=== PATIENT | female | born 1935 | race Caucasian/White ===

== ENCOUNTER 2023-09-15 22:01 | Inpatient (IN) | payer OTHER, SELFPAY ==
[2023-09-15] VITALS (7 sets, daily range): BP systolic 128–153; BP diastolic 68–85; BMI 26.7; BMI 26.6
--- NOTE | 2023-09-15 19:12 | ED.GENMED ---
History of Present Illness
General
Chief Complaint: Breathing Problem
Source: patient and ambulance crew
Exam Limitations: none
Time Seen by Provider: 09/15/23 18:55
Nursing documentation reviewed up to this point in time: agreed with
Travel History
Have you had any contact with someone who has COVID-19?: No
Do you have any symptoms of coronavirus? Fever > 100 degrees, chills, cough, shortness of breath, sore throat, loss of taste or smell, muscle aches, or headache?: No
History of Present Illness
History of Present Illness:
87-year-old female presents emergency room due to shortness of breath. EMS gave DuoNeb placed on nonrebreather. Oxygen saturation in the 80s on room air upon EMS arrival. Patient coming from home.
Past History
Past History
ED Past Medical History: Arrthythmia (Atrial fibrillation), Asthma, CHF, HTN, Hypercholesterolemia and Other (MAXIM, SBO with perf. )
ED Past Surgical History: Cholecystectomy and Gynecological
Social History
Tobacco: Non-smoker
Drug: None
Personal:
Living: with family
Family History
Family History: Other (No significant)
Review of Systems
Review of Systems
Allergies reviewed?: Yes
All Other Systems: Not applicable
Constitutional: Reports no symptoms; Denies fever
EENT: Reports no symptoms
Respiratory: Reports cough and trouble breathing
Cardiac: Reports no symptoms; Denies chest pain
ABD/GI: Reports no symptoms
: Reports no symptoms
Musculoskeletal: Reports no symptoms
Skin: Reports no symptoms
Neurological: Reports no symptoms
Endocrine: Reports no symptoms
Hematologic/Lymphatic: Reports no symptoms
Psychiatric: Reports no symptoms
Phy Exam
Physical Exam
Physical Exam:
Physical Exam
General: Moderate respiratory distress, afebrile
Neck: supple. no meningeal signs. normal posterior pharynx
Heart: s1/s2 regular rate and rhythm, no murmur. equal radial
pulses.
HEENT: Pupils equal round reactive to light, EOMI
Lungs: Moderate respiratory distress. Decreased breath sounds and wheezing bilaterally
Abdomen: normal bowel sounds. not tender. no CVAT
Neuro: alert and oriented. no focal neurological deficits cranial nerves II through XII intact
Skin: no rash
Psychiatric: well kept. interactive and cooperative
Extremities: no edema. no calf tenderness. negative homans. good distal pulses
Scores
Heart Failure Risk
Heart Failure Risk Score: Yes
History of Stroke or TIA: No
History of intubation for respiratory distress: No
Heart rate on ED arrival >/= 110: No
SaO2 <90% on arrival on room air: Yes
HR >/=110 during 3min walk test (or too ill to perform test): No
ECG has acute ischemic changes: No
Urea >/=12mmol/L (BUN 33.6mg/dL): No
Serum CO2>/=35mmol/L: No
Troponin I or T elevated to IA Level (0.4mg/dL): No
NT-proBNP >/=5,000ng/L (5,000pg/ml): No
HF Risk Score: 1
Admission Status: MEDIUM RISK 5.1% Consider observation or discharge to home with homecare & f/u visit to PCP/Manager Card, or SNF for treatment
Course
Orders/Labs/Results
Orders:
Orders
09/15/23 Breakfast
Cholesterol Lowering
Cholesterol Lowering: Sodium, 2 Gram
09/15/23 Dinner
Sodium, 2 Gram
At Your Request: Limited Participation
09/15/23 19:07
Cardiac Monitoring- Treatment ONCE
IV Insert/Care/Rem.- Treatment PRN
Ipratropium/Albuterol Sulfate [Duoneb] 3 ml INH R NOW STA
09/15/23 19:10
Electrocardiogram (*1) Stat
Reason for Study: Other
Other Reason for Exam: pneumonia
EKG- Treatment ONCE
09/15/23 19:11
CR Chest Portable - 1 View Urgent
Comment:
Reason For Exam: short of breath
Reason Study Needs to be Portable: Patient Unstable
09/15/23 19:13
Dexamethasone Sod Phosphate [Decadron] 10 mg IV NOW STA
09/15/23 19:25
Complete Blood Count/With Diff Urgent
Comprehensive Metabolic Panel Urgent
NT-proBNP Urgent
Troponin I Urgent
09/15/23 20:36
Furosemide [Lasix] 40 mg IV NOW STA
09/15/23 20:58
Admit/Transfer Patient As Directed
Co-Sign Provider:
Level of Care: Inpatient admission
Assign to:: IMU- Intermediate Care
Physician / Group: Hospitalist
Diagnosis: Congestive Heart Failure
Reason for Hospitalization: Acute heart failure
Expected length of stay greater than two midnights?: Yes
ELOS- Estimated Length of Stay in days: 2
I certify the patient meets the requirements for IP care: Yes
09/15/23 21:00
Code Status As Directed
Resuscitation Status: Full Code
09/15/23 22:47
Acetaminophen [Tylenol] 650 mg PO Q6HPRN PRN
Ipratropium/Albuterol Sulfate [Duoneb] 3 ml INH R Q4HPRN PRN
09/15/23 22:47
HF DIETARY CONSULT Routine
HF EDUCATOR CONSULT Routine
Comment:
VTE Contraindication Routine
VTE Mechanical Device Contraindication: Medical Contraindication
Pharmocologic Contraindication: Medical Contraindication
Activity As Directed
Activity Level: With Assistance
Intake/ Output As Directed
Frequency: Per unit guidelines
Intake/ Output As Directed
Frequency: Per unit guidelines
Patient Education As Directed
Type: CHF folder
Comment: give on admission. Document in Interdisciplinary Education record
Sleep Apnea Assessment by RN As Directed
Comment:
Physician Instructions:
Vital Signs As Directed
Frequency: Other
Additional Instructions:: Q12 or per unit guidelines if more frequent.
Weight As Directed
Frequency: Daily
Type of Scale: Standing Scale
Comment: Daily morning weight. If unable to stand, use balanced bed scale.
Weight As Directed
Frequency: Once
Type of Scale: Standing Scale
Comment: Upon Admission. If unable to stand, use balanced bed scale.
Copd Education [RESP] Routine
Cpap [RESP] Routine
Patient to use own unit?: Yes
Set Pressure (cm H2O): 5
Oxygen Liter Flow: 2 - 4 L
Instructions: Adjust per patient comfort and respiratory rate
Oxygen Therapy [O2 Therapy] [RESP] Routine
Nasal Cannula Liter Flow: 2 LPM
Titrate/Wean O2 to maintain O2 sat greater than (%): 93
Pulse Ox/cont/shift [RESP] Routine
Quantity: 1
Special Instructions: Daily pulse oximetry at rest. If greater than 92% at rest also obtain pulse oximetry
while ambulating as tolerated.
09/16/23 06:00
Echo 2D MMode Color/Doppler IN AM
Reason for Study: heart failure
Basic Metabolic Panel IN AM
Cardiovascular Evaluation IN AM
Complete Blood Count/No Diff IN AM
TSH Reflex To Free T4 IN AM
09/16/23 08:00
Apixaban [Eliquis] 5 mg PO BID
Buspirone [Buspar] 10 mg PO BID
Cholecalciferol (Vitamin D3) [VITAMIN D3 (cholecalciferol)] 50 mcg PO DAILY
Diltiazem Extended Release [Cardizem Cd] 120 mg PO BID
Escitalopram Oxalate [Lexapro] 20 mg PO DAILY
Fluticasone/Salmeterol 115/21 [Advair Hfa 115/21 Mcg Inhaler] 2 puff INH R BID
Furosemide [Lasix] 40 mg IV BID AT 0800,1600
Ipratropium/Albuterol Sulfate [Duoneb] 3 ml INH R QID
Loratadine [Claritin] 10 mg PO DAILY
Losartan [Cozaar] 25 mg PO DAILY
Pantoprazole [Protonix] 40 mg PO DAILY
Prednisone [Deltasone] 40 mg PO DAILY
ipratropium bromide 0 spray NASAL BID
09/17/23 06:00
Basic Metabolic Panel IN AM
09/17/23 20:00
Rosuvastatin Calcium [Crestor] 5 mg PO MOWEFR@1999
09/18/23 06:00
Basic Metabolic Panel IN AM
Abnormal Lab Results
09/15/23
19:25
RBC 3.85 L 10^6/uL
(4.20-5.40)
Hgb 11.3 L g/dL
(12.0-16.0)
Hct 33.2 L %
(37.0-47.0)
MPV 10.9 H fL
(7.4-10.4)
Absolute Lymphs (auto) 0.9 L 10^3/uL
(1.2-3.4)
Neutrophils % 77.5 H %
(42.2-75.2)
Lymphocytes % 11.4 L %
(20.5-51.1)
Glucose 109 H mg/dl
(70-99)
09/15/23 19:25
09/15/23 19:25
Vital Signs
Initial and Last Documented VS:
Initial Vital Signs
Pulse Ox
100
09/15/23 18:54
Last Documented Vital Signs
Temp Pulse Resp BP Pulse Ox
98.6 F 73 30 151/71 92
09/15/23 23:00 09/15/23 22:50 09/15/23 22:50 09/15/23 22:00 09/15/23 22:30
MDM/Problems Addressed
Differential Diagnosis Includes:
CHF, COPD, asthma, pneumonia
MDM/Problems Addressed:
87-year-old female with COPD exacerbation, CHF exacerbation. Admit to hospitalist. No signs of pneumonia. IV Lasix, Decadron given.
Chronic conditions affecting care: Cardiomyopathy, COPD and Other (CHF)
Acute Exacerbation and/or Progression of Chronic Illness: Cardiomyopathy, COPD and Other (CHF)
*Radiology
Radiology exam reviewed: radiology read reviewed (Chest x-ray shows pleural effusion, interstitial edema)
*Pulse Oximetry
Patient hypoxic: yes
*EKG
Interpreted by ED Provider?: Yes
EKG Intrepretation Date: 09/15/23
EKG Intrepretation Time: 19:45
Interpretation: abnormal
Comparison EKG: changes noted
Heart Rate: 70
Rate: normal
Rhythm: ventricular paced
[place]: normal axis
Interval: normal interval
QRS Pattern: left bundle branch block
Ischemia: no ischemia
*Electrical Electronics Engineer Interpretation
Rate: normal
Interpretation: abnormal
Heart Rate: 70
Rhythm: ventricular paced
*Critical Care Note
Total Time (30-74mins, 75-104mins- exclusive of procedures): Not Applicable
Data Reviewed
Review of Other/Old Records Reveals: Records
Source: records (prior admit for SBO 06/07/23)
Patient Management
Social determinants of health affecting care: Living situation and Strong social support
Discussion with other providers: Hospitalist
Escalation/DeEscalation of care consider admission/obs:
admit indicated
ED Attending Note
-
Portions of this chart may have been created with voice recognition software.� Occasional wrong word or��sound alike� substitutions may have occurred due to the inherent limitations of voice recognition software.
Discharge Plan
Departure
Patient Disposition: Admit
Date of Disposition: 09/15/23
Time of Disposition: 20:37
Admit to: Telemetry
Presentation/result/management discussed w/ accepting MD/DO: Hospitalist
Patient with high blood pressure during this ER visit?: Yes
Condition: Fair
Discharge Problem:
Acute exacerbation of CHF (congestive heart failure), Asthma exacerbation
Interventions
Interventions:
*Risk Screen - Suicide Last Done: 09/15/23 19:02
*General Assessment Last Done: 09/15/23 19:02
*Neglect/Abuse Screening Last Done: 09/15/23 19:02
ED- Fall Risk Assessment Last Done: 09/15/23 19:02
*ED COVID-19 Vaccine History Last Done: 09/15/23 19:02
*Nursing Disposition Last Done: 09/15/23 22:55
ED- Cardiac Assessment Last Done: 09/15/23 19:02
ED- Pulmonary Assessment Last Done: 09/15/23 19:02
Discharge Date and Time
Discharge Date/Time: 09/15/23 22:56
[2023-09-15] MEDS: DECADRON 10 MG IV (19:29)
[2023-09-15] MEDS: DUONEB 3 ML INH (19:30)
[2023-09-15 19:33] LABS: % Basophils 0.8 % (0-2); % Eosinophils 2.8 % (0-6); % Immature Granulocytes 0.4 % (0-0.5); % Lymphocytes 11.4 % (20.5-51.1); % Monocytes 7.1 % (1.7-9.3); % Neutrophils 77.5 % (42.2-75.2); Absolute Basophils 0.1 10^3/uL (0-0.2); Absolute Eosinophils 0.2 10^3/uL (0-0.7); Absolute Lymphocytes 0.9 10^3/uL (1.2-3.4); Absolute Monocytes 0.6 10^3/uL (0.1-0.6); Hematocrit 33.2 % (37.0-47.0); Hemoglobin 11.3 g/dL (12.0-16.0); Mean Corpuscular Hgb 29.4 pg (27.0-31.0); Mean Corpuscular Volume 86.2 fL (81.0-99.0); Mean Platelet Volume 10.9 fL (7.4-10.4); Nucleated Red Blood Cells % 0 %; Platelet Count 241 10^3/uL (130-400); Red Blood Cell Count 3.85 10^6/uL (4.20-5.40); Red Cell Dist. Width 14.2 % (11.5-14.5); White Blood Cell Count 7.7 10^3/uL (4.8-10.8)
[2023-09-15 19:48] LABS: ALT (SGPT) 23 U/L (0-35); AST (SGOT) 32 U/L (14-36); Albumin 3.8 g/dl (3.5-5.0); Alkaline Phosphatase 61 U/L (38-126); Blood Urea Nitrogen 13 mg/dl (7-17); Calcium 9.1 mg/dl (8.4-10.2); Carbon Dioxide 26 mmol/L (22-30); Chloride 105 mmol/L (98-107); Estimated Creatinine Clearance 56 ml/min; Glucose 109 mg/dl (70-99); Potassium 3.5 mmol/L (3.5-5.1); Sodium 141 mmol/L (135-145); Total Bilirubin 0.8 mg/dl (0.2-1.3); Total Protein 6.3 g/dl (6.3-8.2); eGFR > 60.00
[2023-09-15 19:58] LABS: NT-proBNP 4630 pg/ml; Troponin I 0.015 ng/ml
[2023-09-15] MEDS: LASIX 40 MG IV (20:54)
--- NOTE | 2023-09-15 21:12 | HPS.HSE ---
Family Physician
-
Family Physician: NO INTERVIEW UNKNOWN
Chief Complaint
-
Shortness of breath
History of Present Illness
This is 87-year-old female with past medical history of persistent atrial fibrillation on anticoagulation, heart block status post PPM, history of CHF with preserved EF prior exacerbation, history of asthma/COPD (no history of smoking tobacco), MAXIM,
pulmonary hypertension presenting with mostly shortness of breath.
History provided by patient somewhat reliably. She reports shortness of breath that is worse with laying down. Family reports that she had bilateral lower extremity swelling a few weeks ago while she was at rehab and was treated with increased
dose of Lasix to 40 mg daily. However this was later decreased back down to 20 mg prior to being discharged home. Upon arrival at home patient started noticing shortness of breath. Family denies any audible wheezing. They denied any productive
cough. They denied any significant cough otherwise. Has been no fevers or chills. She denies having chest pain palpitations lightheadedness or dizziness. She did not notice any increased lower extremity swelling. She has been compliant with
Eliquis and denies having any calf pain. No known sick contacts. No recent travels.
On EMS arrival she was hypoxic to the mid 80s on room air and placed on supplemental nasal cannula. On arrival to ED she was afebrile, blood pressure was stable at 141/75, pulse was 78 but she was tachypneic to the mid 20s. ECG shows a
ventricularly paced rhythm at 70 otherwise unchanged from prior. Chest x-ray shows bilateral pleural effusions, bilateral interstitial edema. Troponin was negative. BNP was elevated at 4000. Chemistries were unremarkable. CBC also unremarkable.
Last echo showed preserved EF of 55 to 60% with LVH.
Medical History
Past Medical History
Past Medical History: Reports Arrhythmia, Asthma, CHF and HTN
Additional Past Medical History:
pulmonary hypertension
PDA repaired at age 15
Past Surgical History: Reports Bowel Resection
Social History
Tobacco: Non-smoker
Alcohol: None
Drug: None
Personal:
Living: With Family
Employment: Retired
Family History
Family History: Not pertinent
Allergies / Home Medications
Allergies reflects when Allergies were last updated in [facility].
Home Medications with original date entered in [facility]
Allergy/Medication List:
Allergies
Allergy/AdvReac Type Severity Reaction Status Date / Time
codeine Allergy Unknown Verified 07/07/23 03:36
latex Allergy Itching Verified 09/15/23 19:09
meperidine HCl [From Demerol] Allergy Unknown Verified 07/07/23 03:36
morphine Allergy Unknown Verified 07/07/23 03:36
Penicillins Allergy Unknown Verified 07/07/23 03:36
vancomycin Allergy Unknown Verified 07/07/23 03:36
Home Medications
rosuvastatin 5 mg tablet 5 mg PO MOWEFR@2000 High cholesterol 07/29/17
apixaban 5 mg tablet (Eliquis) 5 mg PO BID Blood clot prevention/tx 07/30/17
diltiazem HCl 120 mg capsule,extended release 24 hr 120 mg PO BID Heart disease/condition 01/18/21
losartan 25 mg tablet 25 mg PO DAILY Blood pressure 01/18/21
cholecalciferol (vitamin D3) 50 mcg (2,000 unit) tablet 2,000 units PO DAILY Supplement 03/25/21
escitalopram oxalate 20 mg tablet 20 mg PO DAILY Mental Health/Anxiety 03/25/21
ipratropium bromide 42 mcg (0.06 %) nasal spray 2 spray intranasal BID Allergies 03/25/21
fexofenadine 60 mg tablet 90 mg PO DAILY Allergies 01/02/23
fluticasone 250 mcg-salmeterol 50 mcg/dose blistr powdr for inhalation (Advair Diskus) 1 inh inhalation R BID ASTHMA 01/02/23
buspirone 10 mg tablet 10 mg PO BID Mental Health/Anxiety 05/24/23
acetaminophen 325 mg tablet 650 mg PO Q6HPRN PRN mild pain/ fever>100.5F #0 tabs 06/11/23
furosemide 40 mg tablet 40 mg PO DAILY Fluid retention/Swelling #30 tabs 06/11/23
pantoprazole 40 mg tablet,delayed release 40 mg PO PRN PRN GI issues 09/15/23
Review of Systems
-
History Source: Patient
Constitutional: Reports No Symptoms
EENT: Reports No Symptoms
Respiratory: Reports Trouble Breathing
Cardiac: Reports No Symptoms
Abdomen/GI: Reports No Symptoms
: Reports No Symptoms
Musculoskeletal: Reports No Symptoms
Skin: Reports No Symptoms
Neurological: Reports No Symptoms
Endocrine: Reports No Symptoms
Hematologic/Lymphatic: Reports No Symptoms
Psych: Reports Anxiety
Physical Exam
Vital Signs
Vital Signs
Temp Pulse Resp BP Pulse Ox
98.6 F 70 28 139/80 95
09/15/23 19:02 09/15/23 20:54 09/15/23 20:45 09/15/23 20:54 09/15/23 20:45
Physical Exam
General: Respiratory Distress
HEENT: NormoCephalic, Anicteric, Moist mucous membranes, Atraumatic, PERRLA and Oxygen
Respiratory: Crackles
Cardiac: S1/S2, Regular Rhythm and JVD
Breast: Deferred by me
GI: Soft, Non Tender and Distended
Rectal: Deferred by Provider
Genito-urinary: Deferred by me
Musculoskeletal: No Clubbing, No Cyanosis and No Edema
Skin: Dry
Neuro: AO x 3
Hematologic/Lymphatic: No Lymphadenopathy
Psych: Calm
Laboratory Results
-
09/15/23 19:25
09/15/23 19:25
Laboratory Results
Total Bilirubin 0.8 mg/dl (0.2-1.3) 09/15/23 19:25
AST 32 U/L (14-36) 09/15/23 19:25
ALT 23 U/L (0-35) 09/15/23 19:25
Alkaline Phosphatase 61 U/L (38-126) 09/15/23 19:25
Troponin I 0.015 ng/ml 09/15/23 19:25
Data Reviewed
-
Diagnostic Radiology: Image Personally Visualized and interpreted and Report Reviewed by me
Medical Tests (Nuc Med, Echo, EKG etc): Image Personally Visualized and interpreted
Lab Data: Labs Reviewed by me
Old Records: Reviewed
Impression/Plan
-
IMPRESSION:
87 Female with history of CHF w/ preserved EF, LVH and pulm HTN, history of asthma/copd and MAXIM, HTN and HLD presenting with SOB and found to be hypoxic. Lung exam with bilateral crackles to mid-lungs more notable on the right. Xray with
interstitial edema, bilateral pleural effusions and cardiomegally. ECG V paced and unchanged. Trop normal. BNP elevated. Oxygenation well on 2 L but remains tachypneic with notable work of breathing. Suspect CHF exacerbation per findings.
Unlikely PE given continued use of anticoagulation for AFIB. Moving air well, no significant wheezing for me to suggest significant asthma exacerbation.
PLAN:
1. Hypoxia/CHF exacerbation - CHF with preserved EF, last echo over 1 year ago w/ EF of 55-60%. Pulmonary hypertension. Was on lasix at home chronically but has not been able to follow daily weights. Normal troponin and no chest pain suggestive
fo acute coronary events. Paced rhythm at 70 suggestive of normal pacing activity. Unclear etiology of acute exacerbation. No signs of acute infection.
- admit to IMU given work of breathing.
- lasix 40mg IV q 12 for now
- monitor i/os and daily weights for now
- echo, tsh fT4 in am
- continue losartan
2. Asthma - Lung exam with mostly crackles. No wheezes, no significant tightness. Still with high wob cannot rule out exacerbation. Asthma diagnosed as adult. No smoking history.
- albuterol/ipratropium q4h prn
- prednisone 40mg daily
- continue advair per home regimen
- no indications for abx
3. AFIB - permanent afib s/p PPM for heart block. Rate 70, V paced rhythm.
- continue diltiazem
- continue apixaban
4. MAXIM
- CPAP HS
DVT PPX - on apixaban for afib
Code status - Full Code
[2023-09-16] VITALS (12 sets, daily range): BP systolic 96–132; BP diastolic 26–94; PULSE 80; BMI 26.6; BMI 25.6
[2023-09-16] MEDS: AMBIEN 5 MG PO ×2 (00:28→21:49)
--- NOTE | 2023-09-16 01:15 | RESPNOTE ---
PT is ordered CPAP for Hs use and I attempted to place her on it. The PT refused and I explained to her that it is an important part of her health needs. She refused a second time and the machine was placed on STBY at the PT'S BS. The PT was
placed back on a 5L nasal cannula. Will attempt placement again tonight.
--- NOTE | 2023-09-16 02:08 | PTCARENOTE ---
Received pt from ED via stretcher. Pt AAOx3 but appears to be forgetful - confirmed by her that she has been increasingly more forgetful lately. Pulse ox 97% on arrival; tachypneic in the mid 20s - low 30s. Lungs CTA but diminished
throughout. No edema noted. Pt talks at a very low volume like a whisper and states that this is new within the last 6 months. Speech eval requested because pt began coughing while drinking water; says this has been happening as of late.
Colostomy bag/dressing C/D/I and empty. Pt resting comfortably in bed with call lopes in reach. Bed alarm on.
[2023-09-16 05:25] LABS: Hematocrit 32.9 % (37.0-47.0); Hemoglobin 11.2 g/dL (12.0-16.0); Mean Corpuscular Hgb 29.2 pg (27.0-31.0); Mean Corpuscular Volume 85.9 fL (81.0-99.0); Mean Platelet Volume 10.9 fL (7.4-10.4); Platelet Count 258 10^3/uL (130-400); Red Blood Cell Count 3.83 10^6/uL (4.20-5.40); White Blood Cell Count 3.8 10^3/uL (4.8-10.8)
[2023-09-16 05:51] LABS: Blood Urea Nitrogen 13 mg/dl (7-17); Calcium 8.9 mg/dl (8.4-10.2); Carbon Dioxide 23 mmol/L (22-30); Chloride 106 mmol/L (98-107); Estimated Creatinine Clearance 56 ml/min; Glucose 132 mg/dl (70-99); HDL Cholesterol 41 mg/dl; LDL Cholesterol, Calculated 96 mg/dl; Potassium 3.6 mmol/L (3.5-5.1); Sodium 137 mmol/L (135-145); Total Cholesterol 149 mg/dl (50-199); Triglyceride 61 mg/dl (10-149); Very Low Density Lipoprotein 12 mg/dl (0-30); eGFR > 60.00
[2023-09-16 06:21] LABS: TSH Reflex To Free T4 0.57 uIU/ml (0.47-4.68)
[2023-09-16] MEDS: ADVAIR HFA 115/21 MCG INHALER 2 PUFF INH ×2 (08:11→19:43)
[2023-09-16] MEDS: DUONEB 3 ML INH ×4 (08:11→19:43)
[2023-09-16] MEDS: ELIQUIS 5 MG PO ×2 (08:52→20:04)
[2023-09-16] MEDS: CARDIZEM CD 120 MG PO ×2 (08:52→20:03)
[2023-09-16] MEDS: LEXAPRO 20 MG PO (08:53)
[2023-09-16] MEDS: BUSPAR 10 MG PO ×2 (08:54→20:03)
[2023-09-16] MEDS: DELTASONE 40 MG PO (08:55)
[2023-09-16] MEDS: COZAAR 25 MG PO (08:55)
[2023-09-16] MEDS: PROTONIX 40 MG PO (08:55)
[2023-09-16] MEDS: CLARITIN 10 MG PO (08:55)
[2023-09-16] MEDS: LASIX 40 MG IV (08:56)
[2023-09-16] MEDS: FLUSH (NSS) 1 FLUSH IV (08:57)
[2023-09-16] MEDS: VITAMIN D3 (cholecalciferol) 50 MCG PO (10:45)
--- NOTE | 2023-09-16 13:46 | CM ---
manager personal reviewed patient's chart and met with patient and patient lives with her spouse in a 2 story home, patient has a 1st floor set up with bed and bathroom, patient is independent with adl's and uses a walker with ambulation. Patient is
currently requiring 5 liters of oxygen and patient did not require oxygen prior to admission. Patient has a prescription plan and uses [facility].
PCP: Dr. Saucead.
Plan; To follow with patient progress, possible oxygen needs and see how patient does with PT/OT and assist with discharge planning for patient.
--- NOTE | 2023-09-16 15:56 | W.PN.HOSP.TC ---
Today's Communication/Plan
-
Please see below
Assessment / Plan
Assessment / Plan
Physical Exam
General: Respiratory Distress
HEENT: Normocephalic, Anicteric, Moist mucous membranes, Atraumatic, PERRLA and Oxygen
Respiratory: Crackles
Cardiac: S1/S2, Regular Rhythm and JVD
Breast: Deferred by me
GI: Soft, Non Tender and Distended
Rectal: Deferred by Provider
Genito-urinary: Deferred by me
Musculoskeletal: No Clubbing, No Cyanosis and No Edema
Skin: Dry
Neuro: AAO x 3
Hematologic/Lymphatic: No Lymphadenopathy
Psych: Calm

IMPRESSION
87 Female with history of CHF w/ preserved EF, LVH and pulm HTN, history of asthma/copd and MAXIM, HTN and HLD presenting with SOB and found to be hypoxic.� Lung exam with bilateral crackles to mid-lungs more notable on the right.� Xray with
interstitial edema, bilateral pleural effusions and cardiomegally.� ECG� V paced and unchanged.� Trop normal.� BNP elevated.� Oxygenation well on 2 L but remains tachypneic with notable work of breathing.� Suspect CHF exacerbation per findings.�
Unlikely PE given continued use of anticoagulation for AFIB.� Moving air well, no significant wheezing for me to suggest significant asthma exacerbation.�
PLAN
1. Hypoxia/CHF exacerbation - CHF with preserved EF, last echo over 1 year ago w/ EF of 55-60%.� Pulmonary hypertension.� Was on Lasix at home chronically but has not been able to follow daily weights.� Normal troponin and no chest pain suggestive
fo acute coronary events.� Paced rhythm at 70 suggestive of normal pacing activity.� Unclear etiology of acute exacerbation.� No signs of acute infection.
- admit to IMU given work of breathing.
- continue lasix 40mg IV q 12
- monitor i/os and daily weights for now
- echo
- tsh 0.57
- continue losartan
- Cardiology consulted, recommendations appreciated
2. Asthma - Lung exam with mostly crackles.� No wheezes, no significant tightness.� Still with high wob cannot rule out exacerbation.� Asthma diagnosed as adult.� No smoking history.
- albuterol/ipratropium q4h prn
- prednisone 40mg daily (not on steroids at home)
- continue advair per home regimen
- no indications for abx
- consider pulmonary consultation
3. 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
- continue diltiazem
- continue apixaban
4. MAXIM
- CPAP HS
5. History of Colostomy Placement
-On September 16, 2023, patient reported pain right at the stoma site, with hard stools in the stoma, was causing discomfort
-Consulted Surgery (no one on-call for colorectal surgery), recommendations appreciated
-Consulted GI, recommendations appreciated
DVT PPX - on apixaban for afib
Code status - Full Code
Anticipated Discharge: > 48 hours
Subjective/Interval History
-
Date of Service: September 16, 2023
Patient was seen and examined. In the morning she reported her shortness of breath has not improved, in the afternoon per patient's nurse said patient was complaining of pain right at the stoma site with a couple of rock hard stools in there and
that was causing her discomfort.
Objective Data
-
Labs:
Laboratory Results
09/16/23
05:06
WBC 3.8 L
Hgb 11.2 L
Hct 32.9 L
Plt Count 258
Sodium 137
Potassium 3.6
Chloride 106
Carbon Dioxide 23
BUN 13
Creatinine 0.6
Glucose 132 H
Calcium 8.9
Vital Signs:
Vital Signs
Temp Pulse Resp BP Pulse Ox
98.1 F 73 33 132/94 95
09/16/23 11:45 09/16/23 12:14 09/16/23 12:14 09/16/23 08:00 09/16/23 12:14
I&O
09/15/23 09/16/23 09/17/23
06:59 06:59 06:59
Output Total 1550 / 1550 850 / 850
Balance -1550 / -1550 -850 / -850
--- NOTE | 2023-09-16 16:29 | CON.CAR ---
Consultation
Consultation Request
Date/Time Consultation Requested: September 16, 2023 3:30 PM
Date/Time Consultation Performed: September 16, 2023 4:30 PM
Requesting Provider: Hospitalist
Performing Provider: Basilio Graf
Reason for Consultation: Heart failure
Medical History
-
Chief Complaint: Shortness of breath
History of Present Illness:
87-year-old female with past medical history of atrial fibrillation on anticoagulation, heart block status post permanent pacemaker, heart failure preserved ejection fraction, asthma/COPD, MAXIM, and pulmonary hypertension who is presenting with
shortness of breath. Patient is accompanied by and daughter at bedside who help provide interval history. She was reportedly at rehab a few weeks ago where she developed some fluid overload. They had increased her Lasix to 40 mg daily and
then decrease it to 20 mg daily upon discharge. Unfortunately, since about Sunday she has become more short of breath. Her family has also noticed some swelling in her ankles. Because the shortness of breath continued to get worse on Sunday
they decided to bring her into the emergency room.
She was started on Lasix 40 mg IV twice daily and she has diuresed. Her current weight is approximately 131 pounds and she tells me she normally weighs approximately 142 pounds. She also is having constipation and abdominal pain and I wonder if
this is possibly contributing to her shortness of breath.
Past Medical History
Past Medical History: Other (atrial fibrillation on anticoagulation, PDA repair at age 15, heart block status post permanent pacemaker, heart failure preserved ejection fraction, asthma/COPD, MAXIM, and pulmonary hypertension)
Past Surgical History: Other (Bowel resection with ostomy)
Social History
Tobacco: Non-Smoker
Alcohol: None
Drug: None
Personal:
Living: With Family
Family History
Family History: Reviewed & Not Pertinent
Allergies / Home Medications
Allergy/AdvReac Type Severity Reaction Status Date / Time
codeine Allergy Unknown Verified 07/07/23 03:36
latex Allergy Itching Verified 09/15/23 19:09
meperidine HCl [From Demerol] Allergy Unknown Verified 07/07/23 03:36
morphine Allergy Unknown Verified 07/07/23 03:36
Penicillins Allergy Unknown Verified 07/07/23 03:36
vancomycin Allergy Unknown Verified 07/07/23 03:36
Medication Instructions Recorded Confirmed Type
rosuvastatin 5 mg tablet 5 mg PO MOWEFR@2000 High 07/29/17 09/15/23 History
cholesterol
apixaban 5 mg tablet (Eliquis) 5 mg PO BID Blood clot 07/30/17 09/15/23 History
prevention/tx
diltiazem HCl 120 mg 120 mg PO BID Heart 01/18/21 09/15/23 History
capsule,extended release 24 hr disease/condition
losartan 25 mg tablet 25 mg PO DAILY Blood pressure 01/18/21 09/15/23 History
cholecalciferol (vitamin D3) 50 2,000 units PO DAILY Supplement 03/25/21 09/15/23 History
mcg (2,000 unit) tablet
escitalopram oxalate 20 mg tablet 20 mg PO DAILY Mental 03/25/21 09/15/23 History
Health/Anxiety
ipratropium bromide 42 mcg (0.06 2 spray intranasal BID Allergies 03/25/21 09/15/23 History
%) nasal spray
fexofenadine 60 mg tablet 90 mg PO DAILY Allergies 01/02/23 09/15/23 History
fluticasone 250 mcg-salmeterol 50 1 inh inhalation R BID ASTHMA 01/02/23 09/15/23 History
mcg/dose blistr powdr for
inhalation (Advair Diskus)
buspirone 10 mg tablet 10 mg PO BID Mental Health/Anxiety 05/24/23 09/15/23 History
acetaminophen 325 mg tablet 650 mg PO Q6HPRN PRN mild pain/ 06/11/23 09/15/23 Rx
fever>100.5F #0 tabs
furosemide 40 mg tablet 40 mg PO DAILY Fluid 11/27/23 03/02/24 Rx
retention/Swelling #30 tabs
pantoprazole 40 mg tablet,delayed 40 mg PO PRN PRN GI issues 09/15/23 09/15/23 History
release
Review of Systems
-
All other systems: Negative unless noted
Physical Exam
Vital Signs
Temp Pulse Resp BP Pulse Ox
98.1 F 78 25 132/94 97
09/16/23 11:45 09/16/23 15:53 09/16/23 15:53 09/16/23 08:00 09/16/23 15:53
Lab Results
09/16/23 05:06
09/16/23 05:06
Troponin I 0.015 ng/ml 09/15/23 19:25
Lib-I-Azbjlybayxd Pept 4630 pg/ml 09/15/23 19:25
Physical Exam
General: Well Developed, No Apparent Distress and Other (Frail-appearing)
HEENT: Normocephalic and Anicteric
Respiratory: Clear and Non Labored Respirations
Cardiac: S1/S2 and Murmur (Soft systolic murmur)
GI: Soft and Tender
Musculoskeletal: No Edema
Skin: Warm and Dry
Neuro: AO x 3
Psych: Calm
Impression / Plan
-
87-year-old femalewith past medical history of atrial fibrillation on anticoagulation, heart block status post permanent pacemaker, heart failure preserved ejection fraction, asthma/COPD, MAXIM, and pulmonary hypertension who is presenting with
shortness of breath. She is here for an acute on chronic heart failure preserved ejection fraction exacerbation. OUTPATIENT CHILDREN LIBRARIAN:� Jose Mata MD�
Acute on chronic HFpEF exacerbation
-She currently appears euvolemic on exam and her weight is approximately 131 pounds she normally weighs 142 pounds per patient
-Transition to Lasix 40 mg daily
-Continue diltiazem and losartan
-Update echocardiogram
Valvular disease
-Mild to moderate MR mild to moderate AAS mild AI severe pulmonary hypertension
Pulmonary hypertension likely combination of group 2 and 3
Atrial fibrillation permanent
-Continue Dilt and apixaban
Hypertension
-Continue losartan and diltiazem
Hyperlipidemia continue Crestor
Constipation per primary
GERD
Asthma
Data Reviewed
-
EKG: Tracing Personally Visualized and interpreted
Medical Tests (Nuc Med, Echo etc): Report Reviewed by me
Labs: Labs Reviewed by me
[2023-09-16] MEDS: FLEET MINERAL OIL ENEMA 133 ML RECTAL (16:47)
[2023-09-16] MEDS: TYLENOL 650 MG PO (16:47)
[2023-09-16] MEDS: MIRALAX 17 GRAMS PO (16:48)
[2023-09-16] MEDS: COLACE 100 MG PO (16:48)
--- NOTE | 2023-09-16 16:59 | CON.GS ---
Addendum entered and electronically signed by Deniz Chang MD 09/17/23 08:57:
I saw and examined the patient independently.
The Web Application Developer's note was reviewed and I agree with the note, assessment and plan except where noted below.
Comment: This is an 87-year-old female known to the general surgery service had a previous Hima's procedure for stercoral colitis. Now with constipation for which general surgery was consulted. The stoma was irrigated with mineral oil with
positive output and air in the bag.
Will continue daily bowel regimen: MiraLAX and Colace daily.
Milk of magnesia x 1 dose today can repeat as needed
General surgery will sign off for now, please call with any questions or concerns.
Patient can follow-up as an outpatient with Dr. Agee as needed.
Original Note:
Consultation
-
Reason for Consultation: constipation/stoma pain
Medical History
-
Chief Complaint: pain near stoma
History of Present Illness:
This is an 87 yo female with a h/o afib on eliquis, HTN, CHF, pulmonary HTN, dementia, sarahy, ALEX who is known to our service from May of 2023 when she had a prolonged admission after presenting with a perforated bowel from stercoral colitis.
End colostomy was created that time and she was eventually discharged to rehab facility. She is a poor historian, but her and daughter are at bedside and offering history for her. She has only been home for about 4 days since May and
they have not yet followed up with surgery since she was discharged from rehab. She presents this admission with SOB and also notes that her stoma is uncomfortable. She has been passing some small, hard balls of stool. Her daughter notes that her
last good BM was a few days ago. Her abdomen is soft and non-tender. The stoma is pink, viable and patent.
Past Medical History
Past Medical History: Arrhythmias (afib on eliquis, pda repair at 15, CHB s/p PPM), CHF and Other (pulmonary htn, keven, dementia)
Past Surgical History: Bowel Resection (Ex lap with partial colectomy with end colostomy creation 05/2023 d/t perforated viscous/stercoral colitis)
Social History
Tobacco: Non-Smoker
Alcohol: None
Personal:
Living: With Family
Family History
Family History: Reviewed & Not Pertinent
Allergies / Home Medications
Allergy/AdvReac Type Severity Reaction Status Date / Time
codeine Allergy Unknown Verified 07/07/23 03:36
latex Allergy Itching Verified 09/15/23 19:09
meperidine HCl [From Demerol] Allergy Unknown Verified 07/07/23 03:36
morphine Allergy Unknown Verified 07/07/23 03:36
Penicillins Allergy Unknown Verified 07/07/23 03:36
vancomycin Allergy Unknown Verified 07/07/23 03:36
Medication Instructions Recorded Confirmed Type
rosuvastatin 5 mg tablet 5 mg PO MOWEFR@2000 High 07/29/17 09/15/23 History
cholesterol
apixaban 5 mg tablet (Eliquis) 5 mg PO BID Blood clot 07/30/17 09/15/23 History
prevention/tx
diltiazem HCl 120 mg 120 mg PO BID Heart 01/18/21 09/15/23 History
capsule,extended release 24 hr disease/condition
losartan 25 mg tablet 25 mg PO DAILY Blood pressure 01/18/21 09/15/23 History
cholecalciferol (vitamin D3) 50 2,000 units PO DAILY Supplement 03/25/21 09/15/23 History
mcg (2,000 unit) tablet
escitalopram oxalate 20 mg tablet 20 mg PO DAILY Mental 03/25/21 09/15/23 History
Health/Anxiety
ipratropium bromide 42 mcg (0.06 2 spray intranasal BID Allergies 03/25/21 09/15/23 History
%) nasal spray
fexofenadine 60 mg tablet 90 mg PO DAILY Allergies 01/02/23 09/15/23 History
fluticasone 250 mcg-salmeterol 50 1 inh inhalation R BID ASTHMA 01/02/23 09/15/23 History
mcg/dose blistr powdr for
inhalation (Advair Diskus)
buspirone 10 mg tablet 10 mg PO BID Mental Health/Anxiety 05/24/23 09/15/23 History
acetaminophen 325 mg tablet 650 mg PO Q6HPRN PRN mild pain/ 06/11/23 09/15/23 Rx
fever>100.5F #0 tabs
furosemide 40 mg tablet 40 mg PO DAILY Fluid 06/11/23 09/15/23 Rx
retention/Swelling #30 tabs
pantoprazole 40 mg tablet,delayed 40 mg PO PRN PRN GI issues 09/15/23 09/15/23 History
release
Review of Systems
-
Unable to obtain full review of systems at this time due to: Dementia
History Source: Patient and Family
All other systems: Negative unless noted
A 10 point review of systems was completed, and was negative except as per HPI.
Physical Exam
Vital Signs
Temp Pulse Resp BP Pulse Ox
98.1 F 78 25 132/94 97
09/16/23 11:45 09/16/23 15:53 09/16/23 15:53 09/16/23 08:00 09/16/23 15:53
09/15/23 09/16/23 09/17/23
06:59 06:59 06:59
Actual Weight 59.5 kg
Body Mass Index (BMI) 25.6
Lab Results
09/16/23 05:06
09/16/23 05:06
WBC 3.8 10^3/uL (4.8-10.8) L 09/16/23 05:06
Hgb 11.2 g/dL (12.0-16.0) L 09/16/23 05:06
Hct 32.9 % (37.0-47.0) L 09/16/23 05:06
Plt Count 258 10^3/uL (130-400) 09/16/23 05:06
Abs Immat Gran (auto) 0.0 10^3/uL (0-0.05) 09/15/23 19:25
Neutrophils % 77.5 % (42.2-75.2) H 09/15/23 19:25
Physical Exam
General: Well Developed, Well Nourished and No Apparent Distress
HEENT: Moist Mucous Membranes
Respiratory: Non Labored Respirations
GI: Soft, Non Tender, Non Distended and Other (Stoma pink, viable, patent. Small nuggets of stool in appliance. Passed flatus during exam.)
Skin: Warm and Dry
Neuro: Awake, Alert and AO x 3
Psych: Calm
Assessment / Plan
-
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 End
colostomy was created that time and she was eventually discharged to rehab facility. Seen in evaluation today for stoma discomfort likely d/t constipation. Abdominal exam benign, stoma pink, viable and patent. Digitized stoma at bedside without
impacted stool noted. Small, hard pieces of stool noted in appliance. Fleet enema was administered.
--Check KUB
--Continue local stoma care, reviewed with patient's family
--Start bowel regimen with Miralax daily, continue prn colace
--Medical care as per primary team
--- NOTE | 2023-09-16 17:30 | PTCARENOTE ---
Dr. Cannon notified regarding patient complaining of colostomy stoma pain. Patient found to have hard stools in bag. Orders obtained and surgery to room to see patient. Appliance changed at this time and bowel regimen started. Patient
breathing much better this afternoon. Patient on 5L of 02 with spo2 96%-98%. Patient very anxious and confused. Family states her confusion started last year and has been worse lately.
[2023-09-16 17:34] LABS: Troponin I 0.023 ng/ml
[2023-09-16] MEDS: LASIX IV (18:49)
[2023-09-17] VITALS (16 sets, daily range): BP systolic 93–126; BP diastolic 38–67; PULSE 71; O2SAT 96; BMI 25.1
--- NOTE | 2023-09-17 01:59 | PTCARENOTE ---
Pt has been very forgetful and anxious. After her family left she was asking repeatedly if her was ok. Asking where he was and also asking why she is here in the hospital. At one point, she was pointing to her colostomy and asked what it
was. She seems to not retain information for very long. We called her at his home and she was better after talking to him. She asks for a sleeping pill frequently even after reminder that she had one already. She will take her oxygen off
frequently and needs to be reminded to put it back on. She will desaturate to 86% on room air. She wore her CPap for about 3 hours and then took it off.
[2023-09-17 06:21] LABS: % Basophils 0.1 % (0-2); % Eosinophils 0.1 % (0-6); % Immature Granulocytes 0.3 % (0-0.5); % Lymphocytes 5.9 % (20.5-51.1); % Monocytes 6.9 % (1.7-9.3); % Neutrophils 86.7 % (42.2-75.2); Absolute Lymphocytes 0.5 10^3/uL (1.2-3.4); Absolute Monocytes 0.6 10^3/uL (0.1-0.6); Absolute Neutrophils 7.5 10^3/uL (1.4-6.5); Hematocrit 30.2 % (37.0-47.0); Hemoglobin 10.3 g/dL (12.0-16.0); Mean Corp Hgb Conc. 34.1 g/dL (33.0-37.0); Mean Corpuscular Hgb 29.5 pg (27.0-31.0); Mean Corpuscular Volume 86.5 fL (81.0-99.0); Nucleated Red Blood Cells % 0 %; Platelet Count 239 10^3/uL (130-400); Red Blood Cell Count 3.49 10^6/uL (4.20-5.40); White Blood Cell Count 8.6 10^3/uL (4.8-10.8)
[2023-09-17 06:41] LABS: Blood Urea Nitrogen 24 mg/dl (7-17); Calcium 9.2 mg/dl (8.4-10.2); Carbon Dioxide 28 mmol/L (22-30); Chloride 101 mmol/L (98-107); Estimated Creatinine Clearance 47 ml/min; Glucose 122 mg/dl (70-99); Potassium 3.2 mmol/L (3.5-5.1); Sodium 137 mmol/L (135-145); eGFR > 60.00
[2023-09-17] MEDS: ADVAIR HFA 115/21 MCG INHALER 2 PUFF INH ×2 (08:09→19:35)
[2023-09-17] MEDS: DUONEB 3 ML INH ×4 (08:09→19:36)
--- NOTE | 2023-09-17 08:17 | W.PN.CD ---
Today's Communication / Plan
-
PO lasix 40 daily
TTE pending
We will sign off please call with questions/concerns.
Impression / Plan
-
87-year-old femalewith past medical history of atrial fibrillation on anticoagulation, heart block status post permanent pacemaker, heart failure preserved ejection fraction, asthma/COPD, MAXIM, and pulmonary hypertension who is presenting with
shortness of breath. She is here for an acute on chronic heart failure preserved ejection fraction exacerbation. OUTPATIENT OFFICE AUDITOR:� Jose Mata MD�
Acute on chronic HFpEF exacerbation
-She currently appears euvolemic on exam and her weight is approximately 131 pounds she normally weighs 142 pounds per patient
-Lasix 40 mg daily
-Continue diltiazem and losartan
-Update echocardiogram
Valvular disease
-Mild to moderate MR mild to moderate AAS mild AI severe pulmonary hypertension
Pulmonary hypertension likely combination of group 2 and 3
Atrial fibrillation permanent
-Continue Dilt and apixaban
Hypertension
-Continue losartan and diltiazem
Hyperlipidemia continue Crestor
Constipation per primary
GERD
Asthma
Physical Exam
Vital Signs/Labs
Vital Signs
Temp Pulse Resp BP Pulse Ox
98.4 F 71 21 126/60 100
09/16/23 23:30 09/17/23 06:09 09/17/23 06:09 09/17/23 06:09 09/17/23 06:09
09/16/23 09/17/23 09/18/23
06:59 06:59 06:59
Actual Weight 131 lb 2.801 oz 128 lb 8.472 oz
09/17/23 06:06
09/17/23 06:06
Triglycerides 61 mg/dl (10-149) 09/16/23 05:06
LDL Cholesterol, Calc 96 mg/dl 09/16/23 05:06
VLDL Cholesterol, Calc 12 mg/dl (0-30) 09/16/23 05:06
HDL Cholesterol 41 mg/dl 09/16/23 05:06
09/15/23
19:25
Jys-X-Hcykthtxlgt Pept 4630
LAB Results
09/15/23 09/16/23 09/16/23
19:25 17:04 21:57
Troponin I 0.015 0.023 0.020
09/17/23
04:15
Troponin I Cancelled
Physical Exam
Constitutional: No acute distress
EENT: Anicteric
Cardiovascular: Rhythm & rate is regular
Respiratory: Respiratory effort normal and Lungs clear to auscul.
GI: Soft
Neuro/Psych: Alert and Oriented
Data Reviewed
-
Date of Service: September 17, 2023
EKG: Tracing Personally Visualized and interpreted
Labs: Labs Reviewed by me
--- NOTE | 2023-09-17 09:17 | W.PN.HOSP.TC ---
Today's Communication/Plan
-
Continue the prednisone. Continue with Lasix. Wean oxygen.
Transfer to telemetry.
Assessment / Plan
Assessment / Plan

IMPRESSION
87 Female with history of CHF w/ preserved EF, LVH and pulm HTN, history of asthma/copd and MAXIM, HTN and HLD presenting with SOB and found to be hypoxic.� Lung exam with bilateral crackles to mid-lungs more notable on the right.� Xray with
interstitial edema, bilateral pleural effusions and cardiomegally.� ECG� V paced and unchanged.� Trop normal.� BNP elevated.� Oxygenation well on 2 L but remains tachypneic with notable work of breathing.� Suspect CHF exacerbation per findings.�
Unlikely PE given continued use of anticoagulation for AFIB.� Moving air well, no significant wheezing for me to suggest significant asthma exacerbation.�
PLAN
1. Hypoxia/CHF exacerbation - CHF with preserved EF, last echo over 1 year ago w/ EF of 55-60%.� Pulmonary hypertension.� Was on Lasix at home chronically but has not been able to follow daily weights.� Normal troponin and no chest pain suggestive
fo acute coronary events.� Paced rhythm.� Unclear etiology of acute exacerbation.� No signs of acute infection.
-Improved weight through 128 pounds today. Lowest she has been recently. Seems euvolemic. Symptomatically as well improved. Lasix now switched to oral route. Echo pending.
-Improved oxygenation as well. Continue to wean.
- Cardiology consulted, recommendations appreciated
2. Asthma - No wheezes, no significant tightness.�Asthma diagnosed as adult.� No smoking history.
- albuterol/ipratropium q4h prn
- prednisone 40mg daily (not on steroids at home)
- continue advair per home regimen
- no indications for abx
-Continue with prednisone at 40 for today
3. 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
- continue diltiazem
- continue apixaban
4. MAXIM
- CPAP HS
5. History of Colostomy Placement
-On September 16, 2023, patient reported pain right at the stoma site, with hard stools in the stoma, was causing discomfort
-Consulted Surgery (no one on-call for colorectal surgery), recommendations appreciated
-Consulted GI, recommendations appreciated
6. Hypokalemia-replete
DVT PPX - on apixaban for afib
Code status - Full Code
Anticipated Discharge: 24 - 48 hours
Subjective/Interval History
-
Date of Service: September 17, 2023
Patient feels much improved with the breathing.
Denies chest pain.
Feels stuffy in the nose because of the oxygen.
She does not wear oxygen at home during the day but she has a CPAP machine at night.
Denies any cough.
Denies any phlegm.
No fever or chills.
Objective Data
-
Labs:
Laboratory Results
09/17/23
06:06
WBC 8.6
Hgb 10.3 L
Hct 30.2 L
Plt Count 239
Sodium 137
Potassium 3.2 L
Chloride 101
Carbon Dioxide 28
BUN 24 H
Creatinine 0.7
Glucose 122 H
Calcium 9.2
Vital Signs:
Vital Signs
Temp Pulse Resp BP Pulse Ox
98.4 F 71 21 126/60 100
09/17/23 07:38 09/17/23 06:09 09/17/23 06:09 09/17/23 06:09 09/17/23 06:09
I&O
09/16/23 09/17/23 09/18/23
06:59 06:59 06:59
Intake Total 120 / 120
Output Total 1550 / 1550 1680 / 1680
Balance -1550 / -1550 -1560 / -1560
Review of Systems
-
EENT: Denies Sore Throat
Abdomen/GI: Denies Abdominal Pain, Nausea or Vomiting
Neuro: Denies Dizzy
Physical Exam
-
General: No Apparent Distress
HEENT: Moist Mucous Membranes
Respiratory: Negative Wheezes or Crackles
Cardiac: S1/S2 and Irregular Rhythm (v placed on the monitor); Negative Tachycardic
GI: Soft and Nontender
Neuro: AO x 3
Psych: Calm
Data Reviewed
-
Labs: Labs Reviewed by me
[2023-09-17] MEDS: MIRALAX 17 GRAMS PO (10:20)
[2023-09-17] MEDS: VITAMIN D3 (cholecalciferol) 50 MCG PO (10:23)
[2023-09-17] MEDS: COZAAR 25 MG PO (10:23)
[2023-09-17] MEDS: KCL 40 MEQ PO (10:23)
[2023-09-17] MEDS: DELTASONE 40 MG PO (10:23)
[2023-09-17] MEDS: CLARITIN 10 MG PO (10:24)
[2023-09-17] MEDS: COLACE 100 MG PO ×2 (10:24→21:18)
[2023-09-17] MEDS: LEXAPRO 20 MG PO (10:24)
[2023-09-17] MEDS: PROTONIX 40 MG PO (10:24)
[2023-09-17] MEDS: BUSPAR 10 MG PO ×2 (10:24→21:18)
[2023-09-17] MEDS: LASIX 40 MG PO (10:24)
[2023-09-17] MEDS: ELIQUIS 5 MG PO (10:24)
[2023-09-17] MEDS: CARDIZEM CD 120 MG PO ×2 (10:24→21:18)
[2023-09-17] MEDS: MILK OF MAGNESIA 30 ML PO (11:41)
--- NOTE | 2023-09-17 15:40 | CM ---
CM met with pt, spouse and dtr bedside
SNF recommended and PAC provided
Pt in agreement and notes discharged last week from [facility]
Requesting a referral to [facility]. Back up referral also sent to [facility] as spouse is a ulysses
Referrals pending
Pt will need auth
Discharge Disposition- SNF pending auth
[2023-09-17] MEDS: ELIQUIS 2.5 MG PO (21:19)
[2023-09-17] MEDS: CRESTOR 5 MG PO (21:19)
--- NOTE | 2023-09-17 21:36 | PTCARENOTE ---
Received pt at shift change alert and cooperative. when giving her evening medications, she asked for her Ambien again. Explaine to pt that there was no order and pt wants 'whatever they can give me'. 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
[2023-09-17] MEDS: MELATONIN 3 MG PO (23:20)
[2023-09-18] VITALS (8 sets, daily range): BP systolic 96–128; BP diastolic 49–93; BMI 25.4
--- NOTE | 2023-09-18 01:20 | PTCARENOTE ---
Medicated with Melatonin and pt is trying to sleep. Took off Cpap mask after 45 min said it was too big, Resp therapist placed a nasal mask and pt took that off after 1 hour because 'it made noise'. Placed on nasal O2 til resp therapist can put
pt back on Cpap.
[2023-09-18 06:06] LABS: Blood Urea Nitrogen 25 mg/dl (7-17); Calcium 9.5 mg/dl (8.4-10.2); Carbon Dioxide 28 mmol/L (22-30); Chloride 102 mmol/L (98-107); Estimated Creatinine Clearance 37 ml/min; Glucose 120 mg/dl (70-99); Potassium 4.3 mmol/L (3.5-5.1); Sodium 139 mmol/L (135-145); eGFR > 60.00
[2023-09-18] MEDS: ADVAIR HFA 115/21 MCG INHALER 2 PUFF INH ×2 (07:48→19:31)
[2023-09-18] MEDS: DUONEB 3 ML INH ×4 (07:48→19:31)
[2023-09-18] MEDS: ELIQUIS 2.5 MG PO ×2 (08:21→20:59)
[2023-09-18] MEDS: PROTONIX 40 MG PO (08:21)
[2023-09-18] MEDS: COZAAR 25 MG PO (08:21)
[2023-09-18] MEDS: VITAMIN D3 (cholecalciferol) 50 MCG PO (08:22)
[2023-09-18] MEDS: BUSPAR 10 MG PO ×2 (08:23→20:59)
[2023-09-18] MEDS: LEXAPRO 20 MG PO (08:23)
[2023-09-18] MEDS: CLARITIN 10 MG PO (08:23)
[2023-09-18] MEDS: DELTASONE 40 MG PO (08:23)
[2023-09-18] MEDS: LASIX 40 MG PO (08:23)
[2023-09-18] MEDS: COLACE 100 MG PO ×2 (08:24→20:59)
[2023-09-18] MEDS: CARDIZEM CD 120 MG PO ×2 (08:24→20:59)
[2023-09-18] MEDS: MIRALAX 17 GRAMS PO (08:24)
[2023-09-18] MEDS: NON-FORMULARY ITEM 1 SPRAY NASAL ×2 (08:25→21:09)
--- NOTE | 2023-09-18 08:44 | W.PN.HOSP.TC ---
Today's Communication/Plan
-
Transfer to telemetry
Assessment / Plan
Assessment / Plan

IMPRESSION
87 Female with history of CHF w/ preserved EF, LVH and pulm HTN, history of asthma/copd and MAXIM, HTN and HLD presenting with SOB and found to be hypoxic.� Lung exam with bilateral crackles to mid-lungs more notable on the right.� Xray with
interstitial edema, bilateral pleural effusions and cardiomegally.� ECG� V paced and unchanged.� Trop normal.� BNP elevated.� Oxygenation well on 2 L but remains tachypneic with notable work of breathing.� Suspect CHF exacerbation per findings.�
Unlikely PE given continued use of anticoagulation for AFIB.� Moving air well, no significant wheezing for me to suggest significant asthma exacerbation.�
PLAN
Hypoxia/CHF exacerbation - CHF with preserved EF, last echo over 1 year ago w/ EF of 55-60%.� Pulmonary hypertension.� Was on Lasix at home chronically but has not been able to follow daily weights.� Normal troponin and no chest pain suggestive fo
acute coronary events.� Paced rhythm.� Unclear etiology of acute exacerbation.�
-Improved weight through 129 pounds today. Lowest she has been recently. Seems euvolemic. Symptomatically as well improved. Lasix now switched to oral route. Echo with preserved EF severe pulmonary hypertension-no changes from 2020
echocardiogram.
-Improved oxygenation as well. Continue to wean.
- Cardiology consulted, recommendations appreciated
Asthma-cannot rule out flare on admission- No wheezes, no significant tightness.�Asthma diagnosed as adult.� No smoking history. Last known FEV1 0.58 41%
- albuterol/ipratropium q4h prn
-Was started on prednisone 40mg daily on admission (not on steroids at home)-no active bronchospasm-start to wean
- continue advair per home regimen
- no indications for abx
Severe pulmonary hypertension
Obstructive sleep apnea on CPAP
Patient presented with hypoxia which could be secondary to multifactorial issues as above but also has severe pulmonary hypertension with pulmonary systolic pressures of 70-75% playing a role. She in the recent past was hypoxic with pneumonia but
was able to come off oxygen. It may take a slow wean. Continue to wean oxygen as able.
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
- continue diltiazem
- continue apixaban
History of Colostomy Placement
-On September 16, 2023, patient reported pain right at the stoma site, with hard stools in the stoma, was causing discomfort
-Consulted Surgery (no one on-call for colorectal surgery), recommendations appreciated
-Consulted GI, recommendations appreciated
DVT PPX - on apixaban for afib
Code status - Full Code
PT recommends rehab.
Transfer to telemetry.
Likely DC in a.m. if stable
Anticipated Discharge: Within 24 hours
Subjective/Interval History
-
Date of Service: September 18, 2023
Complaints of scratchy throat and cough. Breathing so-so. No chest pain.
No nausea vomiting.
Objective Data
-
Labs:
Laboratory Results
09/18/23
05:01
Sodium 139
Potassium 4.3 D
Chloride 102
Carbon Dioxide 28
BUN 25 H
Creatinine 0.8
Glucose 120 H
Calcium 9.5
Vital Signs:
Vital Signs
Temp Pulse Resp BP Pulse Ox
98.2 F 72 20 126/70 93
09/18/23 04:17 09/18/23 08:21 09/18/23 06:00 09/18/23 08:21 09/18/23 06:00
I&O
09/17/23 09/18/23 09/19/23
06:59 06:59 06:59
Intake Total 120 / 120 1065 / 1065
Output Total 1680 / 1680 275 / 275
Balance -1560 / -1560 790 / 790
Review of Systems
-
Constitutional: Denies Fever or Chills
Abdomen/GI: Denies Abdominal Pain
Neuro: Denies Dizzy
Physical Exam
-
General: No Apparent Distress
HEENT: Moist Mucous Membranes
Respiratory: Negative Wheezes or Crackles
Cardiac: Regular Rhythm and S1/S2
GI: Soft and Nontender
Musculoskeletal: No Edema
Neuro: AO x 3
Psych: Calm
Data Reviewed
-
Labs: Labs Reviewed by me
--- NOTE | 2023-09-18 10:31 | PTCARENOTE ---
Pt had abn aspiration episode eating her breakfastn pox dropped to 84% O2 up to 6 l pox up to 96% DR Garcia aware for speech consult
[2023-09-18 10:51] LABS: COVID-19 Antigen Negative (Negative)
--- NOTE | 2023-09-18 10:53 | PTCARENOTE ---
Attempted to turn down O2 POx down to 86% )2 back to 6 liters
--- NOTE | 2023-09-18 11:13 | PTCARENOTE ---
Pt continue to desat now on 15 of mid flow and 15 l non rebreather
--- NOTE | 2023-09-18 11:18 | PTCARENOTE ---
Dr Garcia aware pt to receive bbrathig tx and stat PCXR
[2023-09-18] MEDS: DUONEB INH (11:21)
--- NOTE | 2023-09-18 11:45 | PTCARENOTE ---
Pt had breathing treatment desting on 8 l O2 now on mid flow 15 liters at 92 %
--- NOTE | 2023-09-18 14:12 | PTOTSP ---
ST Dysphagia Evaluation
Moderate oral and suspected pharyngeal dysphagia; slow mastication 2' shortness of breath, witnessed aspiration by RN. Esophageal dysphagia; GERD dx. Dysphonia; vocal quality is nearly aphonic hoarse/breathy/weak. 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
paralysis. Cog-linguistic deficits; baseline dementia
Pt received awake/alert mid-flow nasal cannula 15Lo2 in place. She is also mouth breathing. Vocal quality is nearly aphonic hoarse/breathy/weak. Per RN pt has h/o vocal fold paralysis - does not appear to be documented in chart. HOB raised upright
for PO trials of puree, soft/bite-size solids and thin liquids. Demo slow mastication of soft/bite-size solids and moderate oral residuals which clear with dry swallow and use of liquid chaser. Sawyer to be at elevated risk of choking due current
respiratory status. Puree and thin liquids by small/single sip judged to be WFL at this time
Recommend
1. Downgrade to Puree (L4) and Thin liquids - small/single sips only
2. Aspiration and reflux/PRIMO precautions
3. Small bites, small/single sips and slow rate
4. Crush meds into apple sauce
5. BARKER PEELER following closely for scheduling of video swallow as indicated
--- NOTE | 2023-09-18 14:21 | PTCARENOTE ---
Pt rings lopes that she is wet after being changed . Pt confused
--- NOTE | 2023-09-18 14:37 | CM ---
CM noted chart and ADC <24 hours
Per nursing though, pt now with increased O2 needs, 15L requiring NRB
Calls with SNF referrals admissions
No beds at [facility] but noted to call on day of dc to check availability
Pt not offered bed at [facility] at this time
Admissions spoke with spouse who notes he has unpaid SNF bills
Pt has already utilized 48/100 SNF days
MV will further consider if spouse willing to put in financial application and she is financially approved for potential LTC
VM left with spouse, requesting call back
Encouraged consideration of additional; SNF referrals that accept [place] Awaiting call back
Pt will need [place] auth
Discharge Disposition- SNF pending auth
[2023-09-18] MEDS: ROCEPHIN 1000 MG IV (17:31)
[2023-09-18] MEDS: STERILE WATER FOR INJECTION 10 ML IV (17:31)
--- NOTE | 2023-09-18 18:03 | PTCARENOTE ---
Pt co of having trouble breathing , pox 96% on 15 l mid flow color is pink no signs of rsp distress, non rebreather put on pt for comfort
[2023-09-18] MEDS: FLAGYL 500 MG PO (23:31)
[2023-09-18] MEDS: MELATONIN 5 MG PO (23:32)
[2023-09-19] VITALS (9 sets, daily range): BP systolic 99–129; BP diastolic 56–68; PULSE 65–70; O2SAT 95; BMI 25.6
--- NOTE | 2023-09-19 00:49 | PTCARENOTE ---
Found patient with CPAP off and Sp02 87%. I asked why she did not call for assistance before taking off cpap, pt stated 'i dont know'. 5L NC placed, Sp02 96%. Pt states she is a light sleeper. Pt appears forgetful with repetitive questions. Asking
'if there is someone in the other room'. Re-oriented. Re-educated contact center team lead lopes use. Bed alarm set for safety.
[2023-09-19] MEDS: AMBIEN 5 MG PO ×2 (01:12→22:58)
[2023-09-19 05:37] LABS: Hematocrit 32.7 % (37.0-47.0); Hemoglobin 10.7 g/dL (12.0-16.0); Mean Corp Hgb Conc. 32.7 g/dL (33.0-37.0); Mean Corpuscular Hgb 28.8 pg (27.0-31.0); Mean Corpuscular Volume 88.1 fL (81.0-99.0); Mean Platelet Volume 10.9 fL (7.4-10.4); Platelet Count 262 10^3/uL (130-400); Red Blood Cell Count 3.71 10^6/uL (4.20-5.40); Red Cell Dist. Width 14.2 % (11.5-14.5); White Blood Cell Count 7.7 10^3/uL (4.8-10.8)
[2023-09-19 05:57] LABS: Blood Urea Nitrogen 20 mg/dl (7-17); Calcium 9.1 mg/dl (8.4-10.2); Carbon Dioxide 27 mmol/L (22-30); Chloride 103 mmol/L (98-107); Estimated Creatinine Clearance 42 ml/min; Glucose 111 mg/dl (70-99); Potassium 4.7 mmol/L (3.5-5.1); Sodium 136 mmol/L (135-145); eGFR > 60.00
[2023-09-19] MEDS: ADVAIR HFA 115/21 MCG INHALER 2 PUFF INH ×2 (07:39→20:19)
[2023-09-19] MEDS: DUONEB 3 ML INH ×4 (07:39→20:18)
--- NOTE | 2023-09-19 08:33 | W.PN.HOSP.TC ---
Today's Communication/Plan
-
VSE today
ENT consult
Assessment / Plan
Assessment / Plan

IMPRESSION
87 Female with history of CHF w/ preserved EF, LVH and pulm HTN, history of asthma/copd and MAXIM, HTN and HLD presenting with SOB and found to be hypoxic.� Lung exam with bilateral crackles to mid-lungs more notable on the right.� Xray with
interstitial edema, bilateral pleural effusions and cardiomegally.� ECG� V paced and unchanged.� Trop normal.� BNP elevated.� Oxygenation well on 2 L but remains tachypneic with notable work of breathing.� Suspect CHF exacerbation per findings.�
Unlikely PE given continued use of anticoagulation for AFIB.� Moving air well, no significant wheezing for me to suggest significant asthma exacerbation.�
PLAN
Hypoxia/CHF exacerbation - CHF with preserved EF, last echo over 1 year ago w/ EF of 55-60%.� Pulmonary hypertension.� Was on Lasix at home chronically but has not been able to follow daily weights.� Normal troponin and no chest pain suggestive fo
acute coronary events.� Paced rhythm.� Unclear etiology of acute exacerbation.�
-Improved weight 131 pounds today -lower than her recent baseline. Seems euvolemic. Symptomatically as well improved. Lasix now switched to oral route. Echo with preserved EF severe pulmonary hypertension-no changes from 2020 echocardiogram.
-Improved oxygenation as well. Continue to wean.
- Cardiology consulted, recommendations appreciated
Asthma-cannot rule out flare on admission- No wheezes, no significant tightness.�Asthma diagnosed as adult.� No smoking history. Last known FEV1 0.58 41%
- albuterol/ipratropium q4h prn
-Was started on prednisone 40mg daily on admission (not on steroids at home)-no active bronchospasm-started to wean
- continue advair per home regimen
- no indications for abx
Severe pulmonary hypertension
Obstructive sleep apnea on CPAP
Patient presented with hypoxia which could be secondary to multifactorial issues as above but also has severe pulmonary hypertension with pulmonary systolic pressures of 70-75% playing a role. She in the recent past was hypoxic with pneumonia but
was able to come off oxygen. It may take a slow wean. Continue to wean oxygen as able.
- pulmonary consulted
Aspirational event 09/18-patient had aspirational event yesterday. She complains of having difficulty with water but solid food is okay. She has hoarse voice. Looking back at the data I come across the chest CT done in May 2023 which showed
left vocal cord possible paralysis. She is going for a video swallow study. Patient with unilateral vocal cord paralysis of increased aspiration risk. Will consult ENT for further evaluation as patient states she was never evaluated by an ENT
doctor for her hoarse voice.
Possible aspirational pneumonitis versus [id number] post aspiration showed increased right basilar opacity concerning for pneumonitis/pneumonia-initiated on antibiotics.
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
- continue diltiazem
- continue apixaban
History of Colostomy Placement
-On September 16, 2023, patient reported pain right at the stoma site, with hard stools in the stoma, was causing discomfort
-Consulted Surgery (no one on-call for colorectal surgery), recommendations appreciated
-Consulted GI, recommendations appreciated
DVT PPX - on apixaban for afib
Code status - Full Code
PT recommends rehab.
Had discussed with yesterday post aspirational event.
Discussed with ENT of antibiotics.
Total time spent on today's encounter was 52 minutes which included time spent in counseling the patient/family regarding diagnosis and treatment plan as listed above, goals of care, and symptom management. Case was discussed with nursing staff,
specialists, and care coordinators/case management. All labs and imaging personally reviewed by me. Remainder the time spent in detailed review of previous records, lab data, imaging, and other medical provider documentation.
Anticipated Discharge: > 48 hours
Subjective/Interval History
-
Date of Service: September 19, 2023
Yesterday's event of aspiration while eating noted.
She had a high FiO2 post aspiration.
Currently she is back down to 4 L of oxygen via nasal cannula.
She states at rest her breathing is okay this morning.
Patient states she is having issues with water/liquids. She is due for a video swallow study today.
Objective Data
-
Labs:
Laboratory Results
09/19/23
05:09
WBC 7.7
Hgb 10.7 L
Hct 32.7 L
Plt Count 262
Sodium 136
Potassium 4.7
Chloride 103
Carbon Dioxide 27
BUN 20 H
Creatinine 0.7
Glucose 111 H
Calcium 9.1
Vital Signs:
Vital Signs
Temp Pulse Resp BP Pulse Ox
97.7 F 72 16 113/56 97
09/19/23 07:44 09/19/23 07:43 09/19/23 07:43 09/19/23 04:00 09/19/23 07:43
I&O
09/18/23 09/19/23 09/20/23
06:59 06:59 06:59
Intake Total 1065 / 1065
Output Total 275 / 275 550 / 550
Balance 790 / 790 -550 / -550
Review of Systems
-
Constitutional: Denies Fever or Chills
Respiratory: Reports Trouble Breathing
Cardiac: Denies Chest Pain
Abdomen/GI: Denies Abdominal Pain, Nausea or Vomiting
Neuro: Denies Dizzy
Physical Exam
-
General: No Apparent Distress
HEENT: Moist Mucous Membranes
Respiratory: Crackles (rt base) and Non Labored Respirations; Negative Wheezes or Accessory Resp Muscle Use
Cardiac: Regular Rhythm and S1/S2
GI: Soft and Nontender
Neuro: AO x 3
Psych: Calm
Data Reviewed
-
Medical Tests (Nuc Med, Echo etc): Report Reviewed by me (cxr)
Labs: Labs Reviewed by me
--- NOTE | 2023-09-19 08:33 | CON.PUL ---
Consultation
Consultation Request
Date/Time Consultation Requested: 09/19/2023-8 AM
Date/Time Consultation Performed: 09/19/2023-8:30 AM
Requesting Provider: Hospitalist
Performing Provider: Dr. Álvarez
Reason for Consultation: Aspiration event
Medical History
-
Chief Complaint: Shortness of breath
History of Present Illness:
87-year-old female followed by Dr. Madison for underlying COPD, asthma and pulm hypertension felt to have aspiration event and pulmonary consulted for aspiration/COPD 09/19/2023. She is not in any distress, complains of some chest congestion, minimal
cough, no chest pain, pleurisy, abdominal pain, nausea, weakness, and does have some difficulty swallowing with some cough.
Past Medical History
Past Medical History: None (COPD/asthma followed by Dr. Madison. Obstructive sleep apnea. Hypertension. Hyperlipidemia. CHF with preserved EF. Atrial fibrillation. History of colostomy placement. PDA repair 15-year-old.)
Social History
Tobacco: Non-smoker
Alcohol: None
Drug: None
Personal:
Living: With Family
Occupational Exposures: No known asbestos exposure
Environmental Exposures: no known tuberculosis exposure
Family History
Family History: Reviewed & Not Pertinent
Allergies / Home Medications
Allergies
Allergy/AdvReac Type Severity Reaction Status Date / Time
codeine Allergy Unknown Verified 07/07/23 03:36
latex Allergy Itching Verified 09/15/23 19:09
meperidine HCl [From Demerol] Allergy Unknown Verified 07/07/23 03:36
morphine Allergy Unknown Verified 07/07/23 03:36
Penicillins Allergy Unknown; Verified 09/18/23 16:41
tolerated
ceftriaxone,
cefepime
vancomycin Allergy Unknown Verified 07/07/23 03:36
Home Medications
Medication Instructions Recorded Confirmed Last Taken Type
rosuvastatin 5 mg tablet 5 mg PO MOWEFR@2000 High 07/29/17 09/15/23 07/06/23 History
cholesterol
apixaban 5 mg tablet (Eliquis) 5 mg PO BID Blood clot 07/30/17 09/15/23 07/06/23 History
prevention/tx
diltiazem HCl 120 mg 120 mg PO BID Heart 01/18/21 09/15/23 07/06/23 History
capsule,extended release 24 hr disease/condition
losartan 25 mg tablet 25 mg PO DAILY Blood pressure 01/18/21 09/15/23 07/06/23 History
cholecalciferol (vitamin D3) 50 2,000 units PO DAILY Supplement 03/25/21 09/15/23 07/06/23 History
mcg (2,000 unit) tablet
escitalopram oxalate 20 mg tablet 20 mg PO DAILY Mental 03/25/21 09/15/23 07/06/23 History
Health/Anxiety
ipratropium bromide 42 mcg (0.06 2 spray intranasal BID Allergies 03/25/21 09/15/23 07/06/23 History
%) nasal spray
fexofenadine 60 mg tablet 90 mg PO DAILY Allergies 01/02/23 09/15/23 07/06/23 History
fluticasone 250 mcg-salmeterol 50 1 inh inhalation R BID ASTHMA 01/02/23 09/15/23 07/06/23 History
mcg/dose blistr powdr for
inhalation (Advair Diskus)
buspirone 10 mg tablet 10 mg PO BID Mental Health/Anxiety 05/24/23 09/15/23 07/06/23 History
acetaminophen 325 mg tablet 650 mg PO Q6HPRN PRN mild pain/ 06/11/23 09/15/23 Unknown Rx
fever>100.5F #0 tabs
furosemide 40 mg tablet 40 mg PO DAILY Fluid 06/11/23 09/15/23 07/06/23 Rx
retention/Swelling #30 tabs
pantoprazole 40 mg tablet,delayed 40 mg PO PRN PRN GI issues 09/15/23 09/15/23 Unknown History
release
Ambien 09/19/23 Unknown History
Review of Systems
-
Unable to Obtain full review of systems at this time due to: Other (Per HPI)
Vitals / Labs / Diagnostic Testing
Vital Signs
Temp Pulse Resp BP Pulse Ox
97.7 F 72 16 113/56 97
09/19/23 07:44 09/19/23 07:43 09/19/23 07:43 09/19/23 04:00 09/19/23 07:43
Lab Data
09/19/23 05:09
09/19/23 05:09
Microbiology
09/18/23 10:44 Nasal Swab Influenza Types A & B (ALE) - Final
Negative for Influenza A & B, NAAT
Negative results must be combined with clinical observations
and patient history.
Nucleic Acid Amplification test (NAAT)performed on the
Intacct platform.
Diagnostic Testing:
Physical Exam
-
Exam:
Well-nourished and well-developed in no apparent distress
HEENT-atraumatic, normocephalic
Neck-supple, no JVD, no bruit
Heart-regular rate and rhythm-no murmurs, rubs or gallops
Chest with diminished breath sounds, crackles at both bases, prolonged expiratory time
Abdomen-soft, nontender, nondistended, no hepatosplenomegaly
Extremities-no cyanosis, clubbing, trace lower extremity edema
Integument-intact, no rashes, lesions or ecchymosis
Neurology-alert and oriented, nonfocal motor and sensory exam
Assessment
-
87-year-old female followed by Dr. Madison for underlying COPD, asthma and pulm hypertension felt to have aspiration event and pulmonary consulted for aspiration/COPD 09/19/2023.
Assessment
Aspiration event 09/19/2023
Pneumonia due to aspiration
CHF with preserved EF
COPD/asthma with mild acute exacerbation.
Mild ekqduz-mbdopzwjuu-tjgnxmzlby 10.7
Mild hyperglycemia
Conditions present prior to admission:
COPD/asthma followed by Dr. Madison
Obstructive sleep apnea-on CPAP 9 cm
Pulmonary nodule-history of incidental at [facility] 2016-4 mm right upper lobe, [facility] for millimeter right midlung field nodule 2017, , most recent T no nodule
Hypertension.
Hyperlipidemia.
CHF with preserved EF.
Atrial fibrillation..
Pulmonary hypertension.
Recurrent pneumonia-suspect aspiration.
IgG deficiency.
Hiatal hernia
GERD
History of colostomy placement.
PDA repair 15-year-old.
Plan
Recent respiratory decompensation related to aspiration, which she has done in the past.
Supplemental oxygen.
Aspiration precautions.
Speech therapy following
Video swallow 09/19/2023-pending
Nebulizers..
Prednisone 30 mg daily with slow taper
Check cultures.
Follow radiographically.
Empiric antibiotics.
Diuresis as tolerated.
Monitor weight, renal function, lower extremity edema and intake/output.
Monitor hemoglobin.
Transfuse if needed.
Monitor blood sugar.
Insulin supplementation if needed
DVT prophylaxis-on Eliquis
GI prophylaxis-on pantoprazole
Nutrition
Physical therapy
Last seen by Dr. Madison 04/02/23-will follow-up soon after this hospitalization
Diagnostic data:
Chest x-ray 09/15/2023-small bilateral pleural effusions, patchy parenchymal bilateral lower lobe infiltrates likely atelectasis
Chest x-ray 09/18/2023-suspicious for aspiration pneumonia, small bilateral pleural effusions.
CT chest 03/28/2023:Reviewed, showed extensive beam hardening artifact of metal hardware The cervical spine.� Suggestion left vocal cord paralysis. Moderate hiatal hernia.
Sniff test in the past-mild right hemidiaphragm elevation. No obvious weakness
Echocardiogram 10/06-EF 60-65%, severe biatrial enlargement, mild mitral regurgitation, moderate aortic stenosis, PA systolic 75.
PFT 04/02/23-FEV1 990 mL-74%, FVC 1.5-83%, TLC 97%, RV 120%, DLCO 32%, DLCO/VA 56%
Data Reviewed
-
EKG: Report reviewed by me
Radiology: Report reviewed by me
CT Scan: Report reviewed by me
Medical Tests (Nuc Med, Echo etc): Report reviewed by me
Labs: Labs reviewed by me
Old Records: Reviewed
Total Time Spent with Patient (in minutes): 55
[2023-09-19] MEDS: DELTASONE PO (10:20)
[2023-09-19] MEDS: FLAGYL 500 MG PO ×3 (10:20→23:07)
[2023-09-19] MEDS: CARDIZEM CD 120 MG PO ×2 (10:20→20:41)
[2023-09-19] MEDS: LASIX 40 MG PO (10:21)
[2023-09-19] MEDS: COLACE 100 MG PO ×2 (10:21→20:42)
[2023-09-19] MEDS: PROTONIX 40 MG PO (10:21)
[2023-09-19] MEDS: COZAAR 25 MG PO (10:21)
[2023-09-19] MEDS: ELIQUIS 2.5 MG PO ×2 (10:21→20:41)
[2023-09-19] MEDS: CLARITIN 10 MG PO (10:21)
[2023-09-19] MEDS: VITAMIN D3 (cholecalciferol) 50 MCG PO (10:21)
[2023-09-19] MEDS: LEXAPRO 20 MG PO (10:21)
[2023-09-19] MEDS: BUSPAR 10 MG PO ×2 (10:21→20:41)
[2023-09-19] MEDS: NON-FORMULARY ITEM 2 SPRAY NASAL ×2 (10:22→20:46)
[2023-09-19] MEDS: MIRALAX 17 GRAMS PO (10:22)
[2023-09-19] MEDS: DELTASONE 30 MG PO (10:22)
--- NOTE | 2023-09-19 11:04 | PTOTSP ---
Video Swallow Examination
Delayed swallow onset with thin liquid by consecutive cup sips as contrast reached pyriform sinuses prior to swallow onset. This resulted in trace deep laryngeal penetration to level of vocal folds with an immediate cough response. Remaining trials
of thin liquid by cup/tsp as well as all remaining consistencies tolerated without laryngeal penetration or aspiration. A cricopharyngeal prominence was noted throughout study without obvious impact on bolus flow into cervical esophagus. Observation
of esophagus revealed small amount of retained contrast suggesting contents slow to empty.
Recommend
1. Regular solids and SINGLE sips of Thin Liquid
2. Meds whole in applesauce
3. Clear mouth of all food/liquid before taking sip of liquid.
4. Alternate sip of liquid after every 2-3 bites of solid.
5. Fully upright with all intake and remain upright for at least 30 minutes after meals.
6. ENT consult given aphonia that is new since speech therapy last saw patient in December 2022 when voice was documented at within normal limits. Patient reports aphonia started ~2 weeks ago.
--- NOTE | 2023-09-19 11:26 | PN.CDI ---
CDI
- -
CDI:
Physician Documentation Request
Admit Date: 09/15/23 22:01
Dear Doctor Jose,
Patient admitted with acute on chronic diastolic CHF.
ED note, '87-year-old female presents emergency room due to shortness of breath. EMS gave DuoNeb placed on nonrebreather. Oxygen saturation in the 80s on room air upon EMS arrival.'
3/6 PN, '...remains tachypneic with notable work of breathing.'
O2 use documented below:
Selected Entries
09/16/23
02:12 09/16/23
08:44 09/16/23
08:10
Nasal Cannula flow liters per minute 5 6 6
09/16/23
12:14 09/16/23
08:20 09/16/23
21:07
Nasal Cannula flow liters per minute 5 5 5
Please clarify which of the following accurately represents the patient's respiratory status:
Acute hypoxic respiratory failure
Hypoxia only
Other
Additional information for Respiratory Failure:
Recognized criteria for Respiratory Failure (Source: [employer] Hospitalist May 2013)
ABGs: (1 or more) Symptoms
1. p)2 <60 or RA SPO2 <91% on RA 1. Tachypnea, SOB, dyspnea
2. pCO2 50 and pH <7.35 2. Use of accessory muscles
3. pO2 decrease of pCO2 increase by 3. Pallor or cyanosis
10 mmHg from baseline if known 4. Anxiety or restlessness
5. Unable to speak in full sentences
Supplemental O2 of > 40% (5LPM) Intubation is not required
Use of terms such as suspected, likely, concern for, or probable (associated with a specific diagnosis that is being evaluated, monitored, or treated as if it exists) are acceptable and can be coded in the inpatient setting, when documented at the
time of discharge.
Thank you,
Sara Amend BSN,RN,CCDS
CDI Specialist
Available via [facility] text
Please use your independent medical judgment in providing your response.
[2023-09-19] MEDS: STERILE WATER FOR INJECTION 10 ML IV (17:18)
[2023-09-19] MEDS: ROCEPHIN 1000 MG IV (17:18)
--- NOTE | 2023-09-19 18:46 | W.PN.ENT ---
Today's Communication
-
patient seen at bedside
Impression / Plan
-
patient has left vocal cord paralysis without tumor/mass noted
aspiration precautions discussed with patient
Subjective Data
-
asked to see patient with hoarseness and dysphagia
has neen hoarse for months
ct neck in 04/07 consistent with left vocal cord paralysis
Objective Data
-
Vital Signs
Temp Pulse Resp BP Pulse Ox
98 F 70 23 119/61 96
09/19/23 15:20 09/19/23 18:00 09/19/23 18:00 09/19/23 16:00 09/19/23 18:00
Intake & Output
09/18/23 09/19/23 09/20/23
06:59 06:59 06:59
Intake:
Oral fluids 1065 / 1065
Output:
Liquid stool amount
Colostomy
Urine, Voided 250 / 250 550 / 550
Other:
Number of approximated MODERATE 1 1
amounts of urine
Number of approximated LARGE 2
amounts of urine
How many times incontinent 1
SMALL amount urine
How many times incontinent 2
MODERATE amount urine
Lab Results
09/19/23 05:09
09/19/23 05:09
Calcium 9.1 mg/dl (8.4-10.2) 09/19/23 05:09
Total Bilirubin 0.8 mg/dl (0.2-1.3) 09/15/23 19:25
AST 32 U/L (14-36) 09/15/23 19:25
ALT 23 U/L (0-35) 09/15/23 19:25
Alkaline Phosphatase 61 U/L (38-126) 09/15/23 19:25
Triglycerides 61 mg/dl (10-149) 09/16/23 05:06
LDL Cholesterol, Calc 96 mg/dl 09/16/23 05:06
VLDL Cholesterol, Calc 12 mg/dl (0-30) 09/16/23 05:06
HDL Cholesterol 41 mg/dl 09/16/23 05:06
Physical Exam
-
neck supple
larynx visualized with flexible laryngoscope at bedside. Patient tolerated well. patient has left vocal cord paralysis without tumor/mass noted
swallow study showed aspiration with consecutive swallows of thin liquids
Chest: Clear
Respiratory: Clear
Data Reviewed
-
Radiology Results: Report Reviewed
--- NOTE | 2023-09-19 19:48 | CON.MD ---
Consultation - Medical
-
Chief complaint: Chronic hoarseness, CT scan showed vocal cord weakness in March
History of present illness: This patient is an 87-year-old woman who developed acute hoarseness about 6 or [address] scan in March was consistent with left vocal cord paralysis. She has been seen in our office a couple of times
since then and was noted to have level cord polyps without evidence of any tumor or mass. She was noted to have a small thoracic aortic aneurysm and it was thought that the vocal cord paralysis was possibly secondary to that. The patient has been
taking p.o. liquids and solids without significant problem. Her voice has been weak and this makes difficulty communicating especially with her who is hard of hearing. I was asked to see the patient regarding this hoarseness and the CT
scan findings.
Past medical history:
Chronic illnesses: Aspiration pneumonia, acute exacerbation of congestive heart failure, asthma exacerbation, moderate protein calorie malnutrition, nontraumatic perforation of intestine, acute peritonitis, small bowel obstruction, upper
gastrointestinal bleed, severe pulmonary hypertension, leukocytosis, dementia, persistent atrial fibrillation, diastolic CHF, pulmonary hypertension, OSAS, Hiatal hernia, gastroesophageal reflux disease, irritable bowel syndrome, hyperlipidemia,
chronic obstructive pulmonary disease, asthma.Allergies: Codeine, latex, Demerol, morphine, penicillins, vancomycin
Home medications:
Acetaminophen 650 mg p.o. every 6 hours as needed
Ambien unknown dose
Buspirone 10 mg p.o. twice daily
Cholecalciferol 2000 units p.o. daily
Diltiazem hydrochloride 120 mg p.o. twice daily
Eliquis 5 mg p.o. twice daily
Escitalopram 20 mg p.o. daily
Fexofenadine 90 mg p.o. daily
Fluticasone/salmeterol 1 inhalation twice daily
Furosemide 40 mg p.o. daily
Ipratropium bromide 2 sprays each nostril twice daily as needed
Losartan 25 milligrams p.o. daily
Pantoprazole 40 mg p.o. as needed
Rosuvastatin 5 mg p.o. daily
Hospitalizations: The patient is currently hospitalized and being evaluated.
Past surgical history: History of abdominal surgery:
Family history: Asked and is noncontributory for this problem
Review of systems: Positive for mild dysphagia, positive for hoarseness, negative for chest pain, negative for abdominal painPhysical examination:
Head: Atraumatic and normocephalic
Eyes: Extraocular movements are intact, pupils are equal and reactive to light
Ears: Clear
Nose: Deviated septum but no infection, turbinate hypertrophy is present
Oral cavity: Normal palate elevation, normal mucosa without infection
Cranial nerves: 2 through 12 are intact
Voice: Voice is weak and breathy
Thyroid gland: Normal to palpation
Salivary glands: Normal to palpation
Neck: Supple without adenopathy
Flexible laryngoscopy: This was performed at the patient's bedside with a flexible laryngoscope. The scope was passed through the right nose to the nasopharynx and then into the pharynx to visualize the larynx. The patient has left vocal cord
paralysis with normal vocal cord motion. There is a fairly large glottic gap but there is no pooling of secretions. No infection is noted. There are no suspicious lesions or tumors seen.
Impression/plan: This 87-year-old woman has had chronic hoarseness over the last 6 months or so. She has been noted to have left vocal cord paralysis in the past and this was confirmed on today's examination. No infection was noted. No suspicious
lesions were seen. The patient was seen by speech therapy and underwent swallowing evaluation. She did fairly well except for some aspiration noted on consecutive swallows. She needs to be cautious when she eats. I have discussed that with the
patient and her family. She needs to avoid eating quickly and must be particularly careful with thin liquids. We will see the patient back as needed. It was thought that the vocal cord paralysis may be secondary to a small thoracic aortic
aneurysm.
[2023-09-19] MEDS: CRESTOR 5 MG PO (20:41)
[2023-09-19] MEDS: MELATONIN 5 MG PO (22:58)
--- NOTE | 2023-09-19 23:31 | PTCARENOTE ---
Patient swallowed pills with applesauce and coughing less. CPAP placed by RT for sleep. Pt remains forgetful with repetitive questions. Able to turn self in bed. bed alarm set for safety. Call lopes within reach.
[2023-09-20] VITALS (11 sets, daily range): BP systolic 95–121; BP diastolic 47–68; PULSE 60–71; O2SAT 98; BMI 25.3
[2023-09-20] MEDS: DUONEB 3 ML INH ×4 (07:37→19:55)
[2023-09-20] MEDS: ADVAIR HFA 115/21 MCG INHALER 2 PUFF INH ×2 (07:37→19:54)
--- NOTE | 2023-09-20 08:24 | W.PN.HOSP.TC ---
Today's Communication/Plan
-
DC planning
Assessment / Plan
Assessment / Plan

IMPRESSION
87 Female with history of CHF w/ preserved EF, LVH and pulm HTN, history of asthma/copd and MAXIM, HTN and HLD presenting with SOB and found to be hypoxic.� Lung exam with bilateral crackles to mid-lungs more notable on the right.� Xray with
interstitial edema, bilateral pleural effusions and cardiomegally.� ECG� V paced and unchanged.� Trop normal.� BNP elevated.� Oxygenation well on 2 L but remains tachypneic with notable work of breathing.� Suspect CHF exacerbation per findings.�
Unlikely PE given continued use of anticoagulation for AFIB.� Moving air well, no significant wheezing for me to suggest significant asthma exacerbation.�
PLAN
Hypoxia/CHF exacerbation - CHF with preserved EF, last echo over 1 year ago w/ EF of 55-60%.� Pulmonary hypertension.� Was on Lasix at home chronically but has not been able to follow daily weights.� Normal troponin and no chest pain suggestive fo
acute coronary events.� Paced rhythm.� Unclear etiology of acute exacerbation.�
-Improved weight 129 pounds today -lower than her recent baseline. Seems euvolemic. Symptomatically as well improved. Lasix now switched to oral route. Echo with preserved EF severe pulmonary hypertension-no changes from 2020 echocardiogram.
- Cardiology signed off
Asthma-cannot rule out flare on admission- No wheezes, no significant tightness.�Asthma diagnosed as adult.� No smoking history. Last known FEV1 0.58 41%
- albuterol/ipratropium q4h prn
-Was started on prednisone 40mg daily on admission (not on steroids at home)-no active bronchospasm-started to wean
- continue advair per home regimen
- no indications for abx
Severe pulmonary hypertension
Obstructive sleep apnea on CPAP
Patient presented with hypoxia which could be secondary to multifactorial issues as above but also has severe pulmonary hypertension with pulmonary systolic pressures of 70-75% playing a role. She in the recent past was hypoxic with pneumonia but
was able to come off oxygen. It may take a slow wean. Continue to wean oxygen as able.Will obtain home O2 assessment
- pulmonary following
Aspirational event 09/18- She complains of having difficulty with water but solid food is okay. She has hoarse voice. Looking back at the data I come across the chest CT done in May 2023 which showed left vocal cord possible paralysis. She is
going for a video swallow study. Patient with unilateral vocal cord paralysis of increased aspiration risk. ENT seen the patient had a indirect laryngoscopy which shows left vocal cord paralysis but no infection or tumor. Unclear if related to
small aortic aneurysm. Recommend aspiration precautions. She seems to have issues with liquids if she does it quickly. She had a VSE which clears her for regular solids and thin liquids but cautious with thin liquids.
Possible aspirational pneumonitis versus dbqvfmldz-s-nld post aspiration showed increased right basilar opacity concerning for pneumonitis/pneumonia-initiated on antibiotics -afebrile today complete 5 days of antibiotics..
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
- continue diltiazem
- continue apixaban
History of Colostomy Placement
-On September 16, 2023, patient reported pain right at the stoma site, with hard stools in the stoma, was causing discomfort
-Consulted Surgery (no one on-call for colorectal surgery), recommendations appreciated
-Consulted GI, recommendations appreciated
DVT PPX - on apixaban for afib
Code status - Full Code
PT recommends rehab.
Follow-up PT eval from today regarding disposition
Obtain home O2 evaluation
DC home if okay from pulmonary standpoint.
Anticipated Discharge: Today
Subjective/Interval History
-
Date of Service: September 20, 2023
Patient is feeling improved with regards to her breathing.
Denies much of cough.
No chest pain.
Tolerating diet.
Objective Data
-
Vital Signs:
Vital Signs
Temp Pulse Resp BP Pulse Ox
98.4 F 80 16 110/52 95
09/20/23 04:05 09/20/23 07:38 09/20/23 07:38 09/20/23 04:00 09/20/23 07:38
I&O
09/19/23 09/20/23 09/21/23
06:59 06:59 06:59
Output Total 550 / 550 350 / 350
Balance -550 / -550 -350 / -350
Review of Systems
-
Constitutional: Denies Fever or Chills
EENT: Denies Sore Throat
Abdomen/GI: Denies Abdominal Pain
Neuro: Denies Dizzy
Physical Exam
-
General: No Apparent Distress
HEENT: Moist Mucous Membranes
Respiratory: Crackles (bibasilar today) and Non Labored Respirations; Negative Wheezes or Accessory Resp Muscle Use
Cardiac: Regular Rhythm and S1/S2
Neuro: AO x 3
Psych: Calm; Negative Confused
[2023-09-20] MEDS: BUSPAR 10 MG PO ×2 (09:36→22:16)
[2023-09-20] MEDS: PROTONIX 40 MG PO (09:36)
[2023-09-20] MEDS: COZAAR 25 MG PO (09:36)
[2023-09-20] MEDS: CARDIZEM CD 120 MG PO ×2 (09:37→22:15)
[2023-09-20] MEDS: CLARITIN 10 MG PO (09:37)
[2023-09-20] MEDS: COLACE 100 MG PO ×2 (09:37→22:16)
[2023-09-20] MEDS: LEXAPRO 20 MG PO (09:37)
[2023-09-20] MEDS: VITAMIN D3 (cholecalciferol) 50 MCG PO (09:37)
[2023-09-20] MEDS: DELTASONE 30 MG PO (09:37)
[2023-09-20] MEDS: ELIQUIS 2.5 MG PO ×2 (09:37→22:16)
[2023-09-20] MEDS: LASIX 40 MG PO (09:38)
[2023-09-20] MEDS: FLAGYL 500 MG PO ×3 (09:38→22:55)
[2023-09-20] MEDS: NON-FORMULARY ITEM 2 SPRAY NASAL ×2 (09:38→22:17)
[2023-09-20] MEDS: MIRALAX 17 GRAMS PO (09:39)
--- NOTE | 2023-09-20 09:54 | W.PN.PUL.V3 ---
Today's Communication / Plan
-
Wean oxygen.
Antibiotics.
Aspiration precautions.
Nebulizers.
Assessment
-
87-year-old female followed by Dr. Madison for underlying COPD, asthma and pulm hypertension felt to have aspiration event and pulmonary consulted for aspiration/COPD 09/19/2023.
Assessment
Aspiration event 09/19/2023
Pneumonia due to aspiration
CHF with preserved EF
COPD/asthma with mild acute exacerbation..
Left vocal cord paralysis
Mild nnycea-hekppetezo-vowwazjwgg 10.7
Mild hyperglycemia
Conditions present prior to admission:
COPD/asthma followed by Dr. Madison.
Left vocal cord paralysis.
Chronic aspiration risk
Obstructive sleep apnea-on CPAP 9 cm
Pulmonary nodule-history of incidental at [facility] 2016-4 mm right upper lobe, [facility] for millimeter right midlung field nodule 2017, , most recent T no nodule
Hypertension.
Hyperlipidemia.
CHF with preserved EF.
Atrial fibrillation..
Pulmonary hypertension.
Recurrent pneumonia-suspect aspiration.
IgG deficiency.
Hiatal hernia
GERD
History of colostomy placement.
PDA repair 15-year-old.
Plan
Recent respiratory decompensation related to aspiration, which she has done in the past.
Supplemental oxygen -attempt to wean
Aspiration precautions . We'll continue per protocol
Speech therapy following
Video swallow 09/19/2023- -regular solids with thin liquids
Nebulizers continue
Prednisone 30 mg daily with slow taper.
ENT following-correspondence reviewed.
Left vocal cord paralysis without tumor or mass
Cultures reviewed
Follow radiographically.
Empiric antibiotics-finite course
Continue diuresis as tolerated
Monitor weight, renal function, lower extremity edema and intake/output.
.
Follow hemoglobin
Transfuse if needed
Monitor blood sugar
Insulin supplementation if needed
DVT prophylaxis-on Eliquis
GI prophylaxis-on pantoprazole
Nutrition
Physical therapy
Last seen by Dr. Madison 04/02/23-will follow-up soon after this hospitalization
Diagnostic data:
Chest x-ray 09/15/2023-small bilateral pleural effusions, patchy parenchymal bilateral lower lobe infiltrates likely atelectasis
Chest x-ray 09/18/2023-suspicious for aspiration pneumonia, small bilateral pleural effusions.
CT chest 03/28/2023:Reviewed, showed extensive beam hardening artifact of metal hardware The cervical spine.� Suggestion left vocal cord paralysis. Moderate hiatal hernia.
Sniff test in the past-mild right hemidiaphragm elevation. No obvious weakness
Echocardiogram 10/06-EF 60-65%, severe biatrial enlargement, mild mitral regurgitation, moderate aortic stenosis, PA systolic 75.
PFT 04/02/23-FEV1 990 mL-74%, FVC 1.5-83%, TLC 97%, RV 120%, DLCO 32%, DLCO/VA 56%
Subjective Data
-
Date of Service:
Date of Service: September 20, 2023
Chief Complaint: Pulmonary Follow Up and Dyspnea Follow Up
Subjective:
Still with significant shortness of breath, some coughing, as well as chest congestion, no abdominal pain
Review of Systems
General: Other ( per HPI)
Objective Data
Data Reviewed
Vital Signs / I&O:
Vital Signs
Temp Pulse Resp BP Pulse Ox
98.4 F 70 16 121/64 95
09/20/23 04:05 09/20/23 09:38 09/20/23 07:38 09/20/23 09:38 09/20/23 07:38
Intake and Output
09/19/23 09/20/23 09/21/23
06:59 06:59 06:59
Output Total 550 / 550 350 / 350
Balance -550 / -550 -350 / -350
SaO2: 95
Nasal Cannula flow liters per minute: 3
Physical Exam
General: Respiratory Distress (n) and Comfortable
HEENT: Normocephalic, Anicteric and Moist Mucous Membranes
Cardiovascular: Regular Rhythm
Respiratory: Wheeze (n), Crackles ( few basilar), Rhonchi (n), Non-Labored Respirations, Accessory Resp Muscle Use (n) and Stridor (n)
GI: Soft, Non Distended and Non Tender (n)
Neurology: Awake, Alert and No Motor Deficits
Skin: Warm, Good Color, Cyanosis (n), Jaundice (n) and Rash (n)
Labs/Micro/Reports
Lab Data
09/19/23 05:09
09/19/23 05:09
Microbiology
09/18/23 10:44 Nasal Swab Influenza Types A & B (ALE) - Final
Negative for Influenza A & B, NAAT
Negative results must be combined with clinical observations
and patient history.
Nucleic Acid Amplification test (NAAT)performed on the
[employer] platform.
--- NOTE | 2023-09-20 14:51 | CM ---
CM following re: d/c planning
Chart reviewed
Pt is medically stable for d/c pending insurance auth
CM spoke with Susanne at who confirmed bed availability for tomorrow once auth received
CM notified the hospitalist of the same
Awaiting PT notes to submit for auth
is also requesting a rapid covid test prior to d/c
CM will remain available to the patient and assist with d/c planning needs as indicated
PLAN; d/c to pending insurance auth
Report: [phone]

Deniz Batista NPI-[id number]
[facility] NPI-[id number]
[2023-09-20] MEDS: STERILE WATER FOR INJECTION 10 ML IV (17:30)
[2023-09-20] MEDS: ROCEPHIN 1000 MG IV (17:30)
--- NOTE | 2023-09-20 18:14 | PTCARENOTE ---
Rec'd pt this AM. Pt OOB to chair for several hours and participated in PT. family at bedside. Reminded family to only feed pt when sitting upright as pt was eating while laying in bed.
[2023-09-20] MEDS: AMBIEN 5 MG PO (22:55)
[2023-09-20] MEDS: MELATONIN 5 MG PO (22:55)
[2023-09-21] VITALS (9 sets, daily range): BP systolic 94–122; BP diastolic 25–87; PULSE 71–77; O2SAT 98; BMI 25.5
--- NOTE | 2023-09-21 06:40 | PTCARENOTE ---
Patient extremely forgetful overnight; taking off her cpap, disoriented to time and situation. 3L NC in place if cpap not in use. Denies any pain. Colostomy emptied for small amount of soft stool. Able to turn self while in bed. Incont of urine. Pt
also voided in BSC. Able to swallow pills whole in applesauce safely. Tele showing V-paced rhythm. Bed alarm set. Call lopes and tray table within reach.
--- NOTE | 2023-09-21 08:10 | W.PN.PUL.V3 ---
Today's Communication / Plan
-
Aspiration precautions
Wean oxygen
Finite course of antibiotics
Tried to call Jose-see note
Assessment
-
87-year-old female followed by Dr. Madison for underlying COPD, asthma and pulm hypertension felt to have aspiration event and pulmonary consulted for aspiration/COPD 09/19/2023.
Assessment
Aspiration event 09/19/2023
Pneumonia due to aspiration
CHF with preserved EF
COPD/asthma with mild acute exacerbation..
Left vocal cord paralysis
Mild irotgs-oahmwfowjd-sdwkgwxxkb 10.7
Mild hyperglycemia
Conditions present prior to admission:
COPD/asthma followed by Dr. Madison.
Left vocal cord paralysis.
Chronic aspiration risk
Obstructive sleep apnea-on CPAP 9 cm
Pulmonary nodule-history of incidental at [facility] 2016-4 mm right upper lobe, [facility] for millimeter right midlung field nodule 2018, , most recent 3CT no nodule
Hypertension.
Hyperlipidemia.
CHF with preserved EF.
Atrial fibrillation..
Pulmonary hypertension.
Recurrent pneumonia-suspect aspiration.
IgG deficiency.
Hiatal hernia
GERD
History of colostomy placement.
PDA repair 15-year-old.
Plan
Recent respiratory decompensation related to aspiration, which she has done in the past.
Supplemental oxygen -attempt to wean
Aspiration precautions . We'll continue per protocol
Speech therapy following
Video swallow 09/19/2023- -regular solids with thin liquids
Nebulizers continue
Prednisone 30 mg daily with slow taper.
ENT following-correspondence reviewed.
Left vocal cord paralysis without tumor or mass
Cultures reviewed
Follow radiographically.
Empiric antibiotics-finite course
Continue diuresis as tolerated
Monitor weight, renal function, lower extremity edema and intake/output.
.
Follow hemoglobin
Transfuse if needed
Monitor blood sugar
Insulin supplementation if needed
DVT prophylaxis-on Eliquis
GI prophylaxis-on pantoprazole
Nutrition
Physical therapy
Reviewed with nursing and Dr. Garcia
Dr. Álvarez called [facility] [phone] at the request of family and nursing-no answer and detailed message was not left on the answering machine
Last seen by Dr. Madison 04/02/23-will follow-up soon after this hospitalization
Diagnostic data:
Chest x-ray 09/15/2023-small bilateral pleural effusions, patchy parenchymal bilateral lower lobe infiltrates likely atelectasis
Chest x-ray 09/18/2023-suspicious for aspiration pneumonia, small bilateral pleural effusions.
CT chest 03/28/2023:Reviewed, showed extensive beam hardening artifact of metal hardware The cervical spine.� Suggestion left vocal cord paralysis. Moderate hiatal hernia.
Sniff test in the past-mild right hemidiaphragm elevation. No obvious weakness
Echocardiogram 10/06-EF 60-65%, severe biatrial enlargement, mild mitral regurgitation, moderate aortic stenosis, PA systolic 75.
PFT 04/02/23-FEV1 990 mL-74%, FVC 1.5-83%, TLC 97%, RV 120%, DLCO 32%, DLCO/VA 56%
Subjective Data
-
Date of Service:
Date of Service: September 21, 2023
Chief Complaint: Pulmonary Follow Up and Dyspnea Follow Up
Subjective:
Confused, no increase shortness of breath, denies chest congestion or productive cough or abdominal pain
Review of Systems
General: Other (Per HPI)
Objective Data
Data Reviewed
Vital Signs / I&O:
Vital Signs
Temp Pulse Resp BP Pulse Ox
98.2 F 61 16 107/50 92
09/21/23 03:15 09/21/23 06:00 09/20/23 19:58 09/21/23 04:13 09/21/23 04:28
Intake and Output
09/20/23 09/21/23 09/22/23
06:59 06:59 06:59
Output Total 350 / 350 250 / 250
Balance -350 / -350 -250 / -250
SaO2: 92
Nasal Cannula flow liters per minute: 3
Physical Exam
General: Respiratory Distress (n) and Comfortable
HEENT: Normocephalic, Anicteric and Moist Mucous Membranes
Cardiovascular: Regular Rhythm
Respiratory: Wheeze (n), Crackles ( few basilar), Rhonchi (n), Non-Labored Respirations, Accessory Resp Muscle Use (n) and Stridor (n)
GI: Soft, Non Distended and Non Tender (n)
Neurology: Awake, Alert and No Motor Deficits
Skin: Warm, Good Color, Cyanosis (n), Jaundice (n) and Rash (n)
Labs/Micro/Reports
Lab Data
09/19/23 05:09
09/19/23 05:09
Microbiology
09/18/23 10:44 Nasal Swab Influenza Types A & B (ALE) - Final
Negative for Influenza A & B, NAAT
Negative results must be combined with clinical observations
and patient history.
Nucleic Acid Amplification test (NAAT)performed on the
[employer] platform.
[2023-09-21] MEDS: ADVAIR HFA 115/21 MCG INHALER 2 PUFF INH ×2 (08:14→20:23)
[2023-09-21] MEDS: DUONEB 3 ML INH ×4 (08:14→20:23)
--- NOTE | 2023-09-21 08:32 | W.PN.HOSP.TC ---
Today's Communication/Plan
-
dc
Assessment / Plan
Assessment / Plan

IMPRESSION
87 Female with history of CHF w/ preserved EF, LVH and pulm HTN, history of asthma/copd and MAXIM, HTN and HLD presenting with SOB and found to be hypoxic.� Lung exam with bilateral crackles to mid-lungs more notable on the right.� Xray with
interstitial edema, bilateral pleural effusions and cardiomegally.� ECG� V paced and unchanged.� Trop normal.� BNP elevated.� Oxygenation well on 2 L but remains tachypneic with notable work of breathing.� Suspect CHF exacerbation per findings.�
Unlikely PE given continued use of anticoagulation for AFIB.� Moving air well, no significant wheezing for me to suggest significant asthma exacerbation.�
PLAN
CHF exacerbation - CHF with preserved EF, last echo over 1 year ago w/ EF of 55-60%.� Pulmonary hypertension.� Was on Lasix at home chronically but has not been able to follow daily weights.� Normal troponin and no chest pain suggestive fo acute
coronary events.� Paced rhythm.� Unclear etiology of acute exacerbation.�
-Improved weight 130 pounds today -lower than her recent baseline. Seems euvolemic. Symptomatically as well improved. Lasix now switched to oral route. Echo with preserved EF severe pulmonary hypertension-no changes from 2020 echocardiogram.
- Cardiology signed off
Asthma-cannot rule out flare on admission- No wheezes, no significant tightness.�Asthma diagnosed as adult.� No smoking history. Last known FEV1 0.58 41%
- albuterol/ipratropium q4h prn
-Was started on prednisone 40mg daily on admission (not on steroids at home)-no active bronchospasm-started to wean
- continue advair per home regimen
- no indications for abx
Severe pulmonary hypertension
Obstructive sleep apnea on CPAP
Patient presented with hypoxia which could be secondary to multifactorial issues as above but also has severe pulmonary hypertension with pulmonary systolic pressures of 70-75% playing a role. She in the recent past was hypoxic with pneumonia but
was able to come off oxygen. It may take a slow wean. Continue to wean oxygen as able.Will obtain home O2 assessment
- pulmonary following
Aspirational event 09/18- She complains of having difficulty with water but solid food is okay. She has hoarse voice. Looking back at the data I come across the chest CT done in May 2023 which showed left vocal cord possible paralysis. She is
going for a video swallow study. Patient with unilateral vocal cord paralysis of increased aspiration risk. ENT seen the patient had a indirect laryngoscopy which shows left vocal cord paralysis but no infection or tumor. Unclear if related to
small aortic aneurysm. Recommend aspiration precautions. She seems to have issues with liquids if she does it quickly. She had a VSE which clears her for regular solids and thin liquids but cautious with thin liquids.
Possible aspirational pneumonitis versus yjxrnaivb-e-wmo post aspiration showed increased right basilar opacity concerning for pneumonitis/pneumonia-initiated on antibiotics -afebrile today complete 5 days of antibiotics..
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
- continue diltiazem
- continue apixaban
History of Colostomy Placement
-On September 16, 2023, patient reported pain right at the stoma site, with hard stools in the stoma, was causing discomfort
-Consulted Surgery (no one on-call for colorectal surgery), recommendations appreciated
-Consulted GI, recommendations appreciated
DVT PPX - on apixaban for afib
Code status - Full Code
PT recommends rehab.
Medically stable for discharge to rehab.
Discussed with pulmonary.
Discussed with the regarding clinical diagnosis, treatments done on this admission and follow-up plan and including rehab placement. He is agreeable.
Total time of discharge 35 minutes
Anticipated Discharge: Today
Subjective/Interval History
-
Date of Service: September 21, 2023
Patient feelsweto, did not realize her ostomy bag is attached and stools are out.
Breathing is comfortable.
Objective Data
-
Vital Signs:
Vital Signs
Temp Pulse Resp BP Pulse Ox
98.2 F 72 16 107/50 90
09/21/23 03:15 09/21/23 08:19 09/21/23 08:19 09/21/23 04:13 09/21/23 08:19
I&O
09/20/23 09/21/23 09/22/23
06:59 06:59 06:59
Output Total 350 / 350 250 / 250
Balance -350 / -350 -250 / -250
Review of Systems
-
Constitutional: Denies Fever
EENT: Denies Sore Throat
Respiratory: Denies Cough or Trouble Breathing
Cardiac: Denies Chest Pain
Abdomen/GI: Denies Abdominal Pain, Nausea or Vomiting
Neuro: Denies Dizzy
Physical Exam
-
General: Comfortable
HEENT: Moist Mucous Membranes
Respiratory: Clear to Auscultation
Cardiac: Regular Rhythm and S1/S2
GI: Other (Detached ostomy bag with spilled stools all over her abdomen)
Neuro: Awake, Alert and Oriented
--- NOTE | 2023-09-21 08:51 | W.DS.TRANS ---
DC Summary - [employer]
-
Discharge Instructions:
Discharge Diagnosis/Procedures Acute CHF decompensation with preserved EF.
Paroxysmal atrial fibrillation
Aspirational event with right lung pneumonitis/
pneumonia. Chronic left vocal cord paralysis.
Asthma with flareup.
Diet 2 Gram Sodium
Activity As tolerated
Driving Restrictions No driving
Bathing Restrictions None
Other Services PT,OT
Specialty Instructions Weigh Daily
Instructions: *PCP/Other Slip Dumper Heart Failure Instructions
Stand-Alone Forms:
Changes to Home Medications: Yes
Discharge Medications:
DC Medications w/original date entered in [email or web address]
rosuvastatin 5 mg tablet 5 mg PO MOWEFR@1999 High cholesterol 07/29/17
apixaban 5 mg tablet (Eliquis) 5 mg PO BID Blood clot prevention/tx 07/30/17
diltiazem HCl 120 mg capsule,extended release 24 hr 120 mg PO BID Heart disease/condition 01/18/21
losartan 25 mg tablet 25 mg PO DAILY Blood pressure 01/18/21
cholecalciferol (vitamin D3) 50 mcg (2,000 unit) tablet 2,000 units PO DAILY Supplement 03/25/21
escitalopram oxalate 20 mg tablet 20 mg PO DAILY Mental Health/Anxiety 03/25/21
ipratropium bromide 42 mcg (0.06 %) nasal spray 2 spray intranasal BID Allergies 03/25/21
fexofenadine 60 mg tablet 90 mg PO DAILY Allergies 01/02/23
fluticasone 250 mcg-salmeterol 50 mcg/dose blistr powdr for inhalation (Advair Diskus) 1 inh inhalation R BID ASTHMA 01/02/23
buspirone 10 mg tablet 10 mg PO BID Mental Health/Anxiety 05/24/23
acetaminophen 325 mg tablet 650 mg PO Q6HPRN PRN mild pain/ fever>100.5F #0 tabs 06/11/23
furosemide 40 mg tablet 40 mg PO DAILY Fluid retention/Swelling #30 tabs 06/11/23
pantoprazole 40 mg tablet,delayed release 40 mg PO PRN PRN GI issues 09/15/23
polyethylene glycol 3350 17 gram oral powder packet 17 g PO DAILY #30 packets 09/17/23
Ambien 09/19/23
cefuroxime axetil 500 mg tablet 500 mg PO BID #1 tab 09/21/23
dextromethorphan-guaifenesin 10 mg-100 mg/5 mL oral syrup 5 ml PO Q4HPRN PRN cough #1 mL 09/21/23
docusate sodium 100 mg capsule 100 mg PO BID #1 cap 09/21/23
ipratropium 0.5 mg-albuterol 3 mg (2.5 mg base)/3 mL nebulization soln 3 ml inhalation R Q4HPRN PRN shortness of breath/wheezing #1 mL 09/21/23
metronidazole 500 mg tablet 500 mg PO Q8 #1 tab 09/21/23
polyethylene glycol 3350 17 gram oral powder packet (HealthyLax) 17 g PO DAILY #1 ea 09/21/23
prednisone 10 mg tablet 20 mg PO DAILY #1 tab 09/21/23
Home Medication Changes
New medication-prednisone taper, Flagyl, cefuroxime, Colace
Pending Results: No
--- NOTE | 2023-09-21 08:52 | W.DCSUMMARY ---
Addendum entered and electronically signed by Adeel Garcia MD 09/22/23 08:52:
Date of discharge 09/22/23
Original Note:
Discharge Summary
Discharge Data
Date of Admission: 09/15/23
Date of Discharge: 09/21/23
-
Pending Results: No
Hospital Course
Primary diagnosis:
Acute CHF decompensation with preserved EF
Asthma with flare
Severe pulmonary hypertension
Obstructive sleep apnea on CPAP
Aspirational event
Chronic left vocal cord paralysis
Secondary diagnosis:
Permanent atrial fibrillation
History of colostomy placement
Hospital course:
Patient presented shortness of breath secondary to acute CHF decompensation. She was seen by cardiology was initiated on diuresis with loss of 6 pound weight and improved clinical symptoms. Her weight was 130 at the time of discharge. Her
oxygenation improved but still was requiring oxygen prior to discharge.
During the hospital course she aspirated on liquids. She has hoarse voice and there was a CT from the past showing left vocal cord paralysis. ENT was consulted who did a laryngoscopy which showed left vocal cord paralysis but there was no tumor or
infection. Was seen by speech had a video swallow as well cleared for solid and thin liquids but was cautioned about being slow with liquids not to hurry. It was noted that if she hydrates with the liquids she can aspirate. With aspiration of
fever and there was a concern about right lower lobe pneumonia/pneumonitis. Was put on antibiotics to complete a 5-day course.
She was still requiring oxygen prior to discharge after her heart failure and aspirational event. She also has a severe pulmonary hypertension with a pulmonary systolic pressure of 70 to 75 mmHg which is chronic and I suspect that she would have a
slow wean from oxygen. She also has obstructive sleep apnea on CPAP. She was not using oxygen during the daytime. She was discharged on oxygen to rehab and hopefully can be weaned there.
She had issues with hard stools through her colostomy for which she was seen by GI and surgery. Resolved with the addition of Colace and MiraLAX.
Consultants on board:
Pulmonary-Dr. Álvarez
ENT-Dr. French
Cardiology-Dr. Graf
Discharge Plan
-
Patient Disposition: Skilled Nursing/SNF
Discharge Diagnosis/Procedures: Acute CHF decompensation with preserved EF. Paroxysmal atrial fibrillation
Aspirational event with right lung pneumonitis/pneumonia. Chronic left vocal cord paralysis.
Asthma with flareup.
Diet: 2 Gram Sodium
Activity: As tolerated
Driving Restrictions: No driving
Bathing Restrictions: None
Other Services: PT and OT
Specialty Instructions: Weigh Daily- Call MD for wt gain/loss 3 lbs overnight/5 lbs in 1 week
Activity Restrictions/Additional Instructions:
Wean oxygen as able at rehab
Instructions: *PCP/Other Steamfitter Heart Failure Instructions
Referrals:
Herman Woods MD [Active] - in one to two weeks (or ADMISSIONS GATE ATTENDANT )
Ian Agee MD [Active] - in two to four weeks
UNKNOWN,NO INTERVIEW [Family Provider] -
Prescriptions:
New
prednisone 10 mg Tablet
20 mg PO DAILY Qty: 1 0RF
Rx Instructions:
20mg *3 days
10mg * 3 days and stop
docusate sodium 100 mg Capsule
100 mg PO BID Qty: 1 0RF
ipratropium-albuterol 0.5 mg-3 mg(2.5 mg base)/3 mL Solution For Nebulization
3 ml inhalation R Q4HPRN PRN (Reason: shortness of breath/wheezing) Qty: 1 0RF
metronidazole 500 mg Tablet
500 mg PO Q8 Qty: 1 0RF
Rx Instructions:
2 days
polyethylene glycol 3350 [HealthyLax] 17 gram Powder In Packet
17 g PO DAILY Qty: 1 0RF
dextromethorphan-guaifenesin 10-100 mg/5 mL Syrup
5 ml PO Q4HPRN PRN (Reason: cough) Qty: 1 0RF
cefuroxime axetil 500 mg tablet
500 mg PO BID Qty: 1 0RF
Rx Instructions:
for 2 more days
Continued
rosuvastatin 5 MG tablet
5 mg PO MOWEFR@1999
Eliquis 5 MG tablet
5 mg PO BID
losartan 25 MG tablet
25 mg PO DAILY
diltiazem HCl 120 MG capsule,extended release 24hr
120 mg PO BID
ipratropium bromide 1 SPRAY spray,non-aerosol
2 spray intranasal BID
escitalopram oxalate 20 MG tablet
20 mg PO DAILY
cholecalciferol (vitamin D3) 2,000 UNITS tablet
2,000 units PO DAILY
fluticasone propion-salmeterol [Advair Diskus] 250-50 mcg/dose Blister With Device
1 inh INHALATION R BID
fexofenadine 60 mg Tablet
90 mg PO DAILY
buspirone 10 mg tablet
10 mg PO BID
acetaminophen 325 mg Tablet
650 mg PO Q6HPRN PRN (Reason: mild pain/ fever>100.5F) Qty: 0 0RF
furosemide 40 mg tablet
40 mg PO DAILY Qty: 30 0RF
Rx Instructions:
giving for diuresis from TPN/IVF etc--may not need much longer
pantoprazole 40 mg tablet,delayed release (DR/EC)
40 mg PO PRN PRN (Reason: GI issues )
Ambien 5 MG
Discharge Orders:
Discharge Patient (As Directed); Ordered 09/21/23
Ordered By: Adeel Garcia
[2023-09-21] MEDS: CARDIZEM CD 120 MG PO ×2 (09:22→20:10)
[2023-09-21] MEDS: ELIQUIS 2.5 MG PO ×2 (09:22→20:10)
[2023-09-21] MEDS: LASIX 40 MG PO (09:22)
[2023-09-21] MEDS: BUSPAR 10 MG PO ×2 (09:22→20:10)
[2023-09-21] MEDS: DELTASONE 30 MG PO (09:22)
[2023-09-21] MEDS: CLARITIN 10 MG PO (09:22)
[2023-09-21] MEDS: FLAGYL 500 MG PO ×3 (09:22→22:45)
[2023-09-21] MEDS: COZAAR 25 MG PO (09:23)
[2023-09-21] MEDS: PROTONIX 40 MG PO (09:23)
[2023-09-21] MEDS: MIRALAX 17 GRAMS PO (09:23)
[2023-09-21] MEDS: LEXAPRO 20 MG PO (09:23)
[2023-09-21] MEDS: COLACE 100 MG PO ×2 (09:23→20:10)
[2023-09-21] MEDS: VITAMIN D3 (cholecalciferol) 50 MCG PO (09:23)
[2023-09-21] MEDS: NON-FORMULARY ITEM 2 SPRAY NASAL ×2 (09:28→20:11)
--- NOTE | 2023-09-21 09:57 | CM ---
Addendum entered by Irena Verdin 09/21/23 13:46:
IMM explained and signed by
aware of discharge plan for tomorrow and will bring CPAP to facility as instructed
Addendum entered by Irena Verdin 09/21/23 12:57:
Per community cultural development officer, ambulance pick up worker scheduled for 1530 tomorrow
Addendum entered by Irena Verdin 09/21/23 11:37:
Susanne from [facility] called and reported that they have to postpone transfer to facility until tomorrow, 09/22/2023; schedule ambulance pick up worker at 1530 or after; Care Team notified
Addendum entered by Irena Verdin 09/21/23 10:56:
will need to bring patient's CPAP to facility
Addendum entered by Irena Verdin 09/21/23 10:52:
Per Susanne from [facility], patient needs a Covid Test before discharge today
Can accept patient at 1530 or after
Report: [phone]

Addendum entered by Irena Verdin 09/21/23 10:13:
Plan: discharge to [facility] today via ambulance
Insurance Authorization approved: Auth # [id number]
Patient approved for 5 days starting today, 09/21/2023; next review 09/25/2023; Concurrent Review #
Susanne @ notified via phone
Original Note:
Plan is DC to [facility] today pending authorization approval from Eleni De Santiago
[2023-09-21] MEDS: FLUZONE HIGH-DOSE QUAD 2023-24 0.699999999999999956 ML IM (11:17)
[2023-09-21 11:23] LABS: COVID-19 Antigen Negative (Negative)
[2023-09-21] MEDS: STERILE WATER FOR INJECTION 10 ML IV (17:12)
[2023-09-21] MEDS: ROCEPHIN 1000 MG IV (17:12)
[2023-09-21] MEDS: CRESTOR 5 MG PO (20:10)
[2023-09-21] MEDS: MELATONIN 5 MG PO (22:43)
[2023-09-21] MEDS: AMBIEN 5 MG PO (22:43)
[2023-09-22] VITALS: BP 92/48
[2023-09-22 03:52] VITALS: BMI 25.4
[2023-09-22 04:00] VITALS: BP 94/46
--- NOTE | 2023-09-22 04:49 | PTCARENOTE ---
No acute events overnight. Plan for d/c back to [facility] today.
[2023-09-22] MEDS: ADVAIR HFA 115/21 MCG INHALER 2 PUFF INH (07:39)
[2023-09-22] MEDS: DUONEB 3 ML INH ×2 (07:39→11:19)
[2023-09-22 08:00] VITALS: BP 100/80
--- NOTE | 2023-09-22 08:43 | W.PN.HOSP.TC ---
Addendum entered and electronically signed by Adeel Garcia MD 09/23/23 16:17:
Acute hypoxic respiratory failure present on admission
Original Note:
Today's Communication/Plan
-
DC
Assessment / Plan
Assessment / Plan

IMPRESSION
87 Female with history of CHF w/ preserved EF, LVH and pulm HTN, history of asthma/copd and MAXIM, HTN and HLD presenting with SOB and found to be hypoxic.� Lung exam with bilateral crackles to mid-lungs more notable on the right.� Xray with
interstitial edema, bilateral pleural effusions and cardiomegally.� ECG� V paced and unchanged.� Trop normal.� BNP elevated.� Oxygenation well on 2 L but remains tachypneic with notable work of breathing.� Suspect CHF exacerbation per findings.�
Unlikely PE given continued use of anticoagulation for AFIB.� Moving air well, no significant wheezing for me to suggest significant asthma exacerbation.�
PLAN
CHF exacerbation - CHF with preserved EF, last echo over 1 year ago w/ EF of 55-60%.� Pulmonary hypertension.� Was on Lasix at home chronically but has not been able to follow daily weights.� Normal troponin and no chest pain suggestive fo acute
coronary events.� Paced rhythm.� Unclear etiology of acute exacerbation.�
-Improved weight -lower than her recent baseline. Seems euvolemic. Symptomatically as well improved. Lasix now switched to oral route. Echo with preserved EF severe pulmonary hypertension-no changes from 2020 echocardiogram.
- Cardiology signed off
Asthma-cannot rule out flare on admission- No wheezes, no significant tightness.�Asthma diagnosed as adult.� No smoking history. Last known FEV1 0.58 41%
- albuterol/ipratropium q4h prn
-Was started on prednisone 40mg daily on admission (not on steroids at home)-no active bronchospasm-started to wean
- continue advair per home regimen
- no indications for abx
Severe pulmonary hypertension
Obstructive sleep apnea on CPAP
Patient presented with hypoxia which could be secondary to multifactorial issues as above but also has severe pulmonary hypertension with pulmonary systolic pressures of 70-75% playing a role. She in the recent past was hypoxic with pneumonia but
was able to come off oxygen. It may take a slow wean. Continue to wean oxygen as able.Will obtain home O2 assessment
- pulmonary following
Aspirational event 09/18- She complains of having difficulty with water but solid food is okay. She has hoarse voice. Looking back at the data I come across the chest CT done in May 2023 which showed left vocal cord possible paralysis. She is
going for a video swallow study. Patient with unilateral vocal cord paralysis of increased aspiration risk. ENT seen the patient had a indirect laryngoscopy which shows left vocal cord paralysis but no infection or tumor. Unclear if related to
small aortic aneurysm. Recommend aspiration precautions. She seems to have issues with liquids if she does it quickly. She had a VSE which clears her for regular solids and thin liquids but cautious with thin liquids.
Possible aspirational pneumonitis versus ohborrrpx-[id number] post aspiration showed increased right basilar opacity concerning for pneumonitis/pneumonia-initiated on antibiotics -afebrile today complete 4 days of antibiotics..
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
- continue diltiazem
- continue apixaban
History of Colostomy Placement
-On September 16, 2023, patient reported pain right at the stoma site, with hard stools in the stoma, was causing discomfort
-Consulted Surgery (no one on-call for colorectal surgery), recommendations appreciated
-Consulted GI, recommendations appreciated
DVT PPX - on apixaban for afib
Code status - Full Code
PT recommended rehab.
Remains Medically stable for discharge to rehab.
Discussed with the 09/20 regarding clinical diagnosis, treatments done on this admission and follow-up plan and including rehab placement. He is agreeable.
Total time of discharge 35 minutes
Anticipated Discharge: Today
Subjective/Interval History
-
Date of Service: September 22, 2023
Pt discharge postponed today to bed availability issues at rehab.
She states no worsening of shortness of breath. Denies shortness of breath at rest.
Objective Data
-
Vital Signs:
Vital Signs
Temp Pulse Resp BP Pulse Ox
98.4 F 70 16 100/80 91
09/22/23 03:52 09/22/23 08:00 09/21/23 20:27 09/22/23 08:00 09/22/23 06:00
I&O
09/21/23 09/22/23 09/23/23
06:59 06:59 07:59
Output Total 250 / 250 675 / 675
Balance -250 / -250 -675 / -675
Review of Systems
-
Constitutional: Denies Fever
Respiratory: Denies Cough
Cardiac: Denies Chest Pain or Palpitations
Abdomen/GI: Denies Nausea or Vomiting
Neuro: Denies Dizzy
Physical Exam
-
General: No Apparent Distress
HEENT: Moist Mucous Membranes
Respiratory: Negative Wheezes
Cardiac: Regular Rhythm and S1/S2; Negative Tachycardic
Neuro: AO x 3
[2023-09-22] MEDS: MIRALAX 17 GRAMS PO (09:45)
[2023-09-22] MEDS: LASIX 40 MG PO (09:46)
[2023-09-22] MEDS: COZAAR 25 MG PO (09:47)
[2023-09-22] MEDS: CLARITIN 10 MG PO (09:48)
[2023-09-22] MEDS: ELIQUIS 2.5 MG PO (09:48)
[2023-09-22] MEDS: VITAMIN D3 (cholecalciferol) 50 MCG PO (09:49)
[2023-09-22] MEDS: LEXAPRO 20 MG PO (09:49)
[2023-09-22] MEDS: COLACE 100 MG PO (09:49)
[2023-09-22] MEDS: DELTASONE 30 MG PO (09:50)
[2023-09-22] MEDS: PROTONIX 40 MG PO (09:51)
[2023-09-22] MEDS: BUSPAR 10 MG PO (09:51)
[2023-09-22] MEDS: FLAGYL 500 MG PO (09:51)
[2023-09-22] MEDS: CARDIZEM CD 120 MG PO (09:51)
[2023-09-22 12:00] VITALS: BP 102/64
[2023-09-22] MEDS: NON-FORMULARY ITEM NASAL (14:49)
[2023-09-22 14:54] VITALS: BP 105/50
== END 2023-09-22 16:00 | DRG 291 ==
LOC: IMU 22:01
PROVIDERS: Hospitalist; ADMITTING PHYSICIAN Internal Medicine; ATTENDING PHYSICIAN Internal Medicine; CONSULT PHYSICIAN Internal Medicine Cardiovascular Disease; CONSULT PHYSICIAN Internal Medicine Critical Care Medicine; CONSULT PHYSICIAN Otolaryngology Facial Plastic Surgery; CONSULT PHYSICIAN Surgery; EMERGENCY PHYSICIAN Emergency Medicine
PROC: 5A09357 Assistance with Respiratory Ventilation, Less than 24 Consecutive Hours, Continuous Positive Airway Pressure (ICD-10-PCS; 2023-09-16)
PROC: 0CJS8ZZ Inspection of Larynx, Via Natural or Artificial Opening Endoscopic (ICD-10-PCS; 2023-09-19)
PROC: 3E02340 Introduction of Influenza Vaccine into Muscle, Percutaneous Approach (ICD-10-PCS; 2023-09-21)
DX: I11.0 Hypertensive heart disease with heart failure (principal); I50.33 Acute on chronic diastolic (congestive) heart failure; J69.0 Pneumonitis due to inhalation of food and vomit; J96.01 Acute respiratory failure with hypoxia; J45.901 Unspecified asthma with (acute) exacerbation; I48.21 Permanent atrial fibrillation; J44.1 Chronic obstructive pulmonary disease with (acute) exacerbation; F03.94 Unspecified dementia, unspecified severity, with anxiety; D80.3 Selective deficiency of immunoglobulin G [IgG] subclasses; E44.0 Moderate protein-calorie malnutrition; I27.22 Pulmonary hypertension due to left heart disease; I27.23 Pulmonary hypertension due to lung diseases and hypoxia; G47.33 Obstructive sleep apnea (adult) (pediatric); J38.01 Paralysis of vocal cords and larynx, unilateral; E78.00 Pure hypercholesterolemia, unspecified; I42.9 Cardiomyopathy, unspecified; I44.7 Left bundle-branch block, unspecified; I08.0 Rheumatic disorders of both mitral and aortic valves; K21.9 Gastro-esophageal reflux disease without esophagitis; K59.00 Constipation, unspecified; D64.9 Anemia, unspecified; R73.9 Hyperglycemia, unspecified; R49.0 Dysphonia; I71.20 Thoracic aortic aneurysm, without rupture, unspecified; Z95.0 Presence of cardiac pacemaker; Z93.3 Colostomy status; Z87.01 Personal history of pneumonia (recurrent); Z23 Encounter for immunization; Z11.52 Encounter for screening for COVID-19; Z79.01 Long term (current) use of anticoagulants; Z68.25 Body mass index [BMI] 25.0-25.9, adult
CPT/HCPCS: 71045; 74018; 74230; 80048; 80053; 80061; 83880; 84443; 84484; 85025; 85027; 87502; 87811; 90662; 92611; 93005; 93288; 93306; 94640; 94660; 96374; 96375; 97110; 97116; 97162; 97166; 97530; 97535; 99285; G0008

== ENCOUNTER 2023-10-19 17:10 | Inpatient (IN) | payer OTHER, SELFPAY ==
[2023-10-19 12:54] VITALS: BP 118/89; BMI 27.9
[2023-10-19 14:26] VITALS: BP 121/70
[2023-10-19 15:00] VITALS: BP 113/64
[2023-10-19 15:04] LABS: % Basophils 1.2 % (0-2); % Eosinophils 1.9 % (0-6); % Immature Granulocytes 0.6 % (0-0.5); % Monocytes 12.1 % (1.7-9.3); % Neutrophils 70.2 % (42.2-75.2); Absolute Basophils 0.1 10^3/uL (0-0.2); Absolute Eosinophils 0.1 10^3/uL (0-0.7); Absolute Lymphocytes 0.7 10^3/uL (1.2-3.4); Absolute Monocytes 0.6 10^3/uL (0.1-0.6); Absolute Neutrophils 3.6 10^3/uL (1.4-6.5); Hematocrit 31.2 % (37.0-47.0); Hemoglobin 10.5 g/dL (12.0-16.0); Mean Corp Hgb Conc. 33.7 g/dL (33.0-37.0); Mean Corpuscular Hgb 29.2 pg (27.0-31.0); Mean Corpuscular Volume 86.7 fL (81.0-99.0); Mean Platelet Volume 10.5 fL (7.4-10.4); Nucleated Red Blood Cells % 0 %; Platelet Count 286 10^3/uL (130-400); Red Cell Dist. Width 14.7 % (11.5-14.5); White Blood Cell Count 5.1 10^3/uL (4.8-10.8)
--- NOTE | 2023-10-19 15:19 | ED.GENMED ---
History of Present Illness
<Patti Lara PA-C - Last Filed: 10/19/23 16:15>
General
Chief Complaint: Breathing Problem
Source: patient
Exam Limitations: none
Time Seen by Provider: 10/19/23 14:14
Nursing documentation reviewed up to this point in time: agreed with
Travel History
Have you had any contact with someone who has COVID-19?: No
Do you have any symptoms of coronavirus? Fever > 100 degrees, chills, cough, shortness of breath, sore throat, loss of taste or smell, muscle aches, or headache?: No
History of Present Illness
History of Present Illness:
88 y/o F with h/o afib on eliquis, CHF on lasix, pulm fibrosis (not on O2)
followed by pulm (trey)
was here last month for CHF exac
went to [facility] until 3 days ago when she came home
acutely SOB this mornign and visiting RN took pulse ox in the 80s
pt has some edema in her ankles whcih actually looks better to than it had
she has not had a cough, fever,
she has had ongoing largyngitis for months (previous discharge summary shows vocal cord paralysis but pt was unaware of this)
pt has also had a little chest tightness
she feels better on o2
during hopsitalization it was considered that pt could be aspirating
she is on a full diet but was told to be careful with chewing
thinks she could have misse da few doses of eliquis the past few days.
Past History
<Patti Lara PA-C - Last Filed: 10/19/23 16:15>
Past History
ED Past Medical History: Arrthythmia (Atrial fibrillation), Asthma, CHF, HTN, Hypercholesterolemia and Other (MAXIM, SBO with perf. )
ED Past Surgical History: Cholecystectomy and Gynecological
Social History
Tobacco: Non-smoker
Drug: None
Personal:
Living: with family
Family History
Family History: Other (No significant)
Review of Systems
<Patti Lara PA-C - Last Filed: 10/19/23 16:15>
Review of Systems
Allergies reviewed?: Yes
All Other Systems: Not applicable
Phy Exam
<Patti Lara PA-C - Last Filed: 10/19/23 16:15>
Physical Exam
Physical Exam:
GENERAL: Alert , in no apparent distress
EYE: pupils equal and reactive
NECK: Supple
ENT: o/p clr, mmm.
CARDIAC: Regular rate and rhythm .mild edema
LUNGS: Clear breath sounds bilaterally, no acute respiratory distress, no wheezes/rales/rhonchi
ABDOMEN: Soft, without focal tenderness, no r/g, no cvat, normal bowel sounds
NEUROLOGICAL: Alert and oriented, no focal neuro deficits
SKIN: Warm and dry, skin intact.
MUSCULOSKELETAL: mild symmetric edema, well perfused. neg garima's sign
PSYCH: Normal and appropriate interaction.
Scores
<Patti Lara PA-C - Last Filed: 10/19/23 16:15>
Heart Failure Risk
Heart Failure Risk Score: Not Applicable
Course
<KENNETH Purdy Last Filed: 10/19/23 16:15>
Orders/Labs/Results
Orders:
Orders
10/19/23 14:40
CR Chest - 2 Views Urgent
Comment:
Reason For Exam: sob today, hypoxic
10/19/23 14:52
Comprehensive Metabolic Panel Urgent
NT-proBNP Urgent
Troponin I Urgent
10/19/23 14:53
COVID-19 Antigen Urgent
Source: Nasal Swab
Complete Blood Count/With Diff Urgent
Influenza A+B Rapid Molecular Urgent
MELODY Source: Nasal Swab
Specimen Description:
10/19/23 Dinner
Cholesterol Lowering
At Your Request: Full Participation
Cholesterol Lowering: Sodium, 2 Gram
10/19/23 15:18
Electrocardiogram (*1) Urgent
Reason for Study: Shortness of Breath
10/19/23 15:53
Furosemide [Lasix] 40 mg IV NOW STA
10/19/23 15:54
Potassium Chloride [KCl] 20 meq 0.9% Sodium Chloride 150 ml [Nss] 150 ml IV NOW
10/19/23 15:55
Potassium Chloride Powder [Klor-Con] 20 meq PO NOW STA
10/19/23 16:39
Admit/Transfer Patient As Directed
Co-Sign Provider:
Level of Care: Inpatient admission
Assign to:: Telemetry
Physician / Group: jorge
Diagnosis: chf exacerbation/copd exacerbation
Reason for Telemetry: Arrhythmia
Date to Stop Telemetry: 10/22/23
Time to Stop Telemetry: 11:00
Reason for Hospitalization: chf exacerbation/copd exacerbation
Expected length of stay greater than two midnights?: Yes
ELOS- Estimated Length of Stay in days: 2
I certify the patient meets the requirements for IP care: Yes
10/19/23 16:40
Code Status As Directed
Resuscitation Status: Full Code
10/19/23 18:19
Prednisone [Deltasone] 40 mg PO DAILY
10/19/23 18:19
VTE Contraindication Routine
VTE Mechanical Device Contraindication: Medical Contraindication
Pharmocologic Contraindication: Medical Contraindication
Activity As Directed
Activity Level: As Tolerated
Intake/ Output As Directed
Frequency: q12h
Patient Education As Directed
Type: CHF folder
Comment: give on admission. Document in Interdisciplinary Education record
Sleep Apnea Assessment by RN As Directed
Comment:
Physician Instructions:
Vital Signs As Directed
Frequency: Other
Additional Instructions:: Q12 or per unit guidelines if more frequent.
Weight As Directed
Frequency: Daily
Type of Scale: Standing Scale
Comment: Daily morning weight. If unable to stand, use balanced bed scale.
Weight As Directed
Frequency: Once
Type of Scale: Standing Scale
Comment: Upon Admission. If unable to stand, use balanced bed scale.
Cpap [RESP] Routine
Patient to use own unit?: Yes
Pulse Ox/cont/shift [RESP] Routine
Quantity: 1
Special Instructions: Daily pulse oximetry at rest. If greater than 92% at rest also obtain pulse oximetry
while ambulating as tolerated.
10/19/23 20:00
Ipratropium/Albuterol Sulfate [Duoneb] 3 ml INH R QID
10/20/23 08:00
Furosemide [Lasix] 40 mg IV DAILY
10/20/23 08:45
Complete Blood Count/No Diff IN AM
Comprehensive Metabolic Panel IN AM
10/22/23 11:00
DC Protocol for Telemetry ONCE
Abnormal Lab Results
10/19/23 10/19/23
14:52 14:53
RBC 3.60 L 10^6/uL
(4.20-5.40)
Hgb 10.5 L g/dL
(12.0-16.0)
Hct 31.2 L %
(37.0-47.0)
RDW 14.7 H %
(11.5-14.5)
MPV 10.5 H fL
(7.4-10.4)
Absolute Lymphs (auto) 0.7 L 10^3/uL
(1.2-3.4)
Immature Gran % 0.6 H %
(0-0.5)
Lymphocytes % 14.0 L %
(20.5-51.1)
Monocytes % 12.1 H %
(1.7-9.3)
Potassium 3.1 L mmol/L
(3.5-5.1)
Total Protein 5.9 L g/dl
(6.3-8.2)
Albumin 3.4 L g/dl
(3.5-5.0)
10/19/23 14:53
10/19/23 14:52
Vital Signs
Initial and Last Documented VS:
Initial Vital Signs
Temp Pulse Resp BP Pulse Ox
98.1 F 86 16 118/89 90
10/19/23 12:54 10/19/23 12:54 10/19/23 12:54 10/19/23 12:54 10/19/23 12:54
Last Documented Vital Signs
Temp Pulse Resp BP Pulse Ox
98.2 F 70 16 127/61 94
10/20/23 07:54 10/20/23 07:54 10/20/23 07:54 10/20/23 07:54 10/20/23 07:54
<Case Ahuja, DO - Last Filed: 10/19/23 16:35>
Orders/Labs/Results
Orders:
Orders
10/19/23 14:40
CR Chest - 2 Views Urgent
Comment:
Reason For Exam: sob today, hypoxic
10/19/23 14:52
Comprehensive Metabolic Panel Urgent
NT-proBNP Urgent
Troponin I Urgent
10/19/23 14:53
COVID-19 Antigen Urgent
Source: Nasal Swab
Complete Blood Count/With Diff Urgent
Influenza A+B Rapid Molecular Urgent
MELODY Source: Nasal Swab
Specimen Description:
10/19/23 Dinner
Cholesterol Lowering
At Your Request: Full Participation
Cholesterol Lowering: Sodium, 2 Gram
10/19/23 15:18
Electrocardiogram (*1) Urgent
Reason for Study: Shortness of Breath
10/19/23 15:53
Furosemide [Lasix] 40 mg IV NOW STA
10/19/23 15:54
Potassium Chloride [KCl] 20 meq 0.9% Sodium Chloride 150 ml [Nss] 150 ml IV NOW
10/19/23 15:55
Potassium Chloride Powder [Klor-Con] 20 meq PO NOW STA
10/19/23 16:39
Admit/Transfer Patient As Directed
Co-Sign Provider:
Level of Care: Inpatient admission
Assign to:: Telemetry
Physician / Group: jorge
Diagnosis: chf exacerbation/copd exacerbation
Reason for Telemetry: Arrhythmia
Date to Stop Telemetry: 10/22/23
Time to Stop Telemetry: 11:00
Reason for Hospitalization: chf exacerbation/copd exacerbation
Expected length of stay greater than two midnights?: Yes
ELOS- Estimated Length of Stay in days: 2
I certify the patient meets the requirements for IP care: Yes
10/19/23 16:40
Code Status As Directed
Resuscitation Status: Full Code
10/19/23 18:19
Prednisone [Deltasone] 40 mg PO DAILY
10/19/23 18:19
VTE Contraindication Routine
VTE Mechanical Device Contraindication: Medical Contraindication
Pharmocologic Contraindication: Medical Contraindication
Activity As Directed
Activity Level: As Tolerated
Intake/ Output As Directed
Frequency: q12h
Patient Education As Directed
Type: CHF folder
Comment: give on admission. Document in Interdisciplinary Education record
Sleep Apnea Assessment by RN As Directed
Comment:
Physician Instructions:
Vital Signs As Directed
Frequency: Other
Additional Instructions:: Q12 or per unit guidelines if more frequent.
Weight As Directed
Frequency: Daily
Type of Scale: Standing Scale
Comment: Daily morning weight. If unable to stand, use balanced bed scale.
Weight As Directed
Frequency: Once
Type of Scale: Standing Scale
Comment: Upon Admission. If unable to stand, use balanced bed scale.
Cpap [RESP] Routine
Patient to use own unit?: Yes
Pulse Ox/cont/shift [RESP] Routine
Quantity: 1
Special Instructions: Daily pulse oximetry at rest. If greater than 92% at rest also obtain pulse oximetry
while ambulating as tolerated.
10/19/23 20:00
Ipratropium/Albuterol Sulfate [Duoneb] 3 ml INH R QID
10/20/23 08:00
Furosemide [Lasix] 40 mg IV DAILY
10/20/23 08:45
Complete Blood Count/No Diff IN AM
Comprehensive Metabolic Panel IN AM
10/22/23 11:00
DC Protocol for Telemetry ONCE
Abnormal Lab Results
10/19/23 10/19/23
14:52 14:53
RBC 3.60 L 10^6/uL
(4.20-5.40)
Hgb 10.5 L g/dL
(12.0-16.0)
Hct 31.2 L %
(37.0-47.0)
RDW 14.7 H %
(11.5-14.5)
MPV 10.5 H fL
(7.4-10.4)
Absolute Lymphs (auto) 0.7 L 10^3/uL
(1.2-3.4)
Immature Gran % 0.6 H %
(0-0.5)
Lymphocytes % 14.0 L %
(20.5-51.1)
Monocytes % 12.1 H %
(1.7-9.3)
Potassium 3.1 L mmol/L
(3.5-5.1)
Total Protein 5.9 L g/dl
(6.3-8.2)
Albumin 3.4 L g/dl
(3.5-5.0)
10/19/23 14:53
10/19/23 14:52
Vital Signs
Initial and Last Documented VS:
Initial Vital Signs
Temp Pulse Resp BP Pulse Ox
98.1 F 86 16 118/89 90
10/19/23 12:54 10/19/23 12:54 10/19/23 12:54 10/19/23 12:54 10/19/23 12:54
Last Documented Vital Signs
Temp Pulse Resp BP Pulse Ox
98.2 F 70 16 127/61 94
10/20/23 07:54 10/20/23 07:54 10/20/23 07:54 10/20/23 07:54 10/20/23 07:54
<Patti Lara PA-C - Last Filed: 10/19/23 16:15>
MDM/Problems Addressed
Differential Diagnosis Includes:
chf, pe, pneumonia, pulm fibrosis
MDM/Problems Addressed:
88 y/o F with h/o afib on eliquis, chf on lasix echo shows preserved EF
here with acute dyspnea this morning
pt has mlutiple issues that sometimes affect her breathing, pulm fibrosis, asthma, chf
but she doesn't have o2 at home
she has been home for a few days after being at [facility] home not on o2
this morning her home RN noticed her pulse ox was 80% on RA
pt had some chest tightness but no signfiicant discofmort
she has not had fever, cough
on exam pt is hypoxic on ra in 80s but upt o 95% on 3L down graded to 2L
she was mildly tachypneic with some diminshed bs and crackles in lungs with mild edmea in legs
ekg paced
trop neg
bnp elevated > 6000
cx indep reviewed by me and shows pulm edema and mild efffusions
will admit for IV lasix, potassium repletion, o2
<Patti Lara PA-C - Last Filed: 10/19/23 16:15>
*Critical Care Note
Total Time (30-74mins, 75-104mins- exclusive of procedures): Not Applicable
ED Attending Note
<Patti Lara PA-C - Last Filed: 10/19/23 16:15>
-
Portions of this chart may have been created with voice recognition software.� Occasional wrong word or��sound alike� substitutions may have occurred due to the inherent limitations of voice recognition software.
<Case Ahuja DO - Last Filed: 10/19/23 16:35>
ED Attending Note
Patient seen and examined by attending physician: Yes
I performed the substantive portion of visit, reviewed & personally made and approve the management plan that is documented in note by myself or ANUP.: Yes
ED Attending Note:
88-year-old female with history of CHF and pulmonary fibrosis who presents acutely short of breath and hypoxic. Found to be hypoxic on room air. On my assessment patient is eating lunch and feeling a bit better. She states she is not back to
normal but does feel little bit better. Patient received IV Lasix and potassium. Exam: Awake and alert, no respiratory distress, pulse ox 92% on 2 L. Plan: IV Lasix and admit
Discharge Plan
Departure
Patient Disposition: Admit
Date of Disposition: 10/19/23
Time of Disposition: 15:55
Admit to: Telemetry
Presentation/result/management discussed w/ accepting MD/DO: Hospitalist
Covid-19: Not Applicable
Discharge Problem:
Acute CHF, Hypoxia
Interventions
Interventions:
*Risk Screen - Suicide Last Done: 10/19/23 12:54
*Neglect/Abuse Screening Last Done: 10/19/23 12:54
ED- Fall Risk Assessment Last Done: 10/19/23 18:24
*ED COVID-19 Vaccine History Last Done: 10/19/23 12:54
*Nursing Disposition Last Done: 10/19/23 18:24
ED- Cardiac Assessment Last Done: 10/19/23 14:34
ED- Pulmonary Assessment Last Done: 10/19/23 14:34
Discharge Date and Time
Discharge Date/Time: 10/19/23 18:25
[2023-10-19 15:24] LABS: NT-proBNP 6810 pg/ml; Troponin I < 0.012 ng/ml
[2023-10-19 15:26] LABS: ALT (SGPT) 15 U/L (0-35); AST (SGOT) 19 U/L (14-36); Albumin 3.4 g/dl (3.5-5.0); Alkaline Phosphatase 56 U/L (38-126); Blood Urea Nitrogen 13 mg/dl (7-17); Calcium 8.8 mg/dl (8.4-10.2); Carbon Dioxide 28 mmol/L (22-30); Chloride 104 mmol/L (98-107); Estimated Creatinine Clearance 48 ml/min; Glucose 87 mg/dl (70-99); Potassium 3.1 mmol/L (3.5-5.1); Sodium 137 mmol/L (135-145); Total Bilirubin 0.7 mg/dl (0.2-1.3); Total Protein 5.9 g/dl (6.3-8.2); eGFR > 60.00
[2023-10-19 15:28] LABS: COVID-19 Antigen Negative (Negative)
[2023-10-19 16:00] VITALS: BP 125/63
--- NOTE | 2023-10-19 16:44 | HPS.HSE ---
Family Physician
-
Family Physician: Sheri Sauceda
Chief Complaint
-
shortness of breath
History of Present Illness
88-year-old female with past medical history of permanent atrial fibrillation status post pacemaker on Eliquis, HFpEF, pulmonary fibrosis, pulmonary hypertension, asthma/COPD, obstructive sleep apnea, chronic left vocal cord paralysis, hypertension,
hyperlipidemia, colostomy, presenting with shortness of breath this morning with pulse ox in the 80s. Patient has some edema but does not know if it is worse than usual. Not sure if she has gained any weight. She denies any cough or fever. She
denies any chest tightness. He has been having ongoing laryngitis for months. Denies any sore throat or runny nose. Denies any nausea vomiting or diarrhea.
Patient was recently admitted a month ago for CHF exacerbation treated with diuresis. During the hospital stay she aspirated on liquids and was treated for aspiration pneumonia.. She was complaining of hoarse voice and CT scan showed left vocal
cord paralysis. ENT did laryngoscopy showed left vocal cord paralysis but there is no tumor or infection. She was seen by speech and had video swallow was cleared for solids and thin liquids. She was discharged on oxygen.
She does not smoke or drink alcohol.
Medical History
Past Medical History
Past Medical History: Reports Other (permanent atrial fibrillation status post pacemaker on Eliquis, HFpEF, pulmonary fibrosis, pulmonary hypertension, asthma/COPD, obstructive sleep apnea, chronic left vocal cord paralysis, hypertension,
hyperlipidemia, colostomy,)
Past Surgical History: Reports Other (colostomy )
Social History
Tobacco: Non-smoker
Alcohol: None
Drug: None
Family History
Family History: Not pertinent
Allergies / Home Medications
Allergies reflects when Allergies were last updated in [facility].
Home Medications with original date entered in [facility]
Allergy/Medication List:
Allergies
Allergy/AdvReac Type Severity Reaction Status Date / Time
codeine Allergy Unknown Verified 04/05/24 12:54
latex Allergy Itching Verified 10/19/23 12:54
meperidine HCl [From Demerol] Allergy Unknown Verified 10/19/23 12:54
morphine Allergy Unknown Verified 10/19/23 12:54
Penicillins Allergy Unknown; Verified 10/19/23 12:54
tolerated
ceftriaxone,
cefepime
vancomycin Allergy Unknown Verified 10/19/23 12:54
Home Medications
rosuvastatin 5 mg tablet 5 mg PO MOWEFR@2000 High cholesterol 07/29/17
apixaban 5 mg tablet (Eliquis) 5 mg PO BID Blood clot prevention/tx 07/30/17
diltiazem HCl 120 mg capsule,extended release 24 hr 120 mg PO BID Heart disease/condition 01/18/21
losartan 25 mg tablet 25 mg PO DAILY Blood pressure 01/18/21
cholecalciferol (vitamin D3) 50 mcg (2,000 unit) tablet 2,000 units PO DAILY Supplement 03/25/21
escitalopram oxalate 20 mg tablet 20 mg PO DAILY Mental Health/Anxiety 03/25/21
ipratropium bromide 42 mcg (0.06 %) nasal spray 2 spray intranasal BID Allergies 03/25/21
fexofenadine 60 mg tablet 90 mg PO DAILY Allergies 01/02/23
fluticasone 250 mcg-salmeterol 50 mcg/dose blistr powdr for inhalation (Advair Diskus) 1 inh inhalation R BID ASTHMA 01/02/23
buspirone 10 mg tablet 10 mg PO BID Mental Health/Anxiety 05/24/23
acetaminophen 325 mg tablet 650 mg (2 x 325 mg) PO Q6HPRN PRN mild pain/ fever>100.5F #0 tabs 06/11/23
furosemide 40 mg tablet 40 mg PO DAILY Fluid retention/Swelling #30 tabs 06/11/23
pantoprazole 40 mg tablet,delayed release 40 mg PO PRN PRN GI issues 09/15/23
Ambien 09/19/23
dextromethorphan-guaifenesin 10 mg-100 mg/5 mL oral syrup 5 ml PO Q4HPRN PRN cough #1 mL 09/21/23
docusate sodium 100 mg capsule 100 mg PO BID #1 cap 09/21/23
ipratropium 0.5 mg-albuterol 3 mg (2.5 mg base)/3 mL nebulization soln 3 ml inhalation R Q4HPRN PRN shortness of breath/wheezing #1 mL 09/21/23
polyethylene glycol 3350 17 gram oral powder packet (HealthyLax) 17 g PO DAILY #1 ea 09/21/23
Review of Systems
-
History Source: Patient
A 12 point ROS was completed and negative except as noted: Yes
Constitutional: Reports No Symptoms
EENT: Reports No Symptoms
Respiratory: Reports See HPI
Cardiac: Reports No Symptoms
Abdomen/GI: Reports No Symptoms
: Reports No Symptoms
Musculoskeletal: Reports No Symptoms
Skin: Reports No Symptoms
Neurological: Reports No Symptoms
Endocrine: Reports No Symptoms
Hematologic/Lymphatic: Reports No Symptoms
Psych: Reports No Symptoms
Physical Exam
Vital Signs
Vital Signs
Temp Pulse Resp BP Pulse Ox
98.1 F 78 16 125/63 94
10/19/23 12:54 10/19/23 16:30 10/19/23 12:54 10/19/23 16:00 10/19/23 16:30
Physical Exam
General: Well Developed, Well Nourished and No Apparent Distress
HEENT: NormoCephalic, Moist mucous membranes and Atraumatic
Respiratory: Wheezes
Cardiac: S1/S2, Regular Rhythm and Peripheral Edema; No Murmur or Rub
GI: Soft, Non Tender, Non Distended and Normal Bowel Sounds; No Organomegaly
Rectal: Deferred by Provider
Musculoskeletal: No Clubbing, No Cyanosis and No Edema
Skin: No Rash
Neuro: Nonfocal/grossly intact
Laboratory Results
-
10/19/23 14:53
10/19/23 14:52
Laboratory Results
Total Bilirubin 0.7 mg/dl (0.2-1.3) 10/19/23 14:52
AST 19 U/L (14-36) 10/19/23 14:52
ALT 15 U/L (0-35) 10/19/23 14:52
Alkaline Phosphatase 56 U/L (38-126) 10/19/23 14:52
Troponin I < 0.012 ng/ml 10/19/23 14:52
Data Reviewed
-
Lab Data: Labs Reviewed by me
Old Records: Reviewed
Impression/Plan
-
IMPRESSION:
PLAN:
# Acute on chronic HFpEF exacerbation
-Chest x-ray shows mild interstitial cardiogenic pulm edema, small bilateral pleural effusions, mild cardiomegaly,
-Cardiac BNP 6800 from 4600
-Check I's and O's, daily weights
-40 IV Lasix daily
-Cardiology consulted
# Component of asthma/COPD exacerbation
# History of chronic left-sided vocal cord paralysis
-On baseline home oxygen since last admission, currently on 2 L in ER
-Bilateral wheezing on examination
-DuoNeb every 6 hours
-40 mg prednisone
# Hypokalemia secondary to diuretics
-Replete potassium
Severe pulmonary fibrosis
Pulmonary hypertension
Obstructive sleep apnea
-On CPAP at night
History of aspiration pneumonia
Permanent atrial fibrillation status post pacemaker
-Continue diltiazem
-Continue Eliquis
Mild to moderate aortic stenosis
Mild aortic regurgitation
Mild mitral regurgitation
Essential hypertension
-Continue losartan
Hyperlipidemia
-Continue statin
History of colostomy
Constipation
-Continue bowel regimen
Chronic anemia
-Hemoglobin stable
Anxiety/depression
-Continue buspirone, Lexapro
Full code
DVT prophylaxis�Eliquis
Cardiac diet
[2023-10-19] MEDS: LASIX 40 MG IV (17:31)
[2023-10-19] MEDS: KLOR-CON 20 MEQ PO (17:31)
[2023-10-19] MEDS: KCL 160 MEQ IV ×2 (17:56→18:38)
[2023-10-19 18:35] VITALS: BP 121/62
[2023-10-19 18:48] VITALS: BMI 27.9
[2023-10-19] MEDS: DUONEB 3 ML INH (19:16)
[2023-10-19] MEDS: CRESTOR 5 MG PO (20:40)
[2023-10-19] MEDS: CARDIZEM CD 120 MG PO (20:40)
[2023-10-19] MEDS: DELTASONE 40 MG PO (20:41)
[2023-10-19] MEDS: ELIQUIS 5 MG PO (20:41)
[2023-10-19] MEDS: BUSPAR 10 MG PO (20:41)
[2023-10-19] MEDS: AMBIEN 5 MG PO (22:46)
[2023-10-19 23:54] VITALS: BP 114/60
[2023-10-20 03:23] VITALS: BP 113/50
--- NOTE | 2023-10-20 05:45 | PTCARENOTE ---
Pt oriented x 2, forgetful at times. No c/o pain. Ambulating with assist x1 with rolling walker. Pt afebrile, VSS. 96% on 2L O2, dyspneic on exertion. No N/V or stools. Skin intact. Call lopes within reach and bed in lowest position. Awaiting
further plan.
[2023-10-20 06:00] VITALS: BMI 26.1
--- NOTE | 2023-10-20 07:17 | W.PN.HOSP.TC ---
Today's Communication/Plan
-
diuresis
wean O2 supplementation as tolerated
steroids
bronchodilators
Assessment / Plan
Assessment / Plan
Physical Exam
General: Well Developed, Well Nourished and No Apparent Distress
HEENT: NormoCephalic, Moist mucous membranes and Atraumatic
Respiratory: Clear to Auscultation
Cardiac: S1/S2, Regular Rhythm and Peripheral Edema; No Murmur or Rub
GI: Soft, Non Tender, Non Distended and Normal Bowel Sounds; No Organomegaly
Musculoskeletal: No Clubbing, No Cyanosis and No Edema
Neuro: AOx3
88-year-old female with past medical history of permanent atrial fibrillation status post pacemaker on Eliquis, HFpEF, pulmonary fibrosis, pulmonary hypertension, asthma/COPD, obstructive sleep apnea, chronic left vocal cord paralysis, hypertension,
hyperlipidemia, colostomy, here for acute hypoxic respiratory failure 2/2 heart failure.
# Acute on chronic HFpEF exacerbation
Chest x-ray shows mild interstitial cardiogenic pulm edema, small bilateral pleural effusions, mild cardiomegaly,
Cardiac BNP 6800 from 4600
I/O daily weights
40 IV Lasix daily
Cardiology consult appreciated
# Component of asthma/COPD exacerbation
# History of chronic left-sided vocal cord paralysis
-patient reports home oxygen use bedtime only
-DuoNeb every 6 hours
-40 mg prednisone
# Hypokalemia secondary to diuretics
monitor and replete as necessary
Severe pulmonary fibrosis
Pulmonary hypertension
Obstructive sleep apnea
-On CPAP at night
History of aspiration pneumonia
Permanent atrial fibrillation status post pacemaker
-Continue diltiazem
-Continue Eliquis
Mild to moderate aortic stenosis
Mild aortic regurgitation
Mild mitral regurgitation
Essential hypertension
-Continue losartan
Hyperlipidemia
-Continue statin
History of colostomy
Constipation
-Continue bowel regimen
Chronic anemia
-Hemoglobin stable
Anxiety/depression
-Continue buspirone, Lexapro
Full code
DVT prophylaxis�Eliquis
Cardiac diet
I spent a total of 50 minutes with the patient or on the floor. More than 50% of this time involved counseling and coordination of care.
Anticipated Discharge: 24 - 48 hours
Subjective/Interval History
-
Date of Service: October 20, 2023
No acute distress. reports improvement in overall symptoms though remains on oxygen. Not on oxygen at home.
Objective Data
-
Labs:
Laboratory Results
10/20/23
06:00
WBC Pending
Hgb Pending
Hct Pending
Plt Count Pending
Sodium Pending
Potassium Pending
Chloride Pending
Carbon Dioxide Pending
BUN Pending
Creatinine Pending
Glucose Pending
Calcium Pending
Total Bilirubin Pending
AST Pending
ALT Pending
Alkaline Phosphatase Pending
Vital Signs:
Vital Signs
Temp Pulse Resp BP Pulse Ox
98.1 F 62 20 113/50 93
10/20/23 03:23 10/20/23 03:23 10/20/23 03:23 10/20/23 03:23 10/20/23 03:23
I&O
10/19/23 10/20/23 10/21/23
06:59 06:59 06:59
Intake Total 120 / 120
Balance 120 / 120
[2023-10-20] MEDS: DUONEB 3 ML INH ×3 (07:23→20:23)
[2023-10-20 07:54] VITALS: BP 127/61
[2023-10-20] MEDS: DELTASONE 40 MG PO (08:21)
[2023-10-20] MEDS: FLORASTOR 250 MG PO (08:21)
[2023-10-20] MEDS: ELIQUIS 5 MG PO ×2 (08:21→20:05)
[2023-10-20] MEDS: VITAMIN D3 (cholecalciferol) 50 MCG PO (08:22)
[2023-10-20] MEDS: COZAAR 25 MG PO (08:22)
[2023-10-20] MEDS: THERAGRAN 1 TABLET PO (08:22)
[2023-10-20] MEDS: LASIX 40 MG IV (08:22)
[2023-10-20] MEDS: CLARITIN 10 MG PO (08:28)
[2023-10-20] MEDS: BUSPAR 10 MG PO ×2 (08:28→20:05)
[2023-10-20] MEDS: CARDIZEM CD 120 MG PO ×2 (08:29→20:04)
[2023-10-20 08:59] LABS: Hematocrit 33.1 % (37.0-47.0); Hemoglobin 10.9 g/dL (12.0-16.0); Mean Corp Hgb Conc. 32.9 g/dL (33.0-37.0); Mean Corpuscular Hgb 28.9 pg (27.0-31.0); Mean Corpuscular Volume 87.8 fL (81.0-99.0); Mean Platelet Volume 10.5 fL (7.4-10.4); Platelet Count 316 10^3/uL (130-400); Red Blood Cell Count 3.77 10^6/uL (4.20-5.40); Red Cell Dist. Width 14.6 % (11.5-14.5); White Blood Cell Count 4.6 10^3/uL (4.8-10.8)
--- NOTE | 2023-10-20 09:24 | CON.CAR ---
Addendum entered and electronically signed by Margarita Ibanez MD 10/20/23 10:55:
I saw and examined the patient.
The HEAD STOCK OPERATOR's note was reviewed and I agree with the note.
Comment:Mrs. Diallo is an 88-year-old female with permanent atrial fibrillation on Eliquis, heart block status post Medtronic pacemaker, HFpEF, HTN, HLD, GERD, PDA repair at age 15, valvular heart disease, pulmonary fibrosis, asthma/COPD, nocturnal
2L NC, MAXIM, and severe pulmonary hypertension who presents with shortness of breath, worse with exertion. She is feeling a bit better, not sure if she was taking her home furosemide but wasn't urinating a lot. On exam, bibasilar rales, jvp elevated
at [id number],rrr. Ecg is vpace with af ulr. cxr with cephalization. She is acute chf exacerbation likely secondary to insufficient diuretic. Will diurese. Will need chf education. Will caballero [id number] if wasn't done on recent hospitalization. Will
consisder transitioning to Xarelo 15mg daily as CrCl consistent less than 50 but her wt fluctuates above and below just around 60kg so optimal Eliquis dose seems to change often. Here severe lung disease is chronic, and she would certainly benefit
from euvolemia.
c/w Dr Monique.
Will follow
Original Note:
Consultation
Consultation Request
Date/Time Consultation Requested: 10/19/23 10p
Date/Time Consultation Performed: 10/20/23 9:15a
Requesting Provider: Dr. Parrish
Performing Provider: ISMA Mazariegos for Dr. Ibanez
Reason for Consultation: sob
Medical History
-
Chief Complaint: sob
History of Present Illness:
Mrs. Diallo is an 88-year-old female with permanent atrial fibrillation on Eliquis, heart block status post Medtronic pacemaker, HFpEF, HTN, HLD, GERD, PDA repair at age 15, valvular heart disease, pulmonary fibrosis, asthma/COPD, nocturnal 2L NC,
MAXIM, and severe pulmonary hypertension who presents with shortness of breath, worse with exertion. She was admitted with acute HFpEF 3/2-09/22/23 and diuresed down to weight of 130 lbs, also was treated for aspiration pneumonia, CT scan showed left
vocal cord paralysis. ENT did laryngoscopy that showed left vocal cord paralysis but there is no tumor or infection. She was seen by speech and had video swallow was cleared for solids and thin liquids. Weight on this admit was 142.5 lbs (64.8
kg). CXR with mild interstitial pulmonary edema, small b/l pleural effusions, mild elevation of right hemidiaphragm. ProBNP elevated at 6810 as well. Admitted to hospitalist service and we are consulted for HFpEF.
OUTPATIENT STITCH MARKER:� Jose Mata MD�
Past Medical History
Past Medical History: Other (as above)
Past Surgical History: Other (as above)
Social History
Tobacco: Non-Smoker
Alcohol: None
Family History
Family History: Reviewed & Not Pertinent
Allergies / Home Medications
Allergy/AdvReac Type Severity Reaction Status Date / Time
codeine Allergy Unknown Verified 10/19/23 12:54
latex Allergy Itching Verified 10/19/23 12:54
meperidine HCl [From Demerol] Allergy Unknown Verified 10/19/23 12:54
morphine Allergy Unknown Verified 10/19/23 12:54
Penicillins Allergy Unknown; Verified 10/19/23 12:54
tolerated
ceftriaxone,
cefepime
vancomycin Allergy Unknown Verified 10/19/23 12:54
�Medication �Instructions �Recorded �Confirmed �Type
rosuvastatin 5 mg tablet 5 mg PO MOWEFR@2000 High 07/29/17 10/19/23 History
cholesterol
apixaban 5 mg tablet (Eliquis) 5 mg PO BID Blood clot 07/30/17 10/19/23 History
prevention/tx
diltiazem HCl 120 mg 120 mg PO BID Heart 01/18/21 10/19/23 History
capsule,extended release 24 hr disease/condition
losartan 25 mg tablet 25 mg PO DAILY Blood pressure 01/18/21 10/19/23 History
cholecalciferol (vitamin D3) 50 2,000 units PO DAILY Supplement 03/25/21 10/19/23 History
mcg (2,000 unit) tablet
escitalopram oxalate 20 mg tablet 20 mg PO DAILY Mental 03/25/21 10/19/23 History
Health/Anxiety
ipratropium bromide 42 mcg (0.06 2 spray intranasal BID Allergies 03/25/21 10/19/23 History
%) nasal spray
fexofenadine 60 mg tablet 90 mg PO DAILY Allergies 01/02/23 10/19/23 History
buspirone 10 mg tablet 10 mg PO BID Mental Health/Anxiety 05/24/23 10/19/23 History
acetaminophen 325 mg tablet 650 mg (2 x 325 mg) PO Q6HPRN PRN 06/11/23 10/19/23 Rx
mild pain/ fever>100.5F #0 tabs
furosemide 40 mg tablet 40 mg PO DAILY Fluid 06/11/23 10/19/23 Rx
retention/Swelling #30 tabs
zolpidem 5 mg tablet (Ambien) 5 mg PO HSPRN PRN sleep ##0 09/19/23 10/19/23 History
ipratropium 0.5 mg-albuterol 3 mg 3 ml inhalation R Q4HPRN PRN 09/21/23 10/19/23 Rx
(2.5 mg base)/3 mL nebulization shortness of breath/wheezing #1 mL
soln
Saccharomyces boulardii 250 mg 250 mg PO DAILY Supplement 10/19/23 10/19/23 History
capsule (Florastor)
therapeutic multivitamin 1 tab PO DAILY Supplement 10/19/23 10/19/23 History
Review of Systems
-
History Source: Patient
All other systems: Negative unless noted
Physical Exam
Vital Signs
Temp Pulse Resp BP Pulse Ox
98.2 F 70 16 127/61 94
10/20/23 07:54 04/06/24 07:54 10/20/23 07:54 10/20/23 07:54 10/20/23 07:54
Lab Results
10/20/23 08:45
Troponin I < 0.012 ng/ml 10/19/23 14:52
Xpj-H-Bjvnwwbijlj Pept 6810 pg/ml 10/19/23 14:52
Physical Exam
General: Well Developed, Well Nourished and No Apparent Distress
HEENT: Normocephalic and Anicteric
Respiratory: Non Labored Respirations and Other (diminished b/l)
Cardiac: S1/S2, Regular Rhythm, Murmur (2/6 TYESHA) and Peripheral Edema (trace b/l )
Breast: Deferred by me
GI: Soft, Non Distended and Normal Bowel Sounds
Rectal: Deferred by Provider
Musculoskeletal: No Clubbing and No Cyanosis
Skin: Warm and Dry
Neuro: AO x 3
Psych: Calm
Impression / Plan
-
COPD/pulmonary fibrosis/asthma - on nocturnal oxygen 2L NC.
- 09/2023 admission treated for aspiration pneumonia.
- has known left vocal cord paralysis, laryngoscopy showed left vocal cord paralysis but there is no tumor or infection. Speech video swallow was cleared for solids and thin liquids.
- on prednisone and albuterol per hospitalist.
HFpEF - acute exacerbation
- CXR with mild interstitial pulmonary edema, small b/l pleural effusions, mild elevation of right hemidiaphragm.
- agree with IV Lasix, monitor daily weights, I&O, sodium/fluid restrictions.
- weight on admit (10/18) was 142 lbs, now down to 133 lbs today...
- weight on d/c 09/22/23 was 130 lbs. she states her weight at home is typically 137 lbs - 141 lbs.
- echo 09/17/23 as below.
- she thinks she is taking Lasix 40mg daily at home, per d/c instructions 09/22/23, 'my does my pills'.
Valvular heart disease - stable.
- Mild to moderate MR, mild to moderate , mild AI, and severe pulmonary hypertension.
- continue medical therapy.
Atrial fibrillation - permanent.
- stable w/o palpitations.
- continue Diltiazem.
- on Eliquis 5mg BID, continue. If weight drops below 60 kg, then Eliquis dose needs to be 2.5mg BID since she is 88 years old.
- will have case management caballero Xarelto 20mg daily to possibly switch her.
HTN - stable on Diltiazem and Losartan, continue.
HLD - stable on Crestor, continue.
PPM - Medtronic, stable with normal function.
- managed by Dr. Mata as an outpatient.
Pulmonary hypertension - severe, likely combination of HFpEF/valve disease.
Testing:
Echo 09/17/23: 60-65%, mild cLVH, severe biatrial enlargement, mild MR, mild/moderate , mild AR, severe pulmonary HTN, estimated PASP 70-75 mmHg, no change from echo 03/2021.
Data Reviewed
-
EKG: Tracing Personally Visualized and interpreted (V paced 71 bpm with PVCs)
Radiology: Report Reviewed by me (CXR with mild interstitial pulmonary edema, small b/l pleural effusions, mild elevation of right hemidiaphragm.)
Medical Tests (Nuc Med, Echo etc): Report Reviewed by me (Echo 09/17/23: 60-65%, mild cLVH, severe biatrial enlargement, mild MR, mild/moderate , mild AR, severe pulmonary HTN, estimated PASP 70-75 mmHg, no change from echo 03/2021.)
Labs: Labs Reviewed by me
Old Records: Reviewed
[2023-10-20 09:35] LABS: Albumin 3.8 g/dl (3.5-5.0); Estimated Creatinine Clearance 47 ml/min; Total Protein 6.3 g/dl (6.3-8.2); eGFR > 60.00
[2023-10-20 09:45] LABS: ALT (SGPT) 17 U/L (0-35); AST (SGOT) 20 U/L (14-36); Alkaline Phosphatase 62 U/L (38-126); Blood Urea Nitrogen 14 mg/dl (7-17); Calcium 9.5 mg/dl (8.4-10.2); Carbon Dioxide 27 mmol/L (22-30); Chloride 102 mmol/L (98-107); Glucose 137 mg/dl (70-99); Potassium 3.7 mmol/L (3.5-5.1); Sodium 138 mmol/L (135-145); Total Bilirubin 0.7 mg/dl (0.2-1.3)
[2023-10-20] MEDS: DUONEB INH (11:03)
[2023-10-20] MEDS: LEXAPRO 20 MG PO (11:15)
[2023-10-20 11:27] VITALS: BP 121/68
[2023-10-20 15:31] VITALS: BP 108/56
--- NOTE | 2023-10-20 16:56 | CM ---
Received consult to check prices on: Xarelto 15 mg, Jardiance 10mg, and Farxiga 10 mg. Attempted to check costs in [employer] however as there are conflicts with a medication that exists in patient's formulary, system would not allow cost check.
Placed a call to patient's pharmacy, [facility] however there was no answer.
Gear Technician updated. CM will attempt to call [facility] again in the am in hopes to obtain these costs.
Plan: Case management will continue to follow and assist with discharge planning. Will attempt again to verify costs tomorrow.
[2023-10-20 19:20] VITALS: BP 103/58
[2023-10-20] MEDS: TYLENOL 650 MG PO (20:04)
[2023-10-20] MEDS: AMBIEN 5 MG PO (22:46)
[2023-10-20 23:10] VITALS: BP 95/39
[2023-10-21] VITALS (7 sets, daily range): BP systolic 100–117; BP diastolic 41–57; PULSE 74; O2SAT 96; BMI 26.2; BMI 25.8
--- NOTE | 2023-10-21 06:35 | W.PN.HOSP.TC ---
Today's Communication/Plan
-
Home oxygen assessment in AM
reduced Eliquis d/t weight and Age
Daily Weights, I/O
PT/OT
cont diuresis
steroid taper
Assessment / Plan
Assessment / Plan
Physical Exam
General: Well Developed, Well Nourished and No Apparent Distress
HEENT: NormoCephalic, Moist mucous membranes and Atraumatic
Respiratory: Clear to Auscultation
Cardiac: S1/S2, Regular Rhythm and Peripheral Edema; No Murmur or Rub
GI: Soft, Non Tender, Non Distended and Normal Bowel Sounds; No Organomegaly
Musculoskeletal: No Clubbing, No Cyanosis and No Edema
Neuro: AOx3
88-year-old female with past medical history of permanent atrial fibrillation status post pacemaker on Eliquis, HFpEF, pulmonary fibrosis, pulmonary hypertension, asthma/COPD, obstructive sleep apnea, chronic left vocal cord paralysis, hypertension,
hyperlipidemia, colostomy, here for acute hypoxic respiratory failure 2/2 heart failure.
# Acute on chronic HFpEF exacerbation
Chest x-ray shows mild interstitial cardiogenic pulm edema, small bilateral pleural effusions, mild cardiomegaly,
Cardiac BNP 6800 from 4600
I/O daily weights
40 IV Lasix daily
Cardiology consult appreciated
# Component of asthma/COPD exacerbation
# History of chronic left-sided vocal cord paralysis
#Obstructive sleep apnea
#Acute Hypoxic Respiratory failure
-On CPAP at night
-[correction to prior documentation] patient reports only CPAP use bedtime, denies having home oxygen
-Home oxygen assessment in AM
-DuoNeb every 6 hours
-40 mg prednisone daily 3 days, tapered to 30 mg daily
# Hypokalemia secondary to diuretics
monitor and replete as necessary
Severe pulmonary fibrosis
Pulmonary hypertension
History of aspiration pneumonia
Permanent atrial fibrillation status post pacemaker
-Continue diltiazem
-Continue Eliquis dose reduced to 2.5 mg BID d/t age and drop in weight <60 kg
Mild to moderate aortic stenosis
Mild aortic regurgitation
Mild mitral regurgitation
Essential hypertension
-Continue losartan
Hyperlipidemia
-Continue statin
History of colostomy
Constipation
-Continue bowel regimen
Chronic anemia
-Hemoglobin stable
Anxiety/depression
-Continue buspirone, Lexapro
Full code
DVT prophylaxis�Eliquis
Cardiac diet
I spent a total of 53 minutes with the patient or on the floor. More than 50% of this time involved counseling and coordination of care.
Anticipated Discharge: 24 - 48 hours
Subjective/Interval History
-
Date of Service: October 21, 2023
No acute distress. Remains oxygen dependent. Reports having CPAP at home only, no home oxygen.
Objective Data
-
Labs:
Laboratory Results
10/21/23
06:00
WBC Pending
Hgb Pending
Hct Pending
Plt Count Pending
Sodium Pending
Potassium Pending
Chloride Pending
Carbon Dioxide Pending
BUN Pending
Creatinine Pending
Glucose Pending
Calcium Pending
Vital Signs:
Vital Signs
Temp Pulse Resp BP Pulse Ox
97.9 F 66 18 117/57 98
10/21/23 03:25 10/21/23 03:25 10/21/23 03:25 10/21/23 03:25 10/21/23 03:25
I&O
10/19/23 10/20/23 10/21/23
06:59 06:59 06:59
Intake Total 120 / 120 960 / 960
Balance 120 / 120 960 / 960
[2023-10-21] MEDS: COZAAR 25 MG PO (07:53)
[2023-10-21] MEDS: CLARITIN 10 MG PO (07:53)
[2023-10-21] MEDS: THERAGRAN 1 TABLET PO (07:53)
[2023-10-21] MEDS: VITAMIN D3 (cholecalciferol) 50 MCG PO (07:53)
[2023-10-21] MEDS: FLORASTOR 250 MG PO (07:53)
[2023-10-21] MEDS: ELIQUIS 5 MG PO (07:53)
[2023-10-21] MEDS: BUSPAR 10 MG PO ×2 (07:53→20:55)
[2023-10-21] MEDS: DELTASONE 40 MG PO (07:53)
[2023-10-21] MEDS: LEXAPRO 20 MG PO (07:54)
[2023-10-21] MEDS: LASIX 40 MG IV (07:54)
[2023-10-21] MEDS: CARDIZEM CD 120 MG PO ×2 (07:54→20:56)
[2023-10-21] MEDS: DUONEB 3 ML INH ×4 (08:16→19:10)
[2023-10-21 08:51] LABS: Hematocrit 29.5 % (37.0-47.0); Hemoglobin 9.6 g/dL (12.0-16.0); Mean Corp Hgb Conc. 32.5 g/dL (33.0-37.0); Mean Corpuscular Hgb 28.9 pg (27.0-31.0); Mean Corpuscular Volume 88.9 fL (81.0-99.0); Mean Platelet Volume 11.1 fL (7.4-10.4); Platelet Count 276 10^3/uL (130-400); Red Blood Cell Count 3.32 10^6/uL (4.20-5.40); Red Cell Dist. Width 14.7 % (11.5-14.5); White Blood Cell Count 6.1 10^3/uL (4.8-10.8)
[2023-10-21 09:27] LABS: Blood Urea Nitrogen 22 mg/dl (7-17); Calcium 9.1 mg/dl (8.4-10.2); Carbon Dioxide 28 mmol/L (22-30); Chloride 101 mmol/L (98-107); Estimated Creatinine Clearance 47 ml/min; Glucose 95 mg/dl (70-99); Phosphorus 4.3 mg/dl (2.5-4.5); Potassium 3.4 mmol/L (3.5-5.1); Sodium 137 mmol/L (135-145); eGFR > 60.00
--- NOTE | 2023-10-21 11:00 | W.PN.CD ---
Today's Communication / Plan
-
reweigh patient on standing scale
will continue IV lasix, consider a pm dose if no weight change
d/c planning to decide appropriate DOAC
Impression / Plan
-
COPD/pulmonary fibrosis/asthma - on nocturnal oxygen 2L NC.
- 09/2023 admission treated for aspiration pneumonia.
- has known left vocal cord paralysis, laryngoscopy showed left vocal cord paralysis but there is no tumor or infection. Speech video swallow was cleared for solids and thin liquids.
- on prednisone and albuterol per hospitalist.
HFpEF - acute exacerbation
- CXR with mild interstitial pulmonary edema, small b/l pleural effusions, mild elevation of right hemidiaphragm.
- Continue with IV Lasix, monitor daily weights, I&O, sodium/fluid restrictions.
- weight on admit (10/18) was 142 lbs, now down to 133 lbs with no real change today---will ask to reweight, she feels she is urinating more than usual
- weight on d/c 09/22/23 was 130 lbs. she states her weight at home is typically 137 lbs - 141 lbs.
- echo 09/17/23 as below.
-? adherance to diuretic at home
Valvular heart disease - stable.
- Mild to moderate MR, mild to moderate , mild AI, and severe pulmonary hypertension.
- continue medical therapy.
Atrial fibrillation - permanent.
- stable w/o palpitations.
- continue Diltiazem.
- on Eliquis 5mg BID, continue. If weight drops below 60 kg, then Eliquis dose needs to be 2.5mg BID since she is 88 years old.
- will have case management caballero Xarelto 15mg daily to possibly switch her.
HTN - stable on Diltiazem and Losartan, continue.
HLD - stable on Crestor, continue.
PPM - Medtronic, stable with normal function.
- managed by Dr. Mata as an outpatient.
Pulmonary hypertension - severe, likely combination of HFpEF/valve disease.
Testing:
Echo 09/17/23: 60-65%, mild cLVH, severe biatrial enlargement, mild MR, mild/moderate , mild AR, severe pulmonary HTN, estimated PASP 70-75 mmHg, no change from echo 03/2021.
Subjective:
She is feeling better, less sob and thinking that she is urinating nicely to dose of IV lasix
Physical Exam
Vital Signs/Labs
Vital Signs
Temp Pulse Resp BP Pulse Ox
98.1 F 58 16 110/57 96
10/21/23 07:00 10/21/23 08:19 10/21/23 08:19 10/21/23 07:54 10/21/23 08:19
10/20/23 10/21/23 10/22/23
06:59 06:59 06:59
Actual Weight 60.526 kg 60.781 kg
10/21/23 07:45
10/21/23 07:45
Magnesium 2.0 mg/dl (1.6-2.3) 10/21/23 07:45
10/19/23
14:52
Woh-R-Rerphldkhbh Pept 6810
LAB Results
10/19/23
14:52
Troponin I < 0.012
Physical Exam
Constitutional: No acute distress
Cardiovascular: JVD pressure is normal, Pedal edema present (1+ to the legs) and Systolic murmur present
Respiratory: Respiratory effort normal and Crackles Present (at the bases)
GI: Soft
Neuro/Psych: AO x 3
Data Reviewed
-
Date of Service: October 21, 2023
[2023-10-21] MEDS: KCL 40 MEQ PO (11:43)
[2023-10-21] MEDS: ELIQUIS 2.5 MG PO (20:56)
[2023-10-21] MEDS: AMBIEN 5 MG PO (23:44)
[2023-10-22 03:05] VITALS: BP 110/57
[2023-10-22 06:00] VITALS: BMI 26.1
[2023-10-22 06:43] LABS: Hematocrit 29.5 % (37.0-47.0); Hemoglobin 9.7 g/dL (12.0-16.0); Mean Corp Hgb Conc. 32.9 g/dL (33.0-37.0); Mean Corpuscular Hgb 29.5 pg (27.0-31.0); Mean Corpuscular Volume 89.7 fL (81.0-99.0); Mean Platelet Volume 10.8 fL (7.4-10.4); Platelet Count 295 10^3/uL (130-400); Red Blood Cell Count 3.29 10^6/uL (4.20-5.40); White Blood Cell Count 6.7 10^3/uL (4.8-10.8)
[2023-10-22 07:00] VITALS: BP 113/60
[2023-10-22 07:05] LABS: Blood Urea Nitrogen 27 mg/dl (7-17); Calcium 9.4 mg/dl (8.4-10.2); Carbon Dioxide 26 mmol/L (22-30); Chloride 99 mmol/L (98-107); Estimated Creatinine Clearance 41 ml/min; Glucose 95 mg/dl (70-99); Magnesium 2.1 mg/dl (1.6-2.3); Phosphorus 3.9 mg/dl (2.5-4.5); Potassium 3.7 mmol/L (3.5-5.1); Sodium 137 mmol/L (135-145); eGFR > 60.00
[2023-10-22] MEDS: DUONEB 3 ML INH ×4 (07:34→19:53)
--- NOTE | 2023-10-22 09:06 | W.PN.HOSP.TC ---
Addendum entered and electronically signed by Richie Johnson MD 10/23/23 10:34:
Patient is in need of oxygen on exertion due to pulse oximetry of 89% on room air at rest; 85% on room air with exertion.
Patient was placed on 2L O2 via nasal cannula with saturation of 94%. Oxygen will help to improve hypoxemia.
Patient is mobile within the home. Albuterol therapy has been discussed and is ineffective in treating hypoxemia-related symptoms.
Oxygen will improve the patient's symptoms.
Original Note:
Today's Communication/Plan
-
see bold
Assessment / Plan
Assessment / Plan
88-year-old female with past medical history of permanent atrial fibrillation status post pacemaker on Eliquis, HFpEF, pulmonary fibrosis, pulmonary hypertension, asthma/COPD, obstructive sleep apnea, chronic left vocal cord paralysis, hypertension,
hyperlipidemia, colostomy, here for acute hypoxic respiratory failure 2/2 heart failure.
# Acute on chronic HFpEF exacerbation
Chest x-ray shows mild interstitial cardiogenic pulm edema, small bilateral pleural effusions, mild cardiomegaly,
Cardiac BNP 6800 from 4600
Appreciate cardiology input, continue IV Lasix for now, trend creatinine, trend daily weights
PT rec HH vs SNF
# Component of asthma/COPD exacerbation
# History of chronic left-sided vocal cord paralysis
#Obstructive sleep apnea
#Acute Hypoxic Respiratory failure
Patient reports wearing oxygen 2 L at night with her CPAP
Continue prednisone taper, bronchodilators
Home oxygen prescription eval performed, patient requires 2 L with activity
# Hypokalemia secondary to diuretics
monitor and replete as necessary
Severe pulmonary fibrosis
Pulmonary hypertension
History of aspiration pneumonia
Permanent atrial fibrillation status post pacemaker
-Continue diltiazem
-Continue Eliquis dose reduced to 2.5 mg BID d/t age and drop in weight <60 kg
Mild to moderate aortic stenosis
Mild aortic regurgitation
Mild mitral regurgitation
Essential hypertension
-Continue losartan
Hyperlipidemia
-Continue statin
History of colostomy
Constipation
-Continue bowel regimen
Chronic anemia
-Hemoglobin stable
Anxiety/depression
-Continue buspirone, Lexapro
DVT prophylaxis�Eliquis
Full code
Physical Exam
General: Frail, elderly, no acute distress
HEENT: Normocephalic, Atraumatic, EOMI, MMM
Respiratory: Clear to Auscultation bilaterally
Cardiac: Normal S1/S2, irregularly irregular
GI: Soft, Nontender, Nondistended, Normal Bowel Sounds
Extremities: No Clubbing, Cyanosis
Bilateral pitting lower extremity edema noted
Neuro: Nonfocal/Grossly Intact
Psych: Calm, Cooperative
Derm: No Visible lesions
Anticipated Discharge: Within 24 hours
Subjective/Interval History
-
Date of Service: October 22, 2023
Patient states her breathing is the same. She does have sinus congestion, but is able to breathe through her nostrils. No nausea, no vomiting.
Objective Data
-
Labs:
Laboratory Results
10/22/23
06:16
WBC 6.7
Hgb 9.7 L
Hct 29.5 L
Plt Count 295
Sodium 137
Potassium 3.7
Chloride 99
Carbon Dioxide 26
BUN 27 H
Creatinine 0.8
Glucose 95
Calcium 9.4
Vital Signs:
Vital Signs
Temp Pulse Resp BP Pulse Ox
98.1 F 68 16 113/60 98
10/22/23 07:00 10/22/23 07:39 10/22/23 07:39 10/22/23 07:00 10/22/23 07:39
I&O
10/21/23 10/22/23 10/23/23
06:59 06:59 06:59
Intake Total 960 / 960 1200 / 1200
Balance 960 / 960 1200 / 1200
--- NOTE | 2023-10-22 09:08 | CM ---
Placed another call to [facility] however there was no answer. Will continue trying to get a hold of a pharmacist to obtain costs of medications, as [facility] will not override the interaction flag.
Plan: Case management will continue to follow and assist with discharge planning. Home with abx.
[2023-10-22 09:47] VITALS: O2SAT 85; O2SAT 89
[2023-10-22] MEDS: BUSPAR 10 MG PO ×2 (09:50→20:48)
[2023-10-22] MEDS: THERAGRAN 1 TABLET PO (09:50)
[2023-10-22] MEDS: VITAMIN D3 (cholecalciferol) 50 MCG PO (09:50)
[2023-10-22] MEDS: LEXAPRO 20 MG PO (09:50)
[2023-10-22] MEDS: CARDIZEM CD 120 MG PO ×2 (09:50→20:48)
[2023-10-22] MEDS: DELTASONE 30 MG PO (09:50)
[2023-10-22] MEDS: COZAAR 25 MG PO (09:50)
[2023-10-22] MEDS: ELIQUIS 2.5 MG PO ×2 (09:51→20:48)
[2023-10-22] MEDS: LASIX 40 MG IV (09:51)
[2023-10-22] MEDS: FLORASTOR 250 MG PO (09:51)
[2023-10-22] MEDS: CLARITIN 10 MG PO (09:51)
--- NOTE | 2023-10-22 10:07 | W.PN.CD ---
Today's Communication / Plan
-
Continue IV lasix for today
reassess tomorrow
sinus congestion? reason for SOB?
Impression / Plan
-
COPD/pulmonary fibrosis/asthma - on nocturnal oxygen 2L NC.
- 09/2023 admission treated for aspiration pneumonia.
- has known left vocal cord paralysis, laryngoscopy showed left vocal cord paralysis but there is no tumor or infection. Speech video swallow was cleared for solids and thin liquids.
- on prednisone and albuterol per hospitalist.
HFpEF - acute exacerbation appears to be resolving today she tells me her main problem for her SOB is because she can't breath through her nose
- CXR with mild interstitial pulmonary edema, small b/l pleural effusions, mild elevation of right hemidiaphragm.
- Continue with IV Lasix likely transition to PO tomorrow , monitor daily weights, I&O, sodium/fluid restrictions.
- weight on admit (10/18) was 142 lbs, now down to 133 lbs with no real change today today/yesterday
- weight on d/c 09/22/23 was 130 lbs. she states her weight at home is typically 137 lbs - 141 lbs.
- echo 09/17/23 as below.
-? adherance to diuretic at home
Valvular heart disease - stable.
- Mild to moderate MR, mild to moderate , mild AI, and severe pulmonary hypertension.
- continue medical therapy.
Atrial fibrillation - permanent.
- stable w/o palpitations.
- continue Diltiazem.
- on Eliquis 5mg BID, continue. If weight drops below 60 kg, then Eliquis dose needs to be 2.5mg BID since she is 88 years old.
- will have case management caballero Xarelto 15mg daily to possibly switch her.
HTN - stable on Diltiazem and Losartan, continue.
HLD - stable on Crestor, continue.
PPM - Medtronic, stable with normal function.
- managed by Dr. Mata as an outpatient.
Pulmonary hypertension - severe, likely combination of HFpEF/valve disease.
Testing:
Echo 09/17/23: 60-65%, mild cLVH, severe biatrial enlargement, mild MR, mild/moderate , mild AR, severe pulmonary HTN, estimated PASP 70-75 mmHg, no change from echo 03/2021.
Subjective:
Today she tells me that the reason for SOB is because she is having difficulty breathing through her nose
Physical Exam
Vital Signs/Labs
Vital Signs
Temp Pulse Resp BP Pulse Ox
98.1 F 68 16 113/60 94
10/22/23 07:00 10/22/23 07:39 10/22/23 07:39 10/22/23 07:00 10/22/23 09:47
10/21/23 10/22/23 10/23/23
06:59 06:59 06:59
Actual Weight 134 lb 133 lb 6.4 oz
10/22/23 06:16
10/22/23 06:16
Magnesium 2.1 mg/dl (1.6-2.3) 10/22/23 06:16
10/19/23
14:52
Vdf-V-Ktphvcxhjnz Pept 6810
LAB Results
10/19/23
14:52
Troponin I < 0.012
Physical Exam
Constitutional: No acute distress
EENT: Anicteric
Cardiovascular: Rhythm/rate is irregular and Pedal edema present
Respiratory: Respiratory effort normal and Lungs clear to auscul.
GI: Soft
Neuro/Psych: Alert and Oriented
Data Reviewed
-
Date of Service: October 22, 2023
EKG: Tracing Personally Visualized and interpreted (AF w/ v paced rhythm )
Echo: Report Reviewed by me
Labs: Labs Reviewed by me
[2023-10-22 11:00] VITALS: BP 121/61
[2023-10-22 15:00] VITALS: BP 108/54
[2023-10-22] MEDS: ADVAIR HFA 115/21 MCG INHALER 2 PUFF INH (19:42)
[2023-10-22] MEDS: CRESTOR 5 MG PO (20:48)
[2023-10-22] MEDS: AMBIEN 5 MG PO (22:25)
[2023-10-22 23:26] VITALS: BP 118/63
[2023-10-22] MEDS: TYLENOL 650 MG PO (23:31)
[2023-10-23 04:26] VITALS: BMI 25.9
[2023-10-23 06:17] LABS: Hemoglobin 9.3 g/dL (12.0-16.0); Mean Corp Hgb Conc. 33.2 g/dL (33.0-37.0); Mean Corpuscular Hgb 28.9 pg (27.0-31.0); Mean Platelet Volume 10.3 fL (7.4-10.4); Platelet Count 292 10^3/uL (130-400); Red Blood Cell Count 3.22 10^6/uL (4.20-5.40); Red Cell Dist. Width 15.2 % (11.5-14.5); White Blood Cell Count 6.5 10^3/uL (4.8-10.8)
[2023-10-23 06:42] LABS: Blood Urea Nitrogen 24 mg/dl (7-17); Calcium 9.1 mg/dl (8.4-10.2); Carbon Dioxide 27 mmol/L (22-30); Chloride 102 mmol/L (98-107); Estimated Creatinine Clearance 47 ml/min; Glucose 102 mg/dl (70-99); Potassium 3.4 mmol/L (3.5-5.1); Sodium 135 mmol/L (135-145); eGFR > 60.00
[2023-10-23] MEDS: ADVAIR HFA 115/21 MCG INHALER 2 PUFF INH (07:35)
[2023-10-23] MEDS: DUONEB 3 ML INH ×2 (07:35→11:35)
[2023-10-23 07:41] VITALS: BP 133/63
--- NOTE | 2023-10-23 08:22 | W.PN.HOSP.TC ---
Today's Communication/Plan
-
Discharge home with home care today and oxygen with activity.
Assessment / Plan
Assessment / Plan
88-year-old female with past medical history of permanent atrial fibrillation status post pacemaker on Eliquis, HFpEF, pulmonary fibrosis, pulmonary hypertension, asthma/COPD, obstructive sleep apnea, chronic left vocal cord paralysis, hypertension,
hyperlipidemia, colostomy, here for acute hypoxic respiratory failure 2/2 heart failure.
# Acute on chronic HFpEF exacerbation
Chest x-ray shows mild interstitial cardiogenic pulm edema, small bilateral pleural effusions, mild cardiomegaly,
Cardiac BNP 6800 from 4600
Appreciate cardiology input, status post IV Lasix today, changed to Lasix 40 mg p.o. daily tomorrow
Will discharge on potassium chloride 10 mEq every other day
Discharge home with home care, follow-up with PCP and usual equipment maint tech in the office
# Component of asthma/COPD exacerbation
# History of chronic left-sided vocal cord paralysis
#Obstructive sleep apnea
#Acute Hypoxic Respiratory failure
Patient reports wearing oxygen 2 L at night with her CPAP
Continue prednisone taper, bronchodilators
Home oxygen prescription eval performed, patient requires 2 L with activity
Asked case management to set her up with home oxygen
# Hypokalemia secondary to diuretics
monitor and replete as necessary
Severe pulmonary fibrosis
Pulmonary hypertension
History of aspiration pneumonia
Permanent atrial fibrillation status post pacemaker
-Continue diltiazem
-Cardiology recommends changing to Xarelto 15 mg nightly for easier dosing due to her weight fluctuation
Mild to moderate aortic stenosis
Mild aortic regurgitation
Mild mitral regurgitation
Essential hypertension
-Continue losartan
Hyperlipidemia
-Continue statin
History of colostomy
Constipation
-Continue bowel regimen
Chronic anemia
-Hemoglobin stable
Anxiety/depression
-Continue buspirone, Lexapro
DVT prophylaxis�xarelto
Full code
Physical Exam
General: Frail, elderly, no acute distress
HEENT: Normocephalic, Atraumatic, EOMI, MMM
Respiratory: Clear to Auscultation bilaterally
Cardiac: Normal S1/S2, irregularly irregular
GI: Soft, Nontender, Nondistended, Normal Bowel Sounds
Extremities: No Clubbing, Cyanosis
Bilateral pitting lower extremity edema noted
Neuro: Nonfocal/Grossly Intact
Psych: Calm, Cooperative
Derm: No Visible lesions
Anticipated Discharge: Today
Subjective/Interval History
-
Date of Service: October 23, 2023
Patient reports her breathing has improved. Her weakness is also improved. She wishes to go home today. No fever, no vomiting.
Objective Data
-
Labs:
Laboratory Results
10/23/23
06:04
WBC 6.5
Hgb 9.3 L
Hct 28.0 L
Plt Count 292
Sodium 135
Potassium 3.4 L
Chloride 102
Carbon Dioxide 27
BUN 24 H
Creatinine 0.7
Glucose 102 H
Calcium 9.1
Vital Signs:
Vital Signs
Temp Pulse Resp BP Pulse Ox
98.3 F 64 17 133/63 97
10/23/23 07:41 10/23/23 07:41 10/23/23 07:41 10/23/23 07:41 10/23/23 07:41
I&O
10/22/23 10/23/23 10/24/23
06:59 06:59 06:59
Intake Total 1200 / 1200 600 / 600
Balance 1200 / 1200 600 / 600
--- NOTE | 2023-10-23 08:53 | W.PN.CD ---
Addendum entered and electronically signed by Basilio Graf MD 10/23/23 11:26:
Correction she is on Lasix 40 mg daily
Addendum entered and electronically signed by Basilio Graf MD 10/23/23 11:26:
I saw and examined the patient.
The RECIPROCATING DRILL OPERATOR's note was reviewed and I agree with the note.
Comment: 88F permanent atrial fibrillation on Eliquis, heart block status post Medtronic pacemaker, HFpEF, HTN, HLD, GERD, PDA repair at age 15, valvular heart disease, pulmonary fibrosis, asthma/COPD, nocturnal 2L NC, MAXIM, and severe pulmonary
hypertension who presents with shortness of breath, worse with exertion.
- Lasix 20 daily
- Xarelto for AF
We'll sign off please call back with questions/concerns. She should f/u with primary ase master mechanic in 1-2 weeks.
Original Note:
Today's Communication / Plan
-
Transition to oral diuretic
Transition to Xarelto given fluctuating weight (complicated eliquis dosing)
Impression / Plan
-
SUBJECTIVE: 88F permanent atrial fibrillation on Eliquis, heart block status post Medtronic pacemaker, HFpEF, HTN, HLD, GERD, PDA repair at age 15, valvular heart disease, pulmonary fibrosis, asthma/COPD, nocturnal 2L NC, MAXIM, and severe pulmonary
hypertension who presents with shortness of breath, worse with exertion.
OUTPATIENT PROSECUTING ATTORNEY: Jose Mata MD�
COPD/pulmonary fibrosis/asthma - on nocturnal oxygen 2L NC.
- 09/2023 admission treated for aspiration pneumonia. Speech video swallow was cleared for solids and thin liquids.
- has known left vocal cord paralysis, laryngoscopy showed left vocal cord paralysis but there is no tumor or infection.
- on prednisone and albuterol per hospitalist.
HFpEF - chronic
- CXR with mild interstitial pulmonary edema, small b/l pleural effusions, mild elevation of right hemidiaphragm.
- Continue with IV Lasix likely transition to PO after this mornings dose
- monitor daily weights, I&O, sodium/fluid restrictions.
- weight on admit (10/18) was 142 lbs, now down to 132 lbs
- weight on d/c 09/22/23 was 130 lbs. she states her weight at home is typically 137 lbs - 141 lbs.
- echo 09/17/23 as below.
-? adherence to diuretic at home
Valvular heart disease - stable.
- Mild to moderate MR, mild to moderate , mild AI, and severe pulmonary hypertension.
- continue medical therapy.
Atrial fibrillation - permanent.
- stable w/o palpitations.
- continue Diltiazem.
- on Eliquis 5mg BID, continue, her weight fluctuates between 59-61kg, which would change dosing given her age
- transition to Xarelto 15mg daily
HTN - stable on Diltiazem and Losartan, continue.
HLD - stable on Crestor, continue.
PPM - Medtronic, stable with normal function, managed by Dr. Mata as an outpatient.
Pulmonary hypertension - severe, likely combination of HFpEF/valve disease.
Testing:
Echo 09/17/23: 60-65%, mild cLVH, severe biatrial enlargement, mild MR, mild/moderate , mild AR, severe pulmonary HTN, estimated PASP 70-75 mmHg, no change from echo 03/2021.
Subjective:
She is laying flat and states her nose is clogged.
Physical Exam
Vital Signs/Labs
Vital Signs
Temp Pulse Resp BP Pulse Ox
98.3 F 64 17 133/63 97
10/23/23 07:41 10/23/23 07:41 10/23/23 07:41 10/23/23 07:41 10/23/23 07:41
10/22/23 10/23/23 10/24/23
06:59 06:59 06:59
Actual Weight 60.509 kg 60.146 kg
10/23/23 06:04
10/23/23 06:04
Magnesium 2.1 mg/dl (1.6-2.3) 10/22/23 06:16
10/19/23
14:52
Odg-F-Xyqbdbfngkm Pept 6810
Physical Exam
Constitutional: No acute distress and Comfortable
EENT: Anicteric and Moist mucous membranes
Cardiovascular: Rhythm & rate is regular, Pedal edema is absent, S1S2 is normal and Murmur/rub/gallop absent
Respiratory: Respiratory effort normal and Lungs clear to auscul.
GI: Soft, Distention absent, Flat, Non tender and Normal bowel sounds
Neuro/Psych: AO x 3
Other: Skin (warm and dry)
Data Reviewed
-
Date of Service: October 23, 2023
[2023-10-23] MEDS: THERAGRAN 1 TABLET PO (09:00)
[2023-10-23] MEDS: FLORASTOR 250 MG PO (09:00)
[2023-10-23] MEDS: VITAMIN D3 (cholecalciferol) 50 MCG PO (09:00)
[2023-10-23] MEDS: LEXAPRO 20 MG PO (09:01)
[2023-10-23] MEDS: ELIQUIS 2.5 MG PO (09:01)
[2023-10-23] MEDS: CLARITIN 10 MG PO (09:01)
[2023-10-23] MEDS: CARDIZEM CD 120 MG PO (09:01)
[2023-10-23] MEDS: DELTASONE 30 MG PO (09:01)
[2023-10-23] MEDS: COZAAR 25 MG PO (09:01)
[2023-10-23] MEDS: BUSPAR 10 MG PO (09:02)
[2023-10-23] MEDS: LASIX 40 MG IV (09:02)
[2023-10-23] MEDS: KCL 40 MEQ PO (09:03)
--- NOTE | 2023-10-23 10:40 | W.DCSUMMARY ---
Discharge Summary
Discharge Data
Date of Admission: 10/19/23
Date of Discharge: 10/23/23
-
Pending Results: No
Hospital Course
Discharge diagnosis:
Acute hypoxic respiratory insufficiency
Acute on chronic heart failure with preserved ejection fraction
History of chronic left-sided vocal cord paralysis
Possible mild chronic obstructive pulmonary disease/asthma exacerbation
Hypokalemia
Severe pulmonary fibrosis
Pulmonary hypertension
Permanent atrial fibrillation on anticoagulation
Mild to moderate aortic stenosis
Mild aortic regurgitation
Mild mitral regurgitation
Consults: Cardiology
Echo:
LV ejection fraction is 60-65% by visual assessment.
Mild concentric left ventricular hypertrophy.
Severe biatrial enlargement.
Mild mitral regurgitation.
Mild to moderate aortic stenosis.
Mild aortic regurgitation.
Severe pulmonary HTN, estimated PASP 70-75 mmHg and estimated RA of 15 mmHg.
No significant change since the prior study of 03/28/2021.
Hospital Course:
88-year-old female with past medical history of permanent atrial fibrillation status post pacemaker on Eliquis, HFpEF, pulmonary fibrosis, pulmonary hypertension, asthma/COPD, obstructive sleep apnea, chronic left vocal cord paralysis, hypertension,
hyperlipidemia, and colostomy, presented with shortness of breath this morning with pulse ox in the 80s.
Patient was found to have acute hypoxic respiratory insufficiency secondary to acute on chronic heart failure with a preserved ejection fraction, as well as a mild component of COPD exacerbation. Patient was seen in conjunction with cardiology, and
diuresed with Lasix 40 mg IV daily. She had a repeat echocardiogram, which shows severe biatrial enlargement, and severe pulmonary hypertension.
For her mild COPD exacerbation, she was treated with prednisone 40 mg daily, which was then tapered down. She was also treated with bronchodilators.
Patient's oxygenation improved. She was on room air at rest, but she does require 2 L with activity. She does not wear oxygen at home. She does wear CPAP at night.
Patient was seen in conjunction with PT, who recommended home care.
Patient's weight fluctuated between 59-61 kg. Her Eliquis dose would change based on whether she is 59 versus 61 kg. Therefore cardiology decided to change her Eliquis to Xarelto 15 mg nightly for easier dosing. After several days of diuresis,
cardiology changed her IV Lasix back to her usual home oral Lasix dose of 40 mg p.o. daily.
Patient's medical conditions have been optimized. She will be discharged on a prednisone taper, Lasix 40 mg p.o. daily, to be taken with potassium chloride 10 mEq every other day. She needs to follow-up with her primary care doctor in 1 week, and
her usual loader malt house in the office in 2-3 weeks.
Disposition: Home with home care
Discharge planning: Required 38 minutes
Discharge Plan
-
Patient Disposition: Home with Home Care
Diet: 2 Gram Sodium and Restrict fluids to 64 oz
Activity: As tolerated
Specialty Instructions: Weigh Daily- Call MD for wt gain/loss 3 lbs overnight/5 lbs in 1 week
Instructions: *PCP/Other Wash Oil Cooler Operator Heart Failure Instructions
Referrals:
Jose Mata MD [Non-Admitting Privileges] - in one to two weeks
Sheri Sauceda DO [Family Provider] -
Prescriptions:
New
Xarelto 15 mg Tablet
15 mg PO QPM Qty: 30 0RF
potassium chloride 10 mEq capsule, extended release
10 meq PO .everyotherday Qty: 30 0RF
prednisone 10 mg Tablet
See Rx Instructions .ROUTE .COMPLEX Qty: 18 0RF
Rx Instructions:
Take By Mouth:
30 mg daily x3 days,
20 mg daily x3 days, 10 mg daily x3 days.
Continued
rosuvastatin 5 MG tablet
5 mg PO MOWEFR@1999
losartan 25 MG tablet
25 mg PO DAILY
diltiazem HCl 120 MG capsule,extended release 24hr
120 mg PO BID
ipratropium bromide 1 SPRAY spray,non-aerosol
2 spray intranasal BID
escitalopram oxalate 20 MG tablet
20 mg PO DAILY
cholecalciferol (vitamin D3) 2,000 UNITS tablet
2,000 units PO DAILY
fexofenadine 60 mg Tablet
90 mg PO DAILY
buspirone 10 mg tablet
10 mg PO BID
acetaminophen 325 mg Tablet
650 mg PO Q6HPRN PRN (Reason: mild pain/ fever>100.5F) Qty: 0 0RF
furosemide 40 mg tablet
40 mg PO DAILY Qty: 30 0RF
zolpidem [Ambien] 5 mg Tablet
5 mg PO HSPRN PRN (Reason: sleep) Qty: 0
ipratropium-albuterol 0.5 mg-3 mg(2.5 mg base)/3 mL Solution For Nebulization
3 ml inhalation R Q4HPRN PRN (Reason: shortness of breath/wheezing) Qty: 1 0RF
therapeutic multivitamin Tablet
1 tab PO DAILY
Saccharomyces boulardii [Florastor] 250 mg Capsule
250 mg PO DAILY
fluticasone propion-salmeterol [Advair Diskus] 250-50 mcg/dose Blister With Device
1 inh INHALATION BID
Discontinued
Eliquis 5 MG tablet
5 mg PO BID
Discharge Orders:
Discharge Patient (As Directed); Ordered 10/23/23
Ordered By: Richie Johnson
Discharge Date and Time
Print Language: GERMAN
[2023-10-23 10:48] VITALS: BP 113/55
[2023-10-23 10:58] VITALS: O2SAT 94
--- NOTE | 2023-10-23 13:40 | W.HF.CON ---
Heart Failure
- LV Function
Left ventricular function study result: LV Ejection fraction >40% (ECHO 09/17/23)
Ejection Fraction Percentage: 60-65
- ARNI
Patient already on ARNI: No
Heart Failure ARNI Not Indicated: LV Ejection Fraction >/= 40%
- ACEI/ARB
Patient already on ACEI/ARB: Yes
- Beta Ray
Patient already on Evidence Based Beta Ray: No
Heart Failure Evidence Based Beta Ray Not Indicated: LV Ejection Fraction > 40%
- Mineralocorticord Receptor Antagonist
Patient already on MRA: No
Heart Failure MRA Not Indicated: LV Ejection Fraction > 40%
- SGLT-2 Inhibitor
Patient already on SGLT-2 Inhibitor: No
Heart Failure SGLT-2 Inhibitor Not Indicated: LV Ejection Fraction >40%
- Afib Anticoagulation
Patient already on Anticoagulation for Afib: Yes
- NYHA CHF Classification
NYHA CHF Classification Level: Class III - Symptoms w/ min exertion, interferes w/ nml daily activity (pulmonary fibrosis, asthma on home nocturnal oxygen)
- ACC/AHA Stage
ACC/AHA Stage: Stage C: Symptomatic Heart Failure
[2023-10-23] MEDS: DUONEB INH (15:26)
--- NOTE | 2023-10-24 11:06 | CM ---
CM received call from Dr. Sauceda's RN stating that patient was not referred to [facility] on discharge. Patient sent referral via [facility] to [facility].
== END 2023-10-23 15:29 | disposition home health service (06) | DRG 291 ==
LOC: 3 WEST ACU 17:10
PROVIDERS: Internal Medicine; Physician Assistant; ADMITTING PHYSICIAN Hospitalist; ATTENDING PHYSICIAN Family Medicine; CONSULT PHYSICIAN Internal Medicine Cardiovascular Disease; EMERGENCY PHYSICIAN Emergency Medicine; FAMILY PHYSICIAN Family Medicine
PROC: 5A09357 Assistance with Respiratory Ventilation, Less than 24 Consecutive Hours, Continuous Positive Airway Pressure (ICD-10-PCS; 2023-10-21)
DX: I11.0 Hypertensive heart disease with heart failure (principal); I50.33 Acute on chronic diastolic (congestive) heart failure; I48.21 Permanent atrial fibrillation; J44.1 Chronic obstructive pulmonary disease with (acute) exacerbation; J84.10 Pulmonary fibrosis, unspecified; E78.00 Pure hypercholesterolemia, unspecified; G47.33 Obstructive sleep apnea (adult) (pediatric); I35.0 Nonrheumatic aortic (valve) stenosis; F32.A Depression, unspecified; F41.9 Anxiety disorder, unspecified; E87.6 Hypokalemia; I27.20 Pulmonary hypertension, unspecified; J38.01 Paralysis of vocal cords and larynx, unilateral; D64.9 Anemia, unspecified; K59.00 Constipation, unspecified; K21.9 Gastro-esophageal reflux disease without esophagitis; R06.89 Other abnormalities of breathing; R09.02 Hypoxemia; Z79.01 Long term (current) use of anticoagulants; Z95.0 Presence of cardiac pacemaker; Z93.3 Colostomy status; Z88.5 Allergy status to narcotic agent; Z88.0 Allergy status to penicillin; Z88.8 Allergy status to other drugs, medicaments and biological substances; Z88.1 Allergy status to other antibiotic agents; Z91.040 Latex allergy status; Z79.51 Long term (current) use of inhaled steroids; Z87.01 Personal history of pneumonia (recurrent); Z11.52 Encounter for screening for COVID-19
CPT/HCPCS: 71046; 80048; 80053; 83735; 83880; 84100; 84484; 85025; 85027; 87502; 87811; 93005; 94640; 94761; 96365; 96375; 97116; 97162; 97166; 97530; 97535; 99285

== ENCOUNTER 2023-12-14 15:49 | Emergency (ER) | payer OTHER, SELFPAY ==
[2023-12-14 16:46] LABS: % Basophils 0.9 % (0-2); % Eosinophils 3.3 % (0-6); % Immature Granulocytes 0.3 % (0-0.5); % Lymphocytes 15.2 % (20.5-51.1); % Monocytes 7.8 % (1.7-9.3); % Neutrophils 72.5 % (42.2-75.2); Absolute Basophils 0.1 10^3/uL (0-0.2); Absolute Eosinophils 0.2 10^3/uL (0-0.7); Absolute Monocytes 0.5 10^3/uL (0.1-0.6); Absolute Neutrophils 4.6 10^3/uL (1.4-6.5); Hematocrit 36.6 % (37.0-47.0); Hemoglobin 11.9 g/dL (12.0-16.0); Mean Corp Hgb Conc. 32.5 g/dL (33.0-37.0); Mean Corpuscular Hgb 29.2 pg (27.0-31.0); Mean Corpuscular Volume 89.9 fL (81.0-99.0); Mean Platelet Volume 11.2 fL (7.4-10.4); Nucleated Red Blood Cells % 0 %; Platelet Count 234 10^3/uL (130-400); Red Blood Cell Count 4.07 10^6/uL (4.20-5.40); Red Cell Dist. Width 13.8 % (11.5-14.5); White Blood Cell Count 6.4 10^3/uL (4.8-10.8)
[2023-12-14 17:03] LABS: ALT (SGPT) 25 U/L (0-35); AST (SGOT) 30 U/L (14-36); Albumin 4.2 g/dl (3.5-5.0); Alkaline Phosphatase 58 U/L (38-126); Blood Urea Nitrogen 13 mg/dl (7-17); Calcium 9.5 mg/dl (8.4-10.2); Carbon Dioxide 26 mmol/L (22-30); Chloride 106 mmol/L (98-107); Glucose 99 mg/dl (70-99); Lipase 42 U/L (23-300); Potassium 4.1 mmol/L (3.5-5.1); Sodium 140 mmol/L (135-145); Total Bilirubin 0.8 mg/dl (0.2-1.3); Total Protein 6.6 g/dl (6.3-8.2); eGFR > 60.00
[2023-12-14 17:49] VITALS: BP 155/81
[2023-12-14 18:40] VITALS: BP 138/79
[2023-12-14 19:00] VITALS: BP 148/72
--- NOTE | 2023-12-14 19:08 | ED.GENMED ---
History of Present Illness
General
Chief Complaint: Abdominal Symptoms
Source: patient and spouse
Exam Limitations: none
Time Seen by Provider: 12/14/23 19:06
Nursing documentation reviewed up to this point in time: agreed with
Travel History
Have you had any contact with someone who has COVID-19?: No
Do you have any symptoms of coronavirus? Fever > 100 degrees, chills, cough, shortness of breath, sore throat, loss of taste or smell, muscle aches, or headache?: No
History of Present Illness
History of Present Illness:
The patient is a pleasant 88-year-old female with a past medical history of heart failure and a colostomy, who was encouraged by a home health aide to be checked out due to her having mild diarrhea and pain around her colostomy. Patient's
provides most of the history, as he states that the patient has short-term memory loss. The patient has no complaints at this time. She denies chest pain, shortness of breath, nausea, vomiting and states she has no significant pain near her
colostomy. Her reports that the home health aide changed it at around 3 PM today. There is a very small amount of liquid yellow output in the bag at this time. reports that the patient has been using nasal oxygen at home for the
last 3 weeks and there have been no acute respiratory issues during that time.
Past History
Past History
ED Past Medical History: Arrthythmia (Atrial fibrillation), Asthma, CHF, HTN, Hypercholesterolemia and Other (MAXIM, SBO with perf. )
ED Past Surgical History: Cholecystectomy, Gynecological and Other (Colostomy)
Social History
Tobacco: Non-smoker
Drug: None
Personal:
Living: with family
Employment: Other
Family History
Family History: Other (No significant)
Review of Systems
Review of Systems
Allergies reviewed?: Yes
Other source history: family
All Other Systems: ROS reviewed and negative except as documented in HPI and ROS
Constitutional: Reports no symptoms
EENT: Reports no symptoms
Respiratory: Reports no symptoms
Cardiac: Reports no symptoms
ABD/GI: Reports abdominal pain and diarrhea
: Reports no symptoms
Musculoskeletal: Reports no symptoms
Skin: Reports no symptoms
Neurological: Reports no symptoms
Endocrine: Reports no symptoms
Hematologic/Lymphatic: Reports no symptoms
Psychiatric: Reports no symptoms
Phy Exam
Physical Exam
Physical Exam:
Physical Exam
General: no apparent distress, not acutely ill, patient appears comfortable. Is conversational
Neck: supple. no meningeal signs. normal psoterior pharynx
Heart: s1/s2 regular rate and rhythm,
Lungs: no acute respiratory distress. clear bilaterally
Abdomen: normal bowel sounds. Mild mid abdominal tenderness without rebound or guarding. No pulsatile mass. Abdomen is nondistended and soft throughout. Colostomy bag is well adhered with a very small amount of yellow
liquid stool
Neuro: alert and oriented. no focal neurological deficits
Skin: no rash
Psychiatric: well kept. interactive and cooperative
Extremities: no edema. no calf tenderness. negative homans. good distal pulses
Course
Orders/Labs/Results
Orders:
Orders
12/14/23 16:19
Complete Blood Count/With Diff Urgent
Comprehensive Metabolic Panel Urgent
Lipase Urgent
12/14/23 19:18
CT Abd/pelvis W Iv Cont Urgent
Comment:
Reason For Exam: pain near colostomy
12/14/23 20:57
STOOL [C difficile Antigen & Toxins] Urgent
MELODY Source: Feces/Stool
Specimen Description:
Date Specimen was Collected: 12/14/23
Time Specimen was Collected: 20:58
Stool Culture Urgent
MELODY Source: Feces/Stool
Specimen Description:
Date Specimen was Collected: 12/14/23
Time Specimen was Collected: 20:58
Abnormal Lab Results
12/14/23
16:19
RBC 4.07 L 10^6/uL
(4.20-5.40)
Hgb 11.9 L g/dL
(12.0-16.0)
Hct 36.6 L %
(37.0-47.0)
MCHC 32.5 L g/dL
(33.0-37.0)
MPV 11.2 H fL
(7.4-10.4)
Absolute Lymphs (auto) 1.0 L 10^3/uL
(1.2-3.4)
Lymphocytes % 15.2 L %
(20.5-51.1)
12/14/23 16:19
12/14/23 16:19
Vital Signs
Initial and Last Documented VS:
Initial Vital Signs
Temp Pulse Resp Pulse Ox
98.5 F 78 18 96
12/14/23 16:07 12/14/23 16:07 12/14/23 16:07 12/14/23 16:07
Last Documented Vital Signs
Temp Pulse Resp BP Pulse Ox
98.5 F 70 16 150/70 100
12/14/23 16:07 12/14/23 20:51 12/14/23 20:51 12/14/23 20:06 12/14/23 20:45
MDM/Problems Addressed
Differential Diagnosis Includes:
Small bowel obstruction, large bowel obstruction, ileus
MDM/Problems Addressed:
Patient presents with acute belly pain
Chronic conditions affecting care: Previous abdomnial surgery
Acute Exacerbation and/or Progression of Chronic Illness: Previous abdomnial surgery
*Radiology
Radiology exam reviewed: radiology read reviewed
*Pulse Oximetry
Patient hypoxic: no
*Funeral Arrangement Director Interpretation
Rate: normal
Interpretation: normal
Rhythm: sinus
*Critical Care Note
Total Time (30-74mins, 75-104mins- exclusive of procedures): Not Applicable
Data Reviewed
Review of Other/Old Records Reveals: Discharge Summary (Discharge summary reviewed from June 2023 when patient was admitted for colon perforation and small bowel obstruction)
Source: patient and family
Patient Management
Social determinants of health affecting care: Living situation and Strong social support
Discussion with other providers: Other (Case discussed with general surgery, Dr. Agee, as well as GI, Dr Bryson, who are both comfortable with patient going home given that she feels better and has no fever or significant pain. Both recommend
stool cultures)
Escalation/DeEscalation of care consider admission/obs:
Patient reports that she feels very well. She has minimal pain. She is asking to eat. She denies nausea and vomiting. She has had no fevers or chills. Patient adamantly wants to go home and keeps asking to go home. Abdomen remains soft and
nondistended. Patient has minimal yellow stool in the colostomy bag
ED Attending Note
-
Portions of this chart may have been created with voice recognition software.� Occasional wrong word or��sound alike� substitutions may have occurred due to the inherent limitations of voice recognition software.
Discharge Plan
Departure
Patient Disposition: Home (Routine Discharge)
Date of Disposition: 12/14/23
Time of Disposition: 20:58
Patient with high blood pressure during this ER visit?: Yes
Condition: Good
Covid-19: Not Applicable
Discharge Problem:
Acute colitis
Instructions: Colitis, BLOOD PRESSURE
Prescriptions:
No Action
rosuvastatin 5 MG tablet
5 mg PO MOWEFR@1999
losartan 25 MG tablet
25 mg PO DAILY
diltiazem HCl 120 MG capsule,extended release 24hr
120 mg PO BID
ipratropium bromide 1 SPRAY spray,non-aerosol
2 spray intranasal BID
escitalopram oxalate 20 MG tablet
20 mg PO DAILY
cholecalciferol (vitamin D3) 2,000 UNITS tablet
2,000 units PO DAILY
fexofenadine 60 mg Tablet
90 mg PO DAILY
buspirone 10 mg tablet
10 mg PO BID
acetaminophen 325 mg Tablet
650 mg PO Q6HPRN PRN (Reason: mild pain/ fever>100.5F) Qty: 0 0RF
furosemide 40 mg tablet
40 mg PO DAILY Qty: 30 0RF
zolpidem [Ambien] 5 mg Tablet
5 mg PO HSPRN PRN (Reason: sleep) Qty: 0
ipratropium-albuterol 0.5 mg-3 mg(2.5 mg base)/3 mL Solution For Nebulization
3 ml inhalation R Q4HPRN PRN (Reason: shortness of breath/wheezing) Qty: 1 0RF
therapeutic multivitamin Tablet
1 tab PO DAILY
Saccharomyces boulardii [Florastor] 250 mg Capsule
250 mg PO DAILY
fluticasone propion-salmeterol [Advair Diskus] 250-50 mcg/dose Blister With Device
1 inh INHALATION BID
Xarelto 15 mg Tablet
15 mg PO QPM Qty: 30 0RF
potassium chloride 10 mEq capsule, extended release
10 meq PO .everyotherday Qty: 30 0RF
prednisone 10 mg Tablet
See Rx Instructions .ROUTE .COMPLEX Qty: 18 0RF
Rx Instructions:
Take By Mouth:
30 mg daily x3 days,
20 mg daily x3 days, 10 mg daily x3 days.
Referrals:
Kel Sauceda MD [Family Provider] -
Activity Restrictions/Additional Instructions:
Return for increased pain or fever. Please see your doctor in 2 to 3 days.
Interventions
Interventions:
*Risk Screen - Suicide Last Done: 12/14/23 17:52
*General Assessment Last Done: 12/14/23 16:07
*Neglect/Abuse Screening Last Done: 12/14/23 17:52
ED- Fall Risk Assessment Last Done: 12/14/23 17:51
*ED COVID-19 Vaccine History Last Done: 12/14/23 16:07
JG-Gkqxcc-Jjrhxixrxm Assessment Last Done: 12/14/23 17:50
Discharge Date and Time
Print Language: SPANISH
[2023-12-14 19:22] VITALS: BMI 24.3
[2023-12-14 20:06] VITALS: BP 150/70
[2023-12-14 21:00] VITALS: BP 154/54
== END 2023-12-14 21:22 | disposition home or self-care (01) ==
LOC: EMR 15:49
PROVIDERS: Emergency Medicine; EMERGENCY PHYSICIAN Emergency Medicine; FAMILY PHYSICIAN Internal Medicine
DX: K52.9 Noninfective gastroenteritis and colitis, unspecified (principal); I11.0 Hypertensive heart disease with heart failure; I50.9 Heart failure, unspecified
CPT/HCPCS: 99285; 74177; 80053; 83690; 85025; 87045; 87046; 87324; 87427; 87449; Q9967

== ENCOUNTER 2024-03-28 22:56 | Inpatient (IN) | payer OTHER, SELFPAY ==
[2024-03-28 18:19] VITALS: BP 127/66
[2024-03-28 18:50] LABS: % Basophils 1.1 % (0-2); % Eosinophils 3.3 % (0-6); % Immature Granulocytes 0.2 % (0-0.5); % Lymphocytes 21.4 % (20.5-51.1); % Monocytes 8.4 % (1.7-9.3); % Neutrophils 65.6 % (42.2-75.2); Absolute Basophils 0.1 10^3/uL (0-0.2); Absolute Eosinophils 0.2 10^3/uL (0-0.7); Absolute Lymphocytes 1.4 10^3/uL (1.2-3.4); Absolute Monocytes 0.5 10^3/uL (0.1-0.6); Absolute Neutrophils 4.3 10^3/uL (1.4-6.5); Hematocrit 35.4 % (37.0-47.0); Hemoglobin 11.8 g/dL (12.0-16.0); Mean Corp Hgb Conc. 33.3 g/dL (33.0-37.0); Mean Corpuscular Hgb 29.1 pg (27.0-31.0); Mean Corpuscular Volume 87.2 fL (81.0-99.0); Mean Platelet Volume 11.1 fL (7.4-10.4); Nucleated Red Blood Cells % 0 %; Platelet Count 234 10^3/uL (130-400); Red Blood Cell Count 4.06 10^6/uL (4.20-5.40); Red Cell Dist. Width 14.8 % (11.5-14.5); White Blood Cell Count 6.5 10^3/uL (4.8-10.8)
[2024-03-28 19:08] LABS: ALT (SGPT) 23 U/L (0-35); AST (SGOT) 29 U/L (14-36); Albumin 3.9 g/dl (3.5-5.0); Alkaline Phosphatase 57 U/L (38-126); Blood Urea Nitrogen 18 mg/dl (7-17); Carbon Dioxide 28 mmol/L (22-30); Chloride 103 mmol/L (98-107); Glucose 106 mg/dl (70-99); Potassium 4.1 mmol/L (3.5-5.1); Sodium 142 mmol/L (135-145); Total Bilirubin 0.5 mg/dl (0.2-1.3); Total Protein 6.1 g/dl (6.3-8.2); eGFR > 60.00
[2024-03-28 19:22] LABS: NT-proBNP 3560 pg/ml; Troponin I < 0.012 ng/ml
[2024-03-28 19:36] VITALS: BP 130/81
[2024-03-28 19:39] VITALS: BMI 25.1
[2024-03-28 20:00] VITALS: BP 139/72
[2024-03-28 21:00] VITALS: BP 142/76
--- NOTE | 2024-03-28 21:31 | ED.GENMED ---
History of Present Illness
General
Chief Complaint: Breathing Problem
Source: patient and family
Time Seen by Provider: 03/28/24 21:04
History of Present Illness
History of Present Illness:
88-year-old female with past medical history of atrial fibrillation, CHF, hypertension, hyperlipidemia, asthma/pulmonary fibrosis presenting to the ER after developing some mild shortness of breath last night, continued into this morning and
worsened throughout the day prompting them to come to the ER for further patient has as needed oxygen but since last night has been wearing this continuously. Patient's only concern is shortness of breath and she is otherwise denying chest pain,
pleurisy, cough, hemoptysis, abdominal pain, nausea, vomiting. notes that patient visiting nurse noticed some swelling to the lower extremities earlier this week which also seems to have been slightly worse today. Patient takes furosemide
40 mg p.o. daily and reports good compliance with this. Her costume draper is based out of [facility] but they request that Dr. Srinivasan be consulted
Past History
Past History
ED Past Medical History: Arrthythmia (Atrial fibrillation), Asthma, CHF, HTN, Hypercholesterolemia and Other (MAXIM, SBO with perf. )
ED Past Surgical History: Cholecystectomy, Gynecological and Other (Colostomy)
Social History
Tobacco: Non-smoker
Alcohol: None
Drug: None
Personal:
Living: with family
Employment: Other
Family History
Family History: Other (No significant)
Review of Systems
Review of Systems
All Other Systems: ROS reviewed and negative except as documented in HPI and ROS
Phy Exam
Physical Exam
Physical Exam:
GENERAL: Alert , in no apparent distress
HEAD: NCAT
EYE: conjunctiva clear
NECK: Supple
ENT: o/p clr, mmm.
CARDIAC: Regular rate and rhythm
LUNGS: Rales more pronounced in the left lower base, no wheezing or rhonchi, mildly tachypneic but no accessory muscle use
NEUROLOGICAL: Alert and oriented
SKIN: Warm and dry, skin intact.
MUSCULOSKELETAL: well perfused. 1+ pitting ankle edema bilateral
PSYCH: Normal and appropriate interaction.
Scores
Heart Failure Risk
Heart Failure Risk Score: Yes
History of Stroke or TIA: No
History of intubation for respiratory distress: No
Heart rate on ED arrival >/= 110: No
SaO2 <90% on arrival on room air: Yes
HR >/=110 during 3min walk test (or too ill to perform test): Yes
ECG has acute ischemic changes: No
Urea >/=12mmol/L (BUN 33.6mg/dL): No
Serum CO2>/=35mmol/L: No
Troponin I or T elevated to VA Level (0.4mg/dL): No
NT-proBNP >/=5,000ng/L (5,000pg/ml): No
HF Risk Score: 3
Admission Status: HIGH RISK 15.9% Consider SNF treatment or admission to hospital
Heart Score for Chest Pain Patients
STEMI patient?: Not applicable
Withdrawal Assessment of Alcohol
Withdrawal Assessment Completed?: Not applicable
Course
Orders/Labs/Results
Orders:
Orders
03/28/24 18:22
ECG [Electrocardiogram (*1)] Urgent
Reason for Study: Shortness of Breath
EKG- Treatment ONCE
CR Chest - 2 Views Urgent
Comment:
Reason For Exam: SOB
03/28/24 18:40
Complete Blood Count/With Diff Urgent
Comprehensive Metabolic Panel Urgent
NT-proBNP Urgent
Troponin I Urgent
03/28/24 21:30
Furosemide [Lasix] 40 mg IV NOW STA
03/28/24 22:00
Flush (0.9% Sodium Chloride) [Flush (Nss)] See Dose Instructions IV PER PROTOCOL
Abnormal Lab Results
03/28/24
18:40
RBC 4.06 L 10^6/uL
(4.20-5.40)
Hgb 11.8 L g/dL
(12.0-16.0)
Hct 35.4 L %
(37.0-47.0)
RDW 14.8 H %
(11.5-14.5)
MPV 11.1 H fL
(7.4-10.4)
BUN 18 H mg/dl
(7-17)
Glucose 106 H mg/dl
(70-99)
Total Protein 6.1 L g/dl
(6.3-8.2)
03/28/24 18:40
03/28/24 18:40
Vital Signs
Initial and Last Documented VS:
Initial Vital Signs
Temp Pulse Resp BP Pulse Ox
97.9 F 77 20 127/66 92
03/28/24 18:19 03/28/24 18:19 03/28/24 18:19 03/28/24 18:19 03/28/24 18:19
Last Documented Vital Signs
Temp Pulse Resp BP Pulse Ox
97.9 F 70 25 139/72 96
03/28/24 18:19 03/28/24 20:45 03/28/24 20:45 03/28/24 20:00 03/28/24 19:40
MDM/Problems Addressed
Differential Diagnosis Includes:
CHF, valvular dysfunction,, COPD, less concern for infectious etiology such as pneumonia
MDM/Problems Addressed:
88-year-old female presenting to the ER for gradually worsening shortness of breath since yesterday, uses as needed oxygen but has been using this continuously since last night. Mildly but no acute respiratory distress. Labs and chest x-ray have
been ordered while in triage. Patient has an elevated BNP at just over 3500. This is patient's baseline but she has been higher in the past. Chest x-ray shows pulmonary edema. Record review showed patient was recently admitted about 4 months ago
with similar. Patient had an echocardiogram done in September of this year which showed an EF of 60 to 65%. There is mild valvular dysfunction. Severe pulmonary hypertension noted. Given patient's labs, chest x-ray findings and presenting symptoms I
do feel it would be in patient's best interest to be admitted for IV diuresis and monitoring. Patient and family in agreement with plan. 40 mg of Lasix IV ordered.
Chronic conditions affecting care: Other (CHF)
Acute Exacerbation and/or Progression of Chronic Illness: Other (CHF)
*Radiology
Radiology exam reviewed: radiology read reviewed (Pulmonary edema)
*Pulse Oximetry
Patient hypoxic: yes
*EKG
Interpreted by ED Provider?: Yes
Heart Rate: 71
Rate: normal
Rhythm: ventricular paced
*Aerospace Project Engineer Interpretation
Rate: normal
Rhythm: ventricular paced
*Critical Care Note
Total Time (30-74mins, 75-104mins- exclusive of procedures): Not Applicable
Data Reviewed
Review of Other/Old Records Reveals: Labs, Records and Discharge Summary
Source: patient, records and family
Patient Management
Discussion with other providers: Hospitalist
Escalation/DeEscalation of care consider admission/obs:
Hospitalist team is aware and accepts for continued evaluation and treatment.
ED Attending Note
-
Portions of this chart may have been created with voice recognition software.� Occasional wrong word or��sound alike� substitutions may have occurred due to the inherent limitations of voice recognition software.
Discharge Plan
Departure
Patient Disposition: Admit
Date of Disposition: 03/28/24
Time of Disposition: 21:31
Presentation/result/management discussed w/ accepting MD/DO: Hospitalist
Discharge Problem:
Acute exacerbation of CHF (congestive heart failure)
Prescriptions:
No Action
rosuvastatin 5 MG tablet
5 mg PO MOWEFR
losartan 25 MG tablet
25 mg PO DAILY
diltiazem HCl 120 MG capsule,extended release 24hr
120 mg PO BID
ipratropium bromide 1 SPRAY spray,non-aerosol
2 spray intranasal BID
escitalopram oxalate 20 MG tablet
20 mg PO DAILY
cholecalciferol (vitamin D3) 2,000 UNITS tablet
2,000 units PO DAILY
buspirone 10 mg tablet
10 mg PO BID
furosemide 40 mg tablet
40 mg PO DAILY Qty: 30 0RF
zolpidem [Ambien] 5 mg Tablet
5 mg PO HSPRN PRN (Reason: sleep) Qty: 0
therapeutic multivitamin Tablet
1 tab PO DAILY
fluticasone propion-salmeterol [Advair Diskus] 250-50 mcg/dose Blister With Device
1 inh INHALATION R BID
albuterol sulfate 90 mcg/actuation Hfa Aerosol Inhaler
2 puff INHALATION R Q6HPRN PRN (Reason: sob)
Artificial Tears (PF) Dropperette
1 drp BOTH EYES HS
Visbiome 112.5 billion cell Capsule
1 cap PO DAILY
Referrals:
Kel Sauceda MD [Family Provider] -
Interventions
Interventions:
*Risk Screen - Suicide Last Done: 03/28/24 18:19
*General Assessment Last Done: 03/28/24 18:19
*Neglect/Abuse Screening Last Done: 03/28/24 19:40
ED- Fall Risk Assessment Last Done: 03/28/24 19:40
*ED COVID-19 Vaccine History Last Done: 03/28/24 19:44
ED- Cardiac Assessment Last Done: 03/28/24 19:40
ED- Pulmonary Assessment Last Done: 03/28/24 19:40
Discharge Date and Time
Print Language: EAST [place]
--- NOTE | 2024-03-28 21:58 | HPS.HSE ---
Family Physician
-
Family Physician: Kel Sauceda
Chief Complaint
-
SoB
History of Present Illness
88F HX perm AF, no longer on Eliquis, for 1 month , Chr HFpEF, valvular hert dz, pulmonary fibrosis,on PRN home O2, severe PHT, asthma/COPD, MAXIM colostomy seen at ER for evaluation of SoB for last 2-3 days.
Has PRN home O2 but she is using constantly due to progressive SoB
IV Lasix 40 x1 at ER
Medical History
Past Medical History
Past Medical History: Reports Other (permanent atrial fibrillation status post pacemaker on Eliquis, HFpEF, pulmonary fibrosis, pulmonary hypertension, asthma/COPD, obstructive sleep apnea, chronic left vocal cord paralysis, hypertension,
hyperlipidemia, colostomy,)
Past Surgical History: Reports Other (colostomy )
Social History
Tobacco: Non-smoker
Alcohol: None
Drug: None
Family History
Family History: Not pertinent
Allergies / Home Medications
Allergies reflects when Allergies were last updated in [employer].
Home Medications with original date entered in [employer]
Allergy/Medication List:
Allergies
Allergy/AdvReac Type Severity Reaction Status Date / Time
codeine Allergy Unknown Verified 10/19/23 12:54
latex Allergy Itching Verified 10/19/23 12:54
meperidine HCl [From Demerol] Allergy Unknown Verified 10/19/23 12:54
morphine Allergy Unknown Verified 10/19/23 12:54
Penicillins Allergy Unknown; Verified 10/19/23 12:54
tolerated
ceftriaxone,
cefepime
vancomycin Allergy Unknown Verified 10/19/23 12:54
Home Medications
rosuvastatin 5 mg tablet 5 mg PO MOWEFR@2000 High cholesterol 07/29/17
apixaban 5 mg tablet (Eliquis) 5 mg PO BID Blood clot prevention/tx 07/30/17
diltiazem HCl 120 mg capsule,extended release 24 hr 120 mg PO BID Heart disease/condition 01/18/21
losartan 25 mg tablet 25 mg PO DAILY Blood pressure 01/18/21
cholecalciferol (vitamin D3) 50 mcg (2,000 unit) tablet 2,000 units PO DAILY Supplement 03/25/21
escitalopram oxalate 20 mg tablet 20 mg PO DAILY Mental Health/Anxiety 03/25/21
ipratropium bromide 42 mcg (0.06 %) nasal spray 2 spray intranasal BID Allergies 03/25/21
fexofenadine 60 mg tablet 90 mg PO DAILY Allergies 01/02/23
fluticasone 250 mcg-salmeterol 50 mcg/dose blistr powdr for inhalation (Advair Diskus) 1 inh inhalation R BID ASTHMA 01/02/23
buspirone 10 mg tablet 10 mg PO BID Mental Health/Anxiety 05/24/23
acetaminophen 325 mg tablet 650 mg (2 x 325 mg) PO Q6HPRN PRN mild pain/ fever>100.5F #0 tabs 06/11/23
furosemide 40 mg tablet 40 mg PO DAILY Fluid retention/Swelling #30 tabs 06/11/23
pantoprazole 40 mg tablet,delayed release 40 mg PO PRN PRN GI issues 09/15/23
Ambien 09/19/23
dextromethorphan-guaifenesin 10 mg-100 mg/5 mL oral syrup 5 ml PO Q4HPRN PRN cough #1 mL 09/21/23
docusate sodium 100 mg capsule 100 mg PO BID #1 cap 09/21/23
ipratropium 0.5 mg-albuterol 3 mg (2.5 mg base)/3 mL nebulization soln 3 ml inhalation R Q4HPRN PRN shortness of breath/wheezing #1 mL 09/21/23
polyethylene glycol 3350 17 gram oral powder packet (HealthyLax) 17 g PO DAILY #1 ea 09/21/23
Review of Systems
-
History Source: Patient
A 12 point ROS was completed and negative except as noted: Yes
Constitutional: Reports No Symptoms
EENT: Reports No Symptoms
Respiratory: Reports See HPI
Cardiac: Reports No Symptoms
Abdomen/GI: Reports No Symptoms
: Reports No Symptoms
Musculoskeletal: Reports No Symptoms
Skin: Reports No Symptoms
Neurological: Reports No Symptoms
Endocrine: Reports No Symptoms
Hematologic/Lymphatic: Reports No Symptoms
Psych: Reports No Symptoms
Physical Exam
Vital Signs
Vital Signs
Temp Pulse Resp BP Pulse Ox
97.9 F 70 25 139/72 96
03/28/24 18:19 03/28/24 20:45 03/28/24 20:45 03/28/24 20:00 03/28/24 19:40
Physical Exam
General: Well Developed, Well Nourished and No Apparent Distress
HEENT: NormoCephalic, Moist mucous membranes and Atraumatic
Respiratory: Clear
Cardiac: S1/S2; No Murmur or Rub
GI: Soft, Non Tender, Non Distended and Normal Bowel Sounds; No Organomegaly
Rectal: Deferred by Provider
Musculoskeletal: No Clubbing, No Cyanosis and No Edema
Skin: No Rash
Neuro: Nonfocal/grossly intact
Laboratory Results
-
03/28/24 18:40
03/28/24 18:40
Laboratory Results
Total Bilirubin 0.5 mg/dl (0.2-1.3) 03/28/24 18:40
AST 29 U/L (14-36) 03/28/24 18:40
ALT 23 U/L (0-35) 03/28/24 18:40
Alkaline Phosphatase 57 U/L (38-126) 03/28/24 18:40
Troponin I < 0.012 ng/ml 03/28/24 18:40
Data Reviewed
-
Diagnostic Radiology: Report Reviewed by me
Medical Tests (Nuc Med, Echo, EKG etc): Report Reviewed by me
Lab Data: Labs Reviewed by me
Old Records: Reviewed
Impression/Plan
-
Vital Signs
Temp Pulse Resp BP Pulse Ox
97.9 F 70 25 139/72 96
03/28/24 18:19 03/28/24 20:45 03/28/24 20:45 03/28/24 20:00 03/28/24 19:40
Laboratory Tests
03/28/24
18:40
Kir-[id number]-Suxbqmlhwil Pept 3560
CXR:
1. MODERATE CARDIOMEGALY with suggestion of mild pulmonary edema.
2. Minimal left pleural effusion.
3. Mild subsegmental atelectasis and scarring in the left mid and lower lung.
4. Left-sided cardiac pacemaker in place.
5. 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
09/17/23 TTE
LV ejection fraction is 60-65% by visual assessment.
Mild concentric left ventricular hypertrophy.
Severe biatrial enlargement.
Mild mitral regurgitation.
Mild to moderate aortic stenosis.
Mild aortic regurgitation.
Severe pulmonary HTN, estimated PASP 70-75 mmHg and estimated RA of 15 mmHg.
No significant change since the prior study of 03/28/2021.
Last hospitalist admission:
Date of Admission: 10/19/23 Date of Discharge: 10/23/23
DC Dxes
Acute hypoxic respiratory insufficiency
Acute on chronic heart failure with preserved ejection fraction
ASSESSMENT & PLAN
Acute on chronic HFpEF exacerbation
Associated acute on chr hypoxic RI
HX severe PHT
HX valvular heart dz
- IV alsix 40 daily
- O2 to keep POx > 94
- f/u IOs and daily weights
- CBC Cardiology consult
HX asthma/COPD exacerbation
HX chronic left-sided vocal cord paralysis
- currently on 2 L in ER
- Home INH
Permanent atrial fibrillation status post pacemaker
- AMBULATORY CARE COORDINATOR diltiazem
- No longer on Eliquis : per , stopped by Card. Per spouse due to due to multiple Meds ???
Mild to moderate aortic stenosis
Mild aortic regurgitation
Mild mitral regurgitation
Essential hypertension
- AMBULATORY CARE COORDINATOR losartan
Hyperlipidemia
- cont statin
Anxiety/depression
-Continue buspirone, Lexapro
Chronic condition:
HX Severe pulmonary fibrosis
Obstructive sleep apnea: On CPAP at night
HX aspiration pneumonia
HX colostomy
HX constipation
Chronic anemia: Hemoglobin stable
DVT Px: AMBULATORY CARE COORDINATOR Eliquis
Code: Full code per daughter
IP TLM
[2024-03-28] MEDS: LASIX 40 MG IV (22:08)
[2024-03-28] MEDS: FLUSH (NSS) 1 FLUSH IV (22:08)
[2024-03-28 23:00] VITALS: BP 156/72
[2024-03-28 23:30] VITALS: BP 156/72
[2024-03-29] VITALS (8 sets, daily range): BP systolic 91–144; BP diastolic 50–75; PULSE 60; BMI 25.1; BMI 20.4; BMI 19.8
[2024-03-29] MEDS: MELATONIN 5 MG PO ×2 (03:24→22:42)
[2024-03-29] MEDS: ADVAIR HFA 115/21 MCG INHALER 2 PUFF INH ×2 (07:29→19:23)
[2024-03-29] MEDS: CARDIZEM CD 120 MG PO ×2 (07:50→21:22)
[2024-03-29] MEDS: COZAAR 25 MG PO (07:50)
[2024-03-29] MEDS: BUSPAR 10 MG PO ×2 (07:50→19:33)
[2024-03-29] MEDS: LASIX 40 MG IV (07:51)
[2024-03-29] MEDS: LEXAPRO 20 MG PO (07:51)
--- NOTE | 2024-03-29 08:07 | PTCARENOTE ---
pt aao to self and place. confused about current condition. always asking why she is here. 1 person assist to bsc
[2024-03-29 10:28] LABS: ALT (SGPT) 21 U/L (0-35); AST (SGOT) 25 U/L (14-36); Albumin 3.8 g/dl (3.5-5.0); Alkaline Phosphatase 50 U/L (38-126); Blood Urea Nitrogen 13 mg/dl (7-17); Calcium 9.1 mg/dl (8.4-10.2); Carbon Dioxide 35 mmol/L (22-30); Chloride 100 mmol/L (98-107); Estimated Creatinine Clearance 44 ml/min; Glucose 148 mg/dl (70-99); Potassium 3.2 mmol/L (3.5-5.1); Sodium 143 mmol/L (135-145); Total Bilirubin 0.7 mg/dl (0.2-1.3); Total Protein 5.7 g/dl (6.3-8.2); eGFR > 60.00
--- NOTE | 2024-03-29 10:42 | CON.CAR ---
Addendum entered and electronically signed by Margarita Ibanez MD 03/29/24 16:55:
I saw and examined the patient.
The BLEACH PLANT OPERATOR's note was reviewed and I agree with the note.
Comment: 88 y/o female with permanent AFIB (previously on OAC, but not currently on for past month stopped by cards per hospitalist note-details unclear- Dr. Mata is hospital staff pharmacist), HB s/p Medtronic pacemaker, HFpEF, HTN, HLD, GERD, PDA repair age
15, pulmonary fibrosis, COPD on home O2 at night, valvular heart disease (mild to moderate MR, mild to moderate ), severe pulmonary hypertension. She has no complaints to me at the bedside. On exam she is a regular respiratory rate crackles at
the bases bilaterally, regular rate and rhythm. Extremities are trace pitting edema. Chest x-ray did show mild cephalization of the pulmonary vasculature. Her shortness of breath is likely multifactorial. She is not impressively volume
overloaded on exam. Recent echo with severe pulmonary hypertension. Multiple pulmonary etiologies possible. She already received IV diuresis today. She seems to be tolerating this well. Given her pulmonary disease, would like to keep her volume
status on the skin drier side. Okay for IV diuresis once a day. Pulmonary evaluation also planned. She was hypokalemic likely due to the diuretic this has been repleted and should be followed. With the IV diuresis intensive monitoring of her
electrolytes as needed.
Original Note:
Consultation
Consultation Request
Date/Time Consultation Requested: 03/28/24 2345
Date/Time Consultation Performed: 03/29/24 1030
Requesting Provider: Dr. Bazzi
Performing Provider: Kinjal ASHBY for Dr. Ibanez
Reason for Consultation: CHF
Medical History
-
Chief Complaint: SOB per chart
History of Present Illness:
88 y/o female with permanent AFIB (previously on OAC, but not currently on for past month stopped by cards per hospitalist note-details unclear- Dr. Mata is hospital staff pharmacist), HB s/p Medtronic pacemaker, HFpEF, HTN, HLD, GERD, PDA repair age 15,
pulmonary fibrosis, COPD on home O2 at night, valvular heart disease (mild to moderate MR, mild to moderate ), severe pulmonary hypertension who per chart presented with SOB, though she tells me her colostomy was bothering her and that she is not
SOB. She does have some LE edema. She has been given a dose of IV lasix. We are consulted for suspicion for [id number] HFpEF. She is in no distress at the time of my assessment. She is not a reliable historian, so HPI also obtained from chart
as noted.
Past Medical History
Past Medical History: Arrhythmias, GERD, Valvular Disease and Other (pulm fibrosis, otherwise as above in HPI)
Social History
Tobacco: Non-Smoker
Alcohol: None
Family History
Family History: Reviewed & Not Pertinent
Allergies / Home Medications
Allergy/AdvReac Type Severity Reaction Status Date / Time
codeine Allergy Unknown Verified 03/28/24 18:19
latex Allergy Itching Verified 03/28/24 18:19
meperidine HCl [From Demerol] Allergy Unknown Verified 03/28/24 18:19
morphine Allergy Unknown Verified 03/28/24 18:19
Penicillins Allergy Unknown; Verified 03/28/24 18:19
tolerated
ceftriaxone,
cefepime
vancomycin Allergy Unknown Verified 03/28/24 18:19
�Medication �Instructions �Recorded �Confirmed �Type
rosuvastatin 5 mg tablet 5 mg PO MOWEFR High cholesterol 07/29/17 03/28/24 History
diltiazem HCl 120 mg 120 mg PO BID Heart 01/18/21 03/28/24 History
capsule,extended release 24 hr disease/condition
losartan 25 mg tablet 25 mg PO DAILY Blood pressure 01/18/21 03/28/24 History
cholecalciferol (vitamin D3) 50 2,000 units PO DAILY Supplement 03/25/21 03/28/24 History
mcg (2,000 unit) tablet
escitalopram oxalate 20 mg tablet 20 mg PO DAILY Mental 03/25/21 03/28/24 History
Health/Anxiety
ipratropium bromide 42 mcg (0.06 2 spray intranasal BID Allergies 03/25/21 03/28/24 History
%) nasal spray
buspirone 10 mg tablet 10 mg PO BID Mental Health/Anxiety 05/24/23 03/28/24 History
furosemide 40 mg tablet 40 mg PO DAILY Fluid 06/11/23 03/28/24 Rx
retention/Swelling #30 tabs
zolpidem 5 mg tablet (Ambien) 5 mg PO HSPRN PRN sleep ##0 09/19/23 03/28/24 History
therapeutic multivitamin 1 tab PO DAILY Supplement 10/19/23 03/28/24 History
fluticasone 250 mcg-salmeterol 50 1 inh inhalation R BID COPD 10/22/23 03/28/24 History
mcg/dose blistr powdr for
inhalation (Advair Diskus)
Lactobac no.2-Bifidobac no.1-S. 1 cap PO DAILY 03/28/24 03/28/24 History
thermo 112.5 billion cell capsule
(Visbiome)
albuterol sulfate 90 mcg/actuation 2 puff inhalation R Q6HPRN PRN sob 03/28/24 03/28/24 History
aerosol inhaler
dextran 70-hypromellose eye drops 1 drp BOTH EYES HS 03/28/24 03/28/24 History
in a dropperette (Artificial Tears
(PF) drops in a dropperette)
Review of Systems
-
History Source: Patient and Other (and chart)
Respiratory: Trouble Breathing
Abdomen/GI: Other (colostomy discomfort- resolved)
Musculoskeletal: Edema
Physical Exam
Vital Signs
Temp Pulse Resp BP Pulse Ox
99.4 F 72 15 132/67 96
03/29/24 07:00 03/29/24 07:50 03/29/24 07:34 03/29/24 07:51 03/29/24 07:34
Lab Results
03/28/24 18:40
03/29/24 09:58
Troponin I < 0.012 ng/ml 03/28/24 18:40
Ptr-X-Hcwdklryjln Pept 3560 pg/ml 03/28/24 18:40
Physical Exam
General: No Apparent Distress
HEENT: Normocephalic and Anicteric
Respiratory: Crackles (bases) and Other (on O2 by NC)
Cardiac: Regular Rhythm and Peripheral Edema (mild )
Neuro: Awake, Alert and Oriented (self and place)
Psych: Calm
Impression / Plan
-
SOB:
-likely multifactorial in this patient with COPD, pulm fibrosis, severe pulm HTN
-likely component of [id number] HFpEF- agree with IV diuresis, which requires intensive monitoring. CXR:moderate cardiomegaly with suggestion of mild pulmonary edema, minimal left pleural effusion, Mild subsegmental atelectasis and scarring
in the left mid and lower lung. BNP 3560, which is in midrange of where it's been in past. Weight is down. I do not think she needs much more diuresis. Likely transition back to PO soon. Recent echo as below.
-potassium is low - will replace- monitor closely
AFIB: permanent
-off OAC per her primary hospital staff pharmacist per notes, but details unclear- follow-up with Dr. Mata on this
-continue diltiazem- rate is controlled
Pacemaker:
-stable on telemetry
Data Reviewed
-
EKG: Tracing Personally Visualized and interpreted (V paced rhythm- stable)
Radiology: Report Reviewed by me ( MODERATE CARDIOMEGALY with suggestion of mild pulmonary edema. 2. Minimal left pleural effusion. 3. Mild subsegmental atelectasis and scarring in the left mid and lower lung. 4. Left-sided cardiac pacemaker
in place. 5. Severe discogenic degenerative disease in the thoracolumbar spine.)
Medical Tests (Nuc Med, Echo etc): Report Reviewed by me (Echo 3/4/24: LV ejection fraction is 60-65% by visual assessment. Mild concentric left ventricular hypertrophy. Severe biatrial enlargement. Mild mitral regurgitation. Mild to moderate aortic
stenosis. Mild aortic regurgitation. Severe pulmonary HTN, estimated PASP 70-75 mmHg.)
Labs: Labs Reviewed by me
--- NOTE | 2024-03-29 10:54 | CM ---
utilities manager reviewed patient's chart and met with patient. She is confused about hospitalization.
Call to pt's who advised that Citlalli lives with him in a 2 story home iwth 1 entry step. Patient's bed and bathroom are on the first floor of the home. Citlalli is independent with adl's and uses a walker with ambulation; home o2 PRN and CPAP
used during sleep. She is currently requiring 3 liters of oxygen in the hospital.
CM to follow for discharge planning. Citlalli has previously been at [facility] and is known to [facility]. Anticipate probable return to SNF at discharge.
Pharmacy: [facility].
PCP: Kel Sauceda
[2024-03-29] MEDS: KCL 40 MEQ PO (11:22)
--- NOTE | 2024-03-29 13:36 | W.PN.HOSP.TC ---
Today's Communication/Plan
-
iv diuresis
pulm consult
replete K
Assessment / Plan
Assessment / Plan
NAD, on nasal cannula oxygen 3 L
Scleral anicteric
Moist mucous membranes
No JVD
CTA bilateral, with good air movement
Normal S1-S2 no murmurs
Soft nontender nondistended bowel sounds active
No peripheral pitting edema
Moves extremities spontaneously
AAOx3
Acute on chronic hypoxemic respiratory failure unclear as to etiology on my exam did not appear to be significantly volume overloaded to suspect significant HFpEF exacerbation, additionally BNP 3500 previously was in the 6000. With saying that
x-ray did show cardiomegaly with pulmonary edema. Will continue IV Lasix for today. Reassess volume status tomorrow. Follow renal function weights. Wean oxygen as tolerated. Keep goal SpO2 greater than 88%. Has known history of COPD without
evidence of bronchospasm on exam. Therefore suspect possibility of worsening pulmonary hypertension. I have consulted pulmonary.
Hypokalemia secondary to diuretics. Replete
COPD/MAXIM/pulmonary hypertension/pulmonary fibrosis continue MDIs outpatient pulmonary follow-up no indication for steroids made in the near future need right HC.
Atrial fibrillation s/p pacemaker continue diltiazem. Not on anticoagulation.
Hypertension continue to pretenses
Hyperlipidemia continue statin
Anxiety depression continue anxiolytics and antidepressives
Anticipated Discharge: Within 24 hours
Subjective/Interval History
-
Date of Service: March 29, 2024
seen and examined. no new complaints. no acute overnight events
still feels short breath
Objective Data
-
Labs:
Laboratory Results
03/29/24 03/29/24
07:00 09:58
Sodium Cancelled 143
Potassium Cancelled 3.2 L
Chloride Cancelled 100
Carbon Dioxide Cancelled 35 H
BUN Cancelled 13
Creatinine Cancelled 0.8
Glucose Cancelled 148 H
Calcium Cancelled 9.1
Total Bilirubin Cancelled 0.7
AST Cancelled 25
ALT Cancelled 21
Alkaline Phosphatase Cancelled 50
Vital Signs:
Vital Signs
Temp Pulse Resp BP Pulse Ox
98.1 F 71 20 112/57 94
03/29/24 11:27 03/29/24 11:27 03/29/24 11:27 03/29/24 11:27 03/29/24 11:27
I&O
03/28/24 03/29/24 03/30/24
06:59 06:59 06:59
Output Total 800 / 800
Balance -800 / -800
--- NOTE | 2024-03-29 14:33 | CON.PUL ---
Consultation
Consultation Request
Date/Time Consultation Requested: 03/29/2024 - 1333
Date/Time Consultation Performed: 03/29/2024 - 1420
Requesting Provider: Dr. Remigio Feliciano
Performing Provider: Dr. Ian Kathleen
Reason for Consultation: Hypoxia
Medical History
-
Chief Complaint: Worsening SOB
History of Present Illness:
88-year-old female non-smoker with a past medical history of severe pulmonary hypertension, asthma, MAXIM on CPAP, chronic HFpEF, GERD and history of pneumonia who presents with worsening SOB. She has home oxygen that she uses as needed however the
last few days she has been constantly using it due to worsening shortness of breath. In the ER she was afebrile to 97.9 �F, pulse rate 77, breathing at 20 breaths/min, BP 127/66 and saturating 92% on room air. Labs showed normal WBC at 6.5, Hb
11.8, absolute eosinophil count: 200, proBNP elevated at 3560 (last proBNP was 6810 on 10/19/2023), and negative troponin at <0.012. CXR showed suspected mild pulmonary edema with left lower lobe atelectasis/scarring with small pleural effusion. She
was diuresed in the ER with 40 mg IV Lasix. She was admitted to the telemetry floor with cardiology consulted. Pulmonary service now consulted for additional management/recommendations.
When I saw the patient she was resting in bed in no acute distress on 3 L/min nasal cannula. She says that she does not use oxygen at home. She currently still feels short of breath, especially with activity. She denies cough, fevers, chills,
chest pain, WORRELL, abdominal pain, nausea, vomiting. She does feel a chest heaviness and she says that sometimes she 'feels like she just cannot breathe.' She denies having history of lung fibrosis. She admits that she has a history of asthma and
that this may feel similar to her prior asthmatic flares. She does admit that she uses Advair. She is not sure why she is not taking any anticoagulation for history of A-fib. She says that she does use a CPAP at home every single night.
Of note, patient follows with us in the office with last visit on 02/08/[address] Madison. Patient follows for asthma, pulmonary hypertension, bilateral pleural effusions, MAXIM and history of recurrent pneumonia with history of suspected
aspiration. She has a history of heart failure with preserved EF, and has chronic SOB for many years with physical deconditioning and valvular heart disease. Right heart cath performed at [facility] in October 2021 showed elevated PCWP at
26 mmHg with reduced cardiac index. Recent echo in September 2023 showed preserved LVEF at 60-65% with mild concentric LVH, and severe biatrial enlargement. Also mild MR + mild�moderate , mild AI and severe pulmonary hypertension with PASP 70-75
mmHg. She appeared euvolemic at last office visit. Last PFT on 04/02/2023 showed moderate COPD with mild air trapping, and severely reduced gas exchange capacity which was moderate when accounting for alveolar volume involving gas exchange (DLco:
32%; DLco/VA: 56%). She is not using CPAP for history of MAXIM saying that her symptoms have improved with weight loss. She has a history of recurrent pneumonia with last event in December 2022, suspected to be from recurrent microaspiration. She is
using Advair for her asthma. She also has a history of colostomy after an emergent laparotomy and is interested in possible reversal however she remains high risk from cardiovascular perspective. She was told to follow-up with us in the office in
about 6 months.
PMHx: Severe pulmonary hypertension, asthma, MAXIM on CPAP, osteoporosis, GERD, chronic HFpEF, history of pneumonia, left-sided vocal cord paralysis, permanent A-fib s/p PPM
PSHx: Knee surgery, right shoulder replacement, colostomy (05/2023)
Past Medical History
Past Medical History: Other (Above as per HPI)
Past Surgical History: Other (Above as per HPI)
Social History
Tobacco: Non-smoker
Alcohol: None
Drug: None
Family History
Family History: CAD (Mother)
Allergies / Home Medications
Allergies
Allergy/AdvReac Type Severity Reaction Status Date / Time
codeine Allergy Unknown Verified 03/28/24 18:19
latex Allergy Itching Verified 03/28/24 18:19
meperidine HCl [From Demerol] Allergy Unknown Verified 03/28/24 18:19
morphine Allergy Unknown Verified 03/28/24 18:19
Penicillins Allergy Unknown; Verified 03/28/24 18:19
tolerated
ceftriaxone,
cefepime
vancomycin Allergy Unknown Verified 03/28/24 18:19
Home Medications
�Medication �Instructions �Recorded �Confirmed �Last Taken �Type
rosuvastatin 5 mg tablet 5 mg PO MOWEFR High cholesterol 07/29/17 03/28/24 10/17/23 History
diltiazem HCl 120 mg 120 mg PO BID Heart 01/18/21 03/28/24 10/19/23 History
capsule,extended release 24 hr disease/condition
losartan 25 mg tablet 25 mg PO DAILY Blood pressure 01/18/21 03/28/24 10/19/23 History
cholecalciferol (vitamin D3) 50 2,000 units PO DAILY Supplement 03/25/21 03/28/24 10/19/23 History
mcg (2,000 unit) tablet
escitalopram oxalate 20 mg tablet 20 mg PO DAILY Mental 03/25/21 03/28/24 10/19/23 History
Health/Anxiety
ipratropium bromide 42 mcg (0.06 2 spray intranasal BID Allergies 03/25/21 03/28/24 10/19/23 History
%) nasal spray
buspirone 10 mg tablet 10 mg PO BID Mental Health/Anxiety 05/24/23 03/28/24 10/19/23 History
furosemide 40 mg tablet 40 mg PO DAILY Fluid 06/11/23 03/28/24 10/19/23 Rx
retention/Swelling #30 tabs
zolpidem 5 mg tablet (Ambien) 5 mg PO HSPRN PRN sleep ##0 09/19/23 03/28/24 10/18/23 History
therapeutic multivitamin 1 tab PO DAILY Supplement 10/19/23 03/28/24 10/19/23 History
fluticasone 250 mcg-salmeterol 50 1 inh inhalation R BID COPD 10/22/23 03/28/24 Unknown History
mcg/dose blistr powdr for
inhalation (Advair Diskus)
Lactobac no.2-Bifidobac no.1-S. 1 cap PO DAILY Supplement 03/28/24 03/28/24 Unknown History
thermo 112.5 billion cell capsule
(Visbiome)
albuterol sulfate 90 mcg/actuation 2 puff inhalation R Q6HPRN PRN sob 03/28/24 03/28/24 Unknown History
aerosol inhaler
dextran 70-hypromellose eye drops 1 drp BOTH EYES HS Eye Condition 03/28/24 03/28/24 Unknown History
in a dropperette (Artificial Tears
(PF) drops in a dropperette)
Review of Systems
-
History Source: Patient
All other systems: Negative unless noted
Vitals / Labs / Diagnostic Testing
Vital Signs
Temp Pulse Resp BP Pulse Ox
97.9 F 69 19 113/57 96
03/29/24 15:36 03/29/24 15:36 03/29/24 15:36 03/29/24 15:36 03/29/24 15:36
Lab Data
03/28/24 18:40
03/29/24 09:58
Diagnostic Testing:
Physical Exam
-
HEENT: Normocephalic and Anicteric
Cardiovascular: S1/S2 and Peripheral Edema (+1 lower extremity edema bilaterally)
Respiratory: Clear, Wheeze (negative), Rales (negative), Rhonchi (negative) and Non-Labored Respirations
GI: Soft, Non Distended, Non Tender and Normal Bowel Sounds
Neurology: Awake and Alert
Skin: Warm and Dry
General: Respiratory Distress (negative), Comfortable, Fever (negative) and Chills (negative)
Assessment
-
Assessment: 88-year-old female non-smoker with a past medical history of severe pulmonary hypertension, asthma, MAXIM on CPAP, chronic HFpEF, GERD and history of pneumonia who presents with worsening SOB. She has home oxygen that she uses as needed
however the last few days she has been constantly using it due to worsening shortness of breath. In the ER she was afebrile to 97.9 �F, pulse rate 77, breathing at 20 breaths/min, BP 127/66 and saturating 92% on room air. Labs showed normal WBC at
6.5, Hb 11.8, absolute eosinophil count: 200, proBNP elevated at 3560 (last proBNP was 6810 on 10/19/2023), and negative troponin at <0.012. CXR showed suspected mild pulmonary edema with left lower lobe atelectasis/scarring with small pleural
effusion. She was diuresed in the ER with 40 mg IV Lasix. She was admitted to the telemetry floor with cardiology consulted. Pulmonary service now consulted for additional management/recommendations.
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
Impression:
#Acute on chronic respiratory failure with hypoxia on supplemental oxygen likely due to acute pulmonary edema in the setting of chronic LLL atelectasis/scarring and severe pulmonary hypertension and COPD
#Moderate COPD with air trapping per PFT from 04/02/2023 likely due to unremitting asthma in the setting of severe pulmonary HTN
#Hypokalemia
#Metabolic alkalosis (no evidence of prior hypercapnia's after review of prior blood gases from 2022)
#Chronic bibasilar + lingula linear scarring (seen on base of lungs on CT abdomen/pelvis from 12/14/2023)
#Elevated proBNP with concern for acute decompensated heart failure
#Severe pulmonary hypertension with severe gas exchange capacity (DLco: 32% per PFT from 04/02/2023)
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
#Mild anemia (baseline Hb: 9.5�12g/dL)
#Hiatal hernia
#History of moderate persistent asthma on Advair 250mcg
#History of A-fib s/p PPM currently V-paced
#MAXIM with hx of non-compliance (although she tells me today that she has been using it nightly)
Plan:
- Continue with IV diuresis with Lasix 40 mg daily
- Replete electrolytes with K>4, Mg>2
- Maintain SpO2 88-95% with supplemental O2 and wean down as tolerated
- Check walking pulse oximetry prior to discharge
- Incentive spirometer encouraged
- Recheck TTE
- If PASP pressures still >70, would recommend checking V/Q scan to rule out CTEPH. Unclear if she ever had this done before. She ultimately should be referred to a PH centre for further workup, and consider repeat RHC to assess severity of PH
and maximize treatment. In meantime, I will raise her Advair to max dose (230mcg) and add Spiriva, which she should be DC'd home on. Continue with diuresis as above, and trend BNP
- Monitor strict I/O and daily weights
- Cardiology on board - recs appreciated
- Considering that the patient has a history of COPD/asthma, and still feels short of breath despite diuresis, I will start her on a course of systemic steroids with prednisone.
- Taper prednisone as tolerated, starting at 40 mg and reduce by 10 mg every fourth day until off
- Continue Advair for now with prn nebulized bronchodilators (not currently bronchospastic)
- Continue with CPAP with sleep; advised on the importance of remaining fully compliant with nightly use, jocelynn in the setting of severe PH
- Check VBG to assess pH and pCO2 given elevated serum HCO3 level (although she does not have a Hx of hypercapnea)
- Monitor HR with goal <110bpm (although she is V-paced)
- Monitor CBC and transfuse if needed to keep Hb>7, plt>20k
- Maintain euglycemia with goal BG >100 and <18
- DVT ppx
Pulmonary service will continue to follow along. Following discharge, we will arrange for outpatient follow-up with our office given that she follows with us with last visit on 02/08/[address] Madison. As stated above, it would be prudent to
also refer her to a pulmonary hypertension center for additional workup/management of her severe pulmonary hypertension.
Data:
CXR 03/28/2024:
1. MODERATE CARDIOMEGALY with suggestion of mild pulmonary edema.
2. Minimal left pleural effusion.
3. Mild subsegmental atelectasis and scarring in the left mid and lower lung.
4. Left-sided cardiac pacemaker in place.
5. 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
TTE 09/17/2023:
LV ejection fraction is 60-65% by visual assessment.
Mild concentric left ventricular hypertrophy.
Severe biatrial enlargement.
Mild mitral regurgitation.
Mild to moderate aortic stenosis.
Mild aortic regurgitation.
Severe pulmonary HTN, estimated PASP 70-75 mmHg and estimated RA of 15 mmHg.
No significant change since the prior study of 03/28/2021.
Total time spent today was 75 minutes for this encounter. Time includes reviewing laboratory test/imaging results, reviewing pertinent medical records, obtaining and reviewing medical history, performing an appropriate exam, ordering medications,
tests and procedures. Time also includes documentation of this encounter, coordinating patient care and communicating with other healthcare professionals. Total time does not include separately billed tests performed on this date of service.
[2024-03-29] MEDS: TYLENOL 650 MG PO (18:14)
[2024-03-29] MEDS: DELTASONE 40 MG PO (21:22)
[2024-03-30] VITALS (7 sets, daily range): BP systolic 96–119; BP diastolic 47–65; BMI 19.3
[2024-03-30 05:47] LABS: Venous Blood Gas B.E. 3.5 mmol/L (-4 to +4); Venous Blood Gas HCO3 29.6 mmol/L (22-27); Venous Blood Gas O2 Sat % 90.4 %; Venous Blood Gas pCO2 50 mmHg (35-48); Venous Blood Gas pH 7.38 (7.32-7.43); Venous Blood Gas pO2 60 mmHg (30-50)
[2024-03-30] MEDS: ADVAIR HFA 230/21 MCG INHALER 2 PUFF INH ×2 (07:49→19:25)
[2024-03-30] MEDS: SPIRIVA RESPIMAT 2.5 MCG 2 PUFF INH (07:50)
[2024-03-30] MEDS: LEXAPRO 20 MG PO (07:51)
[2024-03-30] MEDS: LASIX 40 MG IV (07:51)
[2024-03-30] MEDS: BUSPAR 10 MG PO ×2 (07:51→20:59)
[2024-03-30] MEDS: CARDIZEM CD 120 MG PO ×2 (07:51→20:59)
[2024-03-30] MEDS: DELTASONE 40 MG PO (07:51)
[2024-03-30 08:02] LABS: Hemoglobin 12.5 g/dL (12.0-16.0); Mean Corp Hgb Conc. 33.8 g/dL (33.0-37.0); Mean Corpuscular Hgb 30.6 pg (27.0-31.0); Mean Corpuscular Volume 90.5 fL (81.0-99.0); Platelet Count 203 10^3/uL (130-400); Red Blood Cell Count 4.09 10^6/uL (4.20-5.40); Red Cell Dist. Width 14.4 % (11.5-14.5); White Blood Cell Count 5.5 10^3/uL (4.8-10.8)
[2024-03-30 08:13] LABS: NT-proBNP 1540 pg/ml
[2024-03-30 08:20] LABS: Blood Urea Nitrogen 21 mg/dl (7-17); Calcium 9.4 mg/dl (8.4-10.2); Carbon Dioxide 29 mmol/L (22-30); Chloride 101 mmol/L (98-107); Estimated Creatinine Clearance 44 ml/min; Glucose 132 mg/dl (70-99); Magnesium 1.9 mg/dl (1.6-2.3); Phosphorus 4.8 mg/dl (2.5-4.5); Potassium 3.9 mmol/L (3.5-5.1); Sodium 142 mmol/L (135-145); eGFR > 60.00
--- NOTE | 2024-03-30 09:36 | W.PN.PUL3 ---
Today's Communication / Plan
-
Diuresis, changing IV Lasix to PO
Tapered prednisone course
Advair 230mcg and Spiriva started --> would have patient continue with her Advair discus 250mcg upon discharge and also start Spiriva vs Incruse upon discharge as well
Aspiration precautions
Wean oxygen and check ambulatory pulse oximetry prior to discharge
Recheck echo and consider referral to pH center depending on PASP; this could be done on an outpatient basis considering she is improving today
Pulmonary service to continue to follow along
Assessment
-
Assessment: 88-year-old female non-smoker with a past medical history of severe pulmonary hypertension, asthma, MAXIM on CPAP, chronic HFpEF, GERD and history of pneumonia who presents with worsening SOB. She has home oxygen that she uses as needed
however the last few days she has been constantly using it due to worsening shortness of breath. In the ER she was afebrile to 97.9 �F, pulse rate 77, breathing at 20 breaths/min, BP 127/66 and saturating 92% on room air. Labs showed normal WBC at
6.5, Hb 11.8, absolute eosinophil count: 200, proBNP elevated at 3560 (last proBNP was 6810 on 10/19/2023), and negative troponin at <0.012. CXR showed suspected mild pulmonary edema with left lower lobe atelectasis/scarring with small pleural
effusion. She was diuresed in the ER with 40 mg IV Lasix. She was admitted to the telemetry floor with cardiology consulted. Pulmonary service now consulted for additional management/recommendations.
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
Impression:
#Acute on chronic respiratory failure with hypoxia on supplemental oxygen likely due to acute pulmonary edema in the setting of chronic LLL atelectasis/scarring and severe pulmonary hypertension and COPD
#Moderate COPD with air trapping per PFT from 04/02/2023 likely due to unremitting asthma in the setting of severe pulmonary HTN
#Hypokalemia - resolved
#Metabolic alkalosis (due to chronic hypercapnia)
#Chronic bibasilar + lingula linear scarring (seen on base of lungs on CT abdomen/pelvis from 12/14/2023)
#Elevated proBNP with concern for acute decompensated heart failure
#Severe pulmonary hypertension with severe gas exchange capacity (DLco: 32% per PFT from 04/02/2023)
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
#Mild anemia (baseline Hb: 9.5�12g/dL)
#Hiatal hernia
#History of moderate persistent asthma on Advair 250mcg
#History of A-fib s/p PPM currently V-paced
#MAXIM with hx of non-compliance (although she tells me today that she has been using it nightly)
Plan:
- Continue with diuresis --> transition to PO as pt appears euvolemic today
- Replete electrolytes with K>4, Mg>2
- Maintain SpO2 88-95% with supplemental O2 and wean down as tolerated
- Check walking pulse oximetry prior to discharge
- Incentive spirometer encouraged
- Recheck TTE
- If PASP pressures still >70, would recommend checking V/Q scan to rule out CTEPH. Unclear if she ever had this done before. She ultimately should be referred to a PH centre for further workup, and consider repeat RHC to assess severity of PH
and maximize treatment. In meantime, I will raise her Advair to max dose (230mcg) and add Spiriva, which she should be DC'd home on. Continue with diuresis as above, and trend BNP
- Monitor strict I/O and daily weights
- Cardiology on board - recs appreciated
- Considering that the patient has a history of COPD/asthma, and still feels short of breath despite diuresis, I started her on a course of systemic steroids with prednisone.
- Taper prednisone as tolerated, starting at 40 mg and reduce by 10 mg every fourth day until off
- Continue Advair for now with prn nebulized bronchodilators (not currently bronchospastic)
- Continue with CPAP with sleep; advised on the importance of remaining fully compliant with nightly use, jocelynn in the setting of severe PH
- We will try to get her a new machine through our office as she says that hers is broken
- VBG shows compensated hypercapnia; continue with CPAP as above. No additional need to trend blood gas at this time.
- Monitor HR with goal <110bpm (although she is V-paced)
- Monitor CBC and transfuse if needed to keep Hb>7, plt>20k
- Maintain euglycemia with goal BG >100 and <18
- DVT ppx
Pulmonary service will continue to follow along. Following discharge, we will arrange for outpatient follow-up with our office given that she follows with us with last visit on 02/08/[address] Madison. As stated above, it would be prudent to
also refer her to a pulmonary hypertension center for additional workup/management of her severe pulmonary hypertension.
Data:
CXR 03/28/2024:
1. MODERATE CARDIOMEGALY with suggestion of mild pulmonary edema.
2. Minimal left pleural effusion.
3. Mild subsegmental atelectasis and scarring in the left mid and lower lung.
4. Left-sided cardiac pacemaker in place.
5. 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
TTE 09/17/2023:
LV ejection fraction is 60-65% by visual assessment.
Mild concentric left ventricular hypertrophy.
Severe biatrial enlargement.
Mild mitral regurgitation.
Mild to moderate aortic stenosis.
Mild aortic regurgitation.
Severe pulmonary HTN, estimated PASP 70-75 mmHg and estimated RA of 15 mmHg.
No significant change since the prior study of 03/28/2021.
Total time spent today was 35 minutes for this encounter. Time includes reviewing laboratory test/imaging results, reviewing pertinent medical records, obtaining and reviewing medical history, performing an appropriate exam, ordering medications,
tests and procedures. Time also includes documentation of this encounter, coordinating patient care and communicating with other healthcare professionals. Total time does not include separately billed tests performed on this date of service.
Subjective Data
-
Date of Service:
Date of Service: March 30, 2024
Chief Complaint: Pulmonary Follow Up
Subjective:
Patient was seen and evaluated today at bedside. Shortness of breath has improved. She wore her CPAP last night at 5 cmH2O bled with 4 L/min. She is currently on 2 L/min nasal cannula. She denies chest pain, WORRELL, abdominal pain, fevers or chills.
She is eager to go home.
Review of Systems
General: Other (Negative unless mentioned above)
Objective Data
Data Reviewed
Vital Signs / I&O / Oxygen:
Vital Signs
Temp Pulse Resp BP Pulse Ox
98.1 F 67 16 96/52 93
03/30/24 07:00 03/30/24 07:54 03/30/24 07:54 03/30/24 09:31 03/30/24 07:54
Intake and Output
03/29/24 03/30/24 03/31/24
06:59 06:59 06:59
Intake Total 360 / 360 480 / 480
Output Total 800 / 800 975 / 975
Balance -800 / -800 -615 / -615 480 / 480
SaO2 93
Nasal Cannula flow liters per 2
minute
Physical Exam
General: Respiratory Distress (negative), Comfortable and Chills (negative)
HEENT: Normocephalic and Anicteric
Cardiovascular: S1-S2 and Peripheral Edema (negative)
Respiratory: Wheeze (negative), Crackles (Right base), Rhonchi (negative) and Non-Labored Respirations
GI: Soft, Non Distended, Non Tender and Normal Bowel Sounds
Neurology: Awake, Alert and Tremors (negative)
Skin: Warm, Dry and Jaundice (negative)
Labs/Micro/Reports
Lab Data
03/30/24 05:34
03/30/24 05:34
--- NOTE | 2024-03-30 10:13 | W.PN.CD ---
Today's Communication / Plan
-
daily weights
transition to po lasix in am
tubigrips
cm c/s for sglt2i
Impression / Plan
-
SOB:
-likely multifactorial in this patient with COPD, pulm fibrosis, severe pulm HTN
-likely component of [id number] HFpEF
-pulmonary following
-echo for Phtn reassessment ordered
Acute on chronic HFpEF:
- Recent echo as below.
-I thinks she is euvolemic, already received IV lasix, will change to po tomorrow.
-k ok today
-daily weights and i/o.
-tubigrips
-will ask cm to [facility] SGLT2i but need to establish candidacy re h/o UTI?, called # in chart but now answer, may need to leave to primary op cards who knows her.
AFIB: permanent
-off OAC per her primary business intelligence etl developer per notes, but details unclear- follow-up with Dr. Mata on this
-continue diltiazem- rate is controlled
Pacemaker:
-stable on telemetry
Subjective:
-she is feeling well no cp or sob. No abdominal pain.
09/17/2023 TTE:
CONCLUSIONS
LV ejection fraction is 60-65% by visual assessment.
Mild concentric left ventricular hypertrophy.
Severe biatrial enlargement.
Mild mitral regurgitation.
Mild to moderate aortic stenosis.
Mild aortic regurgitation.
Severe pulmonary HTN, estimated PASP 70-75 mmHg and estimated RA of 15 mmHg.
No significant change since the prior study of 03/28/2021.
Physical Exam
Vital Signs/Labs
Vital Signs
Temp Pulse Resp BP Pulse Ox
98.1 F 67 16 96/52 94
03/30/24 07:00 03/30/24 07:54 03/30/24 07:54 03/30/24 09:31 03/30/24 09:35
03/29/24 03/30/24 03/31/24
06:59 06:59 06:59
Actual Weight 55.508 kg
03/30/24 05:34
03/30/24 05:34
Magnesium 1.9 mg/dl (1.6-2.3) 03/30/24 05:34
03/28/24 03/30/24
18:40 05:34
Vou-L-Rxeogihorvk Pept 3560 1540
LAB Results
03/28/24
18:40
Troponin I < 0.012
Physical Exam
Constitutional: No acute distress
Cardiovascular: Rhythm & rate is regular, JVD pressure is normal, Systolic murmur absent, Diastolic murmur absent, Rhythm/rate is irregular and Pedal edema present (trace in the ankles b/l )
Respiratory: Respiratory effort normal, Lungs clear to auscul., Wheeze Absent, Crackles Absent and Rhonchi Absent
Neuro/Psych: AO x 3
Data Reviewed
-
Date of Service: March 30, 2024
Medical Decision Making: Review of Case with other Provider (Dr Feliciano, transition to po lasix tubigrips)
EKG: Other (vpaced on tele)
[2024-03-30] MEDS: COZAAR PO (10:19)
--- NOTE | 2024-03-30 12:49 | W.PN.HOSP.TC ---
Today's Communication/Plan
-
steroids
lasix
2d echo
pulm follow up
Assessment / Plan
Assessment / Plan
NAD, on nasal cannula oxygen 3 L
Scleral anicteric
Moist mucous membranes
No JVD
CTA bilateral, with good air movement
Normal S1-S2 no murmurs
Soft nontender nondistended bowel sounds active
No peripheral pitting edema
Moves extremities spontaneously
AAOx3
Acute on chronic hypoxemic respiratory failure unclear as to etiology on my exam did not appear to be significantly volume overloaded to suspect significant HFpEF exacerbation, additionally BNP 3500 previously was in the 6000. With saying that
x-ray did show cardiomegaly with pulmonary edema. Will continue IV Lasix for today. Reassess volume status tomorrow. Follow renal function weights. Wean oxygen as tolerated. Keep goal SpO2 greater than 88%. Has known history of COPD without
evidence of bronchospasm on exam. Therefore suspect possibility of worsening pulmonary hypertension. Pulm following. WIll get 2d echo, per pulm if pasp >70 then get VQ scan check for CTEPH. Pulm started steroids and continued lasix.
Hypokalemia secondary to diuretics. Replete
COPD/MAXIM/pulmonary hypertension/pulmonary fibrosis continue MDIs outpatient pulmonary follow-up no indication for steroids made in the near future need right HC.
Atrial fibrillation s/p pacemaker continue diltiazem. Not on anticoagulation.
Hypertension continue to pretenses
Hyperlipidemia continue statin
Anxiety depression continue anxiolytics and antidepressives
Anticipated Discharge: 24 - 48 hours
Subjective/Interval History
-
Date of Service: March 30, 2024
seen and examined
no new complaints
no acute overnight events
feeling better but still short of breath. o2 needs improved.
Objective Data
-
Labs:
Laboratory Results
03/30/24
05:34
WBC 5.5
Hgb 12.5
Hct 37.0
Plt Count 203
Sodium 142
Potassium 3.9
Chloride 101
Carbon Dioxide 29
BUN 21 H
Creatinine 0.8
Glucose 132 H
Calcium 9.4
Vital Signs:
Vital Signs
Temp Pulse Resp BP Pulse Ox
97.8 F 77 16 113/65 98
03/30/24 11:18 03/30/24 11:18 03/30/24 11:18 03/30/24 11:18 03/30/24 11:18
I&O
03/29/24 03/30/24 03/31/24
06:59 06:59 06:59
Intake Total 360 / 360 480 / 480
Output Total 800 / 800 975 / 975
Balance -800 / -800 -615 / -615 480 / 480
[2024-03-30] MEDS: KCL 40 MEQ PO (17:54)
[2024-03-30] MEDS: MAGNESIUM SULFATE 50 IV (17:56)
[2024-03-30] MEDS: MELATONIN 5 MG PO (21:06)
[2024-03-31 00:44] VITALS: PULSE 66
--- NOTE | 2024-03-31 02:12 | W.PN.UPDATE ---
Addendum entered and electronically signed by ISMA Rainey 03/31/24 04:16:
RN reports confusion post ambien. Became agitated and climbing oob.
Original Note:
Update Note
Progress Note Update
pt insisting on getting her ambien tonight (she takes at home and his was confirmed via PDMP). Getting angry that she hasn't gotten it.
Melatonin was attempted but did not help.
Will order a dose tonight. Asked RN to place bed alarm (already in place).
[2024-03-31] MEDS: AMBIEN 5 MG PO (02:39)
[2024-03-31 03:25] VITALS: BP 120/57
--- NOTE | 2024-03-31 04:08 | PTCARENOTE ---
Overnight pt. complained that she 'was not getting the right meds' and that she 'needed her sleeping pill.' This nurse explained to pt. that she had already received her melatonin. She continued to complain that melatonin was not the right med, she
wasn't going to be able to sleep, and she needs to have her normal med. Provider notified and one time dose of Ambien ordered for pt. as that is what she usually takes. About an hour after administration, pt. was observed trying to get OOB, and was
considerably more confused than she had been prior to the Ambien. Upon attempting to redirect pt. pt. started to become aggressive, trying to hit and punch nursing staff, get oob, and 'go get something to eat.' This nurse explained that it was 0400
and the kitchen was not opened yet, but pt, refused to listen and said that 'we will be hearing from her game designer, you can't tell a person where to go and not let them eat breakfast.' Nursing continues to redirect pt, however pt. remains confused and
uncooperative at this time. Provider notified, plan of care ongoing.
[2024-03-31 06:00] VITALS: BMI 19.6
[2024-03-31] MEDS: ADVAIR HFA 230/21 MCG INHALER INH ×2 (07:36→07:38)
[2024-03-31] MEDS: SPIRIVA RESPIMAT 2.5 MCG INH ×2 (07:36→07:38)
[2024-03-31 08:45] VITALS: BP 115/68
[2024-03-31] MEDS: COZAAR 25 MG PO (08:46)
[2024-03-31] MEDS: CARDIZEM CD 120 MG PO (08:46)
[2024-03-31] MEDS: DELTASONE 40 MG PO (08:46)
[2024-03-31] MEDS: LEXAPRO 20 MG PO (08:46)
[2024-03-31] MEDS: BUSPAR 10 MG PO (08:47)
[2024-03-31] MEDS: CRESTOR 5 MG PO (08:49)
[2024-03-31] MEDS: LASIX 40 MG PO (08:50)
--- NOTE | 2024-03-31 08:59 | W.PN.CD ---
Today's Communication / Plan
-
Echo today
Check cost of SGLT2-I
Consider adding MRA as outpatient
Continue ARB
Continue rate control of AFib
She will follow chronically with her executive chairman of the board near [facility]
Impression / Plan
-
SOB:
-likely multifactorial in this patient with COPD, pulm fibrosis, severe pulm HTN
-likely component of dqrbp-ga-zznqstf HFpEF
-pulmonary following
-echo for Phtn reassessment ordered
Acute on chronic HFpEF:
- Recent echo as below.
- We believdthat she is now euvolemic
- Admit weight 58.4 kg and now 55 kg. Goal weight 55 kg
-k ok today
-daily weights and i/o.
-tubigrips
-will ask cm to [facility] SGLT2i but need to establish candidacy re h/o UTI?, called # in chart but now answer, may need to leave to primary op cards who knows her.
AFIB: permanent
-off OAC per her primary executive chairman of the board per notes, but details unclear- follow-up with Dr. Mata on this
-continue diltiazem- rate is controlled
Pacemaker:
-stable on telemetry
Subjective:
-she is feeling well no cp or sob. No abdominal pain.
09/17/2023 Echo: LVEF 60-65%, mild cLVH, severe CATHY, mild MR/AR, mild/mod , severe pulm HTN, eduardo PASP 70-75 mmHg and est RA of 15 mmHg, little change from 03/28/2021.
Physical Exam
Vital Signs/Labs
Vital Signs
Temp Pulse Resp BP Pulse Ox
97.9 F 72 18 115/68 93
03/31/24 08:45 03/31/24 08:45 03/31/24 08:45 03/31/24 08:45 03/31/24 08:45
03/30/24 03/31/24 04/01/24
06:59 06:59 06:59
Actual Weight 54.2 kg 55.111 kg
03/30/24 05:34
Magnesium 1.9 mg/dl (1.6-2.3) 03/30/24 05:34
03/28/24 03/30/24
18:40 05:34
Mkt-V-Wdvhvzvnkzg Pept 3560 1540
LAB Results
03/28/24
18:40
Troponin I < 0.012
Physical Exam
Constitutional: No acute distress
EENT: Anicteric
Cardiovascular: Pedal edema is absent and Rhythm/rate is irregular
Respiratory: Respiratory effort normal and Lungs clear to auscul.
GI: Soft and Distention absent
Neuro/Psych: Alert and Other (confused)
Data Reviewed
-
Date of Service: March 31, 2024
[2024-03-31 11:00] VITALS: BP 124/65
--- NOTE | 2024-03-31 11:34 | W.PN.HOSP.TC ---
Addendum entered and electronically signed by David Monae DO 03/31/24 14:41:
Echocardiogram shows LVEF 50 to 55%. Severe biatrial enlargement. Mildly reduced RV systolic function. Moderate to severe TR. Severe pulmonary hypertension, PA pressure 88 mmHg.
I spoke with Dr. Madison, who recommends discharge with outpatient follow-up. He is aware of the chronic severe pulmonary hypertension.
Cardiology okay with discharge as well.
Will discharge this afternoon. Outpatient follow-up.
Original Note:
Today's Communication/Plan
-
Ambulatory pulse ox on room air
Echocardiogram
PT consult
Assessment / Plan
Assessment / Plan
Gen-AAOx3, NAD
HEENT-NC, AT, anicteric, clear oral mm
Neck-supple
CV-reg, no M, +S1/S2
Lungs-clear B/L
Abd-soft, NT, ND
Ext-no edema
Musculoskeletal-no cyanosis, clubbing
Skin-warm and dry
Neuro-grossly non-focal
Psych-calm, cooperative
Acute on chronic hypoxemic respiratory failure -suspect multifactorial etiology including underlying COPD, acute heart failure exacerbation, pulmonary hypertension, etc. Baseline uses 2 to 3 L of oxygen at home. Currently not on oxygen. Check
ambulatory pulse ox on room air.
Acute on chronic heart failure with preserved EF exacerbation -improving on Lasix. Weight down to 55 kg. Cardiology following. Check echocardiogram. Back on her home dose of Lasix, 40 mg p.o. daily.
COPD/MAXIM/pulmonary hypertension/pulmonary fibrosis -pulmonary started her on a prednisone course. May need VQ scan if significant pulmonary hypertension noted on echocardiogram.
Hypokalemia -improved.
Permanent atrial fibrillation - s/p pacemaker, continue diltiazem. Not on anticoagulation.
Essential hypertension -stable.
Hyperlipidemia -continue statin
Anxiety depression -continue anxiolytics and antidepressives
Full code
PT consult
Dispo -hopefully discharge home this afternoon. Patient and eager to go home.
Anticipated Discharge: Today
Subjective/Interval History
-
Date of Service: March 31, 2024
Patient seen and examined. Does have dyspnea on exertion.
Objective Data
-
Labs:
Laboratory Results
03/31/24
06:00
Sodium Pending
Potassium Pending
Chloride Pending
Carbon Dioxide Pending
BUN Pending
Creatinine Pending
Glucose Pending
Calcium Pending
Vital Signs:
Vital Signs
Temp Pulse Resp BP Pulse Ox
97.4 F 71 18 124/65 97
03/31/24 11:00 03/31/24 11:00 03/31/24 11:00 03/31/24 11:00 03/31/24 11:00
I&O
03/30/24 03/31/24 04/01/24
06:59 06:59 06:59
Intake Total 360 / 360 1380 / 1380
Output Total 975 / 975
Balance -615 / -615 1380 / 1380
Review of Systems
-
History Source: Patient
All other systems: Reviewed and negative
[2024-03-31 11:47] VITALS: BP 128/80
--- NOTE | 2024-03-31 13:22 | W.PN.PUL3 ---
Today's Communication / Plan
-
Continue diuresis
Prednisone taper
Inhalers
Nocturnal CPAP
Oxygen as needed to maintain pulse ox above 90%
Ongoing cardiology follow-up for aortic stenosis
Hopefully discharge planning
Assessment
-
Assessment: 88-year-old female non-smoker with a past medical history of severe pulmonary hypertension, asthma, MAXIM on CPAP, chronic HFpEF, GERD and history of pneumonia who presents with worsening SOB. She has home oxygen that she uses as needed
however the last few days she has been constantly using it due to worsening shortness of breath. In the ER she was afebrile to 97.9 �F, pulse rate 77, breathing at 20 breaths/min, BP 127/66 and saturating 92% on room air. Labs showed normal WBC at
6.5, Hb 11.8, absolute eosinophil count: 200, proBNP elevated at 3560 (last proBNP was 6810 on 10/19/2023), and negative troponin at <0.012. CXR showed suspected mild pulmonary edema with left lower lobe atelectasis/scarring with small pleural
effusion. She was diuresed in the ER with 40 mg IV Lasix. She was admitted to the telemetry floor with cardiology consulted. Pulmonary service now consulted for additional management/recommendations.
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
Impression:
#Acute on chronic respiratory failure with hypoxia on supplemental oxygen likely due to acute pulmonary edema in the setting of chronic LLL atelectasis/scarring and severe pulmonary hypertension and COPD
#Moderate COPD with air trapping per PFT from 04/02/2023 likely due to unremitting asthma in the setting of severe pulmonary HTN
#Hypokalemia - resolved
#Metabolic alkalosis (due to chronic hypercapnia)
#Chronic bibasilar + lingula linear scarring (seen on base of lungs on CT abdomen/pelvis from 12/14/2023)
#Elevated proBNP with concern for acute decompensated heart failure
#Severe pulmonary hypertension with severe gas exchange capacity (DLco: 32% per PFT from 04/02/2023)
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
#Mild anemia (baseline Hb: 9.5�12g/dL)
#Hiatal hernia
#History of moderate persistent asthma on Advair 250mcg
#History of A-fib s/p PPM currently V-paced
#MAXIM with hx of non-compliance (although she tells me today that she has been using it nightly)
Plan:
-
Chronic shortness of breath likely multifactorial including: COPD from asthma/deconditioning/severe pulmonary hypertension/acute on chronic heart failure-most recent echocardiogram available LVEF 60%. Mild LVH. Severe biatrial enlargement. Mild
MR. Mild to moderate aortic stenosis. Severe pulmonary hypertension.
- Continue with diuresis --> transition to PO as pt appears euvolemic today
- Check walking pulse oximetry prior to discharge
- Incentive spirometer encouraged
- Recheck TTE today.
-
Patient is well-known to Dr. Madison with history of pulmonary hypertension. Partial workup has been performed and there is no secondary cause so far. I have offered her multiple times referral to a tertiary care Medical Center and further
evaluation with repeat right heart catheterization but she had declined. She only prefers conservative management.
Thromboembolic disease has been ruled out in the past.
Repeat echocardiogram noted: Severe pulmonary hypertension. Severe low output aortic stenosis. Patient is not the best candidate for pulmonary vasodilation based on moderate to severe aortic stenosis.
We do only in the context of evaluation by pulmonary hypertension specialist and a tertiary care Medical Center.
As above, patient has not been interested on this in the past.
Will defer to cardiology for evaluation regarding aortic stenosis: Unclear whether this patient would like to pursue inpatient evaluation. Usually follows up with cardiology at [facility] Dr. Mata.
-
Currently on oral diuretics
She follows up at [facility] with cardiology. Dr. Madison has discussed the case with cardiology in the past over the phone, patient did not want to pursue further interventions//invasive evaluation in regards to her pulmonary
hypertension.
-
- Considering that the patient has a history of COPD/asthma, and still feels short of breath despite diuresis, okay to continue prednisone taper for now decrease by 10 mg every 72 hours to off. Clinically does not appear to be in an exacerbation.
- Continue Advair for now with prn nebulized bronchodilators (not currently bronchospastic)
-
MAXIM:
- Continue with CPAP with sleep; advised on the importance of remaining fully compliant with nightly use, jocelynn in the setting of severe PH
- We will try to get her a new machine through our office as she says that hers is broken.-Will try to reassess.
- VBG shows compensated hypercapnia; continue with CPAP as above. No additional need to trend blood gas at this time.
Will obtain nocturnal pulse oximetry on CPAP. I will arrange this through my office.
-
Hoarse/history of vocal cord paralysis/paresis-previously thought from severe coughing.
Seems to be bothering him the most at this point. Unable to project her voice.
I have instructed her to make an appointment with Dr. Christy who has seen her in the past.
-
Suspect patient has some cognitive decline/early dementia. High risk for delirium.
-
- Maintain euglycemia with goal BG >100 and <18
- DVT ppx
Following discharge, we will arrange for outpatient follow-up with our office given that she follows with us with last visit on 02/08/[address] Madison.
She has been referred to a tertiary care Medical Center in the past but she has declined. She did not want to pursue aggressive evaluation in regards to pulmonary hypertension despite multiple conversations in the past. Her has a diagnosis
of esophageal cancer and he is frail as well.
-'
Dr. Madison discussed with and patient extensively on 03/31/2024.
Hopefully can be discharged if no additional inpatient evaluation is considered from the cardiology perspective.
Discussed with Dr. Monae.

Data:
CXR 03/28/2024:
1. MODERATE CARDIOMEGALY with suggestion of mild pulmonary edema.
2. Minimal left pleural effusion.
3. Mild subsegmental atelectasis and scarring in the left mid and lower lung.
4. Left-sided cardiac pacemaker in place.
5. 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
TTE 09/17/2023:
LV ejection fraction is 60-65% by visual assessment.
Mild concentric left ventricular hypertrophy.
Severe biatrial enlargement.
Mild mitral regurgitation.
Mild to moderate aortic stenosis.
Mild aortic regurgitation.
Severe pulmonary HTN, estimated PASP 70-75 mmHg and estimated RA of 15 mmHg.
No significant change since the prior study of 03/28/2021.
Total time spent today was 35 minutes for this encounter. Time includes reviewing laboratory test/imaging results, reviewing pertinent medical records, obtaining and reviewing medical history, performing an appropriate exam, ordering medications,
tests and procedures. Time also includes documentation of this encounter, coordinating patient care and communicating with other healthcare professionals. Total time does not include separately billed tests performed on this date of service.
Subjective Data
-
Date of Service:
Date of Service: March 31, 2024
Chief Complaint: Pulmonary Follow Up
Subjective:
No new complaints
Chronic shortness of breath
Denies increased phlegm production
Denies hemoptysis
Review of Systems
General: Fever (n)
Cardiopulmonary: Dyspnea and Dyspnea on Exertion (Chronic)
Objective Data
Data Reviewed
Vital Signs / I&O / Oxygen:
Vital Signs
Temp Pulse Resp BP Pulse Ox
98 F 80 18 128/80 94
03/31/24 11:47 03/31/24 11:47 03/31/24 11:47 03/31/24 11:47 03/31/24 11:47
Intake and Output
03/30/24 03/31/24 04/01/24
06:59 06:59 06:59
Intake Total 360 / 360 1380 / 1380
Output Total 975 / 975
Balance -615 / -615 1380 / 1380
SaO2 94
Nasal Cannula flow liters per 2
minute
Physical Exam
General: Respiratory Distress (negative), Comfortable and Chills (negative)
HEENT: Normocephalic and Anicteric
Cardiovascular: S1-S2 and Peripheral Edema (negative)
Respiratory: Wheeze (negative), Crackles (Right base), Rhonchi (negative) and Non-Labored Respirations
GI: Soft, Non Distended, Non Tender and Normal Bowel Sounds
Neurology: Awake, Alert and Tremors (negative)
Skin: Warm, Dry and Jaundice (negative)
Labs/Micro/Reports
Lab Data
03/30/24 05:34
[2024-03-31 14:39] VITALS: BP 138/71; PULSE 91; O2SAT 93
--- NOTE | 2024-03-31 14:40 | W.DS.TRANS ---
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
-
Discharge Instructions:
Discharge Diagnosis/Procedures Heart failure exacerbation
Diet Low Cholesterol,Low Fat,2 Gram Sodium
Activity With assistance
Driving Restrictions No driving
Bathing Restrictions None
Other Services VN
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
Stand-Alone Forms:
Changes to Home Medications: No
Discharge Medications:
DC Medications w/original date entered in [employer]
rosuvastatin 5 mg tablet 5 mg PO MOWEFR High cholesterol 07/29/17
diltiazem HCl 120 mg capsule,extended release 24 hr 120 mg PO BID Heart disease/condition 01/18/21
losartan 25 mg tablet 25 mg PO DAILY Blood pressure 01/18/21
cholecalciferol (vitamin D3) 50 mcg (2,000 unit) tablet 2,000 units PO DAILY Supplement 03/25/21
escitalopram oxalate 20 mg tablet 20 mg PO DAILY Mental Health/Anxiety 03/25/21
ipratropium bromide 42 mcg (0.06 %) nasal spray 2 spray intranasal BID Allergies 03/25/21
buspirone 10 mg tablet 10 mg PO BID Mental Health/Anxiety 05/24/23
furosemide 40 mg tablet 40 mg PO DAILY Fluid retention/Swelling #30 tabs 06/11/23
therapeutic multivitamin 1 tab PO DAILY Supplement 10/19/23
Lactobac no.2-Bifidobac no.1-S. thermo 112.5 billion cell capsule (Visbiome) 1 cap PO DAILY Supplement 03/28/24
albuterol sulfate 90 mcg/actuation aerosol inhaler 2 puff inhalation R Q6HPRN PRN sob 03/28/24
dextran 70-hypromellose eye drops in a dropperette (Artificial Tears (PF) drops in a dropperette) 1 drp BOTH EYES HS Eye Condition 03/28/24
fluticasone propionate 230 mcg-salmeterol 21 mcg/actuation HFA inhaler 2 puff inhalation R BID #12 grams 03/31/24
prednisone 10 mg tablet 10 mg PO DIRECTED #30 tabs 03/31/24
tiotropium bromide 2.5 mcg/actuation mist for inhalation (Spiriva Respimat) 2 puff inhalation R DAILY #4 grams 03/31/24
Home Medication Changes
Pending Results: No
[2024-03-31 14:52] LABS: Blood Urea Nitrogen 26 mg/dl (7-17); Calcium 9.6 mg/dl (8.4-10.2); Carbon Dioxide 30 mmol/L (22-30); Chloride 95 mmol/L (98-107); Estimated Creatinine Clearance 44 ml/min; Glucose 109 mg/dl (70-99); Sodium 140 mmol/L (135-145); eGFR > 60.00
--- NOTE | 2024-03-31 15:34 | CM ---
entered order for dc.
will drive her home.
Requested [facility] referral placed.
IMM reviewed Signed on chart.
PLAN Home with [facility] fax [phone]
--- NOTE | 2024-04-01 11:13 | W.HF.CON ---
Heart Failure
- LV Function
Left ventricular function study result: LV Ejection fraction >40%
Ejection Fraction Percentage: 50-55
- ARNI
Patient already on ARNI: No
Heart Failure ARNI Not Indicated: LV Ejection Fraction >/= 40%
- ACEI/ARB
Patient already on ACEI/ARB: Yes
- Beta Ray
Patient already on Evidence Based Beta Ray: No
Heart Failure Evidence Based Beta Ray Not Indicated: LV Ejection Fraction > 40%
- Mineralocorticord Receptor Antagonist
Patient already on MRA: No
Heart Failure MRA Not Indicated: LV Ejection Fraction > 40%
- SGLT-2 Inhibitor
Patient already on SGLT-2 Inhibitor: No
Heart Failure SGLT-2 Inhibitor Not Indicated: LV Ejection Fraction >40%
- Afib Anticoagulation
Patient already on Anticoagulation for Afib: No
Heart Failure Afib Anticoagulation Contraindication: Patient Refusal
- NYHA CHF Classification
NYHA CHF Classification Level: Class III - Symptoms w/ min exertion, interferes w/ nml daily activity
- ACC/AHA Stage
ACC/AHA Stage: Stage C: Symptomatic Heart Failure
== END 2024-03-31 15:34 | disposition home health service (06) | DRG 291 ==
LOC: 4 EAST ACU 22:56
PROVIDERS: Emergency Medicine; Hospitalist; ADMITTING PHYSICIAN Internal Medicine; ATTENDING PHYSICIAN Hospitalist; CONSULT PHYSICIAN Internal Medicine Cardiovascular Disease; CONSULT PHYSICIAN Internal Medicine Critical Care Medicine; EMERGENCY PHYSICIAN Emergency Medicine; FAMILY PHYSICIAN Internal Medicine
DX: I11.0 Hypertensive heart disease with heart failure (principal); I50.31 Acute diastolic (congestive) heart failure; J96.21 Acute and chronic respiratory failure with hypoxia; J98.11 Atelectasis; E87.3 Alkalosis; I48.21 Permanent atrial fibrillation; I27.20 Pulmonary hypertension, unspecified; G47.33 Obstructive sleep apnea (adult) (pediatric); E87.6 Hypokalemia; I48.91 Unspecified atrial fibrillation; J84.10 Pulmonary fibrosis, unspecified
CPT/HCPCS: 71046; 80048; 80053; 82805; 83735; 83880; 84100; 84484; 85025; 85027; 93005; 93306; 94640; 94660; 96374; 97162; 99285

== ENCOUNTER 2024-07-15 10:20 | Inpatient (IN) | payer OTHER, SELFPAY ==
[2024-07-15] VITALS (18 sets, daily range): BP systolic 103–182; BP diastolic 49–156; BMI 22.5
[2024-07-15] MEDS: ZOFRAN 4 MG IV ×3 (05:57→07:45)
[2024-07-15] MEDS: NSS 500 IV (05:58)
[2024-07-15 06:31] LABS: % Basophils 0.4 % (0-2); % Eosinophils 1.1 % (0-6); % Immature Granulocytes 0.4 % (0-0.5); % Lymphocytes 3.9 % (20.5-51.1); % Neutrophils 92.2 % (42.2-75.2); Absolute Basophils 0.1 10^3/uL (0-0.2); Absolute Eosinophils 0.1 10^3/uL (0-0.7); Absolute Immature Granulocytes 0.1 10^3/uL (0-0.05); Absolute Lymphocytes 0.5 10^3/uL (1.2-3.4); Absolute Monocytes 0.3 10^3/uL (0.1-0.6); Absolute Neutrophils 11.4 10^3/uL (1.4-6.5); Hematocrit 43.6 % (37.0-47.0); Hemoglobin 13.8 g/dL (12.0-16.0); Mean Corp Hgb Conc. 31.7 g/dL (33.0-37.0); Mean Corpuscular Hgb 29.9 pg (27.0-31.0); Mean Corpuscular Volume 94.4 fL (81.0-99.0); Mean Platelet Volume 10.9 fL (7.4-10.4); Nucleated Red Blood Cells % 0 %; Platelet Count 232 10^3/uL (130-400); Red Blood Cell Count 4.62 10^6/uL (4.20-5.40); Red Cell Dist. Width 13.2 % (11.5-14.5); White Blood Cell Count 12.4 10^3/uL (4.8-10.8)
[2024-07-15 06:39] LABS: ALT (SGPT) 25 U/L (0-35); AST (SGOT) 34 U/L (14-36); Albumin 4.7 g/dl (3.5-5.0); Alkaline Phosphatase 52 U/L (38-126); Blood Urea Nitrogen 22 mg/dl (7-17); Calcium 9.3 mg/dl (8.4-10.2); Carbon Dioxide 28 mmol/L (22-30); Chloride 103 mmol/L (98-107); Glucose 125 mg/dl (70-99); Lipase 79 U/L (23-300); Potassium 4.3 mmol/L (3.5-5.1); Sodium 142 mmol/L (135-145); Total Bilirubin 0.6 mg/dl (0.2-1.3); Total Protein 7.3 g/dl (6.3-8.2); eGFR > 60.00
--- NOTE | 2024-07-15 06:43 | ED.GENMED ---
History of Present Illness
General
Chief Complaint: Abdominal Symptoms
Source: patient
Time Seen by Provider: 07/15/24 06:24
History of Present Illness
History of Present Illness:
This patient is an 88-year-old female with an extensive prior medical history who presents emergency department with intractable nonbloody vomiting and diarrhea that started at approximately 4 AM. History is limited as patient is actively vomiting.
She denies abdominal pain, chest pain, fever.
Past History
Past History
ED Past Medical History: Arrthythmia (Atrial fibrillation), Asthma, CHF, HTN, Hypercholesterolemia and Other (MAXIM, SBO with perf. )
ED Past Surgical History: Cholecystectomy, Gynecological and Other (Colostomy)
Social History
Tobacco: Non-smoker
Alcohol: None
Drug: None
Personal:
Living: with family
Employment: Other
Family History
Family History: Other (No significant)
Phy Exam
Physical Exam
Physical Exam:
GENERAL: Alert , actively vomiting
EYE: pupils equal and reactive
NECK: Supple, no significant adenopathy.
ENT: o/p clr, mm dry
CARDIAC: Regular rate and rhythm .
LUNGS: Equal breath sounds bilaterally, no acute respiratory distress, diffuse wheezing noted
ABDOMEN: Soft, without focal tenderness
NEUROLOGICAL: Alert, grossly nonfocal
SKIN: Warm and dry, skin intact.
MUSCULOSKELETAL: No edema, well perfused.
PSYCH: Normal and appropriate interaction.
Course
Orders/Labs/Results
Orders:
Orders
07/15/24 05:54
Ondansetron Injectable [Zofran] 4 mg .ROUTE .ST-MED ONE
07/15/24 05:56
Ondansetron Injectable [Zofran] 4 mg IV NOW STA
07/15/24 05:57
0.9% Sodium Chloride 500 ml [Nss] 500 ml IV BOLUS
07/15/24 Breakfast
NPO
Allow oral meds: Yes
Allow clear liquids: Sips of Clears
07/15/24 06:02
IV Insert/Care/Rem.- Treatment PRN
07/15/24 06:04
Complete Blood Count/With Diff Urgent
Comprehensive Metabolic Panel Urgent
Lipase Urgent
07/15/24 06:42
CT Abd/Pel (IV only)-DH only Urgent
Comment:
Reason For Exam: hx colostomy, now n/v/d
Ipratropium/Albuterol Sulfate [Duoneb] 3 ml INH R NOW STA
07/15/24 06:43
Ondansetron Injectable [Zofran] 4 mg IV NOW STA
07/15/24 07:29
Ondansetron Injectable [Zofran] 4 mg IV NOW STA
07/15/24 07:30
Ipratropium/Albuterol Sulfate [Duoneb] 3 ml INH R NOW STA
07/15/24 07:55
Norovirus by PCR Urgent
MELODY Source: Feces/Stool
Specimen Description:
Date Specimen was Collected: 07/15/24
Time Specimen was Collected: 07:51
07/15/24 09:24
0.9% Sodium Chloride 250 ml [Nss] 250 ml IV BOLUS
07/15/24 09:45
Add On - Microbiology Routine
Tests Added?: stool for CDIFF, culkture and sunny
07/15/24 09:55
Admit/Transfer Patient As Directed
Co-Sign Provider:
Level of Care: Inpatient admission
Assign to:: Telemetry
Physician / Group: pasricha/medicine
Diagnosis: intractable nausea/vomiting
Reason for Telemetry: Arrhythmia
Date to Stop Telemetry: 07/18/24
Time to Stop Telemetry: 11:00
Reason for Hospitalization: intr
Expected length of stay greater than two midnights?: Yes
ELOS- Estimated Length of Stay in days: 3
I certify the patient meets the requirements for IP care: Yes
PRN Pain Medication Management As Directed
May give lesser potent ordered pain med per pt: Yes
preference::
Protocol:: Medication orders for pain may be administered in a
manner that supports deferring to patient preference
when the pt is:
- Requesting an ordered lesser potent pain medication.
Least to most potent pain medications are defined
as: acetaminophen < NSAID < tramadol < opioids
(morphine, oxycodone, hydromorphone).
- Requesting a lesser dose of the same medication IF
ORDERED.
- Requesting a less intrusive route of administration
if both routes are prescribed by the provider (PO <
IV).
07/15/24 09:56
CR Chest - 2 Views Urgent
Comment:
Reason For Exam: hypoxia
07/15/24 09:58
Code Status As Directed
Resuscitation Status: Full Code
07/15/24 10:46
EKG [Electrocardiogram (*1)] Urgent
Reason for Study: QTc Monitoring
07/15/24 12:04
Acetaminophen [Tylenol] 650 mg PO Q4HPRN PRN
Ipratropium/Albuterol Sulfate [Duoneb] 3 ml INH R Q4HPRN PRN
Tiotropium [place] 2.5 Mcg [Spiriva Respimat 2.5 Mcg] 2 puff INH R DAILY
07/15/24 12:04
Activity As Directed
Activity Level: As Tolerated
Vital Signs As Directed
Frequency: Per unit guidelines
O2 Therapy [RESP] Routine
Titrate/Wean O2 to maintain O2 sat greater than (%): 90
Pulse Ox/spot Check [RESP] Routine
Quantity: 1
Rx Incentive Spirometry [RESP] Routine
Frequency: q1h while awake
DX Deep Vein Thrombosis Video Routine
07/15/24 16:00
Heparin 5,000 units SC Q8
07/15/24 20:00
Buspirone [Buspar] 10 mg PO BID
Diltiazem Extended Release [Cardizem Cd] 120 mg PO BID
Fluticasone/Salmeterol 230/21 [Advair Hfa 230/21 Mcg Inhaler] 2 puff INH R BID
ipratropium bromide 2 spray NASAL BID
07/15/24 22:00
Artificial Tears (Pf) [Refresh Eye Drops (Pf)] 1 drops BOTH EYES HS
07/16/24 06:00
Complete Blood Count/No Diff IN AM
Comprehensive Metabolic Panel IN AM
Magnesium IN AM
07/16/24 08:00
Escitalopram Oxalate [Lexapro] 20 mg PO DAILY
Lactobac/Bifidobac [Visbiome] 1 cap PO DAILY
Rosuvastatin Calcium [Crestor] 5 mg PO MoWeFr@0800
07/18/24 11:00
DC Protocol for Telemetry ONCE
Abnormal Lab Results
07/15/24
06:04
WBC 12.4 H 10^3/uL
(4.8-10.8)
MCHC 31.7 L g/dL
(33.0-37.0)
MPV 10.9 H fL
(7.4-10.4)
Abs Immat Gran (auto) 0.1 H 10^3/uL
(0-0.05)
Absolute Neuts (auto) 11.4 H 10^3/uL
(1.4-6.5)
Absolute Lymphs (auto) 0.5 L 10^3/uL
(1.2-3.4)
Neutrophils % 92.2 H %
(42.2-75.2)
Lymphocytes % 3.9 L %
(20.5-51.1)
BUN 22 H mg/dl
(7-17)
Glucose 125 H mg/dl
(70-99)
07/15/24 06:04
07/15/24 06:04
Vital Signs
Initial and Last Documented VS:
Initial Vital Signs
Temp Pulse Resp Pulse Ox
98.5 F 65 20 94
07/15/24 05:34 07/15/24 05:34 07/15/24 05:34 07/15/24 05:34
Last Documented Vital Signs
Temp Pulse Resp BP Pulse Ox
98.5 F 70 22 142/61 95
07/15/24 05:34 07/15/24 13:00 07/15/24 13:00 07/15/24 13:00 07/15/24 13:00
*Critical Care Note
Total Time (30-74mins, 75-104mins- exclusive of procedures): Not Applicable
Update Note
Update Note:
Patient presents to the Emergency Department with __nausea vomiting diarrhea
Number and Complexity of Problems Addressed at the Encounter
� Chronic conditions affecting care:
� Acute Exacerbation and/or Progression of Chronic Illness:
� Differential Diagnosis includes: But not limited to gastroenteritis, colitis, bowel obstruction, etc. etc.
Amount and/or Complexity of Data to be Reviewed and Analyzed
� I performed an independent evaluation of and my interpretation is:
EKG:
CT:read by rads 1). There is no evidence of acute pathology
Evaluation for bowel pathology is limited by the lack of enteric contrast
There is left hemicolectomy with left upper quadrant ostomy
2). Mild-moderate cardiomegaly.
3). 9 cm hiatal hernia
4). Cholecystectomy
5). Atherosclerosis
6). Lumbar dextroscoliosis with multilevel lumbar degenerative disc disease
Xrays: read by rads, cm, suspic for chf
Laboratory Studies:leukocytosis with L shift, prerenal azotemia
Other:
� Review of other/old records reveals: Discharge summary from March 2024 reviewed when patient presented with respiratory distress and heart failure. Patient has a history of severe pulmonary hypertension and wears oxygen at
home.
� Clinical information was obtained by an independent historian:
� Prescriptions/Medications Considered but not given:
� Further testing considered but not performed:
Risk of Complications and/or Morbidity or Mortality of Patient Management
� Social determinants of health affecting care:
� Discussion with other providers (PCP, Hospitalists, Consultants, etc):
� Escalation of care including admission/observation vs risk of discharge considered: 9:25 AM patient reassessed her active vomiting has stopped for the moment, she is still quite nauseous and thirsty. Abdomen remains soft and
nontender. She is feeling generally weak. IV fluids ordered, recommend admission/observation for continued care. [place] text to hospitalist.
ED Attending Note
-
Portions of this chart may have been created with voice recognition software.� Occasional wrong word or��sound alike� substitutions may have occurred due to the inherent limitations of voice recognition software.
Discharge Plan
Departure
Patient Disposition: Admit
Date of Disposition: 07/15/24
Time of Disposition: 09:26
Admit to: Med/Surg
Presentation/result/management discussed w/ accepting MD/DO: Hospitalist
Discharge Problem:
Vomiting and diarrhea
Interventions
Interventions:
*Risk Screen - Suicide Last Done: 07/15/24 05:34
*General Assessment Last Done: 07/15/24 05:34
*Neglect/Abuse Screening Last Done: 07/15/24 05:34
ED- Fall Risk Assessment Last Done: 07/15/24 05:34
*ED COVID-19 Vaccine History Last Done: 07/15/24 05:34
LI-Eqggcp-Bwqgjpenmk Assessment Last Done: 07/15/24 07:47
[2024-07-15] MEDS: DUONEB 3 ML INH ×2 (07:21→07:45)
[2024-07-15] MEDS: NSS 250 IV (09:55)
--- NOTE | 2024-07-15 10:15 | PHANOTE ---
med rec note- called spouse to get medication list, patient stated her takes care of her medication. no answer when called, waiting for him to arrival. used pharmacy and ecw recods
[2024-07-15] MEDS: TIGAN 200 MG IM (11:40)
--- NOTE | 2024-07-15 12:01 | EDRN ---
Per MICROBIOLOGY, since stool was positive for NOROVIRUS, a culture, CDIFF and Yersenia add on is not needed and should be cancelled
[2024-07-15] MEDS: SPIRIVA RESPIMAT 2.5 MCG INH (13:20)
--- NOTE | 2024-07-15 14:30 | PTCARENOTE ---
Admission completed. Pt oriented to self and hospital but confused about details regarding her health and why she's there. Pt cooperative. VSS. V paced on monitor.
--- NOTE | 2024-07-15 14:38 | HPS.HSE ---
Family Physician
-
Family Physician: Kel Sauceda
Chief Complaint
-
Intractable nonbloody vomiting and diarrhea
History of Present Illness
88-year-old female with past medical history of SBO with perforation, cholecystectomy, chronic hypoxic respiratory failure secondary to COPD, CHF, pulmonary hypertension using 2 to 3 L of oxygen at home baseline, HFpEF, COPD, MAXIM, pulmonary
hypertension, pulmonary fibrosis, permanent atrial fibrillation, hypertension, hyperlipidemia now presenting for intractable nonbloody bilious vomiting, diarrhea. Patient feels slightly better upon assessment although returned back to having
bilious vomiting thereafter. Patient symptoms started at 4 AM. Vitals include pulse of 70, afebrile, respiratory rate of 21, blood pressure 129/56, saturating 100% on 6 L. Bili nondistended, no wheezing upon respiration, clear to oscillation
bilaterally. Labs remarkable for white count of 12.4,. CT imaging no obvious acute pathology. X-ray with increased pulmonary vascular congestion suspicious for CHF. Patient tested positive for norovirus.
Medical History
Past Medical History
Past Medical History: Reports Other (permanent atrial fibrillation status post pacemaker on Eliquis, HFpEF, pulmonary fibrosis, pulmonary hypertension, asthma/COPD, obstructive sleep apnea, chronic left vocal cord paralysis, hypertension,
hyperlipidemia, colostomy,)
Past Surgical History: Reports Other (colostomy )
Social History
Tobacco: Non-smoker
Alcohol: None
Drug: None
Family History
Family History: Not pertinent
Allergies / Home Medications
Allergies reflects when Allergies were last updated in [employer] for [employer].
Home Medications with original date entered in [employer] for [employer]
Allergy/Medication List:
Allergies
Allergy/AdvReac Type Severity Reaction Status Date / Time
codeine Allergy Unknown Verified 07/15/24 05:33
latex Allergy Itching Verified 07/15/24 05:33
meperidine HCl [From Demerol] Allergy Unknown Verified 07/15/24 05:33
morphine Allergy Unknown Verified 07/15/24 05:33
Penicillins Allergy Unknown; Verified 07/15/24 05:33
tolerated
ceftriaxone,
cefepime
vancomycin Allergy Unknown Verified 07/15/24 05:33
Home Medications
rosuvastatin 5 mg tablet 5 mg PO MOWEFR High cholesterol 07/29/17
diltiazem HCl 120 mg capsule,extended release 24 hr 120 mg PO BID Heart disease/condition 01/18/21
losartan 25 mg tablet 25 mg PO DAILY Blood pressure 01/18/21
cholecalciferol (vitamin D3) 50 mcg (2,000 unit) tablet 2,000 units PO DAILY Supplement 03/25/21
escitalopram oxalate 20 mg tablet 20 mg PO DAILY Mental Health/Anxiety 03/25/21
ipratropium bromide 42 mcg (0.06 %) nasal spray 2 spray intranasal BID Allergies 03/25/21
buspirone 10 mg tablet 10 mg PO BID Mental Health/Anxiety 05/24/23
furosemide 40 mg tablet 40 mg PO DAILY Fluid retention/Swelling #30 tabs 06/11/23
therapeutic multivitamin 1 tab PO DAILY Supplement 10/19/23
Lactobac no.2-Bifidobac no.1-S. thermo 112.5 billion cell capsule (Visbiome) 1 cap PO DAILY Supplement 03/28/24
albuterol sulfate 90 mcg/actuation aerosol inhaler 2 puff inhalation R Q6HPRN PRN sob 03/28/24
dextran 70-hypromellose eye drops in a dropperette (Artificial Tears (PF) drops in a dropperette) 1 drp BOTH EYES HS Eye Condition 03/28/24
fluticasone propionate 230 mcg-salmeterol 21 mcg/actuation HFA inhaler 2 puff inhalation R BID #12 grams 03/31/24
tiotropium bromide 2.5 mcg/actuation mist for inhalation (Spiriva Respimat) 2 puff inhalation R DAILY #4 grams 03/31/24
Review of Systems
-
History Source: Patient
A 12 point ROS was completed and negative except as noted: Yes
Physical Exam
Vital Signs
Vital Signs
Temp Pulse Resp BP Pulse Ox
98.8 F 70 21 129/56 98
07/15/24 14:09 07/15/24 14:15 07/15/24 14:15 07/15/24 14:11 07/15/24 14:10
Physical Exam
General: Well Developed and Well Nourished
HEENT: NormoCephalic
Respiratory: Clear
Cardiac: S1/S2
GI: Soft and Non Tender
Musculoskeletal: No Clubbing
Skin: Warm
Neuro: Awake, Alert, Oriented and AO x 3
Hematologic/Lymphatic: No Lymphadenopathy
Psych: Calm
Laboratory Results
-
07/15/24 06:04
07/15/24 06:04
Laboratory Results
Total Bilirubin 0.6 mg/dl (0.2-1.3) 07/15/24 06:04
AST 34 U/L (14-36) 07/15/24 06:04
ALT 25 U/L (0-35) 07/15/24 06:04
Alkaline Phosphatase 52 U/L (38-126) 07/15/24 06:04
Lipase 79 U/L (23-300) 07/15/24 06:04
Data Reviewed
-
Diagnostic Radiology: Report Reviewed by me
CT Scan: Report Reviewed by me
Lab Data: Labs Reviewed by me
Impression/Plan
-
IMPRESSION:
88-year-old female with extensive past medical history including SBO with perforation now presenting for intractable nausea, vomiting, diarrhea, found to have norovirus.
PLAN:
#Nausea, vomiting, diarrhea
� Secondary to norovirus
� Remain n.p.o. with sips of water for medication
� Antiemetics with Tigan, QTc is prolonged
� Imodium
� Hold furosemide
� Supportive care
� Received IV fluids in the ED�hold further IV fluids as normotensive and imaging revealing possible pulmonary congestion
� Follow-up stool cultures for completeness
#Chronic hypoxemic respiratory failure
� Continue O2 supplementation
� Baseline uses 2 to 3 L at home
� Wean as patient did not require 6 L
� Continue to monitor oxygen status
#Chronic HFpEF
� Hold diuretics secondary to diarrhea, vomiting
� Appears euvolemic, closely monitor for restarting Lasix depending on volume status
#COPD
#MAXIM
#Pulmonary hypertension
#Pulmonary fibrosis
� Follow-up pulmonary outpatient
� On home inhalers
# Hold Lasix for today
#Leukocytosis
� Suspect due to stress
� Continue to monitor fever curve, white count
� No obvious source of bacterial infection at this time
� Low threshold to initiate antibiotics
#Permanent atrial fibrillation
Status post pacemaker
� Continue diltiazem
� Not on anticoagulation
#Essential hypertension
#Hyperlipidemia
� Continue statin, diltiazem
� Hold diuretics, losartan
#Anxiety
#Depression
Continue anxiolytics and antidepressants
#DVT prophylaxis
� HSQ
[2024-07-15] MEDS: HEPARIN 5000 UNITS SC ×2 (15:07→23:48)
[2024-07-15] MEDS: ADVAIR HFA 230/21 MCG INHALER 2 PUFF INH (19:11)
[2024-07-15] MEDS: CARDIZEM CD 120 MG PO (21:38)
[2024-07-15] MEDS: BUSPAR 10 MG PO (21:38)
[2024-07-15] MEDS: REFRESH EYE DROPS (PF) 1 DROPS BOTH EYES (23:48)
[2024-07-15] MEDS: TYLENOL 650 MG PO (23:49)
[2024-07-15] MEDS: IMODIUM 2 MG PO (23:49)
[2024-07-15] MEDS: MELATONIN 3 MG PO (23:49)
[2024-07-16 03:07] VITALS: BP 99/44
[2024-07-16 07:00] VITALS: BP 109/58
[2024-07-16 07:13] LABS: Hematocrit 34.6 % (37.0-47.0); Hemoglobin 11.4 g/dL (12.0-16.0); Mean Corp Hgb Conc. 32.5 g/dL (33.0-37.0); Mean Corpuscular Hgb 30.2 pg (27.0-31.0); Mean Corpuscular Volume 92.9 fL (81.0-99.0); Mean Platelet Volume 11.8 fL (7.4-10.4); Platelet Count 129 10^3/uL (130-400); Red Blood Cell Count 3.78 10^6/uL (4.20-5.40); Red Cell Dist. Width 13.3 % (11.5-14.5); White Blood Cell Count 4.9 10^3/uL (4.8-10.8)
[2024-07-16 07:33] LABS: ALT (SGPT) 31 U/L (0-35); AST (SGOT) 41 U/L (14-36); Albumin 3.3 g/dl (3.5-5.0); Alkaline Phosphatase 48 U/L (38-126); Blood Urea Nitrogen 16 mg/dl (7-17); Calcium 8.7 mg/dl (8.4-10.2); Carbon Dioxide 25 mmol/L (22-30); Chloride 104 mmol/L (98-107); Estimated Creatinine Clearance 38 ml/min; Glucose 84 mg/dl (70-99); Sodium 137 mmol/L (135-145); Total Bilirubin 1.3 mg/dl (0.2-1.3); Total Protein 5.5 g/dl (6.3-8.2); eGFR > 60.00
[2024-07-16 07:47] LABS: Potassium 3.9 mmol/L (3.5-5.1)
[2024-07-16] MEDS: SPIRIVA RESPIMAT 2.5 MCG 2 PUFF INH (07:47)
[2024-07-16] MEDS: ADVAIR HFA 230/21 MCG INHALER 2 PUFF INH ×2 (07:48→19:22)
[2024-07-16] MEDS: VISBIOME 1 CAP PO (09:39)
[2024-07-16] MEDS: CARDIZEM CD 120 MG PO ×2 (09:39→22:00)
[2024-07-16] MEDS: LEXAPRO 20 MG PO (09:40)
[2024-07-16] MEDS: HEPARIN 5000 UNITS SC ×2 (09:40→16:06)
[2024-07-16] MEDS: IMODIUM 2 MG PO (09:43)
[2024-07-16] MEDS: CRESTOR 5 MG PO (10:17)
[2024-07-16] MEDS: BUSPAR 10 MG PO ×2 (10:17→21:59)
[2024-07-16 11:05] VITALS: BP 109/55
--- NOTE | 2024-07-16 14:44 | W.PN.HOSP.TC ---
Today's Communication/Plan
-
adv to FLD
monitor fever curve, wbc count
Assessment / Plan
Assessment / Plan
Physical Exam
General: Well Developed and Well Nourished
HEENT: NormoCephalic
Respiratory: Clear
Cardiac: S1/S2
GI: Soft and Non Tender
Musculoskeletal: No Clubbing
Skin: Warm
Neuro: Awake, Alert, Oriented and AO x 3
Hematologic/Lymphatic: No Lymphadenopathy
Psych: Calm
88-year-old female with extensive past medical history including SBO with perforation now presenting for intractable nausea, vomiting, diarrhea, found to have norovirus.
PLAN:
#Nausea, vomiting, diarrhea
� Secondary to norovirus
� Improved
- Adv to FLD
� Antiemetics with Tigan, QTc is prolonged
� Imodium
� Hold furosemide
� Supportive care
� Received IV fluids in the ED�hold further IV fluids as normotensive and imaging revealing possible pulmonary congestion
� Follow-up stool cultures for completeness
#Febrile Episode
-most likely 2/2 to above Norovirus
- f/u cultures
�Defervesced on her own
� Trend white count, fever curve off antibiotics
� Low threshold to initiate antibiotics
#Chronic hypoxemic respiratory failure
� Continue O2 supplementation
� Baseline uses 2 to 3 L at home
� Wean as patient did not require 6 L
� Continue to monitor oxygen status
#Chronic HFpEF
� Hold diuretics secondary to diarrhea, vomiting
� Appears euvolemic, closely monitor for restarting Lasix depending on volume status
#COPD
#MAXIM
#Pulmonary hypertension
#Pulmonary fibrosis
� Follow-up pulmonary outpatient
� On home inhalers
- Hold Lasix for today
#Leukocytosis
� Suspect due to stress
� Continue to monitor fever curve, white count
� No obvious source of bacterial infection at this time
� Low threshold to initiate antibiotics
#Permanent atrial fibrillation
Status post pacemaker
� Continue diltiazem
� Not on anticoagulation
#Essential hypertension
#Hyperlipidemia
� Continue statin, diltiazem
� Hold diuretics, losartan
#Anxiety
#Depression
Continue anxiolytics and antidepressants
#DVT prophylaxis
� HSQ
Anticipated Discharge: 24 - 48 hours
Subjective/Interval History
-
Date of Service: July 16, 2024
Feeling better, hungry
Objective Data
-
Labs:
Laboratory Results
07/16/24
05:59
WBC 4.9
Hgb 11.4 L
Hct 34.6 L
Plt Count 129 L D
Sodium 137
Potassium 3.9
Chloride 104
Carbon Dioxide 25
BUN 16
Creatinine 0.8
Glucose 84
Calcium 8.7
Total Bilirubin 1.3
AST 41 H
ALT 31
Alkaline Phosphatase 48
Vital Signs:
Vital Signs
Temp Pulse Resp BP Pulse Ox
97.9 F 71 18 109/55 98
07/16/24 11:05 07/16/24 11:05 07/16/24 11:05 07/16/24 11:05 07/16/24 11:05
I&O
07/15/24 07/16/24 07/17/24
06:59 06:59 06:59
Intake Total 0 / 0 960 / 960
Balance 0 / 0 960 / 960
Review of Systems
-
History Source: Patient
All other systems: Not reviewed unless documented
Physical Exam
-
General: No Apparent Distress
HEENT: Moist Mucous Membranes
Respiratory: Negative Wheezes
Cardiac: Regular Rhythm and S1/S2; Negative Tachycardic
Neuro: AO x 3
Data Reviewed
-
Medical Tests (Nuc Med, Echo etc): Report Reviewed by me
Labs: Labs Reviewed by me
[2024-07-16 15:00] VITALS: BP 117/54
[2024-07-16 19:30] VITALS: BP 115/61
[2024-07-16] MEDS: REFRESH EYE DROPS (PF) 1 DROPS BOTH EYES (21:59)
[2024-07-16 23:26] VITALS: BP 137/62
[2024-07-17] MEDS: MELATONIN 3 MG PO (00:27)
[2024-07-17] MEDS: HEPARIN 5000 UNITS SC ×3 (00:27→15:53)
[2024-07-17 03:26] VITALS: BP 125/62
[2024-07-17 07:56] VITALS: BMI 22.7
[2024-07-17 07:57] LABS: Hemoglobin 10.7 g/dL (12.0-16.0); Mean Corp Hgb Conc. 33.4 g/dL (33.0-37.0); Mean Corpuscular Hgb 30.1 pg (27.0-31.0); Mean Corpuscular Volume 90.1 fL (81.0-99.0); Mean Platelet Volume 11.5 fL (7.4-10.4); Platelet Count 136 10^3/uL (130-400); Red Blood Cell Count 3.55 10^6/uL (4.20-5.40); Red Cell Dist. Width 13.2 % (11.5-14.5)
[2024-07-17 08:28] LABS: ALT (SGPT) 32 U/L (0-35); AST (SGOT) 40 U/L (14-36); Albumin 3.1 g/dl (3.5-5.0); Alkaline Phosphatase 62 U/L (38-126); Blood Urea Nitrogen 13 mg/dl (7-17); Calcium 8.3 mg/dl (8.4-10.2); Carbon Dioxide 23 mmol/L (22-30); Chloride 103 mmol/L (98-107); Estimated Creatinine Clearance 44 ml/min; Glucose 74 mg/dl (70-99); Potassium 3.7 mmol/L (3.5-5.1); Sodium 135 mmol/L (135-145); Total Bilirubin 0.7 mg/dl (0.2-1.3); Total Protein 5.4 g/dl (6.3-8.2); eGFR > 60.00
[2024-07-17 08:30] VITALS: BP 120/58
[2024-07-17] MEDS: SPIRIVA RESPIMAT 2.5 MCG 2 PUFF INH (08:39)
[2024-07-17] MEDS: ADVAIR HFA 230/21 MCG INHALER 2 PUFF INH ×2 (08:39→19:30)
[2024-07-17] MEDS: VISBIOME 1 CAP PO (09:59)
[2024-07-17] MEDS: LEXAPRO 20 MG PO (09:59)
[2024-07-17] MEDS: CARDIZEM CD 120 MG PO ×2 (09:59→20:41)
[2024-07-17] MEDS: BUSPAR 10 MG PO ×2 (09:59→20:41)
--- NOTE | 2024-07-17 10:03 | CM ---
PT is forgetful and confused as per Jose she lives with Jose said she uses walker and oxygen and CPAP unsure of DME.They live in a 1 story home with 2 entry step. Patient's bed and bathroom are on the first floor of the home.She has
Visiting Crystal Estrada for 4 hours.
[facility] [place] and [facility] hx
Pharmacy [facility]
PCP: Kel Sauceda
PLAN Will need PT OT for dc planning.
[2024-07-17 11:45] VITALS: BP 119/62
--- NOTE | 2024-07-17 14:30 | W.PN.HOSP.TC ---
Today's Communication/Plan
-
adv to LRD
PT/OT
Assessment / Plan
Assessment / Plan
Physical Exam
General: Well Developed and Well Nourished
HEENT: NormoCephalic
Respiratory: Clear
Cardiac: S1/S2
GI: Soft and Non Tender
Musculoskeletal: No Clubbing
Skin: Warm
Neuro: Awake, Alert, Oriented and AO x 3
Hematologic/Lymphatic: No Lymphadenopathy
Psych: Calm
88-year-old female with extensive past medical history including SBO with perforation now presenting for intractable nausea, vomiting, diarrhea, found to have norovirus.
PLAN:
#Nausea, vomiting, diarrhea
� Secondary to #norovirus
� Improved
- Adv to LRD
� Antiemetics with Tigan, QTc is prolonged
� Imodium
� Hold furosemide
� Supportive care
� Received IV fluids in the ED�hold further IV fluids as normotensive and imaging revealing possible pulmonary congestion
� Follow-up stool cultures for completeness
#Febrile Episode
-most likely 2/2 to above Norovirus
- f/u cultures
�Defervesced on her own
� Trend white count, fever curve off antibiotics
� Low threshold to initiate antibiotics
#Chronic hypoxemic respiratory failure
� Continue O2 supplementation
� Baseline uses 2 to 3 L at home
� Wean as patient did not require 6 L
� Continue to monitor oxygen status
#Chronic HFpEF
� Hold diuretics secondary to diarrhea, vomiting
� Appears euvolemic, closely monitor for restarting Lasix depending on volume status
#COPD
#MAXIM
#Pulmonary hypertension
#Pulmonary fibrosis
� Follow-up pulmonary outpatient
� On home inhalers
- Hold Lasix for today
#Leukocytosis
� Suspect due to stress
� Continue to monitor fever curve, white count
� No obvious source of bacterial infection at this time
� Low threshold to initiate antibiotics
#Permanent atrial fibrillation
Status post pacemaker
� Continue diltiazem
� Not on anticoagulation
#Essential hypertension
#Hyperlipidemia
� Continue statin, diltiazem
� Hold diuretics, losartan
#Anxiety
#Depression
Continue anxiolytics and antidepressants
#DVT prophylaxis
� HSQ
Anticipated Discharge: 24 - 48 hours
Subjective/Interval History
-
Date of Service: July 17, 2024
tolerating full liquid diet
Objective Data
-
Labs:
Laboratory Results
07/17/24
06:51
WBC 4.0 L
Hgb 10.7 L
Hct 32.0 L
Plt Count 136
Sodium 135
Potassium 3.7
Chloride 103
Carbon Dioxide 23
BUN 13
Creatinine 0.7
Glucose 74
Calcium 8.3 L
Total Bilirubin 0.7
AST 40 H
ALT 32
Alkaline Phosphatase 62
Vital Signs:
Vital Signs
Temp Pulse Resp BP Pulse Ox
98.2 F 71 20 119/62 97
07/17/24 11:45 07/17/24 11:45 07/17/24 11:45 07/17/24 11:45 07/17/24 11:45
I&O
07/16/24 07/17/24 07/18/24
06:59 06:59 06:59
Intake Total 0 / 0 960 / 960
Output Total 50 / 50 100 / 100
Balance 0 / 0 910 / 910 -100 / -100
Review of Systems
-
History Source: Patient
All other systems: Not reviewed unless documented
Physical Exam
-
General: No Apparent Distress
HEENT: Moist Mucous Membranes
Respiratory: Negative Wheezes
Cardiac: Regular Rhythm and S1/S2; Negative Tachycardic
GI: Nontender and Ostomy
Genito-urinary: No Costovertebral Tender
Musculoskeletal: No Clubbing
Skin: Warm
Neuro: AO x 3
Psych: Calm
Data Reviewed
-
Medical Tests (Nuc Med, Echo etc): Report Reviewed by me
Labs: Labs Reviewed by me
--- NOTE | 2024-07-17 14:42 | PN.CDI ---
CDI
- -
CDI:
Physician Documentation Request
Admit Date: 07/15/24 10:20
Dear Doctor Myles,
Please review the following and provide your response in the progress notes.
Clinical Indicators:
- On admission: WBC 12.4, Tmax 100.7, RR 20-30s
- 750 ml IVF
- Admit for Norovirus
Please clarify which of the following most accurately describes the status of the patient's infection:
Sepsis due to Norovirus
- Systemic manifestations of infection, with 2 or more SIRS criteria which include:
- Fever >100.4 degrees F or hypothermia < 96.8 degrees F
- Leukocytosis - WBC > 12,000 or leukopenia - WBC < 4,000 or > 10% bands
- Tachycardia > 90 beats per minute
- Tachypnea - RR > 20 breaths per minute or PaCO2 , 32mmHg
Source: Merck Manual 2013
- Indicate the known or suspected organism
- Indicate the known or suspected underlying infection, such as UTI, pneumonia or cellulitis
- Indicate if a suspected bacterial infection of unknown source
- Indicate if associated with an implanted device such as a F/C, PICC line, orthopedic hardware, etc.
Localized Infection Only, Without Systemic Illness
- indicate the site/source, such as UTI, pneumonia etc.
Other
Use of terms such as suspected, likely, concern for, or probable (associated with a specific diagnosis that is being evaluated, monitored, or treated as if it exists) are acceptable and can be coded in the inpatient setting, when documented at the
time of discharge.
Thank you,
Jimmie Leyva RN
CDI Specialist
Please use your independent medical judgment in providing your response.
[2024-07-17 15:57] VITALS: BP 124/60
--- NOTE | 2024-07-17 18:26 | PTCARENOTE ---
Report called to RN on . Patient need for private room due to enhanced precautions. Patient refusing to leave current room. Multiple attempts tried. Field Administrator made aware and states she will stop up to speak to patient.
[2024-07-17 20:40] VITALS: BP 129/55
[2024-07-17] MEDS: REFRESH EYE DROPS (PF) 1 DROPS BOTH EYES (22:07)
[2024-07-17 23:23] VITALS: BP 118/51
[2024-07-17] MEDS: HEPARIN SC (23:32)
--- NOTE | 2024-07-18 04:48 | PTCARENOTE ---
Patient refusing morning weight. HF/weight education provided.
[2024-07-18 07:20] VITALS: BP 147/59
[2024-07-18] MEDS: SPIRIVA RESPIMAT 2.5 MCG 2 PUFF INH (07:42)
[2024-07-18] MEDS: ADVAIR HFA 230/21 MCG INHALER 2 PUFF INH (07:42)
[2024-07-18 08:40] VITALS: BP 132/60; PULSE 75; O2SAT 93
[2024-07-18] MEDS: BUSPAR PO (09:17)
[2024-07-18] MEDS: CRESTOR PO (09:17)
[2024-07-18] MEDS: CARDIZEM CD PO (09:17)
[2024-07-18] MEDS: HEPARIN SC (09:17)
[2024-07-18] MEDS: LEXAPRO PO (09:18)
[2024-07-18] MEDS: VISBIOME PO (09:18)
--- NOTE | 2024-07-18 12:33 | CM ---
CM reviewed chart, patient seen bedside, confused. Patient and family well known to CM from previous admissions. CM placed call to patients spouse, Jose, agreeable to return of care referral to [facility], referral placed in [facility]. IMM verbally
reviewed with Jose, agreeable to form, placed in chart. Jose will arrive at Hospital around 2:00 p.m. to provide transportation home. CM will continue to follow for all discharge planning needs.
Plan; home with spouse, Visiting Crystal, Miguel [facility]ALTERS
[facility]
--- NOTE | 2024-07-18 13:02 | W.PN.HOSP.TC ---
Addendum entered and electronically signed by William Bueno MD 07/20/24 16:20:
[id number]
Original Note:
Today's Communication/Plan
-
[facility] prn
cbc and bmp outpt
f/u pcp within 1 week
Assessment / Plan
Assessment / Plan
Physical Exam
General: Well Developed and Well Nourished
HEENT: NormoCephalic
Respiratory: Clear
Cardiac: S1/S2
GI: Soft and Non Tender
Musculoskeletal: No Clubbing
Skin: Warm
Neuro: Awake, Alert, Oriented and AO x 3
Hematologic/Lymphatic: No Lymphadenopathy
Psych: Calm
88-year-old female with extensive past medical history including SBO with perforation now presenting for intractable nausea, vomiting, diarrhea, found to have norovirus.
PLAN:
#Nausea, vomiting, diarrhea
� Secondary to #norovirus
� Improved
- tolerating LRD
� Antiemetics with Tigan, QTc is prolonged
� Imodium
� can resume furosemide upon dc
� Supportive care
� Received IV fluids in the ED�hold further IV fluids as normotensive and imaging revealing possible pulmonary congestion
� Follow-up stool cultures for completeness
#Febrile Episode
-most likely 2/2 to above Norovirus
- f/u cultures
�Defervesced on her own
� Trend white count, fever curve off antibiotics
� Low threshold to initiate antibiotics
#Chronic hypoxemic respiratory failure
� Continue O2 supplementation
� Baseline uses 2 to 3 L at home
� Continue to monitor oxygen status
#Chronic HFpEF
� Hold diuretics secondary to diarrhea, vomiting
� Appears euvolemic, closely monitor for restarting Lasix depending on volume status
#COPD
#MAXIM
#Pulmonary hypertension
#Pulmonary fibrosis
� Follow-up pulmonary outpatient
� On home inhalers
- Hold Lasix for today
#Leukocytosis
� Suspect due to stress, resolved
� Continue to monitor fever curve, white count
� No obvious source of bacterial infection at this time
� Low threshold to initiate antibiotics
#Permanent atrial fibrillation
Status post pacemaker
� Continue diltiazem
� Not on anticoagulation
#Essential hypertension
#Hyperlipidemia
� Continue statin, diltiazem
� Can resume diuretics, losartan
#Anxiety
#Depression
Continue anxiolytics and antidepressants
#DVT prophylaxis
� HSQ
More than 30 minutes spent in discharge including
Final examination of the patient
Summarizing hospital stay
Instructions for continuing care to all relevant caregivers
Preparation of discharge records, prescriptions, and referral forms
Total time spent (37 in minutes):
Anticipated Discharge: Today
Subjective/Interval History
-
Date of Service: July 18, 2024
tolerating diet, symptoms improved
Objective Data
-
Vital Signs:
Vital Signs
Temp Pulse Resp BP Pulse Ox
98.2 F 72 16 147/59 92
07/18/24 07:20 07/18/24 07:47 07/18/24 07:47 07/18/24 07:20 07/18/24 07:47
I&O
07/17/24 07/18/24 07/19/24
06:59 06:59 06:59
Intake Total 960 / 960 1560 / 1560
Output Total 50 / 50 200 / 200
Balance 910 / 910 1360 / 1360
Review of Systems
-
History Source: Patient
All other systems: Not reviewed unless documented
Physical Exam
-
General: No Apparent Distress
HEENT: Moist Mucous Membranes
Respiratory: Negative Wheezes
Cardiac: Regular Rhythm and S1/S2; Negative Tachycardic
GI: Nontender and Ostomy
Genito-urinary: No Costovertebral Tender
Musculoskeletal: No Clubbing
Skin: Warm
Neuro: AO x 3
Psych: Calm
Data Reviewed
-
Medical Tests (Nuc Med, Echo etc): Report Reviewed by me
Labs: Labs Reviewed by me
--- NOTE | 2024-07-18 13:13 | W.DS.TRANS ---
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
-
Discharge Instructions:
Discharge Diagnosis/Procedures #Nausea, vomiting, diarrhea
� Secondary to #norovirus
Diet Low Fiber,Low Residue
Activity As tolerated
Blood Work cbc and cmp in 1 week with pcp
Instructions:
Stand-Alone Forms:
Changes to Home Medications: Yes
Discharge Medications:
DC Medications w/original date entered in [employer]
rosuvastatin 5 mg tablet 5 mg PO MOWEFR High cholesterol 07/29/17
diltiazem HCl 120 mg capsule,extended release 24 hr 120 mg PO BID Heart disease/condition 01/18/21
losartan 25 mg tablet 25 mg PO DAILY Blood pressure 01/18/21
cholecalciferol (vitamin D3) 50 mcg (2,000 unit) tablet 2,000 units PO DAILY Supplement 03/25/21
escitalopram oxalate 20 mg tablet 20 mg PO DAILY Mental Health/Anxiety 03/25/21
ipratropium bromide 42 mcg (0.06 %) nasal spray 2 spray intranasal BID Allergies 03/25/21
buspirone 10 mg tablet 10 mg PO BID Mental Health/Anxiety 05/24/23
furosemide 40 mg tablet 40 mg PO DAILY Fluid retention/Swelling #30 tabs 06/11/23
therapeutic multivitamin 1 tab PO DAILY Supplement 10/19/23
Lactobac no.2-Bifidobac no.1-S. thermo 112.5 billion cell capsule (Visbiome) 1 cap PO DAILY Supplement 03/28/24
albuterol sulfate 90 mcg/actuation aerosol inhaler 2 puff inhalation R Q6HPRN PRN sob 03/28/24
dextran 70-hypromellose eye drops in a dropperette (Artificial Tears (PF) drops in a dropperette) 1 drp BOTH EYES HS Eye Condition 03/28/24
fluticasone propionate 230 mcg-salmeterol 21 mcg/actuation HFA inhaler 2 puff inhalation R BID #12 grams 03/31/24
tiotropium bromide 2.5 mcg/actuation mist for inhalation (Spiriva Respimat) 2 puff inhalation R DAILY #4 grams 03/31/24
loperamide 2 mg capsule 2 mg PO Q6HPRN PRN diarrhea 7 days #25 caps 07/18/24
Home Medication Changes
loperamide 2 mg capsule 2 mg PO Q6HPRN PRN diarrhea 7 days #25 caps 07/18/24
Pending Results: No
--- NOTE | 2024-07-18 13:33 | PTCARENOTE ---
Assumed care of pt from previous nurse. Pt agitated, combative, grabbing and scratching this nurse. Refusing care, refusing meds, refusing food, unable to be redirected. Calm and reassurance provided without positive results. Pt for dc today at 2pm
with VN. Call lopes is within reach, pt does not ring christy. bed alarm and rounding in place. will cont to monitor. Husbanded contacted to speak with pt, pt became more agitated and refused.
--- NOTE | 2024-07-18 15:59 | PTCARENOTE ---
Addendum entered by Sara Jama RN 07/18/24 16:01:
paperwork for dc reviewed with pt's . Pt left with to waiting car, removed iv herself, no iv to remove. refused dc vitals. escorted to car in wheelchair by staff to husbands waiting car without issue.
Original Note:
Pt pulled out IV, grabbed arm of RN, attempting to scratch. Refusing bloodwork, refusing ostomy care, refused dc vitals. arrived. paperv
== END 2024-07-18 16:50 | disposition home or self-care (01) | DRG 392 ==
LOC: 4 WEST ACU 10:20
PROVIDERS: Emergency Medicine; ADMITTING PHYSICIAN Internal Medicine; EMERGENCY PHYSICIAN Emergency Medicine; FAMILY PHYSICIAN Internal Medicine
DX: A08.11 Acute gastroenteropathy due to Norwalk agent (principal); I50.32 Chronic diastolic (congestive) heart failure; I48.21 Permanent atrial fibrillation; J96.11 Chronic respiratory failure with hypoxia; I11.0 Hypertensive heart disease with heart failure; F41.9 Anxiety disorder, unspecified; J44.89 Other specified chronic obstructive pulmonary disease; G47.33 Obstructive sleep apnea (adult) (pediatric); I27.20 Pulmonary hypertension, unspecified; J84.10 Pulmonary fibrosis, unspecified; E78.00 Pure hypercholesterolemia, unspecified; F32.A Depression, unspecified; Z95.0 Presence of cardiac pacemaker
CPT/HCPCS: 71046; 74177; 80053; 83690; 83735; 85025; 85027; 87040; 87045; 87046; 87427; 87798; 93005; 94640; 96361; 96374; 96376; 97162; 97166; 99285; Q9967

== ENCOUNTER 2024-07-25 13:50 | Inpatient (IN) | payer OTHER, SELFPAY ==
[2024-07-25] VITALS (16 sets, daily range): BP systolic 94–173; BP diastolic 52–90; PULSE 2–70; BMI 22.2
--- NOTE | 2024-07-25 08:50 | ED.GENMED ---
History of Present Illness
General
Chief Complaint: Breathing Problem
Source: patient, records and ambulance crew
Time Seen by Provider: 07/25/24 08:50
History of Present Illness
History of Present Illness:
88yoF with a history of pulmonary fibrosis, pulmonary hypertension, CHF, COPD, chronic hypoxemic respiratory failure on 2-3L NC, MAXIM on CPAP, atrial fibrillation, and hypertension presenting via EMS for evaluation of shortness of breath. Patient
has been having a cough for the past few days. Cough is productive of yellow sputum. She woke up this morning with shortness of breath prompting EMS call. On EMS arrival, patient was not wearing any oxygen. She was 86% on room air. Patient
reportedly states that she cannot breathe during initial assessment. No reported fevers. She denies chest pain. Patient arrives on a NRB. Of note, she was recently hospitalized for norovirus and was discharged on 07/18/24.
Past History
Past History
ED Past Medical History: Arrthythmia (Atrial fibrillation), Asthma, CHF, HTN, Hypercholesterolemia and Other (MAXIM, SBO with perf. )
ED Past Surgical History: Cholecystectomy, Gynecological and Other (Colostomy)
Social History
Tobacco: Non-smoker
Alcohol: None
Drug: None
Personal:
Living: with family
Employment: Other
Family History
Family History: Other (No significant)
Phy Exam
General Physical Exam
General Presentation: moderate distress
General Skin: warm and dry
General Habitus: elderly
General Mental: alert
ENT Exam
ENT Exam: normocephalic
Cardiovascular Exam
Cardiovascular Exam: regular rate/rhythm, no edema and normal peripheral pulses (2+ DP pulses bilaterally)
Pulmonary Exam
Pulmonary Exam: other (Diffuse rhonchi noted with frequent coughing. Increased WOB with RR in the 30s)
Gastrointestinal Exam
Gastrointestinal Exam: other (Colostomy in place)
Neurological Exam
Neurological Exam: alert
[place] Coma Scale
Eye Opening: Spontaneous
Verbal Response: Oriented
Motor Response: Obeys Commands
GCS Total Score: 15
Skin Exam
Skin Exam: warm/dry
Psychiatric Exam
Psychiatric Exam: anxious
Scores
Heart Failure Risk
Heart Failure Risk Score: Not Applicable
Course
Orders/Labs/Results
Orders:
Orders
07/25/24 08:50
Albuterol Sulfate [Ventolin Nebules] 10 mg INH R NOW STA
Ipratropium Nebs [Atrovent Nebules] 1 mg INH R NOW STA
07/25/24 08:51
CR Chest Portable - 1 View Urgent
Comment:
Reason For Exam: SOB
Reason Study Needs to be Portable: Unable to Transport
07/25/24 08:52
Electrocardiogram (*1) Urgent
Reason for Study: Shortness of Breath
EKG- Treatment ONCE
07/25/24 08:58
COVID-19 Antigen Urgent
Source: Nasal Swab
Complete Blood Count/With Diff Urgent
Comprehensive Metabolic Panel Urgent
NT-proBNP Urgent
Troponin I Urgent
Venous Blood Gas Urgent
%Oxygen/Room Air: 3L NC
Influenza A+B Rapid Molecular Urgent
MELODY Source: Nasal Swab
Specimen Description:
07/25/24 09:13
Cardiac Monitoring- Treatment ONCE
07/25/24 09:25
Respiratory Syncytial Virus Urgent
MELODY Source: Nasal Swab
Specimen Description:
Date Specimen was Collected: 07/25/24
Time Specimen was Collected: 09:14
07/25/24 09:51
Bipap [RESP] Urgent
Patient to use own unit?: No
Inspiratory Pressure (cm H2O): 12
Expiratory Pressure (cm H2O): 5
07/25/24 Lunch
Clear Liquid
At Your Request: Full Participation
07/25/24 10:16
CefTRIAXone [Rocephin] 2,000 mg IV NOW STA
07/25/24 10:32
Sterile Water [Sterile Water For Injection] 20 ml .ROUTE .STK-MED
07/25/24 12:54
Admit/Transfer Patient As Directed
Co-Sign Provider:
Level of Care: Inpatient admission
Assign to:: IMU- Intermediate Care
Physician / Group: Abiel/Hospitalist
Diagnosis: Pneumonia
Reason for Hospitalization: Acute Respiratory distress
Pneumonia
Expected length of stay greater than two midnights?: Yes
ELOS- Estimated Length of Stay in days: 6
I certify the patient meets the requirements for IP care: Yes
Sputum Culture [Respiratory Culture/Gram Stain] Routine
MELODY Source: Sputum
Specimen Description:
Ipratropium/Albuterol Sulfate [Duoneb] 3 ml INH R Q4HPRN PRN
Incentive Spirometry [Rx Incentive Spirometry] [RESP] Routine
Frequency: q1h while awake
07/25/24 12:55
PRN Pain Medication Management As Directed
May give lesser potent ordered pain med per pt: Yes
preference::
Protocol:: Medication orders for pain may be administered in a
manner that supports deferring to patient preference
when the pt is:
- Requesting an ordered lesser potent pain medication.
Least to most potent pain medications are defined
as: acetaminophen < NSAID < tramadol < opioids
(morphine, oxycodone, hydromorphone).
- Requesting a lesser dose of the same medication IF
ORDERED.
- Requesting a less intrusive route of administration
if both routes are prescribed by the provider (PO <
IV).
Rx Pep / Acapela [RESP] Routine
07/25/24 12:58
Code Status As Directed
Resuscitation Status: Full Code
07/25/24 13:00
Guaifenesin Solution [Robitussin] 200 mg PO QID
MethylPREDNISolone PF [Solu-Medrol Pf] 40 mg IV Q6
07/25/24 15:07
Acetaminophen [Tylenol] 650 mg PO Q6HPRN PRN
Albuterol [ProAIR HFA INHALER] 2 puff INH R Q6HPRN PRN
Bisacodyl [Dulcolax] 10 mg RECTAL G10GKAS PRN
Docusate W/Senna [Senokot-S] 1 tablet PO BIDPRN PRN
Polyethylene Glycol Powder [Miralax] 17 grams PO DAILYPRN PRN
07/25/24 15:07
Consult Infectious Disease [INFECTIOUS DISEASE CONSULT] Routine
Consulting Provider: Gabrielle Shin
Was physician already notified: Yes
Consult Pulmonary [PULMONARY CONSULT] Routine
Consulting Provider: Kenny Álvarez
Was physician already notified: Yes
Activity As Directed
Activity Level: Out of Bed-Early Mobility
Vital Signs As Directed
Frequency: Per unit guidelines
Bipap [RESP] Routine
Patient to use own unit?: No
Inspiratory Pressure (cm H2O): 12
Expiratory Pressure (cm H2O): 6
DX Deep Vein Thrombosis Video Routine
07/25/24 16:00
Ipratropium/Albuterol Sulfate [Duoneb] 3 ml INH R QID
07/25/24 18:00
Rosuvastatin Calcium [Crestor] 5 mg PO MoWeFr@1800
07/25/24 20:00
Budesonide [Pulmicort] 0.5 mg INH R BID
Buspirone [Buspar] 10 mg PO BID
Diltiazem Extended Release [Cardizem Cd] 120 mg PO BID
Fluticasone/Salmeterol 230/21 [Advair Hfa 230/21 Mcg Inhaler] 2 puff INH R BID
Heparin 5,000 units SC Q12
ipratropium bromide 2 spray NASAL BID
07/25/24 22:00
Artificial Tears (Pf) [Refresh Eye Drops (Pf)] 1 drops OPHTH HS
Zolpidem Tartrate [Ambien] 5 mg PO HS
07/26/24 06:00
Basic Metabolic Panel IN AM
Complete Blood Count/No Diff IN AM
07/26/24 08:00
Cholecalciferol (Vitamin D3) [VITAMIN D3 (cholecalciferol)] 50 mcg PO DAILY
Escitalopram Oxalate [Lexapro] 20 mg PO DAILY
Furosemide [Lasix] 40 mg PO DAILY
Losartan [Cozaar] 25 mg PO DAILY
Multivitamin [Theragran] 1 tablet PO DAILY
07/26/24 10:00
CefTRIAXone [Rocephin] 2,000 mg IV Q24H
Abnormal Lab Results
07/25/24
08:58
WBC 12.6 H 10^3/uL
(4.8-10.8)
MPV 10.8 H fL
(7.4-10.4)
Abs Immat Gran (auto) 0.1 H 10^3/uL
(0-0.05)
Absolute Neuts (auto) 9.7 H 10^3/uL
(1.4-6.5)
Absolute Monos (auto) 0.9 H 10^3/uL
(0.1-0.6)
Neutrophils % 77.0 H %
(42.2-75.2)
Lymphocytes % 13.0 L %
(20.5-51.1)
VBG pO2 137 H mmHg
(30-50)
Creatinine 0.5 L mg/dL
(0.6-1.0)
Glucose 138 H mg/dl
(70-99)
07/25/24 08:58
07/25/24 08:58
Vital Signs
Initial and Last Documented VS:
Initial Vital Signs
Temp Pulse Resp BP Pulse Ox
98.1 F 79 28 173/90 91
07/25/24 08:47 07/25/24 08:47 07/25/24 08:47 07/25/24 08:47 07/25/24 08:47
Last Documented Vital Signs
Temp Pulse Resp BP Pulse Ox
98.8 F 71 28 119/66 95
07/25/24 20:18 07/25/24 19:51 07/25/24 18:45 07/25/24 19:51 07/25/24 18:45
MDM/Problems Addressed
Differential Diagnosis Includes:
88yoF presenting for respiratory distress. Cough x several days, developed SOB this morning. Hx of COPD, pulmonary fibrosis, CHF. Recently admitted for norovirus. Oxygen saturation in the 80s on room air on arrival. RR in the 30s with increased WOB.
Diffuse rhonchi noted. No signs of volume overload on exam. Differential diagnosis includes but is not limited to: pneumonia, bronchitis, viral illness, COPD exacerbation
Initial ED plan: Check cardiac labs, VBG, EKG, COVID/flu/RSV testing, and CXR. Hour long neb ordered. Will have respiratory evaluate patient.
*EKG
Interpreted by ED Provider?: Yes
EKG Intrepretation Date: 07/25/24
Heart Rate: 84
Rate: normal
Rhythm: ventricular paced
Miles: left axis deviation
Ischemia: no ischemia
*Critical Care Note
Total Time (30-74mins, 75-104mins- exclusive of procedures): 35
comment:
Respiratory failure requiring BiPAP
Update Note
Update Note:
Leukocytosis noted with a white count of 12.6. COVID/flu/RSV testing negative. pCO2 and venous pH are normal. Chest x-ray shows right perihilar and lower lobe infiltrates consistent with pneumonia. Patient with persistent tachypnea after neb
treatment. Patient was ultimately placed on BiPAP 06/20 with improvement in RR. IV Rocephin ordered and she was admitted for further management.
ED Attending Note
-
Portions of this chart may have been created with voice recognition software.� Occasional wrong word or��sound alike� substitutions may have occurred due to the inherent limitations of voice recognition software.
Discharge Plan
Departure
Patient Disposition: Admit
Date of Disposition: 07/25/24
Time of Disposition: 10:24
Presentation/result/management discussed w/ accepting MD/DO: Hospitalist
Discharge Problem:
Acute and chronic respiratory failure with hypoxia, Pneumonia involving right lung
Interventions
Interventions:
*Risk Screen - Suicide Last Done: 07/25/24 17:58
*General Assessment Last Done: 07/25/24 08:52
*Neglect/Abuse Screening Last Done: 07/25/24 08:53
ED- Fall Risk Assessment Last Done: 07/25/24 17:37
*ED COVID-19 Vaccine History Last Done: 07/25/24 08:52
*Nursing Disposition Last Done: 07/25/24 17:37
ED- Cardiac Assessment Last Done: 07/25/24 08:53
ED- Pulmonary Assessment Last Done: 07/25/24 08:53
Discharge Date and Time
Discharge Date/Time: 07/25/24 17:38
[2024-07-25] MEDS: VENTOLIN NEBULES 10 MG INH (09:03)
[2024-07-25] MEDS: ATROVENT NEBULES 1 MG INH (09:03)
[2024-07-25 09:06] LABS: Venous Blood Gas B.E. 0.5 mmol/L (-4 to +4); Venous Blood Gas O2 Sat % 99.6 %; Venous Blood Gas pCO2 44 mmHg (35-48); Venous Blood Gas pH 7.38 (7.32-7.43); Venous Blood Gas pO2 137 mmHg (30-50)
[2024-07-25 09:09] LABS: % Basophils 0.6 % (0-2); % Eosinophils 1.7 % (0-6); % Immature Granulocytes 0.5 % (0-0.5); % Monocytes 7.2 % (1.7-9.3); Absolute Basophils 0.1 10^3/uL (0-0.2); Absolute Eosinophils 0.2 10^3/uL (0-0.7); Absolute Immature Granulocytes 0.1 10^3/uL (0-0.05); Absolute Lymphocytes 1.6 10^3/uL (1.2-3.4); Absolute Monocytes 0.9 10^3/uL (0.1-0.6); Absolute Neutrophils 9.7 10^3/uL (1.4-6.5); Hematocrit 38.3 % (37.0-47.0); Hemoglobin 12.8 g/dL (12.0-16.0); Mean Corp Hgb Conc. 33.4 g/dL (33.0-37.0); Mean Corpuscular Volume 89.7 fL (81.0-99.0); Mean Platelet Volume 10.8 fL (7.4-10.4); Nucleated Red Blood Cells % 0 %; Platelet Count 293 10^3/uL (130-400); Red Blood Cell Count 4.27 10^6/uL (4.20-5.40); Red Cell Dist. Width 13.2 % (11.5-14.5); White Blood Cell Count 12.6 10^3/uL (4.8-10.8)
[2024-07-25 09:19] LABS: COVID-19 Antigen Negative (Negative)
[2024-07-25 09:31] LABS: NT-proBNP 2850 pg/ml; Troponin I 0.015 ng/ml
[2024-07-25 09:34] LABS: ALT (SGPT) 26 U/L (0-35); AST (SGOT) 26 U/L (14-36); Albumin 3.9 g/dl (3.5-5.0); Alkaline Phosphatase 61 U/L (38-126); Blood Urea Nitrogen 11 mg/dl (7-17); Calcium 8.7 mg/dl (8.4-10.2); Carbon Dioxide 28 mmol/L (22-30); Chloride 103 mmol/L (98-107); Glucose 138 mg/dl (70-99); Potassium 3.7 mmol/L (3.5-5.1); Sodium 141 mmol/L (135-145); Total Bilirubin 0.7 mg/dl (0.2-1.3); Total Protein 6.5 g/dl (6.3-8.2); eGFR > 60.00
[2024-07-25] MEDS: ROCEPHIN 2000 MG IV (10:32)
--- NOTE | 2024-07-25 11:24 | W.PN.HOSP.TC ---
Today's Communication/Plan
-
admit IMU
Pulm and ID consults
Assessment / Plan
Assessment / Plan
Ill appearing patient with Pneumonia
CXR: Moderately extensive right perihilar and right lower lobe
Hypoxemia
placed on Bipap, will continue, Pulm consult requested
COPD/Pulmonary Fibrosis
followed by Dr. Madison
Severe Pulmonary HTN by hx
HFpEF
Recent hospitalization for Norovirus
07/15-07/18/24
Colostomy 2022
Atrial Fibrillation
P:call placed and discussed with Dr. Álvarez. He feels patient will be appropriate for IMU with potential to need transfer to ICU.
Pulm and ID consults
empiric abx as per ID
Full code
see dictated note
Heparin 5000 U q12h for DVT prophylaxis
Anticipated Discharge: > 48 hours
Subjective/Interval History
-
Date of Service: July 25, 2024
Respiratory distress worsening over past 3 days
Objective Data
-
Labs:
Laboratory Results
07/25/24
08:58
WBC 12.6 H
Hgb 12.8
Hct 38.3
Plt Count 293
Sodium 141
Potassium 3.7
Chloride 103
Carbon Dioxide 28
BUN 11
Creatinine 0.5 L
Glucose 138 H
Calcium 8.7
Total Bilirubin 0.7
AST 26
ALT 26
Alkaline Phosphatase 61
Vital Signs:
Vital Signs
Temp Pulse Resp BP Pulse Ox
98.1 F 70 16 99/83 97
07/25/24 08:47 07/25/24 11:00 07/25/24 11:23 07/25/24 11:00 07/25/24 11:00
Review of Systems
-
History Source: Patient, Physician (reviewed with Dr. Álvarez) and Coordinated Provider
Constitutional: Denies Fever
EENT: Reports No Symptoms Reported
Respiratory: Reports Cough and Trouble Breathing
Cardiac: Reports No Symptoms
Abdomen/GI: Reports No Symptoms
Physical Exam
-
General: Well Developed, Well Nourished, Respiratory Distress, Appears in Distress and Appears Chronically Ill
HEENT: Normocephalic, Atraumatic and Moist Mucous Membranes
Respiratory: Rhonchi (diffuse sonorous rhonchi)
Cardiac: Regular Rhythm and S1/S2
GI: Soft, Nontender and Ostomy (left lower abd)
Musculoskeletal: No Clubbing, No Cyanosis and No Edema
Neuro: Awake and Alert
--- NOTE | 2024-07-25 11:30 | CON.PUL ---
Consultation
Consultation Request
Date/Time Consultation Requested: 07/25/2024-11:30 AM
Date/Time Consultation Performed: 07/25/2024-11:40 AM
Requesting Provider: Dr. Beebe
Performing Provider: Dr. Álvarez
Reason for Consultation: Shortness of breath
Medical History
-
Chief Complaint: Shortness of breath
History of Present Illness:
88-year-old female recently discharged from hospital 07/18/2024 for norovirus with a history of COPD/pulmonary fibrosis overlap, pulm hypertension, chronic hypoxemia, MAXIM on CPAP, atrial fibrillation and hypertension presented with increasing
shortness of breath, hypoxemia requiring BiPAP-pulmonary consulted for respiratory distress 07/25/2024.Patient went home, have progressive increasing shortness of breath, chest congestion, difficulty mobilizing secretions, but office. Currently no
complaints of chest pain, hemoptysis, femoral pain, leg swelling or new weakness.
Past Medical History
Past Medical History: None (Severe pulm hypertension. Asthma. MAXIM on CPAP. Osteoporosis. GERD. Chronic heart failure preserved EF. Left-sided vocal cord paralysis. Atrial fibrillation. PPM. Knee surgery. Right shoulder replacement.
Colostomy 2022.)
Social History
Tobacco: Non-smoker
Alcohol: None
Drug: None
Occupational Exposures: No known asbestos exposure
Environmental Exposures: No known tuberculosis exposure
Family History
Family History: CAD (Mother)
Allergies / Home Medications
Allergies
Allergy/AdvReac Type Severity Reaction Status Date / Time
codeine Allergy Unknown Verified 07/15/24 05:33
latex Allergy Itching Verified 07/15/24 05:33
meperidine HCl [From Demerol] Allergy Unknown Verified 07/15/24 05:33
morphine Allergy Unknown Verified 07/15/24 05:33
Penicillins Allergy Unknown; Verified 07/15/24 05:33
tolerated
ceftriaxone,
cefepime
vancomycin Allergy Unknown Verified 07/15/24 05:33
Home Medications
�Medication �Instructions �Recorded �Confirmed �Last Taken �Type
rosuvastatin 5 mg tablet 5 mg PO MOWEFR High cholesterol 07/29/17 07/25/24 10/17/23 History
diltiazem HCl 120 mg 120 mg PO BID Heart 01/18/21 07/25/24 07/24/24 History
capsule,extended release 24 hr disease/condition
losartan 25 mg tablet 25 mg PO DAILY Blood pressure 01/18/21 07/25/24 07/24/24 History
cholecalciferol (vitamin D3) 50 2,000 units PO DAILY Supplement 03/25/21 07/25/24 07/24/24 History
mcg (2,000 unit) tablet
escitalopram oxalate 20 mg tablet 20 mg PO DAILY Mental 03/25/21 07/25/24 07/24/24 History
Health/Anxiety
ipratropium bromide 42 mcg (0.06 2 spray intranasal BID Allergies 03/25/21 07/25/24 07/24/24 History
%) nasal spray
buspirone 10 mg tablet 10 mg PO BID Mental Health/Anxiety 05/24/23 07/25/24 07/24/24 History
furosemide 40 mg tablet 40 mg PO DAILY Fluid 06/11/23 07/25/24 07/24/24 Rx
retention/Swelling #30 tabs
therapeutic multivitamin 1 tab PO DAILY Supplement 10/19/23 07/25/24 07/24/24 History
albuterol sulfate 90 mcg/actuation 2 puff inhalation R Q6HPRN PRN sob 03/28/24 07/25/24 Unknown History
aerosol inhaler
dextran 70-hypromellose eye drops 1 drp BOTH EYES HS Eye Condition 03/28/24 07/25/24 07/24/24 History
in a dropperette (Artificial Tears
(PF) drops in a dropperette)
fluticasone propionate 230 2 puff inhalation R BID #12 grams 03/31/24 07/25/24 07/24/24 Rx
mcg-salmeterol 21 mcg/actuation
HFA inhaler
acetaminophen 325 mg tablet 650 mg PO Q6HPRN PRN mild pain 07/25/24 07/25/24 07/24/24 History
(Tylenol)
zolpidem 5 mg tablet (Ambien) 5 mg PO HS 07/25/24 07/25/24 07/24/24 History
Review of Systems
-
Unable to Obtain full review of systems at this time due to: Other (Per HPI)
Vitals / Labs / Diagnostic Testing
Vital Signs
Temp Pulse Resp BP Pulse Ox
98.1 F 70 16 99/83 97
07/25/24 08:47 07/25/24 11:00 07/25/24 11:23 07/25/24 11:00 07/25/24 11:00
Lab Data
07/25/24 08:58
07/25/24 08:58
Microbiology
07/25/24 09:25 Nasal Swab Respiratory Syncytial Virus Culture - Final
Negative for Respiratory Syncytial Virus.
A false negative result may be obtained with a specimen
collected early in the acute phase. If symptoms persist, a
new specimen should be tested.
07/25/24 08:58 Nasal Swab Influenza Types A & B (ALE) - Final
Negative for Influenza A & B, NAAT
Negative results must be combined with clinical observations
and patient history.
Nucleic Acid Amplification test (NAAT)performed on the
[employer] platform.
Diagnostic Testing:
Physical Exam
-
Exam:
Well-nourished and well-developed in no apparent distress
HEENT-atraumatic, normocephalic, noninvasive ventilation mask on face
Neck-supple, no JVD, no bruit
Heart-regular rate and rhythm-no murmurs, rubs or gallops
Chest with diminished breath sounds, expiratory wheezing, prolonged expiratory time
Abdomen-soft, nontender, nondistended, no hepatosplenomegaly
Extremities-no cyanosis, clubbing, edema and good peripheral pulses
Integument-intact, no rashes, lesions or ecchymosis
Neurology-alert and oriented, nonfocal motor and sensory exam
Assessment
-
88-year-old female recently discharged from hospital 07/18/2024 for norovirus with a history of COPD/pulmonary fibrosis overlap, pulm hypertension, chronic hypoxemia, MAXIM on CPAP, atrial fibrillation and hypertension presented with increasing
shortness of breath, hypoxemia requiring BiPAP-pulmonary consulted for respiratory distress 07/25/2024.
Severe hypoxemia
Asthma with acute exacerbation
Kmxuoltyh-jvhoqbryd-xcazhwvi-aspiration risk
Leukocytosis
Hyperglycemia
Conditions present prior to admission:
Recent hospitalization-discharge 07/18/2024- norovirus
Recent hospitalization-discharged 03/31/2024-heart failure and COPD
Severe pulm hypertension. .
Chronic asthma--followed by Dr. Madison-maintained on Advair 250/50 and Albuterol as needed
IgG deficiency
Recurrent pneumonia-suspected aspiration
Obstructive sleep apnea-on CPAP 9 cm
Pulmonary nodule-history of incidental at [facility] 2016-4 mm right upper lobe, [facility] 4 mm right midlung field nodule 2017, , most recent T no nodule
Osteoporosis.
GERD.
Chronic heart failure preserved EF.
Left-sided vocal cord paralysis.
Atrial fibrillation.
PPM.
Knee surgery.
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
Plan
Respiratory decompensation, likely due to pneumonia-recently hospitalized.
Supplemental oxygen as needed.
High flow oxygen needed.
Noninvasive ventilation/BiPAP as tolerated-was having a difficult time tolerating in the emergency room..
Follow ABG or VBG as needed
Intubate and mechanically ventilate-currently a full code-if deteriorates.
Aspiration cautions.
Consider speech therapy evaluation..
Nebulizers.
Steroids.
Mucolytic.
Mucus clearing devices including vest therapy if needed
Recommended CPAP as an outpatient-in tolerant
Check cultures.
Sputum culture if able.
Influenza negative.
Covid negative.
RSV negative.
Check MRSA screen
Follow radiographically.
Impaired antibiotics-cover hospital-acquired pathogens as well as atypicals.
Follow leukocytosis..
Monitor for CHF-has a history of
Monitor blood sugar.
Insulin supplementation as needed.
DVT prophylaxis recommended.
Nutrition with aspiration precautions.
Early mobilization
Patient was last seen by Dr. Madison 07/22/24--will recommend follow-up within 2 weeks after discharge
Diagnostic data:
Chest x-ray 05/28/2023-hypoaeration without consolidations
Chest x-ray 09/15/2023-small bilateral pleural effusions, basilar atelectasis
Chest x-ray 03/28/2024-moderate cardiomegaly with mild pulm edema
Chest x-ray 07/15/2024-CHF
Chest x-ray 07/25/2024-extensive right perihilar pneumonia
CT chest 03/28/2023-extensive beam artifact from metal hardware, scarring in the right middle lobe, moderate hiatal hernia,
Sniff test in the past-mild right hemidiaphragm elevation. No obvious weakness
PFT 04/02/23-FEV1 990 mL-74%, FVC 1.5-83%, TLC 97%, RV 120%, DLCO 32%, DLCO/VA 56%
Echocardiogram 03/31/2024-EF 50-55%, severe biatrial enlargement, mild mitral regurgitation, PA systolic 88, no change from September 2023
Data Reviewed
-
EKG: Report reviewed by me
Radiology: Report reviewed by me
CT Scan: Image personally visualized and interpreted and Report reviewed by me
Medical Tests (Nuc Med, Echo etc): Report reviewed by me
Labs: Labs reviewed by me
Old Records: Reviewed
Critical Care Time (in minutes): 65
[2024-07-25] MEDS: ROBITUSSIN 200 MG PO ×3 (13:23→19:52)
[2024-07-25] MEDS: SOLU-MEDROL PF 40 MG IV ×3 (13:23→23:39)
--- NOTE | 2024-07-25 14:16 | CON.ID ---
Consultation
-
Date/Time Consultation Requested: 07/25/24 13:42
Date/Time Consultation Performed: 07/25/24 14:16
Requesting Provider: Dr Beebe
Performing Provider: Dr Shin
Reason for Consultation: suspected pneumonia, toxic patient
Chief Complaint / Past History
Chief Complaint
shortness of breath
History of Present Illness
Ms Diallo is an 88 year old female with history of severe pulmonary HTN, COPD/asthma on 2-3L O2 chronically, dCHF, who presented here today for increasing shortness of breath, increased sputum production with difficulty mobilizing secretions. No
chest pain, hemoptysis, leg swelling or weakness. On EMS arrival she was not on O2 and saturation was 86% on room air. She was placed on a nonrebreather.
Of note with recent hospitalization for norovirus
Since arrival here she has been afebrile, bp stable, wbc 12.6, hgb 12.8, plt 193, L shift is noted, cr 0.5, t bili 0.7, ast 26, alt 26, alk phos 61, covid ag negative, CXR 1 view: right sided infiltrates; RSV swab (antigen not culture) negative, flu
swab negative, patient currently on ceftriaxone, and methylprednisolone, ID is consulted for assistance with management.
Past History
Additional Past Medical History:
Severe pulm hypertension. Asthma. MAXIM on CPAP. Osteoporosis. GERD. Chronic heart failure preserved EF. Left-sided vocal cord paralysis. Atrial fibrillation
Additional Past Surgical History:
PPM. Knee surgery. Right shoulder replacement. Colostomy 2022
Allergy History:
codeine Allergy (Verified 07/15/24 05:33)
Unknown
latex Allergy (Verified 07/15/24 05:33)
Itching
meperidine HCl [From Demerol] Allergy (Verified 07/15/24 05:33)
Unknown
morphine Allergy (Verified 07/15/24 05:33)
Unknown
Penicillins Allergy (Verified 07/15/24 05:33)
Unknown; tolerated ceftriaxone, cefepime
vancomycin Allergy (Verified 07/15/24 05:33)
Unknown
Medications Reviewed: Yes
Social History
Tobacco: Non-Smoker
Alcohol: None
Drug: None
Family History
Family History: Not Pertinent
Review of Systems
Review of Systems
General: Negative Fever or Chills
All systems: All other systems were reviewed and were negative
Vital Signs
Temp Pulse Resp BP Pulse Ox
98.1 F 71 16 124/65 92
07/25/24 08:47 07/25/24 14:00 07/25/24 14:04 07/25/24 14:00 07/25/24 14:00
Physical Exam
Physical Exam
Constitutional: No Acute Distress and Chronically Ill
Cardiovascular: Regular Rate and S1/S2; Negative Murmur or Rub
Pulmonary: Wheezes and Other (on bipap); Negative Rales or Rhonchi
Gastrointestinal: Soft, Non Tender, Non Distended and Normal Bowel Sounds
Skin: Warm and Dry; Negative Rash or Jaundice
Lab / Diagnostic Study Results
07/25/24 08:58
07/25/24 08:58
Abs Immat Gran (auto) 0.1 10^3/uL (0-0.05) H 07/25/24 08:58
Absolute Neuts (auto) 9.7 10^3/uL (1.4-6.5) H 07/25/24 08:58
Absolute Lymphs (auto) 1.6 10^3/uL (1.2-3.4) 07/25/24 08:58
Absolute Monos (auto) 0.9 10^3/uL (0.1-0.6) H 07/25/24 08:58
Absolute Basos (auto) 0.1 10^3/uL (0-0.2) 07/25/24 08:58
Immature Gran % 0.5 % (0-0.5) 07/25/24 08:58
Neutrophils % 77.0 % (42.2-75.2) H 07/25/24 08:58
Lymphocytes % 13.0 % (20.5-51.1) L 07/25/24 08:58
Monocytes % 7.2 % (1.7-9.3) 07/25/24 08:58
Eosinophils % 1.7 % (0-6) 07/25/24 08:58
Basophils % 0.6 % (0-2) 07/25/24 08:58
Microbiology Results
Micro:
07/25/24 09:25 Respiratory Syncytial Virus Culture - Final
Nasal Swab Negative for Respiratory Syncytial Virus.
A false negative result may be obtained with a specimen
collected early in the acute phase. If symptoms persist, a
new specimen should be tested.
07/25/24 08:58 Influenza Types A & B (ALE) - Final
Nasal Swab Negative for Influenza A & B, NAAT
Negative results must be combined with clinical observations
and patient history.
Nucleic Acid Amplification test (NAAT)performed on the
[employer] platform.
Assessment / Plan
Community Acquired Pneumonia
Acute hypoxemic respiratory failure
COPD/Pulmonary HTN
- blood cultures x2
- sputum culture ordered - cup given to patient
- strep pneumo and legionella urine antigens
- covid, influenza and RSV testing negative
- agree with ceftriaxone - redosed at 2 gm IV q24
- added doxycycline IV for now as on bipap - when able to come off of bipap can transition to oral
- steroids per pulmonary
[2024-07-25] MEDS: DUONEB 3 ML INH ×2 (15:47→21:00)
[2024-07-25] MEDS: CRESTOR 5 MG PO (18:09)
--- NOTE | 2024-07-25 18:41 | PTCARENOTE ---
Patient admitted with PNA, arrived to floor on 4 liters oxygen via nasal cannula. Patient denying pain when asked. Confused to time, poor historian.
[2024-07-25] MEDS: BUSPAR 10 MG PO (19:51)
[2024-07-25] MEDS: CARDIZEM CD 120 MG PO (19:51)
[2024-07-25] MEDS: VIBRAMYCIN 100 MG PO (19:51)
[2024-07-25] MEDS: HEPARIN 5000 UNITS SC (19:52)
[2024-07-25] MEDS: PULMICORT 0.5 MG INH (21:00)
[2024-07-25] MEDS: ADVAIR HFA 230/21 MCG INHALER 2 PUFF INH (21:00)
[2024-07-25] MEDS: REFRESH EYE DROPS (PF) 1 DROPS OPHTH (23:39)
[2024-07-25] MEDS: AMBIEN 5 MG PO (23:39)
[2024-07-26] VITALS (12 sets, daily range): BP systolic 109–140; BP diastolic 46–68; BMI 22.4
--- NOTE | 2024-07-26 00:40 | PTCARENOTE ---
Pt is AAOx2, disoriented to time and confused at times. Pt V-paced on tele. Pt refusing BiPAP and states 'no I do not want that'. Attempting to educate but patient continues to refuse. RT bedside. Pt is 94% on 5L NC. Shallow respirations, rhonchi
and coarse throughout. Hygiene and oral care done. Purewick changed, moisture barrier applied to perineum. Call lopse is in reach.
[2024-07-26 04:49] LABS: Hematocrit 33.6 % (37.0-47.0); Hemoglobin 11.3 g/dL (12.0-16.0); Mean Corp Hgb Conc. 33.6 g/dL (33.0-37.0); Mean Corpuscular Volume 89.1 fL (81.0-99.0); Platelet Count 227 10^3/uL (130-400); Red Blood Cell Count 3.77 10^6/uL (4.20-5.40); White Blood Cell Count 7.4 10^3/uL (4.8-10.8)
[2024-07-26] MEDS: SOLU-MEDROL PF 40 MG IV (05:08)
[2024-07-26 05:14] LABS: Blood Urea Nitrogen 11 mg/dl (7-17); Calcium 9.1 mg/dl (8.4-10.2); Carbon Dioxide 24 mmol/L (22-30); Chloride 104 mmol/L (98-107); Estimated Creatinine Clearance 51 ml/min; Glucose 146 mg/dl (70-99); Potassium 3.8 mmol/L (3.5-5.1); Sodium 139 mmol/L (135-145); eGFR > 60.00
[2024-07-26] MEDS: PULMICORT 0.5 MG INH ×2 (07:33→19:25)
[2024-07-26] MEDS: ADVAIR HFA 230/21 MCG INHALER 2 PUFF INH ×2 (07:33→19:20)
[2024-07-26] MEDS: DUONEB 3 ML INH ×4 (07:33→19:20)
[2024-07-26] MEDS: ROBITUSSIN 200 MG PO (08:29)
[2024-07-26] MEDS: COZAAR 25 MG PO (08:29)
[2024-07-26] MEDS: BUSPAR 10 MG PO ×2 (08:29→21:16)
[2024-07-26] MEDS: LASIX 40 MG PO (08:30)
[2024-07-26] MEDS: VITAMIN D3 (cholecalciferol) 50 MCG PO (08:30)
[2024-07-26] MEDS: LEXAPRO 20 MG PO (08:30)
[2024-07-26] MEDS: HEPARIN 5000 UNITS SC ×2 (08:30→21:17)
[2024-07-26] MEDS: CARDIZEM CD 120 MG PO ×2 (08:30→21:16)
[2024-07-26] MEDS: THERAGRAN 1 TABLET PO (08:30)
[2024-07-26] MEDS: VIBRAMYCIN 100 MG PO ×2 (08:30→21:18)
--- NOTE | 2024-07-26 08:48 | W.PN.PUL3 ---
Today's Communication / Plan
-
PNA treatment, abx per ID
Repeat CXR in AM
Resumed on home lasix
Wean O2 as tolerated
Wean IV steroids today
Rehab/airway clearance/OOB/IS/PT encouraged
Assessment
-
88-year-old female recently discharged from hospital 07/18/2024 for norovirus with a history of COPD/pulmonary fibrosis overlap, pulm hypertension, chronic hypoxemia, MAXIM on CPAP, atrial fibrillation and hypertension presented with increasing
shortness of breath, hypoxemia requiring BiPAP-pulmonary consulted for respiratory distress 07/25/2024.
Acute hypoxemic resp failure
Asthma with acute exacerbation
Wxxabnidf-qclfguthr-rtwpjrys-aspiration risk
Leukocytosis
Hyperglycemia
Conditions present prior to admission:
Recent hospitalization-discharge 07/18/2024- norovirus
Recent hospitalization-discharged 03/31/2024-heart failure and COPD
Severe pulm hypertension. .
Chronic asthma--followed by Dr. Madison-maintained on Advair 250/50 and Albuterol as needed
IgG deficiency
Recurrent pneumonia-suspected aspiration
Obstructive sleep apnea-on CPAP 9 cm
Pulmonary nodule-history of incidental at [facility] 2016-4 mm right upper lobe, [facility] 4 mm right midlung field nodule 2017, , most recent T no nodule
Osteoporosis.
GERD.
Chronic heart failure preserved EF.
Left-sided vocal cord paralysis.
Atrial fibrillation.
PPM.
Knee surgery.
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
Plan
Respiratory decompensation, likely due to pneumonia-recently hospitalized.
Supplemental oxygen as needed--currently 96% on 4.5L NC
Noninvasive ventilation/BiPAP as tolerated-was having a difficult time tolerating in the emergency room..
Follow ABG or VBG as needed--7.38/44/137
Aspiration cautions.
Consider speech therapy evaluation.
Nebulizers.
Steroids--wean IV dosing today to 20 IV BID, having tremors
Mucolytic.
Mucus clearing devices including vest therapy if needed
Recommended CPAP as an outpatient-in tolerant
CXR w/ extensive R PNA--repeat CXR in AM
Check cultures--neg to date
Sputum culture if able.
Influenza negative.
Covid negative.
RSV negative.
Norovirus + 07/15/24
Follow radiographically.
Empiric antibiotics-ID following
Follow leukocytosis..
Monitor for CHF-has a history of
proBNP 2850
Resumed on home lasix daily
Monitor blood sugar.
Insulin supplementation as needed.
DVT prophylaxis recommended.
Nutrition with aspiration precautions.
Early mobilization
Patient was last seen by Dr. Madison 07/22/24--will recommend follow-up within 2 weeks after discharge
Diagnostic Data:
Chest x-ray 05/28/2023-hypoaeration without consolidations
Chest x-ray 09/15/2023-small bilateral pleural effusions, basilar atelectasis
Chest x-ray 03/28/2024-moderate cardiomegaly with mild pulm edema
Chest x-ray 07/15/2024-CHF
Chest x-ray 07/25/2024-extensive right perihilar pneumonia
CT chest 03/28/2023-extensive beam artifact from metal hardware, scarring in the right middle lobe, moderate hiatal hernia,
Sniff test in the past-mild right hemidiaphragm elevation. No obvious weakness
PFT 04/02/23-FEV1 990 mL-74%, FVC 1.5-83%, TLC 97%, RV 120%, DLCO 32%, DLCO/VA 56%
Echocardiogram 03/31/2024-EF 50-55%, severe biatrial enlargement, mild mitral regurgitation, PA systolic 88, no change from September 2023
Subjective Data
-
Date of Service:
Date of Service: July 26, 2024
Chief Complaint: Pulmonary Follow Up
Subjective:
Doing well, tremulousness noted
No new complaints
Remains on low O2, satting 97%
Objective Data
Data Reviewed
Vital Signs / I&O / Oxygen:
Vital Signs
Temp Pulse Resp BP Pulse Ox
97.9 F 70 30 137/66 96
07/26/24 03:51 07/26/24 08:30 07/26/24 07:37 07/26/24 08:30 07/26/24 07:37
Intake and Output
07/25/24 07/26/24 07/27/24
06:59 06:59 06:59
Output Total 100 / 100
Balance -100 / -100
SaO2 96
Nasal Cannula flow liters per 4.5
minute
Physical Exam
General: Comfortable and Other (NAD)
HEENT: Normocephalic, Anicteric and Moist Mucous Membranes
Cardiovascular: S1-S2 and Regular Rhythm
Respiratory: Wheeze, Rhonchi and Non-Labored Respirations
GI: Soft, Non Distended and Non Tender
Neurology: Awake, Alert, Oriented, No Motor Deficits and Tremors
Skin: Warm, Dry and Good Color
Labs/Micro/Reports
Lab Data
07/26/24 04:23
07/26/24 04:23
Microbiology
07/25/24 15:16 Urine Streptococcus pneumoniae Antigen (M - Final
Negative for Streptococcus pneumoniae antigen.
A negative result does not exclude infection with
Streptococcus pneumoniae. Clinical correlation is
recommended.
07/25/24 15:15 Urine Legionella Urinary Antigen - Final
Negative for Legionella pneumophila Serogroup 1 antigen.
A negative result does not rule out the possiblity of
Legionella infection due to other serogroups or species of
Legionella. Clinical correlation is recommended.
07/25/24 09:25 Nasal Swab Respiratory Syncytial Virus Culture - Final
Negative for Respiratory Syncytial Virus.
A false negative result may be obtained with a specimen
collected early in the acute phase. If symptoms persist, a
new specimen should be tested.
07/25/24 08:58 Nasal Swab Influenza Types A & B (ALE) - Final
Negative for Influenza A & B, NAAT
Negative results must be combined with clinical observations
and patient history.
Nucleic Acid Amplification test (NAAT)performed on the
[employer] platform.
--- NOTE | 2024-07-26 09:09 | W.PN.ID1 ---
Date of Service
Date of Service: July 26, 2024
Today's Communication
c/w doxy/ceftriaxone
Assessment / Plan
Community Acquired Pneumonia
Acute hypoxemic respiratory failure
COPD/Pulmonary HTN
- blood cultures x2
- sputum culture ordered - cup given to patient
- strep pneumo and legionella urine antigens both negative
- covid, influenza and RSV testing negative
- continue with ceftriaxone - redosed at 2 gm IV q24
- continue doxycycline oral
- steroids per pulmonary
- follow fever curve, O2 reuirement, wbc count
Chief Complaint
-: Pneumonia
Subjective / Review of Systems
no further fevers
bp stable
now on 4.5 L
intermittent disorientation
has been refusing bipap
Vital Signs / Physical Exam
Vital Signs
Vital Signs
Temp Pulse Resp BP Pulse Ox
97.9 F 70 30 137/66 96
07/26/24 03:51 07/26/24 08:30 07/26/24 07:37 07/26/24 08:30 07/26/24 07:37
Physical Exam
Constitutional: Acutely Ill and Chronically Ill
Cardiovascular: Regular Rate and S1/S2; Negative Murmur or Rub
Pulmonary: Symmetric, Wheezes and Non Labored; Negative Rales
Gastrointestinal: Soft, Non Tender, Non Distended and Normal Bowel Sounds
Skin: Warm and Dry; Negative Rash or Jaundice
Objective Data
Lab Data
Lab Results
07/26/24 04:23
07/26/24 04:23
Estimated Creat Clear 51 ml/min 07/26/24 04:23
Total Bilirubin 0.7 mg/dl (0.2-1.3) 07/25/24 08:58
AST 26 U/L (14-36) 07/25/24 08:58
ALT 26 U/L (0-35) 07/25/24 08:58
Alkaline Phosphatase 61 U/L (38-126) 07/25/24 08:58
Most recent labs reviewed - resolved leukocytosis
Micro Results:
07/25/24 15:10 Blood Culture - Pending
Blood/Venous
07/25/24 15:16 Streptococcus pneumoniae Antigen (M - Final
Urine Negative for Streptococcus pneumoniae antigen.
A negative result does not exclude infection with
Streptococcus pneumoniae. Clinical correlation is
recommended.
07/25/24 15:15 Legionella Urinary Antigen - Final
Urine Negative for Legionella pneumophila Serogroup 1 antigen.
A negative result does not rule out the possiblity of
Legionella infection due to other serogroups or species of
Legionella. Clinical correlation is recommended.
07/25/24 15:15 Blood Culture - Pending
Blood/Venous
07/25/24 09:25 Respiratory Syncytial Virus Culture - Final
Nasal Swab Negative for Respiratory Syncytial Virus.
A false negative result may be obtained with a specimen
collected early in the acute phase. If symptoms persist, a
new specimen should be tested.
07/25/24 08:58 Influenza Types A & B (ALE) - Final
Nasal Swab Negative for Influenza A & B, NAAT
Negative results must be combined with clinical observations
and patient history.
Nucleic Acid Amplification test (NAAT)performed on the
[employer] platform.
Care Review
Plan reviewed with: Physician (Dr yu - cap treatment)
--- NOTE | 2024-07-26 09:57 | PTOTSP ---
SPEECH THERAPY SWALLOW EVALUATION:
Patient exhibits clinical signs of oropharyngeal dysphagia, likely chronic related to COPD, GERD, and Left vocal fold paralysis. Patient with aphonic vocal quality. Currently with pneumonia, suspect aspiration related. History of VSE 09/29/2023 which
revealed mild oral and mild-moderate pharyngeal dysphagia, with recommendations for Regular texture diet and thin liquids via single sips only. At this time, would recommend repeat VSE to assess swallow physiology, for Friday 07/28 (due to weekend
schedule). Patient with cognitive impairments at this time including poor STM. Recommend conservative oral diet until VSE. Recommend IDDSI Level 6 Soft and bite size diet, Mildly-thick liquids. Medications whole in puree. Aspiration and Reflux
precautions. Monitor for signs of aspiration and d/c oral diet if ANY decline in mental or respiratory status. ST to follow with additional recommendations following VSE.
RECOMMEND:
1) IDDSI Level 6 Soft and bite size diet, Mildly-thick liquids
2) Medications whole in puree
3) Aspiration and Reflux precautions: Upright positioning; 100% supervision and assistance as needed; Remain upright 30 minutes after eating/drinking; Small single sips/bites; Slow rate of intake; Monitor for signs of aspiration and d/c oral diet if
ANY decline in mental or respiratory status
4) Oral care 3x/day
5) ST to follow
--- NOTE | 2024-07-26 10:58 | W.PN.HOSP.TC ---
Today's Communication/Plan
-
follow labs
repeat CXR
Assessment / Plan
Assessment / Plan
Ill appearing patient with Pneumonia
CXR: Moderately extensive right perihilar and right lower lobe
showing some improvement since admission, but remains very congested
WBC 12.6-->7.4k
Hypoxemia
placed on Bipap, pt refuses to wear, no on 5 L/M NC. will continue, Pulm consult requested
COPD/Pulmonary Fibrosis
followed by Dr. Madison
Severe Pulmonary HTN by hx
HFpEF
Recent hospitalization for Norovirus
07/15-07/18/24
Colostomy 2022
Atrial Fibrillation
P:continue current Tx
diet modified as per speech
Pulm and ID consults
empiric abx as per ID
continue in IMU
Full code
Heparin 5000 U q12h for DVT prophylaxis
Anticipated Discharge: > 48 hours
Subjective/Interval History
-
Date of Service: July 26, 2024
Appears less toxic, though still congested
Objective Data
-
Labs:
Laboratory Results
07/26/24
04:23
WBC 7.4
Hgb 11.3 L
Hct 33.6 L
Plt Count 227 D
Sodium 139
Potassium 3.8
Chloride 104
Carbon Dioxide 24
BUN 11
Creatinine 0.4 L
Glucose 146 H
Calcium 9.1
Vital Signs:
Vital Signs
Temp Pulse Resp BP Pulse Ox
97.9 F 72 30 137/66 95
07/26/24 03:51 07/26/24 09:00 07/26/24 09:00 07/26/24 08:30 07/26/24 10:08
I&O
07/25/24 07/26/24 07/27/24
06:59 06:59 06:59
Output Total 100 / 100
Balance -100 / -100
Review of Systems
-
History Source: Patient and Coordinated Provider
Constitutional: Denies Fever
EENT: Reports No Symptoms Reported
Respiratory: Reports Cough and Trouble Breathing (dyspnea has decreased)
Cardiac: Reports No Symptoms
Abdomen/GI: Reports No Symptoms
Physical Exam
-
General: Well Developed, Well Nourished, Respiratory Distress (has lessened) and Appears Chronically Ill
HEENT: Normocephalic, Atraumatic and Moist Mucous Membranes
Respiratory: Rhonchi (diffuse sonorous rhonchi, improved air movement, but still with significant congestion)
Cardiac: Regular Rhythm and S1/S2
GI: Soft, Nontender and Ostomy (left lower abd)
Musculoskeletal: No Clubbing, No Cyanosis and No Edema
Neuro: Awake and Alert
[2024-07-26] MEDS: ROCEPHIN 2000 MG IV (11:11)
[2024-07-26] MEDS: STERILE WATER FOR INJECTION 20 ML IV (11:11)
[2024-07-26] MEDS: ROBITUSSIN PO ×3 (12:58→21:19)
--- NOTE | 2024-07-26 15:58 | PTCARENOTE ---
Assumed care of patient this morning. Patient very anxious this morning and stating she is 'depressed.' RN offered emotional support and patient initially refused pastoral care but then stated she would accept if they came to speak to her. Pt
calling combination technician lopes multiples times asking the same questions, 'what is wrong with me,' 'where is my ,' and 'can you call my daughter.' Late morning, patient was found talking to her on the room phone. RN spoke with pt's and
he reports she has short term memory loss. I also spoke with patient's daughter, Maureen over the phone and she reports patient's weak, hoarse voice is chronic. Pt does also c/o of shortness of breath, attempting to wean O2 as able. Assessment, care
and VS as charted.
[2024-07-26] MEDS: SOLU-MEDROL PF 20 MG IV (21:17)
[2024-07-26] MEDS: REFRESH EYE DROPS (PF) 1 DROPS OPHTH (21:18)
[2024-07-26] MEDS: AMBIEN 5 MG PO (23:09)
[2024-07-27] VITALS (14 sets, daily range): BP systolic 105–152; BP diastolic 54–117; PULSE 2–70; BMI 22.5
--- NOTE | 2024-07-27 03:46 | PTCARENOTE ---
Assumed care of patient overnight. Pt is AAOx2, disoriented to year but could answer correct month. 100% V-paced on tele. 94% on 4L NC. Hygiene and oral care done. Pt very anxious tonight and states that she 'cannot sleep' despite receiving night
dose of Ambien. Offered a sleeping eye mask. Pt also complains of a sore throat. Due to aspiration risk I am holding off on any cough drops. Reached out to ISMA ASHBY bedside to assess back of the throat for possible thrush due to breathing
treatments. Phenol spray ordered. Pt putting out small amounts of urine and does not feel like she has to void. Abdomen feeling full. Bladder scanned for 445. Got patient up and into the commode and voided 300ml. Ambulated with 1x assist and a
rolling walker. Comfortably back into bed. Call lopes is within reach.
[2024-07-27] MEDS: CHLORASEPTIC/SORE THROAT SPRAY 1 SPRAY PO (04:35)
[2024-07-27] MEDS: TESSALON PERLES 100 MG PO ×2 (05:33→08:51)
[2024-07-27 06:04] LABS: % Basophils 0.1 % (0-2); % Immature Granulocytes 0.6 % (0-0.5); % Lymphocytes 2.4 % (20.5-51.1); % Monocytes 1.9 % (1.7-9.3); Absolute Immature Granulocytes 0.1 10^3/uL (0-0.05); Absolute Lymphocytes 0.5 10^3/uL (1.2-3.4); Absolute Monocytes 0.4 10^3/uL (0.1-0.6); Absolute Neutrophils 18.6 10^3/uL (1.4-6.5); Hematocrit 34.3 % (37.0-47.0); Hemoglobin 11.5 g/dL (12.0-16.0); Mean Corp Hgb Conc. 33.5 g/dL (33.0-37.0); Mean Corpuscular Hgb 29.9 pg (27.0-31.0); Mean Corpuscular Volume 89.3 fL (81.0-99.0); Mean Platelet Volume 10.9 fL (7.4-10.4); Nucleated Red Blood Cells % 0 %; Platelet Count 270 10^3/uL (130-400); Red Blood Cell Count 3.84 10^6/uL (4.20-5.40); Red Cell Dist. Width 13.2 % (11.5-14.5); White Blood Cell Count 19.6 10^3/uL (4.8-10.8)
[2024-07-27 06:32] LABS: Blood Urea Nitrogen 20 mg/dl (7-17); Calcium 9.1 mg/dl (8.4-10.2); Carbon Dioxide 27 mmol/L (22-30); Chloride 103 mmol/L (98-107); Estimated Creatinine Clearance 51 ml/min; Glucose 130 mg/dl (70-99); Sodium 141 mmol/L (135-145); eGFR > 60.00
[2024-07-27] MEDS: PULMICORT 0.5 MG INH ×2 (07:43→19:27)
[2024-07-27] MEDS: ADVAIR HFA 230/21 MCG INHALER 2 PUFF INH ×2 (07:43→19:28)
[2024-07-27] MEDS: DUONEB 3 ML INH ×4 (07:43→19:27)
[2024-07-27] MEDS: SENOKOT-S 1 TABLET PO (08:47)
[2024-07-27] MEDS: CARDIZEM CD 120 MG PO ×2 (08:48→20:25)
[2024-07-27] MEDS: COZAAR 25 MG PO (08:48)
[2024-07-27] MEDS: VITAMIN D3 (cholecalciferol) 50 MCG PO (08:49)
[2024-07-27] MEDS: VIBRAMYCIN 100 MG PO ×2 (08:50→20:26)
[2024-07-27] MEDS: THERAGRAN 1 TABLET PO (08:50)
[2024-07-27] MEDS: LEXAPRO 20 MG PO (08:50)
[2024-07-27] MEDS: LASIX 40 MG PO (08:50)
[2024-07-27] MEDS: BUSPAR 10 MG PO ×2 (08:50→20:24)
--- NOTE | 2024-07-27 08:50 | W.PN.ID1 ---
Date of Service
Date of Service: July 27, 2024
Today's Communication
- continue with ceftriaxone
- continue doxycycline oral
delirium noted
Assessment / Plan
Community Acquired Pneumonia
Acute hypoxemic respiratory failure
COPD/Pulmonary HTN
- O2 requirement declining
- blood cultures x2
- sputum culture ordered - but not yet produced
- increasing leukocytosis attributed to steroids
- continue with ceftriaxone
- continue doxycycline oral
- steroids per pulmonary
- follow fever curve, O2 requirement, clinically
Chief Complaint
-: Pneumonia
Subjective / Review of Systems
afebrile
bp stable
O2 requirement declining
hoarse
confused, repetitively asking for
Vital Signs / Physical Exam
Vital Signs
Vital Signs
Temp Pulse Resp BP Pulse Ox
98.0 F 75 24 138/74 93
07/27/24 07:40 07/27/24 07:49 07/27/24 07:49 07/27/24 06:00 07/27/24 07:49
Physical Exam
Constitutional: No Acute Distress
Cardiovascular: Regular Rate and S1/S2; Negative Murmur or Rub
Pulmonary: Clear and Symmetric; Negative Wheezes or Rales
Gastrointestinal: Soft, Non Tender, Non Distended and Normal Bowel Sounds
Skin: Warm and Dry; Negative Rash or Jaundice
Psychological: Confused
Objective Data
Lab Data
Lab Results
07/27/24 05:44
07/27/24 05:44
Estimated Creat Clear 51 ml/min 07/27/24 05:44
Total Bilirubin 0.7 mg/dl (0.2-1.3) 07/25/24 08:58
AST 26 U/L (14-36) 07/25/24 08:58
ALT 26 U/L (0-35) 07/25/24 08:58
Alkaline Phosphatase 61 U/L (38-126) 07/25/24 08:58
Most recent labs reviewed.
Micro Results:
07/25/24 15:15 Blood Culture - Preliminary
Blood/Venous No Growth in 24 hours- Final report to follow
07/25/24 15:10 Blood Culture - Preliminary
Blood/Venous No Growth in 24 hours- Final report to follow
07/25/24 15:16 Streptococcus pneumoniae Antigen (M - Final
Urine Negative for Streptococcus pneumoniae antigen.
A negative result does not exclude infection with
Streptococcus pneumoniae. Clinical correlation is
recommended.
07/25/24 15:15 Legionella Urinary Antigen - Final
Urine Negative for Legionella pneumophila Serogroup 1 antigen.
A negative result does not rule out the possiblity of
Legionella infection due to other serogroups or species of
Legionella. Clinical correlation is recommended.
07/25/24 09:25 Respiratory Syncytial Virus Culture - Final
Nasal Swab Negative for Respiratory Syncytial Virus.
A false negative result may be obtained with a specimen
collected early in the acute phase. If symptoms persist, a
new specimen should be tested.
07/25/24 08:58 Influenza Types A & B (ALE) - Final
Nasal Swab Negative for Influenza A & B, NAAT
Negative results must be combined with clinical observations
and patient history.
Nucleic Acid Amplification test (NAAT)performed on the
[employer] platform.
[2024-07-27] MEDS: SOLU-MEDROL PF 20 MG IV ×2 (08:51→20:25)
[2024-07-27] MEDS: HEPARIN 5000 UNITS SC ×2 (08:57→20:25)
[2024-07-27] MEDS: ROBITUSSIN PO ×4 (09:03→22:22)
--- NOTE | 2024-07-27 10:00 | W.PN.PUL3 ---
Today's Communication / Plan
-
Remains on 4L but having increased RR, she does not feel worsening SOB
CXR with new opacities likely linear atelectasis, will f/u w/ CT chest
Minimal UO noted, weight increased by 4kg since admission, increase lasix to 40 IV BID
Volume overload is likely an issue
Encouraged OOB/IS
Assessment
-
88-year-old female recently discharged from hospital 07/18/2024 for norovirus with a history of COPD/pulmonary fibrosis overlap, pulm hypertension, chronic hypoxemia, MAXIM on CPAP, atrial fibrillation and hypertension presented with increasing
shortness of breath, hypoxemia requiring BiPAP-pulmonary consulted for respiratory distress 07/25/2024.
Acute hypoxemic resp failure
Asthma with acute exacerbation
Lgsizbypu-yrcpnqxhm-bzgvanjc-aspiration risk
Leukocytosis
Hyperglycemia
Conditions present prior to admission:
Recent hospitalization-discharge 07/18/2024- norovirus
Recent hospitalization-discharged 03/31/2024-heart failure and COPD
Severe pulm hypertension. .
Chronic asthma--followed by Dr. Madison-maintained on Advair 250/50 and Albuterol as needed
IgG deficiency
Recurrent pneumonia-suspected aspiration
Obstructive sleep apnea-on CPAP 9 cm
Pulmonary nodule-history of incidental at [facility] 2016-4 mm right upper lobe, [facility] 4 mm right midlung field nodule 2017, , most recent T no nodule
Osteoporosis.
GERD.
Chronic heart failure preserved EF.
Left-sided vocal cord paralysis.
Atrial fibrillation.
PPM.
Knee surgery.
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
Plan
Respiratory decompensation, likely due to pneumonia-recently hospitalized.
Supplemental oxygen as needed--currently >90% on 4L NC
Noninvasive ventilation/BiPAP as tolerated-was having a difficult time tolerating in the emergency room..
Follow ABG or VBG as needed--7.38/44/137
Aspiration cautions.
Consider speech therapy evaluation.
Nebulizers.
Steroids--wean IV dosing today to 20 IV BID, having tremors
Mucolytic.
Mucus clearing devices including vest therapy if needed
Recommended CPAP as an outpatient-intolerant
CXR w/ extensive R PNA--repeat CXR in AM showing new atelectasis (on my review)
Will check CT chest
Check cultures--neg to date
Sputum culture if able.
Influenza negative.
Covid negative.
RSV negative.
Norovirus + 07/15/24
Follow radiographically.
Empiric antibiotics-ID following
Follow leukocytosis..
Monitor for CHF-has a history of
proBNP 2850
Resumed on home lasix daily, she is not urinating significantly
Weight remains elevated--50 kg -> 54kg
Will change lasix to IV BID
Monitor blood sugar.
Insulin supplementation as needed.
DVT prophylaxis recommended.
Nutrition with aspiration precautions.
Early mobilization
Patient was last seen by Dr. Madison 07/22/24--will recommend follow-up within 2 weeks after discharge
Diagnostic Data:
Chest x-ray 05/28/2023-hypoaeration without consolidations
Chest x-ray 09/15/2023-small bilateral pleural effusions, basilar atelectasis
Chest x-ray 03/28/2024-moderate cardiomegaly with mild pulm edema
Chest x-ray 07/15/2024-CHF
Chest x-ray 07/25/2024-extensive right perihilar pneumonia
CT chest 03/28/2023-extensive beam artifact from metal hardware, scarring in the right middle lobe, moderate hiatal hernia,
Sniff test in the past-mild right hemidiaphragm elevation. No obvious weakness
PFT 04/02/23-FEV1 990 mL-74%, FVC 1.5-83%, TLC 97%, RV 120%, DLCO 32%, DLCO/VA 56%
Echocardiogram 03/31/2024-EF 50-55%, severe biatrial enlargement, mild mitral regurgitation, PA systolic 88, no change from September 2023
Total time spent on this consultation/encounter __51__ minutes which includes review of history, physical exam, medications, laboratory data, personal review of imaging, extensive review of outpatient records, discussion with care team and
respiratory therapy.
Subjective Data
-
Date of Service:
Date of Service: July 27, 2024
Chief Complaint: Pulmonary Follow Up
Subjective:
Remains on same O2 amounts, does not feel worsening SOB
Tremors are constant
Restless in the bed
Objective Data
Data Reviewed
Vital Signs / I&O / Oxygen:
Vital Signs
Temp Pulse Resp BP Pulse Ox
98.0 F 71 30 147/72 93
07/27/24 07:40 07/27/24 09:00 07/27/24 09:00 07/27/24 08:50 07/27/24 09:00
Intake and Output
07/26/24 07/27/24 07/28/24
06:59 06:59 06:59
Output Total 100 / 100 300 / 300
Balance -100 / -100 -300 / -300
SaO2 93
Nasal Cannula flow liters per 4
minute
Physical Exam
General: Comfortable and Other (NAD)
HEENT: Normocephalic, Anicteric and Moist Mucous Membranes
Cardiovascular: S1-S2 and Regular Rhythm
Respiratory: Wheeze, Rhonchi and Non-Labored Respirations
GI: Soft, Non Distended and Non Tender
Neurology: Awake, Alert, Oriented, No Motor Deficits and Tremors
Skin: Warm, Dry and Good Color
Labs/Micro/Reports
Lab Data
07/27/24 05:44
07/27/24 05:44
Microbiology
07/25/24 15:15 Blood/Venous Blood Culture - Preliminary
No Growth in 24 hours- Final report to follow
07/25/24 15:10 Blood/Venous Blood Culture - Preliminary
No Growth in 24 hours- Final report to follow
07/25/24 15:16 Urine Streptococcus pneumoniae Antigen (M - Final
Negative for Streptococcus pneumoniae antigen.
A negative result does not exclude infection with
Streptococcus pneumoniae. Clinical correlation is
recommended.
07/25/24 15:15 Urine Legionella Urinary Antigen - Final
Negative for Legionella pneumophila Serogroup 1 antigen.
A negative result does not rule out the possiblity of
Legionella infection due to other serogroups or species of
Legionella. Clinical correlation is recommended.
07/25/24 09:25 Nasal Swab Respiratory Syncytial Virus Culture - Final
Negative for Respiratory Syncytial Virus.
A false negative result may be obtained with a specimen
collected early in the acute phase. If symptoms persist, a
new specimen should be tested.
07/25/24 08:58 Nasal Swab Influenza Types A & B (ALE) - Final
Negative for Influenza A & B, NAAT
Negative results must be combined with clinical observations
and patient history.
Nucleic Acid Amplification test (NAAT)performed on the
[employer] platform.
[2024-07-27] MEDS: ROCEPHIN 2000 MG IV (11:36)
[2024-07-27] MEDS: STERILE WATER FOR INJECTION 20 ML IV (11:36)
--- NOTE | 2024-07-27 12:25 | CM ---
Patient with Dx Pneumonia. CT Chest today. O2 4L midflow. Reciving IV Abx, IV Lasix, IV Solumedrol. ST - Dysphagia diet.
Attempted to meet with patient who was off the unit.
Spoke with patient's Jose;
the patient resides with her in a 1 story house with 1 POLA.
She is A/O at times, confused/forgetful at times.
The patient is assisted with ADLS by and caregivers, and ambulates using her RW and occasionally her cane.
She has [facility] in place M-F for 4 hours/day.
DME - RW, SPC, CPAP (not using), home O2 3L HS and sometimes daytime, through [employer]
Current with [facility] for SN/PT/OT
SNF - [facility], [facility]
PCP - Kel Sauceda
Pharmacy - [facility]
Patient has several children and daughter Yecenia Reddy, assists patient the most.
The is looking into assisted living facilities that they could move into.
Patient will benefit from PT/OT Evals when less medically acute.
Plan follow up after seen by PT/OT.
--- NOTE | 2024-07-27 14:24 | PTCARENOTE ---
Patient out of bed to chair on 4 liters via midflow. Chest xray and Ct scan completed. Patient has a nonproductive cough, tachypnea and dyspnea on exertion. Bedside assessment completed with Dr Beebe. Patient has poor output from colostomy. [place]
administered and patient to receive Miralax as per Dr. Beebe. Patient is having good urinary output and eating well today.
--- NOTE | 2024-07-27 15:39 | CHAP ---
Ms Diallo was welcoming. Speaking very softly, she said that she's 'down.' Emotional and spiritual support provided and appreciated. Assured her of our on-going availability.
--- NOTE | 2024-07-27 15:55 | W.PN.HOSP.TC ---
Today's Communication/Plan
-
Vest Therapy
await CT scan of chest results
Assessment / Plan
Assessment / Plan
Ill appearing patient with Pneumonia
CXR: Moderately extensive right perihilar and right lower lobe
showing some improvement since admission, but remains very congested
WBC 12.6-->7.4-->19.6k
(leukocytosis most likely due to steroids)
CT scan of chest just performed - my read consistent with bibasilar PNA, ILD. Await official reading
Will order Vest therapy
Hypoxemia
placed on Bipap, pt refuses to wear, no on 5 L/M NC. will continue, Pulm consult requested. Now on 4 L/M with SaO2 96%
COPD/Pulmonary Fibrosis
followed by Dr. Madison
Severe Pulmonary HTN by hx
HFpEF
Recent hospitalization for Norovirus
07/15-07/18/24
Colostomy 2022
Atrial Fibrillation/ V-Paced
P:continue current Tx
diet modified as per speech
Pulm and ID consults
empiric abx as per ID
continue in IMU
Full code
Heparin 5000 U q12h for DVT prophylaxis
Anticipated Discharge: > 48 hours
Subjective/Interval History
-
Date of Service: July 27, 2024
continues to be congested
Objective Data
-
Labs:
Laboratory Results
07/27/24
05:44
WBC 19.6 H
Hgb 11.5 L
Hct 34.3 L
Plt Count 270
Sodium 141
Potassium 4.0
Chloride 103
Carbon Dioxide 27
BUN 20 H
Creatinine 0.5 L
Glucose 130 H
Calcium 9.1
Vital Signs:
Vital Signs
Temp Pulse Resp BP Pulse Ox
97.6 F 70 27 133/59 94
07/27/24 12:25 07/27/24 13:00 07/27/24 13:00 07/27/24 12:00 07/27/24 14:12
I&O
07/26/24 07/27/24 07/28/24
06:59 06:59 06:59
Intake Total 400 / 400
Output Total 100 / 100 300 / 300 250 / 250
Balance -100 / -100 -300 / -300 150 / 150
Review of Systems
-
History Source: Patient and Coordinated Provider
Constitutional: Denies Fever
EENT: Reports No Symptoms Reported
Respiratory: Reports Cough and Trouble Breathing (dyspnea has decreased)
Cardiac: Reports No Symptoms
Abdomen/GI: Reports No Symptoms
Physical Exam
-
General: Well Developed, Well Nourished, Respiratory Distress (has lessened) and Appears Chronically Ill
HEENT: Normocephalic, Atraumatic and Moist Mucous Membranes
Respiratory: Rhonchi (diffuse sonorous rhonchi, improved air movement, but still with significant congestion)
Cardiac: Regular Rhythm and S1/S2
GI: Soft, Nontender and Ostomy (left lower abd)
Musculoskeletal: No Clubbing, No Cyanosis and No Edema
Neuro: Awake and Alert
[2024-07-27] MEDS: LASIX 40 MG IV (17:50)
[2024-07-27] MEDS: MIRALAX 17 GRAMS PO (17:50)
[2024-07-27] MEDS: REFRESH EYE DROPS (PF) 1 DROPS OPHTH (22:21)
[2024-07-27] MEDS: AMBIEN 5 MG PO (22:21)
[2024-07-27] MEDS: TYLENOL 650 MG PO (22:21)
[2024-07-28] VITALS (13 sets, daily range): BP systolic 106–137; BP diastolic 52–96; PULSE 2–61; BMI 22.5
--- NOTE | 2024-07-28 00:12 | PTCARENOTE ---
Addendum entered by Carla Morris RN 07/28/24 02:51:
Patient took the BiPAP off and O2 sat dropped to 86%. RT bedside, patient wearing small mask. Pt is agreeable to place BiPAP back on. RT placed pt back on BiPAP.
Original Note:
Patient oob and in the chair at start of shift. Pt ambulated to the bedside commode with rolling walker and assistance of 2 people. Pt tachypneic and dyspneic on exertion O2 sat dropped to 89% but quickly recovered after rest. Pt received tolerated
the respiratory vest therapy for about 10 minutes. Pt has a weak non-productive cough. Rhonchi and coarse throughout the lungs. Pt back into bed and was agreeable to BiPAP overnight after education and encouragement. Pt tells me she 'feels exhausted
and wants to get rest'. Pt placed on BiPAP and O2 sat is 96%. Colostomy putting out small amount of more solid consistency stool after miralax was given earlier on in the day. Changed ostomy bag and did site care, skin around stoma is clean, dry and
intact. Call lopes within reach.
[2024-07-28] MEDS: CHLORASEPTIC/SORE THROAT SPRAY 1 SPRAY PO (05:45)
[2024-07-28 06:27] LABS: % Basophils 0.2 % (0-2); % Immature Granulocytes 1.3 % (0-0.5); % Lymphocytes 2.2 % (20.5-51.1); % Monocytes 2.2 % (1.7-9.3); % Neutrophils 94.1 % (42.2-75.2); Absolute Immature Granulocytes 0.3 10^3/uL (0-0.05); Absolute Lymphocytes 0.4 10^3/uL (1.2-3.4); Absolute Monocytes 0.4 10^3/uL (0.1-0.6); Absolute Neutrophils 18.8 10^3/uL (1.4-6.5); Hematocrit 36.4 % (37.0-47.0); Hemoglobin 11.8 g/dL (12.0-16.0); Mean Corp Hgb Conc. 32.4 g/dL (33.0-37.0); Mean Corpuscular Hgb 29.6 pg (27.0-31.0); Mean Corpuscular Volume 91.5 fL (81.0-99.0); Mean Platelet Volume 10.6 fL (7.4-10.4); Nucleated Red Blood Cells % 0 %; Platelet Count 307 10^3/uL (130-400); Red Blood Cell Count 3.98 10^6/uL (4.20-5.40); Red Cell Dist. Width 13.2 % (11.5-14.5); White Blood Cell Count 19.9 10^3/uL (4.8-10.8)
[2024-07-28 06:46] LABS: Blood Urea Nitrogen 27 mg/dl (7-17); Calcium 9.6 mg/dl (8.4-10.2); Carbon Dioxide 29 mmol/L (22-30); Chloride 99 mmol/L (98-107); Estimated Creatinine Clearance 44 ml/min; Glucose 126 mg/dl (70-99); Potassium 4.1 mmol/L (3.5-5.1); Sodium 142 mmol/L (135-145); eGFR > 60.00
[2024-07-28] MEDS: DUONEB 3 ML INH ×4 (07:17→19:08)
[2024-07-28] MEDS: PULMICORT 0.5 MG INH ×2 (07:17→19:08)
[2024-07-28] MEDS: ADVAIR HFA 230/21 MCG INHALER 2 PUFF INH ×2 (07:17→19:08)
--- NOTE | 2024-07-28 08:15 | W.PN.PUL3 ---
Today's Communication / Plan
-
Pulmonary toilet with aspiration precautions
Continue with systemic steroids and monitor for tremors
DuoNebs, budesonide and Advair
Mucinex
May need vest therapy if still having difficulty with expectoration
Will need repeat CT chest in at least 4 to 6 weeks to follow-up pneumonia resolution
If RML atelectasis persists then may benefit from bronchoscopy
Repeat CXR in 24-48 hrs
Previously she had minimal UOP noted, and her weight had increased by 4kg since admission --> lasix was increased to 40 IV BID
Volume overload is likely an issue
Encouraged OOB/IS
PT/OT
Diet as per [employer]ER
Assessment
-
88-year-old female recently discharged from hospital 07/18/2024 for norovirus with a history of COPD/pulmonary fibrosis overlap, pulm hypertension, chronic hypoxemia, MAXIM on CPAP, atrial fibrillation and hypertension presented with increasing
shortness of breath, hypoxemia requiring BiPAP-pulmonary consulted for respiratory distress 07/25/2024.
Acute hypoxemic resp failure
Asthma with acute exacerbation
Pneumonia in IDG-qrivrfgij-sdvutskv-aspiration risk
Leukocytosis
Hyperglycemia
Conditions present prior to admission:
Recent hospitalization-discharge 07/18/2024- norovirus
Recent hospitalization-discharged 03/31/2024-heart failure and COPD
Severe pulm hypertension. .
Chronic asthma--followed by Dr. Madison-maintained on Advair 250/50 and Albuterol as needed
IgG deficiency
Recurrent pneumonia-suspected aspiration
Obstructive sleep apnea-on CPAP 9 cm
Pulmonary nodule-history of incidental at [facility] 2016-4 mm right upper lobe, [facility] 4 mm right midlung field nodule 2017, , most recent T no nodule
Osteoporosis.
GERD.
Chronic heart failure preserved EF.
Left-sided vocal cord paralysis.
Atrial fibrillation.
PPM.
Knee surgery.
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
Plan
Respiratory decompensation, likely due to pneumonia-recently hospitalized.
Supplemental oxygen as needed--currently >90% on 3L NC
Noninvasive ventilation/BiPAP as tolerated-was having a difficult time tolerating in the emergency room..
Follow ABG or VBG as needed--7.38/44/137 on 07/25/2024
Aspiration precautions.
Speech therapy following and cleared for IDDSI level 6 diet
DuoNebs QID + budesonide BID + Advair 230mcg
Steroids--weaned on 07/26/2024 dosing to 20 IV BID due to tremors
Mucolytics
Mucus clearing devices including vest therapy if needed
Recommended CPAP as an outpatient-intolerant
CXR w/ extensive R PNA--repeat CXR in AM showing new atelectasis
CT chest from 07/27/2024 showed RML atelectasis with bilateral pleural effusions and RLL pneumonia --> pulmonary toilet is humphrey as well as antibiotics; repeat CT chest in 4 to 6 weeks
Check cultures--neg to date
Sputum culture if able.
Influenza negative.
Covid negative.
RSV negative.
Norovirus + 07/15/24
Follow radiographically.
Empiric antibiotics-ID following
Trend leukocytosis
Now on Doxy + Omnicef s/p Rocephin (07/25 - 07/28/2024)
Monitor for CHF-has a history of
proBNP 2850
Currently on lasix IV 40mg BID --> monitor UOP
Monitor blood sugar with goal >100 and <180
Insulin supplementation as needed.
DVT prophylaxis recommended: HSQ -> change to q8hr dosing
Nutrition with aspiration precautions.
Early mobilization
Patient was last seen by Dr. Madison 07/22/24--will recommend follow-up within 2 weeks after discharge
Diagnostic Data:
Chest x-ray 05/28/2023-hypoaeration without consolidations
Chest x-ray 09/15/2023-small bilateral pleural effusions, basilar atelectasis
Chest x-ray 03/28/2024-moderate cardiomegaly with mild pulm edema
Chest x-ray 07/15/2024-CHF
Chest x-ray 07/25/2024-extensive right perihilar pneumonia
CT chest 03/28/2023-extensive beam artifact from metal hardware, scarring in the right middle lobe, moderate hiatal hernia,
Sniff test in the past-mild right hemidiaphragm elevation. No obvious weakness
PFT 04/02/23-FEV1 990 mL-74%, FVC 1.5-83%, TLC 97%, RV 120%, DLCO 32%, DLCO/VA 56%
Echocardiogram 03/31/2024-EF 50-55%, severe biatrial enlargement, mild mitral regurgitation, PA systolic 88, no change from September 2023
Total time spent today was 37 minutes for this encounter. Time includes reviewing laboratory test/imaging results, reviewing pertinent medical records, obtaining and reviewing medical history, performing an appropriate exam, ordering medications,
tests and procedures. Time also includes documentation of this encounter, coordinating patient care and communicating with other healthcare professionals. Total time does not include separately billed tests performed on this date of service.
Subjective Data
-
Date of Service:
Date of Service: July 28, 2024
Chief Complaint: Pulmonary Follow Up
Subjective:
Patient seen and evaluated this morning. Currently on 3 L/min saturating 88%. Heart rate 70 and BP 130/56. She has no complaints currently. Denies chest pain, WORRELL, abdominal pain, nausea, fevers or chills.
Review of Systems
General: Other (Negative unless mentioned above)
Objective Data
Data Reviewed
Vital Signs / I&O / Oxygen:
Vital Signs
Temp Pulse Resp BP Pulse Ox
97.7 F 106 28 119/71 97
07/28/24 04:23 07/28/24 07:26 07/28/24 07:26 07/28/24 06:02 07/28/24 07:26
Intake and Output
07/27/24 07/28/24 07/29/24
06:59 06:59 06:59
Intake Total 400 / 400
Output Total 300 / 300 1200 / 1200
Balance -300 / -300 -800 / -800
SaO2 97
Nasal Cannula flow liters per 4
minute
Physical Exam
General: Respiratory Distress (n), Comfortable, Chills (n), Sweats (n) and Other (NAD)
HEENT: Normocephalic, Anicteric and Moist Mucous Membranes
Cardiovascular: S1-S2 and Peripheral Edema (n)
Respiratory: Wheeze, Crackles, Rhonchi (n), Non-Labored Respirations and Stridor (n)
GI: Soft, Non Distended and Non Tender
Neurology: Awake, Alert, Oriented, No Motor Deficits and Tremors (n)
Skin: Warm, Dry, Cyanosis (n) and Jaundice (n)
Labs/Micro/Reports
Lab Data
07/28/24 06:00
07/28/24 06:00
Microbiology
07/25/24 15:15 Blood/Venous Blood Culture - Preliminary
No Growth in 48 hours- Final report to follow
07/25/24 15:10 Blood/Venous Blood Culture - Preliminary
No Growth in 48 hours- Final report to follow
07/25/24 15:16 Urine Streptococcus pneumoniae Antigen (M - Final
Negative for Streptococcus pneumoniae antigen.
A negative result does not exclude infection with
Streptococcus pneumoniae. Clinical correlation is
recommended.
07/25/24 15:15 Urine Legionella Urinary Antigen - Final
Negative for Legionella pneumophila Serogroup 1 antigen.
A negative result does not rule out the possiblity of
Legionella infection due to other serogroups or species of
Legionella. Clinical correlation is recommended.
07/25/24 09:25 Nasal Swab Respiratory Syncytial Virus Culture - Final
Negative for Respiratory Syncytial Virus.
A false negative result may be obtained with a specimen
collected early in the acute phase. If symptoms persist, a
new specimen should be tested.
07/25/24 08:58 Nasal Swab Influenza Types A & B (ALE) - Final
Negative for Influenza A & B, NAAT
Negative results must be combined with clinical observations
and patient history.
Nucleic Acid Amplification test (NAAT)performed on the
[employer] game platform platform.
[2024-07-28] MEDS: MIRALAX 17 GRAMS PO (08:19)
[2024-07-28] MEDS: SOLU-MEDROL PF 20 MG IV ×2 (08:20→21:54)
[2024-07-28] MEDS: HEPARIN 5000 UNITS SC ×2 (08:22→20:22)
[2024-07-28] MEDS: VIBRAMYCIN 100 MG PO ×2 (08:23→20:22)
[2024-07-28] MEDS: LASIX 40 MG IV ×2 (08:23→15:52)
[2024-07-28] MEDS: COZAAR 25 MG PO (08:24)
[2024-07-28] MEDS: BUSPAR 10 MG PO ×2 (08:24→20:22)
[2024-07-28] MEDS: VITAMIN D3 (cholecalciferol) 50 MCG PO (08:24)
[2024-07-28] MEDS: CARDIZEM CD 120 MG PO ×2 (08:25→20:22)
[2024-07-28] MEDS: LEXAPRO 20 MG PO (08:25)
[2024-07-28] MEDS: THERAGRAN 1 TABLET PO (08:25)
--- NOTE | 2024-07-28 09:16 | PTCARENOTE ---
Pt AAOx3, took pills whole without incident. Now refusing VSE. to [facility] assist one
--- NOTE | 2024-07-28 09:30 | W.PN.HOSP.TC ---
Today's Communication/Plan
-
IV Lasix. IV steroids. Antibiotics. Cardiology eval
Assessment / Plan
Assessment / Plan
Physical exam:
General: Acute on chronically ill
HEENT: Normocephalic, Atraumatic and Moist Mucous Membranes
Respiratory: Bilateral rhonchi; Negative Wheezes, Rales
Cardiac: Regular Rhythm and S1/S2; systolic murmur
GI: Soft, Nontender and Nondistended
Musculoskeletal: No Clubbing, No Cyanosis and. Bilateral lower extremity edema
Neuro: Awake, Alert and Oriented, no gross neurological deficit
Psych: Calm
CT scan last evening:
Small bilateral pleural effusions. Stable on the left. Not visible by prior chest x-ray on the right
Moderate right lower lobe consolidation probably pneumonia. New
Mild right middle lobe consolidation probably atelectasis. Stable
Mild left lower lobe atelectasis versus scarring. New
A/P:
Acute hypoxic respiratory failure:
Multifactorial etiology, pneumonia, asthma/COPD exacerbation, volume overload, other.
Remains on 4 L of oxygen
Pulmonary following and appreciated consult
On IV diuretics
On IV steroids
Switching antibiotics to oral by ID
Pneumonia:
Switching to Omnicef and doxycycline per ID
Refused VSE study
ID consult appreciated
Acute on chronic diastolic CHF:
On IV Lasix 40 mg twice a day
Monitor ins and outs and daily weight
Last echo on 03/2024 EF 50 to 55% low gradient low output severe aortic stenosis, moderate to severe tricuspid regurgitation, estimated pulmonary artery pressure of 88 mmHg.
COPD/asthma:
Continue IV steroid per pulm, Solu-Medrol 20 mg IV every 12
On Pulmicort twice daily
On DuoNeb 4 times daily
Continue guaifenesin 200 mg 4 times daily
Leukocytosis:
Reactive
Anemia:
Stable
Monitor hemoglobin
Hypertension:
Continue usual meds
Hyperlipidemia:
Continue home statin
Permanent A-fib:
On Cardizem p.o. 120 mg twice a day
Not on anticoagulation
Cardiac valvulopathy:
and TR
Might need to obtain echo we will get cardio eval for further advice
Depression anxiety:
On escitalopram 20 mg p.o. daily
On Buspirone 10 mg p.o. twice a day
On Ambien
DVT prophylaxis:
Heparin SQ
CODE STATUS:
Full code
Total time spent on today's encounter was 52 minutes which included time spent in counseling the patient/family regarding diagnosis and treatment plan as listed above, goals of care, and symptom management. Case was discussed with nursing staff,
specialists, and care coordinators/case management. All labs and imaging personally reviewed by me. Remainder the time spent in detailed review of previous records, lab data, imaging, and other medical provider documentation.
Anticipated Discharge: > 48 hours
Subjective/Interval History
-
Date of Service: July 28, 2024
Patient still has some cough and shortness of breath. She initially agreed to swallowing test but then disagreed. Afebrile
Objective Data
-
Labs:
Laboratory Results
07/28/24
06:00
WBC 19.9 H
Hgb 11.8 L
Hct 36.4 L
Plt Count 307
Sodium 142
Potassium 4.1
Chloride 99
Carbon Dioxide 29
BUN 27 H
Creatinine 0.7
Glucose 126 H
Calcium 9.6
Vital Signs:
Vital Signs
Temp Pulse Resp BP Pulse Ox
98.2 F 72 29 139/59 94
07/28/24 07:20 07/28/24 08:25 07/28/24 08:00 07/28/24 08:25 07/28/24 09:08
I&O
07/27/24 07/28/24 07/29/24
06:59 06:59 06:59
Intake Total 400 / 400
Output Total 300 / 300 1200 / 1200 500 / 500
Balance -300 / -300 -800 / -800 -500 / -500
--- NOTE | 2024-07-28 09:57 | PTCARENOTE ---
Dr Barker notified that pt refused VSE
--- NOTE | 2024-07-28 10:25 | W.PN.ID1 ---
Date of Service
Date of Service: July 28, 2024
Today's Communication
- continue with switched to cefdinir - day 4 10
- continue doxycycline oral day 4 10
- steroids per pulmonary
Assessment / Plan
Community Acquired Pneumonia
Acute hypoxemic respiratory failure
COPD/Pulmonary HTN
- O2 requirement declining
- blood cultures x2
- sputum culture ordered - but not yet produced
- increasing leukocytosis attributed to steroids
- continue with switched to cefdinir - day 4
- continue doxycycline oral day 4
- steroids per pulmonary
- follow fever curve, O2 requirement, clinically
Chief Complaint
-: Pneumonia
Subjective / Review of Systems
afebrile
bp stable
remains on 4L NC, worse bipap overnnight
refused VSE
CT chest 07/27: moderate RLL consolidation - probable pneumonia - new
appears more energetic today
Vital Signs / Physical Exam
Vital Signs
Vital Signs
Temp Pulse Resp BP Pulse Ox
98.2 F 72 29 139/59 94
07/28/24 07:20 07/28/24 08:25 07/28/24 08:00 07/28/24 08:25 07/28/24 09:08
Physical Exam
Constitutional: No Acute Distress and Chronically Ill
Cardiovascular: Regular Rate and S1/S2; Negative Murmur or Rub
Pulmonary: Clear and Symmetric; Negative Wheezes or Rales
Gastrointestinal: Soft, Non Tender, Non Distended and Normal Bowel Sounds
Skin: Warm and Dry; Negative Rash or Jaundice
Objective Data
Lab Data
Lab Results
07/28/24 06:00
07/28/24 06:00
Estimated Creat Clear 44 ml/min 07/28/24 06:00
Total Bilirubin 0.7 mg/dl (0.2-1.3) 07/25/24 08:58
AST 26 U/L (14-36) 07/25/24 08:58
ALT 26 U/L (0-35) 07/25/24 08:58
Alkaline Phosphatase 61 U/L (38-126) 07/25/24 08:58
Most recent labs reviewed.
Micro Results:
07/25/24 15:15 Blood Culture - Preliminary
Blood/Venous No Growth in 48 hours- Final report to follow
07/25/24 15:10 Blood Culture - Preliminary
Blood/Venous No Growth in 48 hours- Final report to follow
07/25/24 15:16 Streptococcus pneumoniae Antigen (M - Final
Urine Negative for Streptococcus pneumoniae antigen.
A negative result does not exclude infection with
Streptococcus pneumoniae. Clinical correlation is
recommended.
07/25/24 15:15 Legionella Urinary Antigen - Final
Urine Negative for Legionella pneumophila Serogroup 1 antigen.
A negative result does not rule out the possiblity of
Legionella infection due to other serogroups or species of
Legionella. Clinical correlation is recommended.
07/25/24 09:25 Respiratory Syncytial Virus Culture - Final
Nasal Swab Negative for Respiratory Syncytial Virus.
A false negative result may be obtained with a specimen
collected early in the acute phase. If symptoms persist, a
new specimen should be tested.
07/25/24 08:58 Influenza Types A & B (ALE) - Final
Nasal Swab Negative for Influenza A & B, NAAT
Negative results must be combined with clinical observations
and patient history.
Nucleic Acid Amplification test (NAAT)performed on the
[employer] platform.
[2024-07-28] MEDS: ROCEPHIN 2000 MG IV (10:43)
[2024-07-28] MEDS: STERILE WATER FOR INJECTION 20 ML IV (10:44)
[2024-07-28] MEDS: ROBITUSSIN PO ×3 (11:56→18:06)
--- NOTE | 2024-07-28 13:50 | PTCARENOTE ---
Transport got here and pt refused to go to E. tried toencourage would not go
--- NOTE | 2024-07-28 15:35 | CON.CAR ---
Addendum entered and electronically signed by Troy Valenzuela MD 07/28/24 17:20:
I saw and examined the patient.
The CYTOGENETIC TECHNOLOGIST's note was reviewed and I agree with the note.
Comment:
Citlalli Hearn is an 88-year-old female (known to Dr. Jose Mata), permanent atrial fibrillation (not on oral anticoagulation), low-flow low gradient , heart block s/p Medtronic pacemaker, HFpEF, asthma/COPD, nocturnal 2L NC who presented with
shortness of breath to on 07/25. Since admission she has been treated for community-acquired pneumonia and asthma exacerbation with antibiotics and steroids. There is concern from speech therapy for possible chronic aspiration and they
recommended video swallow. She was noted to have progressive changes on CXR on 07/27/2024 so she underwent chest CT which noted small bilateral pleural effusions and moderate RLL consolidation consistent with pneumonia. Given that her weight had
increased by 4 kg since admission (though notably her first weights were stretcher weights in the ED) and she had bilateral effusions on chest CT, she was started on IV diuresis. She received 1 dose of IV Lasix 40 mg last night and 2 doses today.
Exam is notable for a frail elderly woman in no distress, rhonchorous breath sounds bilaterally, harsh systolic murmur, no lower extremity edema. Creatinine is now up to 0.7 from 0.4, BUN is up to 27 from 11. proBNP was 2850 on admission (has
ranged from 2269-2914 in the past). Her weight today is 53.9 kg. At discharge from last hospitalization for norovirus, her weight was 54.4 kg. I suspect that her ongoing respiratory failure is due to her pneumonia, asthma exacerbation, and
possible chronic aspiration. I do not think that heart failure is playing a significant role here. Recommend switching diuresis back to p.o. as her BUN is rising and she seems to be at her dry weight. We will update an echocardiogram. For her
low-flow low gradient aortic stenosis, I suspect that she is not a good candidate for valve replacement given her overall frailty and chronic aspiration, but we will touch base with her outpatient nanoelectronics engineer once echocardiogram results. We will
also investigate why she is not on anticoagulation for her permanent atrial fibrillation. Cardiology will continue to follow along with you. Please call with any additional questions or concerns.
Original Note:
Consultation
Consultation Request
Date/Time Consultation Requested: 07/28/2024 15:30
Date/Time Consultation Performed: 07/28/2024 15:45
Requesting Provider: Dr. Barker
Performing Provider: ISMA Harris for Dr. Valenzuela
Reason for Consultation: Acute on chronic HFpEF
Medical History
-
Chief Complaint: Shortness of breath
History of Present Illness:
Citlalli Hearn is an 88-year-old female (known to Dr. Mata, her primary nanoelectronics engineer), permanent atrial fibrillation (not on oral anticoagulation), heart block status post Medtronic pacemaker, HFpEF, HTN, HLD, GERD, PDA repair at age 15, valvular
heart disease, asthma/COPD, nocturnal 2L NC, and MAXIM, presented with shortness of breath. Her shortness of breath started the day of arrival, 07/25/2024. She was also hypoxic on EMS arrival as she was not wearing her supplemental oxygen. She had a
recent admission 07/15/2024 - 07/18/2024 with nausea, vomiting, and diarrhea secondary to the norovirus. She was found to have pneumonia and small bilateral pleural effusions on her chest x-ray. Cardiology was consulted for heart failure management.
Past Medical History
Past Medical History: Arrhythmias (Permanent atrial fibrillation [not on oral anticoagulation]), Asthma, CHF, COPD, GERD, HTN, Hypercholesterolemia and Valvular Disease (Low-flow low gradient aortic stenosis, tricuspid regurgitation)
Past Surgical History: Bowel Resection and Cardiac (PDA repair)
Social History
Tobacco: Non-Smoker
Alcohol: None
Drug: None
Personal:
Living: With Family
Employment: Retired
Family History
Family History: Reviewed & Not Pertinent
Allergies / Home Medications
Allergy/AdvReac Type Severity Reaction Status Date / Time
codeine Allergy Unknown Verified 07/15/24 05:33
latex Allergy Itching Verified 07/15/24 05:33
meperidine HCl [From Demerol] Allergy Unknown Verified 07/15/24 05:33
morphine Allergy Unknown Verified 07/15/24 05:33
Penicillins Allergy Unknown; Verified 07/15/24 05:33
tolerated
ceftriaxone,
cefepime
vancomycin Allergy Unknown Verified 07/15/24 05:33
�Medication �Instructions �Recorded �Confirmed �Type
rosuvastatin 5 mg tablet 5 mg PO MOWEFR High cholesterol 07/29/17 07/25/24 History
diltiazem HCl 120 mg 120 mg PO BID Heart 01/18/21 07/25/24 History
capsule,extended release 24 hr disease/condition
losartan 25 mg tablet 25 mg PO DAILY Blood pressure 01/18/21 07/25/24 History
cholecalciferol (vitamin D3) 50 2,000 units PO DAILY Supplement 03/25/21 07/25/24 History
mcg (2,000 unit) tablet
escitalopram oxalate 20 mg tablet 20 mg PO DAILY Mental 03/25/21 07/25/24 History
Health/Anxiety
ipratropium bromide 42 mcg (0.06 2 spray intranasal BID Allergies 03/25/21 07/25/24 History
%) nasal spray
buspirone 10 mg tablet 10 mg PO BID Mental Health/Anxiety 05/24/23 07/25/24 History
furosemide 40 mg tablet 40 mg PO DAILY Fluid 06/11/23 07/25/24 Rx
retention/Swelling #30 tabs
therapeutic multivitamin 1 tab PO DAILY Supplement 10/19/23 07/25/24 History
albuterol sulfate 90 mcg/actuation 2 puff inhalation R Q6HPRN PRN sob 03/28/24 07/25/24 History
aerosol inhaler
dextran 70-hypromellose eye drops 1 drp BOTH EYES HS Eye Condition 03/28/24 07/25/24 History
in a dropperette (Artificial Tears
(PF) drops in a dropperette)
fluticasone propionate 230 2 puff inhalation R BID #12 grams 03/31/24 07/25/24 Rx
mcg-salmeterol 21 mcg/actuation
HFA inhaler
acetaminophen 325 mg tablet 650 mg PO Q6HPRN PRN mild pain 07/25/24 07/25/24 History
(Tylenol)
zolpidem 5 mg tablet (Ambien) 5 mg PO HS Sleep 07/25/24 07/25/24 History
Review of Systems
-
History Source: Patient
All other systems: Negative unless noted
Constitutional: Fatigue
EENT: No Symptoms
Respiratory: Cough and Trouble Breathing
Cardiac: No Symptoms
Abdomen/GI: No Symptoms
: No Symptoms
Musculoskeletal: No Symptoms
Skin: No Symptoms
Neurological: No Symptoms
Endocrine: No Symptoms
Physical Exam
Vital Signs
Temp Pulse Resp BP Pulse Ox
97.9 F 70 18 121/58 93
07/28/24 11:05 07/28/24 15:26 07/28/24 15:26 07/28/24 12:00 07/28/24 15:26
Lab Results
07/28/24 06:00
07/28/24 06:00
Troponin I 0.015 ng/ml 07/25/24 08:58
Aok-N-Uoshnkqptic Pept 2850 pg/ml 07/25/24 08:58
Physical Exam
General: Well Developed, No Apparent Distress and Comfortable
HEENT: Normocephalic, Anicteric and Moist Mucous Membranes
Respiratory: Crackles and Non Labored Respirations
Cardiac: S1/S2, Regular Rhythm and Murmur; Negative Peripheral Edema
Breast: Deferred by me
GI: Soft, Non Tender, Non Distended and Normal Bowel Sounds
Rectal: Deferred by Provider
Genito-urinary: No Costovertebral Tender
Musculoskeletal: No Clubbing and No Cyanosis
Skin: Warm
Neuro: AO x 3
Hematologic/Lymphatic: No Lymphadenopathy
Psych: Calm
Impression / Plan
-
IMPRESSION/PLAN: 88F with permanent atrial fibrillation (not on oral anticoagulation), heart block status post Medtronic pacemaker, HFpEF, TR, aortic stenosis, HTN, HLD, GERD, PDA repair at age 15, asthma/COPD, nocturnal 2L NC, and MAIXM, presented
with shortness of breath.
Primary nanoelectronics engineer: Dr. Jose Mata, records requested 07/28/2024
Acute on chronic hypoxic respiratory failure, multifactorial
-In the setting of pneumonia, asthma/COPD exacerbation, and acute on chronic HFpEF
-Care as below
HFpEF, chronic
-She appears to be at her dry weight, no lower extremity edema, increasing BUN
-Transition back to furosemide 40 mg daily
-Case management to cab[facility]ero SGLT2i
-Heart failure education
Aortic stenosis, severe
-Severe low-flow low gradient on prior TTE, JENNIFER 0.6 cm
-She does not recall discussing management of this with her primary nanoelectronics engineer
Tricuspid regurgitation, moderate to severe
-Update echocardiogram
Permanent atrial fibrillation
-Rate controlled on diltiazem
-Oral Anticoagulation: None, defer to primary nanoelectronics engineer, prior notes show she was on rivaroxaban in October, - she does not know why this was stopped
-[id number]: score at least 5 (Heart failure, HTN, age 75 or more, female gender)
Dysphagia
-With known left vocal cord paralysis
-She declined video swallow today
COPD/asthma, acute exacerbation, per pulmonary, on intravenous steroids
Hypertension, chronic, stable
Dyslipidemia, on rosuvastatin 5 mg MoWeFr
Medtronic pacemaker
Prior PDA repair, age 15
MAXIM on CPAP
[2024-07-28] MEDS: CRESTOR 5 MG PO (18:08)
[2024-07-28] MEDS: REFRESH EYE DROPS (PF) 1 DROPS OPHTH (20:22)
[2024-07-28] MEDS: AMBIEN 5 MG PO (23:01)
[2024-07-28] MEDS: ROBITUSSIN 200 MG PO (23:01)
[2024-07-29] VITALS (13 sets, daily range): BP systolic 101–145; BP diastolic 36–78; BMI 21.4
--- NOTE | 2024-07-29 02:40 | PTCARENOTE ---
Addendum entered by Pati Morrissey RN 07/29/24 06:05:
Pt refused bipap when offered by respiratory therapist.
Original Note:
Received pt from [facility]. Pt AAOx2, disoriented to time, forgetful. Tremors to B/L upper and lower ext. Vpaced on monitor. Positive pedal pulses. Increased O2 to 6LNC to maintain SaO2>90. SaO2 94 on 6LNC. Lungs with significant rhonchi,
crackles. MOURA, tachypneic, orthopneic. Colostomy bag changed 07/28. Purwick replaced. Preventative sacral/heel foams intact. Plan to continue with PO doxy&cefdinir, IV steroids. Care ongoing.
[2024-07-29] MEDS: TYLENOL 650 MG PO (03:12)
[2024-07-29 05:15] LABS: % Basophils 0.1 % (0-2); % Immature Granulocytes 1.7 % (0-0.5); % Lymphocytes 3.1 % (20.5-51.1); % Monocytes 2.9 % (1.7-9.3); % Neutrophils 92.2 % (42.2-75.2); Absolute Immature Granulocytes 0.2 10^3/uL (0-0.05); Absolute Lymphocytes 0.4 10^3/uL (1.2-3.4); Absolute Monocytes 0.4 10^3/uL (0.1-0.6); Absolute Neutrophils 11.2 10^3/uL (1.4-6.5); Hematocrit 36.3 % (37.0-47.0); Hemoglobin 11.8 g/dL (12.0-16.0); Mean Corp Hgb Conc. 32.5 g/dL (33.0-37.0); Mean Corpuscular Hgb 29.3 pg (27.0-31.0); Mean Corpuscular Volume 90.1 fL (81.0-99.0); Mean Platelet Volume 10.7 fL (7.4-10.4); Nucleated Red Blood Cells % 0 %; Platelet Count 268 10^3/uL (130-400); Red Blood Cell Count 4.03 10^6/uL (4.20-5.40); Red Cell Dist. Width 13.2 % (11.5-14.5); White Blood Cell Count 12.2 10^3/uL (4.8-10.8)
[2024-07-29 05:35] LABS: Blood Urea Nitrogen 26 mg/dl (7-17); Calcium 9.1 mg/dl (8.4-10.2); Carbon Dioxide 37 mmol/L (22-30); Chloride 96 mmol/L (98-107); Estimated Creatinine Clearance 44 ml/min; Glucose 133 mg/dl (70-99); Sodium 141 mmol/L (135-145); eGFR > 60.00
[2024-07-29] MEDS: ADVAIR HFA 230/21 MCG INHALER 2 PUFF INH ×2 (08:02→19:53)
[2024-07-29] MEDS: DUONEB 3 ML INH ×4 (08:02→19:53)
[2024-07-29] MEDS: PULMICORT 0.5 MG INH (08:02)
--- NOTE | 2024-07-29 08:20 | W.PN.CD ---
Today's Communication / Plan
-
npo
cancel echo
I will sign off at the patient request
Impression / Plan
-
IMPRESSION/PLAN: 88F with permanent atrial fibrillation (not on oral anticoagulation), heart block status post Medtronic pacemaker, HFpEF, TR, aortic stenosis, HTN, HLD, GERD, PDA repair at age 15, asthma/COPD, nocturnal 2L NC, and MAXIM, presented
with shortness of breath.
Primary machine silk screen printer: Dr. Jose Mata, records requested 07/28/2024
Acute on chronic hypoxic respiratory failure, multifactorial
-In the setting of pneumonia, asthma/COPD exacerbation, and acute on chronic HFpEF
-She was eatting and appeared to aspirate while I was present --->acute desaturation, increased her oxygen to 10L NL and encourage coughing
-NPO until repeat evaluation by medicine and speech
-Care as below
HFpEF, chronic
-She appears to be at her dry weight, no lower extremity edema, increasing BUN
-Transition back to furosemide 40 mg daily
-Case management to caballero SGLT2i
-Heart failure education
Aortic stenosis, severe
-Severe low-flow low gradient on prior TTE, JENNIFER 0.6 cm
-She does not recall discussing management of this with her primary machine silk screen printer
-offered echo but she doesn't want any further cardiac care, would prefer to follow up with her typical machine silk screen printer.
Tricuspid regurgitation, moderate to severe
Permanent atrial fibrillation
-tele now looks like paced with sinus and very long MO interval
-Rate controlled on diltiazem
-Oral Anticoagulation: None, defer to primary machine silk screen printer, prior notes show she was on rivaroxaban in October, - she does not know why this was stopped
-[id number]: score at least 5 (Heart failure, HTN, age 75 or more, female gender)
Dysphagia
-With known left vocal cord paralysis
-She declined video swallow today
COPD/asthma, acute exacerbation, per pulmonary, on intravenous steroids
Hypertension, chronic, stable
Dyslipidemia, on rosuvastatin 5 mg MoWeFr
Medtronic pacemaker
Prior PDA repair, age 15
MAXIM on CPAP
Sujective:
she was coughing while eating then desaturate--'that was awful' after recovery discussed cardiology plan, 'I want all of that to stop, I already have a machine silk screen printer'
TTE: 03/31/24 CONCLUSIONS
Left ventricular ejection fraction is 50-55% by Dimas's method of discs.
Mild concentric left ventricular hypertrophy.
Enlarged right ventricular size.
Mildly reduced right ventricular systolic function.
Severely biatrial enlargement.
Mild mitral regurgitation.
Low gradient low output severe aortic stenosis. Mean gradient 16 mmHg. JENNIFER 0.6
cms.
Moderate to severe tricuspid regurgitation.
Estimated pulmonary artery pressure of 88 mmHg assuming a right atrial pressure
of 15 mmHg.
No significant change since the prior study of 09/16/3033.
A dobutamine echo could be considered to further evaluate the aortic valve if
clinically indicated.
Physical Exam
Vital Signs/Labs
Vital Signs
Temp Pulse Resp BP Pulse Ox
97.6 F 70 20 134/66 93
07/29/24 04:02 07/29/24 08:05 07/29/24 08:05 07/29/24 06:01 07/29/24 08:05
07/28/24 07/29/24 07/30/24
06:59 06:59 06:59
Actual Weight 53.9 kg 51.4 kg
07/29/24 04:56
07/29/24 04:56
07/25/24
08:58
Bnj-C-Mqwlyxortqa Pept 2850
Physical Exam
Constitutional: No acute distress
Cardiovascular: Rhythm & rate is regular, Pedal edema is absent, JVD pressure is normal and Systolic murmur absent
Respiratory: Wheeze Present, Rhonchi Present and Other (labored effort)
Data Reviewed
-
Date of Service: July 29, 2024
Medical Decision Making: Review of Case with other Provider ([facility] Barb---po until further evaluation, Dr Barker,updated to aspiration event, signing off)
EKG: Other (sinus with v pace long pr)
[2024-07-29] MEDS: LEXAPRO 20 MG PO (08:29)
[2024-07-29] MEDS: ROBITUSSIN PO ×3 (08:29→17:54)
[2024-07-29] MEDS: CARDIZEM CD 120 MG PO ×2 (08:29→21:14)
[2024-07-29] MEDS: OMNICEF 300 MG PO ×2 (08:29→21:14)
[2024-07-29] MEDS: VITAMIN D3 (cholecalciferol) 50 MCG PO (08:29)
[2024-07-29] MEDS: VIBRAMYCIN 100 MG PO ×2 (08:29→21:13)
--- NOTE | 2024-07-29 08:29 | W.PN.HOSP.TC ---
Addendum entered and electronically signed by Remy Barker MD 07/29/24 14:39:
Severe sepsis, POA
Original Note:
Today's Communication/Plan
-
VSE. Antibiotics. Steroids
Assessment / Plan
Assessment / Plan
Physical exam:
General: Acute on chronically ill
HEENT: Normocephalic, Atraumatic and Moist Mucous Membranes
Respiratory: Bilateral rhonchi; Negative Wheezes, Rales
Cardiac: Regular Rhythm and S1/S2; systolic murmur
GI: Soft, Nontender and Nondistended
Musculoskeletal: No Clubbing, No Cyanosis and. Bilateral lower extremity edema
Neuro: Awake, Alert and Oriented, no gross neurological deficit
Psych: Calm
CT scan last evening:
Small bilateral pleural effusions. Stable on the left. Not visible by prior chest x-ray on the right
Moderate right lower lobe consolidation probably pneumonia. New
Mild right middle lobe consolidation probably atelectasis. Stable
Mild left lower lobe atelectasis versus scarring. New
A/P:
Acute hypoxic respiratory failure:
Multifactorial etiology, pneumonia, asthma/COPD exacerbation, volume overload, other.
Remains on 4 L of oxygen
Pulmonary following and appreciated consult
On IV diuretics--> switched to oral diuretics per cardiology. Cardiology consult appreciated
On IV steroids
Switching antibiotics to oral by ID
Will discuss with family-will give them a call today
Pneumonia:
Switching to Omnicef and doxycycline per ID
Refused VSE study--> she agreed to VSE today and after testing speech therapy recommended IDDSI level 6 diet
ID consult appreciated--> discussed with ID today
Acute on chronic diastolic CHF:
On IV Lasix 40 mg twice a day--> switch to oral
Monitor ins and outs and daily weight
Last echo on 03/2024 EF 50 to 55% low gradient low output severe aortic stenosis, moderate to severe tricuspid regurgitation, estimated pulmonary artery pressure of 88 mmHg.
COPD/asthma:
Continue IV steroid per pulm, Solu-Medrol 20 mg IV every 12
On Pulmicort twice daily
On DuoNeb 4 times daily
Continue guaifenesin 200 mg 4 times daily
Leukocytosis:
Reactive
Anemia:
Stable
Monitor hemoglobin
Hypertension:
Continue usual meds
Hyperlipidemia:
Continue home statin
Permanent A-fib:
On Cardizem p.o. 120 mg twice a day
Not on anticoagulation as outpatient--> discussed with cardiology today they would like to defer to outpatient blood donor unit assistant.
Cardiac valvulopathy:
and TR
Might need to obtain echo we will get cardio eval for further advice
Depression anxiety:
On escitalopram 20 mg p.o. daily
On Buspirone 10 mg p.o. twice a day
On Ambien
DVT prophylaxis:
Heparin SQ
CODE STATUS:
Full code
Total time spent on today's encounter was 52 minutes which included time spent in counseling the patient/family regarding diagnosis and treatment plan as listed above, goals of care, and symptom management. Case was discussed with nursing staff,
specialists, and care coordinators/case management. All labs and imaging personally reviewed by me. Remainder the time spent in detailed review of previous records, lab data, imaging, and other medical provider documentation.
Anticipated Discharge: 24 - 48 hours
Subjective/Interval History
-
Date of Service: July 29, 2024
Patient having some aspiration issues. After refusing video swallowing multiple times I went back and convince her.
Objective Data
-
Labs:
Laboratory Results
07/29/24
04:56
WBC 12.2 H
Hgb 11.8 L
Hct 36.3 L
Plt Count 268
Sodium 141
Potassium 4.0
Chloride 96 L
Carbon Dioxide 37 H
BUN 26 H
Creatinine 0.7
Glucose 133 H
Calcium 9.1
Vital Signs:
Vital Signs
Temp Pulse Resp BP Pulse Ox
97.6 F 70 20 134/66 93
07/29/24 04:02 07/29/24 08:05 07/29/24 08:05 07/29/24 06:01 07/29/24 08:05
I&O
07/28/24 07/29/24 07/30/24
06:59 06:59 06:59
Intake Total 400 / 400
Output Total 1200 / 1200 1500 / 1500
Balance -800 / -800 -1500 / -1500
[2024-07-29] MEDS: SOLU-MEDROL PF 20 MG IV ×2 (08:30→21:16)
[2024-07-29] MEDS: THERAGRAN 1 TABLET PO (08:30)
[2024-07-29] MEDS: BUSPAR 10 MG PO ×2 (08:30→21:14)
[2024-07-29] MEDS: COZAAR 25 MG PO (08:30)
[2024-07-29] MEDS: MIRALAX PO (08:30)
[2024-07-29] MEDS: LASIX 40 MG PO (08:30)
[2024-07-29] MEDS: HEPARIN 5000 UNITS SC ×2 (08:30→21:15)
--- NOTE | 2024-07-29 09:10 | W.PN.PUL3 ---
Today's Communication / Plan
-
Pulmonary toilet with aspiration precautions
Continue with systemic steroids and monitor for tremors
DuoNebs and Advair; budesonide DC'd
Mucinex
May need vest therapy if still having difficulty with expectoration
Will need repeat CT chest in at least 4 to 6 weeks to follow-up pneumonia resolution
If RML atelectasis persists then may benefit from bronchoscopy
Repeat CXR tomorrow AM
Previously she had minimal UOP noted, and her weight had increased by 4kg since admission --> lasix was increased to 40 IV BID
Volume overload is likely an issue although improving --> still with bilateral rales
Encouraged OOB/IS
PT/OT
Diet as per [employer]
Assessment
-
88-year-old female recently discharged from hospital 07/18/2024 for norovirus with a history of COPD/pulmonary fibrosis overlap, pulm hypertension, chronic hypoxemia, MAXIM on CPAP, atrial fibrillation and hypertension presented with increasing
shortness of breath, hypoxemia requiring BiPAP-pulmonary consulted for respiratory distress 07/25/2024.
Acute hypoxemic resp failure
Asthma with acute exacerbation
Pneumonia in ZAG-[id number]-aspiration risk
Leukocytosis
Hyperglycemia - now resolved
Conditions present prior to admission:
Recent hospitalization-discharge 07/18/2024- norovirus
Recent hospitalization-discharged 03/31/2024-heart failure and COPD
Severe pulm hypertension. .
Chronic asthma--followed by Dr. Madison-maintained on Advair 250/50 and Albuterol as needed
IgG deficiency
Recurrent pneumonia-suspected aspiration
Obstructive sleep apnea-on CPAP 9 cm
Pulmonary nodule-history of incidental at [facility] 2016-4 mm right upper lobe, [facility] 4 mm right midlung field nodule 2018, , most recent T no nodule
Osteoporosis.
GERD.
Chronic heart failure preserved EF.
Left-sided vocal cord paralysis.
Atrial fibrillation.
PPM.
Knee surgery.
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
Plan
Respiratory decompensation likely due to pneumonia-recently hospitalized.
Supplemental oxygen as needed--currently >90% on 6L NC, was on 3L/min yesterday
Noninvasive ventilation/BiPAP as tolerated-was having a difficult time tolerating in the emergency room..
Follow ABG or VBG as needed--7.38/44/137 on 07/25/2024
Aspiration precautions.
Speech therapy following and cleared for IDDSI level 6 diet
DuoNebs QID + budesonide BID + Advair 230mcg --> no need for pulmicort and Advair --> will stop budesonide now
Steroids--weaned on 07/26/2024 dosing to 20 IV BID due to tremors
Mucolytics
Mucus clearing devices including vest therapy if needed
Recommended CPAP as an outpatient-intolerant
CXR w/ extensive R PNA--repeat CXR in AM showing new atelectasis
CT chest from 07/27/2024 showed RML atelectasis with bilateral pleural effusions and RLL pneumonia --> pulmonary toilet is humphrey as well as antibiotics; repeat CT chest in 4 to 6 weeks
Check cultures--neg to date
Sputum culture if able.
Influenza negative.
Covid negative.
RSV negative.
Norovirus + 07/15/24
Follow radiographically.
Empiric antibiotics-ID following
Trend leukocytosis
Now on Doxy + Omnicef s/p Rocephin (07/25 - 07/28/2024)
Monitor for CHF-has a history of
proBNP 2850
Currently on PO lasix s/p 40mg IV BID (07/27 - 07/28/2024) --> monitor UOP
Monitor blood sugar with goal >100 and <180
Insulin supplementation as needed
DVT prophylaxis recommended: HSQ -> change to q8hr dosing
Nutrition with aspiration precautions.
Early mobilization
Patient was last seen by Dr. Madison 07/22/24--will recommend follow-up within 2 weeks after discharge
Patient's daughter, Heidi, was updated at bedside and all questions were answered
Diagnostic Data:
Chest x-ray 05/28/2023-hypoaeration without consolidations
Chest x-ray 09/15/2023-small bilateral pleural effusions, basilar atelectasis
Chest x-ray 03/28/2024-moderate cardiomegaly with mild pulm edema
Chest x-ray 07/15/2024-CHF
Chest x-ray 07/25/2024-extensive right perihilar pneumonia
CT chest 03/28/2023-extensive beam artifact from metal hardware, scarring in the right middle lobe, moderate hiatal hernia,
Sniff test in the past-mild right hemidiaphragm elevation. No obvious weakness
PFT 04/02/23-FEV1 990 mL-74%, FVC 1.5-83%, TLC 97%, RV 120%, DLCO 32%, DLCO/VA 56%
Echocardiogram 03/31/2024-EF 50-55%, severe biatrial enlargement, mild mitral regurgitation, PA systolic 88, no change from September 2023
Total time spent today was 36 minutes for this encounter. Time includes reviewing laboratory test/imaging results, reviewing pertinent medical records, obtaining and reviewing medical history, performing an appropriate exam, ordering medications,
tests and procedures. Time also includes documentation of this encounter, coordinating patient care and communicating with other healthcare professionals. Total time does not include separately billed tests performed on this date of service.
Subjective Data
-
Date of Service:
Date of Service: July 29, 2024
Chief Complaint: Pulmonary Follow Up
Subjective:
Patient seen and evaluated today at bedside. Heidi, patient's daughter, at bedside. Patient currently on 6 L/min saturating 94%, heart rate 71 and BP 106/54. Patient is confused but denies shortness of breath, cough or chest pain. She wants to
know when she can go home.
Review of Systems
General: Other (Unable to obtain given patient's acute clinical status/confusion)
Objective Data
Data Reviewed
Vital Signs / I&O / Oxygen:
Vital Signs
Temp Pulse Resp BP Pulse Ox
97.8 F 71 20 145/67 93
07/29/24 07:05 07/29/24 08:29 07/29/24 08:05 07/29/24 08:29 07/29/24 08:05
Intake and Output
07/28/24 07/29/24 07/30/24
06:59 06:59 06:59
Intake Total 400 / 400
Output Total 1200 / 1200 1500 / 1500
Balance -800 / -800 -1500 / -1500
SaO2 93
Nasal Cannula flow liters per 6
minute
Physical Exam
General: Respiratory Distress (n), Comfortable, Chills (n), Sweats (n) and Other (NAD)
HEENT: Normocephalic, Anicteric and Moist Mucous Membranes
Cardiovascular: S1-S2 and Peripheral Edema (n)
Respiratory: Wheeze (negative), Crackles (Bilateral), Rhonchi (n), Non-Labored Respirations and Stridor (n)
GI: Soft, Non Distended, Non Tender and Normal Bowel Sounds
Neurology: Awake, Alert and Tremors (n)
Skin: Warm, Dry, Cyanosis (n) and Jaundice (n)
Labs/Micro/Reports
Lab Data
07/29/24 04:56
07/29/24 04:56
Microbiology
07/25/24 15:15 Blood/Venous Blood Culture - Preliminary
No Growth in 72 hours- Final report to follow
07/25/24 15:10 Blood/Venous Blood Culture - Preliminary
No Growth in 72 hours- Final report to follow
--- NOTE | 2024-07-29 09:15 | CM ---
CM: following re: discharge planning.
Reviewed pt's chart, met with pt.
Donohue checked with [facility] pharmacist for following medications:
Eliquis 2.5 mg BID: 30 days supply - $146.35
Farxiga 10 mg Daily-: 30 days supply - $144.76
Jardiance 10 mg Daily - $151.83
PT and OT will evaluate the pt to determine a level of care at discharge.
D/C plan: will depend on PT/OT evaluations and recommendations.
CM will follow with discharge plan updates as hospitalization progresses
--- NOTE | 2024-07-29 09:17 | W.PN.ID1 ---
Date of Service
Date of Service: July 29, 2024
Today's Communication
- note that most acute aspiration events do not progress to pneumonia; no change in current antibiotic plan at this time
- prognosis guarded with recurrent aspiration, would consider goals of care conversations and considering CODE status
Assessment / Plan
Community Acquired Pneumonia
Acute hypoxemic respiratory failure
COPD/Pulmonary HTN
Severe
- cardiology witnessed aspiration event this am with acute desaturation
- refusing VSE
- note that most acute aspiration events do not progress to pneumonia; no change in current antibiotic plan at this time
- blood cultures x2 remain no growth to date
- could not produce a sputum
- continue with switched to cefdinir - day 5 of 10
- continue doxycycline oral day 5 10
- steroids per pulmonary
- follow fever curve, O2 requirement, clinically
- prognosis guarded with recurrent aspiration, would consider goals of care conversations and considering CODE status; high likelihood of recurrent aspiration events
Chief Complaint
-: Pneumonia
Subjective / Review of Systems
afebrile
small increase in O2 requirements overnight
refused bipap
cardiology witnessed aspiration event this am with acute desaturation; she doesnt recall the event and is demanding breakfast
no other events overnight
Vital Signs / Physical Exam
Vital Signs
Vital Signs
Temp Pulse Resp BP Pulse Ox
97.6 F 71 20 145/67 93
07/29/24 04:02 07/29/24 08:29 07/29/24 08:05 07/29/24 08:29 07/29/24 08:05
Physical Exam
Constitutional: No Acute Distress
Cardiovascular: Regular Rate and S1/S2; Negative Murmur or Rub
Pulmonary: Symmetric, Coarse and Non Labored; Negative Wheezes or Rales
Gastrointestinal: Soft, Non Tender, Non Distended and Normal Bowel Sounds
Skin: Warm and Dry; Negative Rash or Jaundice
Objective Data
Lab Data
Lab Results
07/29/24 04:56
07/29/24 04:56
Estimated Creat Clear 44 ml/min 07/29/24 04:56
Total Bilirubin 0.7 mg/dl (0.2-1.3) 07/25/24 08:58
AST 26 U/L (14-36) 07/25/24 08:58
ALT 26 U/L (0-35) 07/25/24 08:58
Alkaline Phosphatase 61 U/L (38-126) 07/25/24 08:58
Most recent labs reviewed.
Micro Results:
07/25/24 15:15 Blood Culture - Preliminary
Blood/Venous No Growth in 72 hours- Final report to follow
07/25/24 15:10 Blood Culture - Preliminary
Blood/Venous No Growth in 72 hours- Final report to follow
07/25/24 15:16 Streptococcus pneumoniae Antigen (M - Final
Urine Negative for Streptococcus pneumoniae antigen.
A negative result does not exclude infection with
Streptococcus pneumoniae. Clinical correlation is
recommended.
07/25/24 15:15 Legionella Urinary Antigen - Final
Urine Negative for Legionella pneumophila Serogroup 1 antigen.
A negative result does not rule out the possiblity of
Legionella infection due to other serogroups or species of
Legionella. Clinical correlation is recommended.
07/25/24 09:25 Respiratory Syncytial Virus Culture - Final
Nasal Swab Negative for Respiratory Syncytial Virus.
A false negative result may be obtained with a specimen
collected early in the acute phase. If symptoms persist, a
new specimen should be tested.
07/25/24 08:58 Influenza Types A & B (ALE) - Final
Nasal Swab Negative for Influenza A & B, NAAT
Negative results must be combined with clinical observations
and patient history.
Nucleic Acid Amplification test (NAAT)performed on the
[employer] platform.
--- NOTE | 2024-07-29 09:22 | PTCARENOTE ---
Addendum entered by Barb Werner RN 07/29/24 09:35:
Correction: patient was on 5l n/c on initial assessment; currently on 4L n/c.
Original Note:
Assumed care of patient at beginning of this shift from previous RN on 2L n/c with POx initially 95%. Patient able to take po meds whole in applesauce as per ST instructions. Patient then took a sip of prune juice and began coughing; POx dropped to
83%. Dr Ibanez in room and increased O2 to 10L n/c. Patient eventually recovered but did state she could feel herself choke. O2 currently at 4L n/c with POx 93-94%. This nurse spoke with Henna WANG who will see patient this morning. Patient's
daughter called and updated.
--- NOTE | 2024-07-29 09:39 | PTCARENOTE ---
Patient was very angry that she could not eat. This nurse explained safety issues and risk of aspiration. Dr Barker also spoke with patient; she is now agreeable to video swallow.
--- NOTE | 2024-07-29 11:00 | PTOTSP ---
Speech Language Pathology
VIDEOFLUOROSCOPIC SWALLOWING EXAMINATION (VSE) completed. Overall, pt with mild oral and mod-severe pharyngeal dysphagia. Pt with poor airway protection with penetration/aspiration frequently noted. Swallow function is significantly worse than
noted on VSE completed in September 2023.
Recommend:
(1) IDDSI Level 6 (soft/bite-sized) and thin liquids via cup only with head turn to L. If pt unable to consistently follow strategy for head turn with liquids, aspiration likely.
(2) Aspiration precautions: liquids via cup only with head turn L, sit upright, slow rate
(3) Meds whole in puree
(4) COUNTRY PRINTER to continue to follow
--- NOTE | 2024-07-29 13:47 | PN.CDI ---
CDI
- -
CDI:
Physician Documentation Request
Admit Date: 07/25/24 13:50
Dear Doctor Lucero,
Patient admitted with acute hypoxic respiratory failure.
07/28 PN, 'Pneumonia: Switching to Omnicef and doxycycline per ID.'
On admission, WBC 12.6 and RR >20.
Please clarify which of the following most accurately describes the status of the patient's infection:
Severe sepsis, POA
Sepsis , POA
Pneumonia only
Other
Sepsis
- Systemic manifestations of infection, with 2 or more SIRS criteria which include:
- Fever >100.4 degrees F or hypothermia < 96.8 degrees F
- Leukocytosis - WBC > 12,000 or leukopenia - WBC < 4,000 or > 10% bands
- Tachycardia > 90 beats per minute
- Tachypnea - RR > 20 breaths per minute or PaCO2 , 32mmHg
Source: Merck Manual 2013
- Indicate the known or suspected organism
- Indicate the known or suspected underlying infection, such as pneumonia
Severe Sepsis
- Sepsis with associated acute organ dysfunction, such as renal or respiratory failure
- Documentation should indicate the association between the sepsis and the organ dysfunction
Localized Infection Only, Without Systemic Illness
- indicate the site/source, such pneumonia
Other
Use of terms such as suspected, likely, concern for, or probable (associated with a specific diagnosis that is being evaluated, monitored, or treated as if it exists) are acceptable and can be coded in the inpatient setting, when documented at the
time of discharge.
Thank you,
Sara REN,RN,CCDS
CDI Specialist
Available via tiger text
Please use your independent medical judgment in providing your response.
[2024-07-29] MEDS: REFRESH EYE DROPS (PF) 1 DROPS OPHTH (21:13)
[2024-07-29] MEDS: AMBIEN 5 MG PO (22:14)
[2024-07-29] MEDS: ROBITUSSIN 200 MG PO (22:14)
--- NOTE | 2024-07-29 23:04 | PTCARENOTE ---
Pt received from previous RN. Pt AAOx2. forgetful at times, often ask the same questions/ needs reminding of situation. Using call light to express needs to RN. V paced on monitor. Satting 96% on 5L. took HS pills with apple sauce one at a time. pt
sat all the way up and instructed to tuck chin when swallowing. Assessment as documented. Safe environment maintained.
[2024-07-30] VITALS (13 sets, daily range): BP systolic 87–145; BP diastolic 58–76; BMI 21.8; BMI 22.2
[2024-07-30] MEDS: CHLORASEPTIC/SORE THROAT SPRAY 1 SPRAY PO ×3 (02:03→22:52)
[2024-07-30 06:10] LABS: % Basophils 0.4 % (0-2); % Eosinophils 0.1 % (0-6); % Immature Granulocytes 1.9 % (0-0.5); % Monocytes 3.2 % (1.7-9.3); % Neutrophils 90.4 % (42.2-75.2); Absolute Immature Granulocytes 0.2 10^3/uL (0-0.05); Absolute Lymphocytes 0.4 10^3/uL (1.2-3.4); Absolute Monocytes 0.4 10^3/uL (0.1-0.6); Hemoglobin 12.8 g/dL (12.0-16.0); Mean Corp Hgb Conc. 32.8 g/dL (33.0-37.0); Mean Corpuscular Hgb 29.6 pg (27.0-31.0); Mean Corpuscular Volume 90.1 fL (81.0-99.0); Nucleated Red Blood Cells % 0 %; Platelet Count 183 10^3/uL (130-400); Red Blood Cell Count 4.33 10^6/uL (4.20-5.40)
[2024-07-30 06:13] LABS: Blood Urea Nitrogen 32 mg/dl (7-17); Carbon Dioxide 35 mmol/L (22-30); Chloride 96 mmol/L (98-107); Estimated Creatinine Clearance 51 ml/min; Glucose 136 mg/dl (70-99); Potassium 4.4 mmol/L (3.5-5.1); Sodium 140 mmol/L (135-145); eGFR > 60.00
[2024-07-30] MEDS: DUONEB 3 ML INH ×4 (07:27→19:57)
[2024-07-30] MEDS: ADVAIR HFA 230/21 MCG INHALER 2 PUFF INH ×2 (07:27→19:57)
[2024-07-30] MEDS: MIRALAX 17 GRAMS PO (08:38)
[2024-07-30] MEDS: LEXAPRO 20 MG PO (08:39)
[2024-07-30] MEDS: COZAAR 25 MG PO (08:39)
[2024-07-30] MEDS: THERAGRAN 1 TABLET PO (08:40)
[2024-07-30] MEDS: ROBITUSSIN 200 MG PO ×3 (08:40→22:51)
[2024-07-30] MEDS: BUSPAR 10 MG PO ×2 (08:40→21:31)
[2024-07-30] MEDS: VIBRAMYCIN 100 MG PO ×2 (08:40→21:32)
[2024-07-30] MEDS: OMNICEF 300 MG PO ×2 (08:40→21:31)
[2024-07-30] MEDS: SOLU-MEDROL PF 20 MG IV (08:40)
[2024-07-30] MEDS: VITAMIN D3 (cholecalciferol) 50 MCG PO (08:40)
[2024-07-30] MEDS: HEPARIN 5000 UNITS SC ×2 (08:40→21:30)
[2024-07-30] MEDS: LASIX 40 MG PO (08:40)
[2024-07-30] MEDS: CARDIZEM CD 120 MG PO ×2 (08:40→21:31)
--- NOTE | 2024-07-30 08:57 | WOUNDNOTE ---
WOC RN note: Spoke with JENSEN Day who stated patient is not having colostomy leakage problem. Called [facility] and ordered a colostomy change kit. Nursing care assist patient with routine pouch changes. JENSEN Day agreed no need for WOC RN consult and will
contact this ghost writer if leakage becomes a problem.
--- NOTE | 2024-07-30 09:48 | W.PN.PUL3 ---
Today's Communication / Plan
-
Pulmonary toilet with aspiration precautions
Continue with systemic steroids and monitor for tremors --> tomorrow changed to prednisone starting at 40 mg and reduce by 10 mg every 50 until off
DuoNebs and Advair; budesonide DC'd yesterday
Mucinex
May need vest therapy if still having difficulty with expectoration
Will need repeat CT chest in at least 4 to 6 weeks to follow-up pneumonia resolution
Right basilar atelectasis has improved per CXR this morning, hence no need for bronchoscopy at this time
Previously she had minimal UOP noted, and her weight had increased by 4kg since admission --> lasix was increased to 40 IV BID and now on PO lasix
Encouraged OOB/IS
PT/OT
Diet as per [facility] DIRECTOR
We will arrange for outpatient office follow-up
Patient is improving with also improving CXR from this morning. Continues to decrease supplemental oxygen as tolerated and check ambulatory pulse oximetry prior to discharge. Change steroids to prednisone tomorrow and taper as above. No
additional recommendations at this time. Pulmonary service will now sign off. Please reconsult if there are any additional questions/concerns, or if patient's respiratory status deteriorates.
Assessment
-
88-year-old female recently discharged from hospital 07/18/2024 for norovirus with a history of COPD/pulmonary fibrosis overlap, pulm hypertension, chronic hypoxemia, MAXIM on CPAP, atrial fibrillation and hypertension presented with increasing
shortness of breath, hypoxemia requiring BiPAP-pulmonary consulted for respiratory distress 07/25/2024.
Acute hypoxemic resp failure
Asthma with acute exacerbation
Pneumonia in JFV-rflxmdogy-[id number]-aspiration risk
Leukocytosis
Hyperglycemia - now resolved
Conditions present prior to admission:
Recent hospitalization-discharge 07/18/2024- norovirus
Recent hospitalization-discharged 03/31/2024-heart failure and COPD
Severe pulm hypertension. .
Chronic asthma--followed by Dr. Madison-maintained on Advair 250/50 and Albuterol as needed
IgG deficiency
Recurrent pneumonia-suspected aspiration
Obstructive sleep apnea-on CPAP 9 cm
Pulmonary nodule-history of incidental at [facility] 2016-4 mm right upper lobe, [facility] 4 mm right midlung field nodule 2018, , most recent T no nodule
Osteoporosis.
GERD.
Chronic heart failure preserved EF.
Left-sided vocal cord paralysis.
Atrial fibrillation.
PPM.
Knee surgery.
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
Plan
Respiratory decompensation likely due to pneumonia in setting if asthma flare
Supplemental oxygen as needed--currently on 4L/min, was on 6L NC yesterday, and on 3L/min on 07/28
Noninvasive ventilation/BiPAP as tolerated-was having a difficult time tolerating in the emergency room..
Follow ABG or VBG as needed--7.38/44/137 on 07/25/2024
Aspiration precautions.
Speech therapy following and cleared for IDDSI level 6 diet
DuoNebs QID + budesonide BID + Advair 230mcg --> no need for pulmicort and Advair --> stopped budesonide on 07/29
Steroids--weaned on 07/26/2024 dosing to 20 IV BID due to tremors --> tomorrow change to prednisone starting at 40mg and reduce by 10mg every 5th day until off
Mucolytics
Mucus clearing devices including vest therapy if needed
Recommended CPAP as an outpatient-intolerant
CXR w/ extensive R PNA--repeat CXR this AM shows improving right basilar opacification likely due to resolving pneumonia
CT chest from 07/27/2024 showed RML atelectasis with bilateral pleural effusions and RLL pneumonia --> pulmonary toilet is humphrey as well as antibiotics; repeat CT chest in 4 to 6 weeks
Check cultures--neg to date
Sputum culture if able.
Influenza negative.
Covid negative.
RSV negative.
Norovirus + 07/15/24
Urine antigens for legionella and Strep both negative
Follow radiographically.
Empiric antibiotics-ID following
Trend leukocytosis
Now on Doxy + Omnicef s/p Rocephin (07/25 - 07/28/2024)
Monitor for CHF-has a history of
proBNP 2850
Currently on PO lasix s/p 40mg IV BID (07/27 - 07/28/2024) --> monitor UOP
Monitor blood sugar with goal >100 and <180
Insulin supplementation as needed
DVT prophylaxis recommended: HSQ -> change to q8hr dosing
Nutrition with aspiration precautions.
Early mobilization
Recommend PT/OT
Patient was last seen by Dr. Madison 07/22/24--will recommend follow-up within 2 weeks after discharge
I updated the patient's , Rich and answered all of his questions.
Patient is improving with also improving CXR from this morning. Continues to decrease supplemental oxygen as tolerated and check ambulatory pulse oximetry prior to discharge. Change steroids to prednisone tomorrow and taper as above. No
additional recommendations at this time. Pulmonary service will now sign off. Thank you for allowing us to be involved in the care of this patient. Please reconsult if there are any additional questions/concerns, or if patient's respiratory
status deteriorates.
Diagnostic Data:
Chest x-ray 05/28/2023-hypoaeration without consolidations
Chest x-ray 09/15/2023-small bilateral pleural effusions, basilar atelectasis
Chest x-ray 03/28/2024-moderate cardiomegaly with mild pulm edema
Chest x-ray 07/15/2024-CHF
Chest x-ray 07/25/2024-extensive right perihilar pneumonia
CT chest 03/28/2023-extensive beam artifact from metal hardware, scarring in the right middle lobe, moderate hiatal hernia,
Sniff test in the past-mild right hemidiaphragm elevation. No obvious weakness
PFT 04/02/23-FEV1 990 mL-74%, FVC 1.5-83%, TLC 97%, RV 120%, DLCO 32%, DLCO/VA 56%
Echocardiogram 03/31/2024-EF 50-55%, severe biatrial enlargement, mild mitral regurgitation, PA systolic 88, no change from September 2023
Total time spent today was 39 minutes for this encounter. Time includes reviewing laboratory test/imaging results, reviewing pertinent medical records, obtaining and reviewing medical history, performing an appropriate exam, ordering medications,
tests and procedures. Time also includes documentation of this encounter, coordinating patient care and communicating with other healthcare professionals. Total time does not include separately billed tests performed on this date of service.
Subjective Data
-
Date of Service:
Date of Service: July 30, 2024
Chief Complaint: Pulmonary Follow Up
Subjective:
Patient seen this morning. , Shant, at bedside. Patient currently on 4 L/min and saturating 95% with heart rate 71 and BP 123/64. She has a mild cough. Sitting in chair in no acute distress and no shortness of breath reported.
Review of Systems
General: Other (Unable to obtain due to poor historian)
Objective Data
Data Reviewed
Vital Signs / I&O / Oxygen:
Vital Signs
Temp Pulse Resp BP Pulse Ox
97.9 F 70 24 137/70 96
07/30/24 11:13 07/30/24 11:22 07/30/24 11:22 07/30/24 10:01 07/30/24 11:22
Intake and Output
07/29/24 07/30/24 07/31/24
06:59 06:59 06:59
Output Total 1500 / 1500 500 / 500
Balance -1500 / -1500 -500 / -500
SaO2 96
Nasal Cannula flow liters per 5
minute
Physical Exam
General: Respiratory Distress (n), Comfortable, Chills (n), Sweats (n) and Other (NAD)
HEENT: Normocephalic, Anicteric and Moist Mucous Membranes
Cardiovascular: S1-S2 and Peripheral Edema (n)
Respiratory: Wheeze (negative), Crackles (Bilateral mainly in posterior lung ontiveros), Rhonchi (n), Non-Labored Respirations, Stridor (n) and Other (Diminished breath sounds bilaterally)
GI: Soft, Non Distended, Non Tender and Normal Bowel Sounds
Neurology: Awake, Alert and Tremors (n)
Skin: Warm, Dry, Cyanosis (n) and Jaundice (n)
Labs/Micro/Reports
Lab Data
07/30/24 05:30
07/30/24 05:30
Microbiology
07/25/24 15:15 Blood/Venous Blood Culture - Preliminary
No Growth in 4 days- Final report to follow
07/25/24 15:10 Blood/Venous Blood Culture - Preliminary
No Growth in 4 days- Final report to follow
--- NOTE | 2024-07-30 09:49 | W.PN.HOSP.TC ---
Today's Communication/Plan
-
Antibiotics. Oxygen. Steroids. PT OT
Assessment / Plan
Assessment / Plan
Physical exam:
General: Acute on chronically ill
HEENT: Normocephalic, Atraumatic and Moist Mucous Membranes
Respiratory: Bilateral rhonchi; Negative Wheezes, Rales
Cardiac: Regular Rhythm and S1/S2; systolic murmur
GI: Soft, Nontender and Nondistended
Musculoskeletal: No Clubbing, No Cyanosis and. Bilateral lower extremity edema
Neuro: Awake, Alert and Oriented, no gross neurological deficit
Psych: Calm
CT scan last evening:
Small bilateral pleural effusions. Stable on the left. Not visible by prior chest x-ray on the right
Moderate right lower lobe consolidation probably pneumonia. New
Mild right middle lobe consolidation probably atelectasis. Stable
Mild left lower lobe atelectasis versus scarring. New
A/P:
Acute hypoxic respiratory failure:
Multifactorial etiology, pneumonia, asthma/COPD exacerbation, volume overload, other. Main contributor aspiration pneumonia.
Remains on supplemental oxygen
Pulmonary following and appreciated consult
On IV diuretics--> switched to oral diuretics per cardiology. Cardiology consult appreciated
On IV steroids--> will switch to oral
Switching antibiotics to oral by ID
Tried reach yesterday and today and also daughter without success
Pneumonia:
Switching to Omnicef and doxycycline per ID
She agreed to VSE yesterday and after testing speech therapy recommended IDDSI level 6 diet
ID consult appreciated
Acute on chronic diastolic CHF:
On IV Lasix 40 mg twice a day--> switched to oral
Monitor ins and outs and daily weight
Last echo on 03/2024 EF 50 to 55% low gradient low output severe aortic stenosis, moderate to severe tricuspid regurgitation, estimated pulmonary artery pressure of 88 mmHg.
COPD/asthma:
Continue IV steroid per pulm, Solu-Medrol 20 mg IV every 12-> switch to oral prednisone
On Pulmicort twice daily
On DuoNeb 4 times daily
Continue guaifenesin 200 mg 4 times daily
Leukocytosis:
Reactive
Anemia:
Stable
Monitor hemoglobin
Hypertension:
Continue usual meds
Hyperlipidemia:
Continue home statin
Permanent A-fib:
On Cardizem p.o. 120 mg twice a day
Not on anticoagulation as outpatient--> discussed with cardiology today they would like to defer to outpatient telegraph mechanic.
Cardiac valvulopathy:
and TR
Might need to obtain echo we will get cardio eval for further advice
Depression anxiety:
On escitalopram 20 mg p.o. daily
On Buspirone 10 mg p.o. twice a day
On Ambien
DVT prophylaxis:
Heparin SQ
CODE STATUS:
Full code
Total time spent on today's encounter was 52 minutes which included time spent in counseling the patient/family regarding diagnosis and treatment plan as listed above, goals of care, and symptom management. Case was discussed with nursing staff,
specialists, and care coordinators/case management. All labs and imaging personally reviewed by me. Remainder the time spent in detailed review of previous records, lab data, imaging, and other medical provider documentation.
Anticipated Discharge: > 48 hours
Subjective/Interval History
-
Date of Service: July 30, 2024
Patient with less shortness of breath. Less cough. On supplemental oxygen. Afebrile
Objective Data
-
Labs:
Laboratory Results
07/30/24
05:30
WBC 11.0 H
Hgb 12.8
Hct 39.0
Plt Count 183 D
Sodium 140
Potassium 4.4
Chloride 96 L
Carbon Dioxide 35 H
BUN 32 H
Creatinine 0.6
Glucose 136 H
Calcium 9.0
Vital Signs:
Vital Signs
Temp Pulse Resp BP Pulse Ox
97.9 F 70 20 144/72 91
07/30/24 07:20 07/30/24 07:31 07/30/24 07:31 07/30/24 04:00 07/30/24 07:31
I&O
07/29/24 07/30/24 07/31/24
06:59 06:59 06:59
Output Total 1500 / 1500 500 / 500
Balance -1500 / -1500 -500 / -500
--- NOTE | 2024-07-30 10:05 | PTOTSP ---
Speech Language Pathology
Pt seen for dysphagia tx. Pt eating breakfast upon MEETING MANAGER arrival. Pt is to turn head to L with sips of liquids via cup. Pt noted to take sip of liquid with head in midline position with immediate coughing noted. Reviewed results/recommendations
from VSE with pt, who stated she did not recall results from study. Reinforced importance of head turn to L to avoid aspiration, which may be silent. Pt was reminded of this constantly throughout session. When swallow occurred immediately after
being cued, she utilized head turn 90% of the time. However, on next swallow, would go back to not using head turn. Consistent prolonged coughing noted when pt did not use left head turn, suspect aspiration. Of note, aspiration on VSE was silent
at times. No oral or overt pharyngeal difficulty noted with IDDSI Level 6 solids.
Cognitive deficits are a barrier to utilization of safe swallowing strategies. If L head turn is not consistently utilized, aspiration extremely likely. Thickened liquids are not a good option for this pt, as these were aspirated on VSE.
Recommend:
(1) GOC discussion given difficulty using safe swallowing strategies secondary to cognitive deficits
(2) IDDSI Level 6 (soft/bite-sized) and thin liquids via cup only with head turn to L
(3) Aspiration precautions: liquids via cup only with head turn L, sit upright, slow rate
(4) Meds whole in puree
(5) MEETING MANAGER to continue to follow
--- NOTE | 2024-07-30 11:01 | W.PN.ID1 ---
Date of Service
Date of Service: July 30, 2024
Today's Communication
- continue with switched to cefdinir - day
- continue doxycycline oral day
Assessment / Plan
Community Acquired Pneumonia
Acute hypoxemic respiratory failure
COPD/Pulmonary HTN
Severe
Unknown allergies to penicillin, vancomycin
- cardiology witnessed aspiration event 07/29 with acute desaturation - refusing VSE
- note that most acute aspiration events do not progress to pneumonia; no change in current antibiotic plan at this time
- blood cultures x2 remain no growth to date
- could not produce a sputum
- continue with switched to cefdinir - day
- continue doxycycline oral day
- steroids per pulmonary
- follow fever curve, O2 requirement, clinically
- medium term prognosis guarded with recurrent aspiration, would consider goals of care conversations and considering CODE status; high likelihood of recurrent aspiration events
Chief Complaint
-: Pneumonia
Subjective / Review of Systems
afebrile
bp stable
now on 5L of O2
continues to perseverate
on aspiration precautions, VSE completed - frequent aspiration, significantly worse than last eval september 2023
Vital Signs / Physical Exam
Vital Signs
Vital Signs
Temp Pulse Resp BP Pulse Ox
97.9 F 70 20 144/72 91
07/30/24 07:20 07/30/24 07:31 07/30/24 07:31 07/30/24 04:00 07/30/24 07:31
Physical Exam
Constitutional: No Acute Distress and Chronically Ill
Cardiovascular: Regular Rate and S1/S2; Negative Murmur or Rub
Pulmonary: Clear and Symmetric; Negative Wheezes or Rales
Gastrointestinal: Soft, Non Tender, Non Distended and Normal Bowel Sounds
Skin: Warm and Dry; Negative Rash or Jaundice
Objective Data
Lab Data
Lab Results
07/30/24 05:30
07/30/24 05:30
Estimated Creat Clear 51 ml/min 07/30/24 05:30
Total Bilirubin 0.7 mg/dl (0.2-1.3) 07/25/24 08:58
AST 26 U/L (14-36) 07/25/24 08:58
ALT 26 U/L (0-35) 07/25/24 08:58
Alkaline Phosphatase 61 U/L (38-126) 07/25/24 08:58
Most recent labs reviewed.
Micro Results:
07/25/24 15:15 Blood Culture - Preliminary
Blood/Venous No Growth in 4 days- Final report to follow
07/25/24 15:10 Blood Culture - Preliminary
Blood/Venous No Growth in 4 days- Final report to follow
07/25/24 15:16 Streptococcus pneumoniae Antigen (M - Final
Urine Negative for Streptococcus pneumoniae antigen.
A negative result does not exclude infection with
Streptococcus pneumoniae. Clinical correlation is
recommended.
07/25/24 15:15 Legionella Urinary Antigen - Final
Urine Negative for Legionella pneumophila Serogroup 1 antigen.
A negative result does not rule out the possiblity of
Legionella infection due to other serogroups or species of
Legionella. Clinical correlation is recommended.
07/25/24 09:25 Respiratory Syncytial Virus Culture - Final
Nasal Swab Negative for Respiratory Syncytial Virus.
A false negative result may be obtained with a specimen
collected early in the acute phase. If symptoms persist, a
new specimen should be tested.
07/25/24 08:58 Influenza Types A & B (ALE) - Final
Nasal Swab Negative for Influenza A & B, NAAT
Negative results must be combined with clinical observations
and patient history.
Nucleic Acid Amplification test (NAAT)performed on the
[employer] platform.
--- NOTE | 2024-07-30 11:33 | PTCARENOTE ---
Assumed care of patient at beginning of this shift from previous RN. Patient cooperative with taking all ordered medications this morning; meds whole in applesauce per ST, taken without difficulty. She does need constant reminding on proper swallow
techniques as recommended by ST when eating/drinking; coughs with po intake at times. POx 96% on 4L n/c. ST and Dr Barker updated. See worklist for full assessment.
[2024-07-30] MEDS: ROBITUSSIN PO (14:52)
[2024-07-30] MEDS: CRESTOR 5 MG PO (17:52)
--- NOTE | 2024-07-30 21:41 | PTCARENOTE ---
pt received from previous RN. PT AAox2. on 2L satting 98%. Sitting in chair, reading. Chatting with staff. Took hs pills with apple sauce. Assessment as documented. Call light in reach.
--- NOTE | 2024-07-30 22:18 | PTCARENOTE ---
Report called to receiving [facility]. Pt being transported by PCT.
--- NOTE | 2024-07-30 22:28 | PTCARENOTE ---
Pt received from [facility] to [facility]-. Pt oriented to room and call lopes.
[2024-07-30] MEDS: AMBIEN 5 MG PO (22:51)
[2024-07-30] MEDS: REFRESH EYE DROPS (PF) 1 DROPS OPHTH (22:51)
[2024-07-31] VITALS (8 sets, daily range): BP systolic 106–162; BP diastolic 59–73; PULSE 70; O2SAT 95; BMI 22.0
[2024-07-31] MEDS: CHLORASEPTIC/SORE THROAT SPRAY 1 SPRAY PO (05:19)
[2024-07-31] MEDS: ADVAIR HFA 230/21 MCG INHALER 2 PUFF INH ×2 (07:47→20:40)
[2024-07-31] MEDS: DUONEB 3 ML INH ×4 (07:47→20:40)
--- NOTE | 2024-07-31 08:55 | W.PN.HOSP.TC ---
Addendum entered and electronically signed by Remy Barker MD 07/31/24 13:44:
Updated over the phone today.
Original Note:
Today's Communication/Plan
-
Oral steroids antibiotics and diuretics. Discharge planning
Assessment / Plan
Assessment / Plan
Physical exam:
General: Acute on chronically ill
HEENT: Normocephalic, Atraumatic and Moist Mucous Membranes
Respiratory: Bilateral rhonchi; Negative Wheezes, Rales
Cardiac: Regular Rhythm and S1/S2; systolic murmur
GI: Soft, Nontender and Nondistended
Musculoskeletal: No Clubbing, No Cyanosis and. Bilateral lower extremity edema
Neuro: Awake, Alert and Oriented, no gross neurological deficit
Psych: Calm
CT scan last evening:
Small bilateral pleural effusions. Stable on the left. Not visible by prior chest x-ray on the right
Moderate right lower lobe consolidation probably pneumonia. New
Mild right middle lobe consolidation probably atelectasis. Stable
Mild left lower lobe atelectasis versus scarring. New
A/P:
Acute hypoxic respiratory failure:
Multifactorial etiology, pneumonia, asthma/COPD exacerbation, volume overload, other. Main contributor aspiration pneumonia.
Remains on supplemental oxygen
Pulmonary following and appreciated consult
On IV diuretics--> switched to oral diuretics per cardiology. Cardiology consult appreciated
On IV steroids--> switched to oral
Switching antibiotics to oral by ID
Tried reach family without success--> waiting to touch base with family when they are available
Pneumonia:
Switching to Omnicef and doxycycline per ID--> day 7 out of 10
She agreed to VSE and after testing speech therapy recommended IDDSI level 6 diet
ID consult appreciated
Acute on chronic diastolic CHF:
On IV Lasix 40 mg twice a day--> switched to oral
Monitor ins and outs and daily weight
Last echo on 03/2024 EF 50 to 55% low gradient low output severe aortic stenosis, moderate to severe tricuspid regurgitation, estimated pulmonary artery pressure of 88 mmHg.
COPD/asthma:
Continue IV steroid per pulm, Solu-Medrol 20 mg IV every 12-> switch to oral prednisone
On Pulmicort twice daily
On DuoNeb 4 times daily
Continue guaifenesin 200 mg 4 times daily
Leukocytosis:
Reactive
Anemia:
Stable
Monitor hemoglobin
Hypertension:
Continue usual meds
Hyperlipidemia:
Continue home statin
Permanent A-fib:
On Cardizem p.o. 120 mg twice a day
Not on anticoagulation as outpatient--> discussed with cardiology today they would like to defer to outpatient press service reader.
Cardiac valvulopathy:
and TR
Might need to obtain echo we will get cardio eval for further advice
Depression anxiety:
On escitalopram 20 mg p.o. daily
On Buspirone 10 mg p.o. twice a day
On Ambien
DVT prophylaxis:
Heparin SQ
CODE STATUS:
Full code
Anticipated Discharge: 24 - 48 hours
Subjective/Interval History
-
Date of Service: July 31, 2024
Patient feels better overall. Still on supplemental oxygen. Afebrile
Objective Data
-
Labs:
Laboratory Results
07/31/24
07:06
Sodium Pending
Potassium Pending
Chloride Pending
Carbon Dioxide Pending
BUN Pending
Creatinine Pending
Glucose Pending
Calcium Pending
Vital Signs:
Vital Signs
Temp Pulse Resp BP Pulse Ox
98.0 F 70 18 150/73 94
07/31/24 07:25 07/31/24 07:53 07/31/24 07:53 07/31/24 07:25 07/31/24 07:53
I&O
07/30/24 07/31/24 08/01/24
06:59 06:59 06:59
Output Total 500 / 500
Balance -500 / -500
[2024-07-31 09:27] LABS: Blood Urea Nitrogen 31 mg/dl (7-17); Calcium 8.7 mg/dl (8.4-10.2); Carbon Dioxide 32 mmol/L (22-30); Chloride 97 mmol/L (98-107); Estimated Creatinine Clearance 51 ml/min; Glucose 88 mg/dl (70-99); Potassium 3.8 mmol/L (3.5-5.1); Sodium 137 mmol/L (135-145); eGFR > 60.00
--- NOTE | 2024-07-31 10:06 | W.PN.ID1 ---
Date of Service
Date of Service: July 31, 2024
Today's Communication
- continue with switched to cefdinir - day 7 of 10
- continue doxycycline oral day 7
ID service will no longer actively follow this patient please recall for further questions
Assessment / Plan
Community Acquired Pneumonia
Acute hypoxemic respiratory failure
COPD/Pulmonary HTN
Severe
Unknown allergies to penicillin, vancomycin
- blood cultures x2 remain no growth to date
- could not produce a sputum
- continue with switched to cefdinir - day 7
- continue doxycycline oral day 7 10
- steroids per pulmonary/primary teams
- follow fever curve, O2 requirement, clinically
- medium term prognosis guarded with recurrent aspiration, would consider goals of care conversations and considering CODE status; high likelihood of recurrent aspiration events
ID service will no longer actively follow this patient please recall for further questions
Chief Complaint
-: Pneumonia
Subjective / Review of Systems
afebrile
bp stable
no events overnight
Vital Signs / Physical Exam
Vital Signs
Vital Signs
Temp Pulse Resp BP Pulse Ox
98.0 F 70 18 150/73 94
07/31/24 07:25 07/31/24 07:53 07/31/24 07:53 07/31/24 07:25 07/31/24 07:53
Physical Exam
Constitutional: No Acute Distress and Chronically Ill
Cardiovascular: Regular Rate and S1/S2; Negative Murmur or Rub
Pulmonary: Clear and Symmetric; Negative Wheezes or Rales
Gastrointestinal: Soft, Non Tender, Non Distended and Normal Bowel Sounds
Skin: Warm and Dry; Negative Rash or Jaundice
Objective Data
Lab Data
Lab Results
07/30/24 05:30
07/31/24 07:06
Estimated Creat Clear 51 ml/min 07/31/24 07:06
Total Bilirubin 0.7 mg/dl (0.2-1.3) 07/25/24 08:58
AST 26 U/L (14-36) 07/25/24 08:58
ALT 26 U/L (0-35) 07/25/24 08:58
Alkaline Phosphatase 61 U/L (38-126) 07/25/24 08:58
Most recent labs reviewed.
Micro Results:
07/25/24 15:15 Blood Culture - Final
Blood/Venous No Growth - Final Report
07/25/24 15:10 Blood Culture - Final
Blood/Venous No Growth - Final Report
07/25/24 15:16 Streptococcus pneumoniae Antigen (M - Final
Urine Negative for Streptococcus pneumoniae antigen.
A negative result does not exclude infection with
Streptococcus pneumoniae. Clinical correlation is
recommended.
07/25/24 15:15 Legionella Urinary Antigen - Final
Urine Negative for Legionella pneumophila Serogroup 1 antigen.
A negative result does not rule out the possiblity of
Legionella infection due to other serogroups or species of
Legionella. Clinical correlation is recommended.
07/25/24 09:25 Respiratory Syncytial Virus Culture - Final
Nasal Swab Negative for Respiratory Syncytial Virus.
A false negative result may be obtained with a specimen
collected early in the acute phase. If symptoms persist, a
new specimen should be tested.
07/25/24 08:58 Influenza Types A & B (ALE) - Final
Nasal Swab Negative for Influenza A & B, NAAT
Negative results must be combined with clinical observations
and patient history.
Nucleic Acid Amplification test (NAAT)performed on the
[employer] platform.
[2024-07-31] MEDS: MIRALAX 17 GRAMS PO (10:19)
[2024-07-31] MEDS: DELTASONE 40 MG PO (10:19)
[2024-07-31] MEDS: ROBITUSSIN 200 MG PO ×3 (10:19→21:39)
[2024-07-31] MEDS: CARDIZEM CD 120 MG PO ×2 (10:20→19:42)
[2024-07-31] MEDS: LEXAPRO 20 MG PO (10:21)
[2024-07-31] MEDS: BUSPAR 10 MG PO ×2 (10:21→19:42)
[2024-07-31] MEDS: COZAAR 25 MG PO (10:21)
[2024-07-31] MEDS: HEPARIN 5000 UNITS SC ×2 (10:21→19:42)
[2024-07-31] MEDS: VIBRAMYCIN 100 MG PO ×2 (10:21→19:43)
[2024-07-31] MEDS: VITAMIN D3 (cholecalciferol) 50 MCG PO (10:22)
[2024-07-31] MEDS: OMNICEF 300 MG PO ×2 (10:22→19:42)
[2024-07-31] MEDS: THERAGRAN 1 TABLET PO (10:22)
[2024-07-31] MEDS: LASIX 40 MG PO (10:22)
[2024-07-31] MEDS: ROBITUSSIN PO (13:42)
--- NOTE | 2024-07-31 14:15 | CM ---
Chart reviewed for d/c planning
Therapy currently recommending SNF vs home PT. Therapy will cont to follow and assess.
Pt has caregiver support at home through [facility] for 4 hours/day.
Pt currently on 4L O2, has home O2 at 3L and is current w/ [facility]
Cont IV abx
Plan: SNF vs Home PT pending pt's hospital course and therapy progress
[2024-07-31] MEDS: AMBIEN 5 MG PO (21:39)
[2024-07-31] MEDS: REFRESH EYE DROPS (PF) 1 DROPS OPHTH (21:39)
[2024-08-01 03:46] VITALS: BP 125/59
[2024-08-01 06:00] VITALS: BMI 20.6
[2024-08-01] MEDS: ADVAIR HFA 230/21 MCG INHALER 2 PUFF INH ×2 (07:37→19:40)
[2024-08-01] MEDS: DUONEB 3 ML INH ×3 (07:37→19:41)
[2024-08-01] MEDS: OMNICEF 300 MG PO ×2 (09:09→21:30)
[2024-08-01] MEDS: VIBRAMYCIN 100 MG PO ×2 (09:09→21:31)
[2024-08-01] MEDS: ROBITUSSIN 200 MG PO ×4 (09:09→21:32)
[2024-08-01] MEDS: VITAMIN D3 (cholecalciferol) 50 MCG PO (09:11)
[2024-08-01] MEDS: DELTASONE 30 MG PO (09:11)
[2024-08-01] MEDS: MIRALAX 17 GRAMS PO (09:11)
[2024-08-01] MEDS: BUSPAR 10 MG PO ×2 (09:12→21:29)
[2024-08-01] MEDS: THERAGRAN 1 TABLET PO (09:12)
[2024-08-01] MEDS: LASIX 40 MG PO (09:13)
[2024-08-01] MEDS: HEPARIN 5000 UNITS SC ×2 (09:13→21:29)
[2024-08-01] MEDS: COZAAR 25 MG PO (09:13)
[2024-08-01] MEDS: LEXAPRO 20 MG PO (09:13)
[2024-08-01] MEDS: CARDIZEM CD 120 MG PO ×2 (09:13→21:29)
--- NOTE | 2024-08-01 10:12 | W.PN.HOSP.TC ---
Today's Communication/Plan
-
Antibiotics. Steroids.
Assessment / Plan
Assessment / Plan
Physical exam:
General: Acute on chronically ill
HEENT: Normocephalic, Atraumatic and Moist Mucous Membranes
Respiratory: Bilateral rhonchi; Negative Wheezes, Rales
Cardiac: Regular Rhythm and S1/S2; systolic murmur
GI: Soft, Nontender and Nondistended
Musculoskeletal: No Clubbing, No Cyanosis and. Bilateral lower extremity edema
Neuro: Awake, Alert and Oriented, no gross neurological deficit
Psych: Calm
CT scan last evening:
Small bilateral pleural effusions. Stable on the left. Not visible by prior chest x-ray on the right
Moderate right lower lobe consolidation probably pneumonia. New
Mild right middle lobe consolidation probably atelectasis. Stable
Mild left lower lobe atelectasis versus scarring. New
A/P:
Acute hypoxic respiratory failure:
Multifactorial etiology, pneumonia, asthma/COPD exacerbation, volume overload, other. Main contributor aspiration pneumonia.
Remains on supplemental oxygen
Pulmonary following and appreciated consult
On IV diuretics--> switched to oral diuretics per cardiology. Cardiology consult appreciated
On IV steroids--> switched to oral
Switching antibiotics to oral by ID
Tried reach family without success--> waiting to touch base with family when they are available
Pneumonia:
Switching to Omnicef and doxycycline per ID--> day 8 out of 10
She agreed to VSE and after testing speech therapy recommended IDDSI level 6 diet
ID consult appreciated
Acute on chronic diastolic CHF:
On IV Lasix 40 mg twice a day--> switched to oral
Monitor ins and outs and daily weight
Last echo on 03/2024 EF 50 to 55% low gradient low output severe aortic stenosis, moderate to severe tricuspid regurgitation, estimated pulmonary artery pressure of 88 mmHg.
COPD/asthma:
Continue IV steroid per pulm, Solu-Medrol 20 mg IV every 12-> switch to oral prednisone
On Pulmicort twice daily
On DuoNeb 4 times daily
Continue guaifenesin 200 mg 4 times daily
Leukocytosis:
Reactive
Anemia:
Stable
Monitor hemoglobin
Hypertension:
Continue usual meds
Hyperlipidemia:
Continue home statin
Permanent A-fib:
On Cardizem p.o. 120 mg twice a day
Not on anticoagulation as outpatient--> discussed with cardiology today they would like to defer to outpatient morning caregiver.
Cardiac valvulopathy:
and TR
Might need to obtain echo we will get cardio eval for further advice
Depression anxiety:
On escitalopram 20 mg p.o. daily
On Buspirone 10 mg p.o. twice a day
On Ambien
DVT prophylaxis:
Heparin SQ
CODE STATUS:
Full code
Anticipated Discharge: 24 - 48 hours
Subjective/Interval History
-
Date of Service: August 01, 2024
Patient without any new complaints. Afebrile
Objective Data
-
Vital Signs:
Vital Signs
Temp Pulse Resp BP Pulse Ox
97.4 F 69 17 125/59 96
08/01/24 03:46 08/01/24 07:41 08/01/24 07:41 08/01/24 03:46 08/01/24 07:41
I&O
07/31/24 08/01/24 08/02/24
06:59 06:59 06:59
Intake Total 240 / 240
Balance 240 / 240
[2024-08-01 11:00] VITALS: BP 128/58
[2024-08-01] MEDS: DUONEB INH (12:16)
[2024-08-01 14:54] VITALS: BMI 20.6
[2024-08-01 15:00] VITALS: BP 109/48
[2024-08-01] MEDS: CRESTOR 5 MG PO (17:26)
[2024-08-01 19:00] VITALS: BP 106/52
[2024-08-01] MEDS: REFRESH EYE DROPS (PF) 1 DROPS OPHTH (21:31)
[2024-08-01] MEDS: AMBIEN 5 MG PO (21:33)
[2024-08-01 23:00] VITALS: BP 129/60
[2024-08-02 00:34] LABS: Glucose - Point of Care 103 mg/dl (70-99)
[2024-08-02] MEDS: CHLORASEPTIC/SORE THROAT SPRAY 1 SPRAY PO (02:00)
[2024-08-02 03:00] VITALS: BP 139/68
[2024-08-02 06:00] VITALS: BMI 21.2
[2024-08-02 07:00] VITALS: BP 157/71
[2024-08-02 07:08] LABS: White Blood Cell Count 15.8 10^3/uL (4.8-10.8)
[2024-08-02 07:10] LABS: % Basophils 0.6 % (0-2); % Eosinophils 0.4 % (0-6); % Immature Granulocytes 4.4 % (0-0.5); % Lymphocytes 10.2 % (20.5-51.1); % Monocytes 5.9 % (1.7-9.3); % Neutrophils 78.5 % (42.2-75.2); Absolute Basophils 0.1 10^3/uL (0-0.2); Absolute Eosinophils 0.1 10^3/uL (0-0.7); Absolute Immature Granulocytes 0.7 10^3/uL (0-0.05); Absolute Lymphocytes 1.6 10^3/uL (1.2-3.4); Absolute Monocytes 0.9 10^3/uL (0.1-0.6); Absolute Neutrophils 12.4 10^3/uL (1.4-6.5); Hematocrit 38.2 % (37.0-47.0); Hemoglobin 12.6 g/dL (12.0-16.0); Mean Corpuscular Hgb 29.7 pg (27.0-31.0); Mean Corpuscular Volume 90.1 fL (81.0-99.0); Mean Platelet Volume 10.8 fL (7.4-10.4); Nucleated Red Blood Cells % 0 %; Platelet Count 288 10^3/uL (130-400); Red Blood Cell Count 4.24 10^6/uL (4.20-5.40); Red Cell Dist. Width 12.8 % (11.5-14.5)
[2024-08-02] MEDS: ADVAIR HFA 230/21 MCG INHALER 2 PUFF INH ×2 (07:15→19:28)
[2024-08-02] MEDS: DUONEB 3 ML INH ×4 (07:15→19:28)
[2024-08-02 07:20] LABS: Blood Urea Nitrogen 29 mg/dl (7-17); Calcium 8.8 mg/dl (8.4-10.2); Carbon Dioxide 34 mmol/L (22-30); Chloride 97 mmol/L (98-107); Estimated Creatinine Clearance 44 ml/min; Glucose 85 mg/dl (70-99); Potassium 4.4 mmol/L (3.5-5.1); Sodium 139 mmol/L (135-145); eGFR > 60.00
[2024-08-02] MEDS: ROBITUSSIN 200 MG PO ×3 (08:43→17:59)
[2024-08-02] MEDS: LEXAPRO 20 MG PO (08:44)
[2024-08-02] MEDS: THERAGRAN 1 TABLET PO (08:44)
[2024-08-02] MEDS: CARDIZEM CD 120 MG PO ×2 (08:44→20:01)
[2024-08-02] MEDS: COZAAR 25 MG PO (08:44)
[2024-08-02] MEDS: DELTASONE 30 MG PO (08:44)
[2024-08-02] MEDS: MIRALAX 17 GRAMS PO (08:45)
[2024-08-02] MEDS: LASIX 40 MG PO (08:45)
[2024-08-02] MEDS: VITAMIN D3 (cholecalciferol) 50 MCG PO (08:45)
[2024-08-02] MEDS: HEPARIN 5000 UNITS SC ×2 (08:45→20:02)
[2024-08-02] MEDS: BUSPAR 10 MG PO ×2 (08:45→20:01)
--- NOTE | 2024-08-02 09:09 | W.PN.HOSP.TC ---
Addendum entered and electronically signed by Remy Barker MD 08/02/24 15:37:
Discussed again with son and at bedside this time and daughter called in. Discussed all details as mentioned on note earlier.
Original Note:
Today's Communication/Plan
-
Restart IV antibiotics today. Chest x-ray
Assessment / Plan
Assessment / Plan
Physical exam:
General: Acute on chronically ill
HEENT: Normocephalic, Atraumatic and Moist Mucous Membranes
Respiratory: Bilateral rhonchi and few fine crackles; Negative Wheezes
Cardiac: Regular Rhythm and S1/S2; systolic murmur
GI: Soft, Nontender and Nondistended
Musculoskeletal: No Clubbing, No Cyanosis and. Bilateral trace lower extremity edema
Neuro: Awake, Alert and Oriented, no gross neurological deficit
Psych: Calm
CT scan from 07/27:
Small bilateral pleural effusions. Stable on the left. Not visible by prior chest x-ray on the right
Moderate right lower lobe consolidation probably pneumonia. New
Mild right middle lobe consolidation probably atelectasis. Stable
Mild left lower lobe atelectasis versus scarring. New
A/P:
Acute hypoxic respiratory failure:
Worsening hypoxia today and requiring up to 6 L of oxygen (dropping to 80% range with 3 to 4 L)
Repeat chest x-ray PA and lateral today--> it shows increased opacity posterior medial right lung base system with progressive pneumonia. Small bilateral pleural effusions unchanged.
Stop oral antibiotics and start IV antibiotics with IV Unasyn (has tolerated cephalosporins so far)
I discussed with patient and Braulio Guzman, her son, at bedside--> we discussed about CODE STATUS and she wants to remain full code. We also discussed about the issue of recurrent aspiration and we went over 3 options:
A- continue current medical treatment and give her some time to recover to see if no further episodes occur although less likely.
B- attempt to place a feeding tube with her NG tube temporarily and or PEG tube. Although this would not solve aspiration complete it would give her nutrition while continue with active treatment
C-palliative approach and hospice evaluation and at her half comfort feeding understanding risk of aspiration but no antibiotics and no rehospitalization.
While I made them clear that she appears to be a hospice candidate given her risk of aspiration and recurrent events it is up to them to make a final decision. Braulio tell me that he needs some time to discuss about these options and talk to the
rest of the family and he will get back to us over the next [address], she also wants to go home but she also would be best served at a skilled facility and she also is going to be thinking about that as well.
Prior to today:
Multifactorial etiology, pneumonia, asthma/COPD exacerbation, volume overload, other. Main contributor aspiration pneumonia.
Remains on supplemental oxygen
Pulmonary following and appreciated consult
On IV diuretics--> switched to oral diuretics per cardiology. Cardiology consult appreciated
On IV steroids--> switched to oral
Switching antibiotics to oral by ID
Tried reach family without success--> waiting to touch base with family when they are available
Pneumonia:
Restart IV antibiotics
Repeat chest x-ray
Prior to today:
Switching to Omnicef and doxycycline per ID (she completed 9 out of 10 days)
She agreed to VSE and after testing speech therapy recommended IDDSI level 6 diet
ID consult appreciated
Acute on chronic diastolic CHF:
On IV Lasix 40 mg twice a day--> switched to oral
Monitor ins and outs and daily weight
Last echo on 03/2024 EF 50 to 55% low gradient low output severe aortic stenosis, moderate to severe tricuspid regurgitation, estimated pulmonary artery pressure of 88 mmHg.
COPD/asthma:
Continue IV steroid per pulm, Solu-Medrol 20 mg IV every 12-> switch to oral prednisone
On Pulmicort twice daily
On DuoNeb 4 times daily
Continue guaifenesin 200 mg 4 times daily
Leukocytosis:
Reactive
Anemia:
Stable
Monitor hemoglobin
Hypertension:
Continue usual meds
Hyperlipidemia:
Continue home statin
Permanent A-fib:
On Cardizem p.o. 120 mg twice a day
Not on anticoagulation as outpatient--> discussed with cardiology and they would like to defer to outpatient suspension cord tier. Also needs discussions of other GDMT medications as well
Cardiac valvulopathy:
and TR
Might need to obtain echo we will get cardio eval for further advice
Depression anxiety:
On escitalopram 20 mg p.o. daily
On Buspirone 10 mg p.o. twice a day
On Ambien
DVT prophylaxis:
Heparin SQ
CODE STATUS:
Full code
Total time spent on today's encounter was 52 minutes which included time spent in counseling the patient/family regarding diagnosis and treatment plan as listed above, goals of care, and symptom management. Case was discussed with nursing staff,
specialists, and care coordinators/case management. All labs and imaging personally reviewed by me. Remainder the time spent in detailed review of previous records, lab data, imaging, and other medical provider documentation.
Anticipated Discharge: > 48 hours
Subjective/Interval History
-
Date of Service: August 02, 2024
Objective Data
-
Labs:
Laboratory Results
08/02/24
06:15
WBC 15.8 H
Hgb 12.6
Hct 38.2
Plt Count 288 D
Sodium 139
Potassium 4.4
Chloride 97 L
Carbon Dioxide 34 H
BUN 29 H
Creatinine 0.7
Glucose 85
Calcium 8.8
Vital Signs:
Vital Signs
Temp Pulse Resp BP Pulse Ox
97.9 F 87 22 157/71 83
08/02/24 07:00 08/02/24 07:23 08/02/24 07:23 08/02/24 07:00 08/02/24 07:23
I&O
08/01/24 08/02/24 08/03/24
06:59 06:59 06:59
Intake Total 240 / 240 720 / 720 150 / 150
Balance 240 / 240 720 / 720 150 / 150
[2024-08-02] MEDS: UNASYN IV ×3 (09:47→21:31)
[2024-08-02] MEDS: OMNICEF PO (10:08)
[2024-08-02] MEDS: VIBRAMYCIN PO (10:09)
[2024-08-02 11:00] VITALS: BP 124/64
--- NOTE | 2024-08-02 12:51 | CM ---
Addendum entered by Josie Waterman 08/02/24 13:49:
Patient seen with son and , not agreeable to rehab at this time, would like to return home with caregivers and [facility]. Asking for call from Hospitalist- TT with request.
Original Note:
CM reviewed chart, patient seen bedside with son. Patient is not agreeable to rehab. Son requesting CM to return as patients will arrive to hospital shortly. CM will continue to follow for all discharge planning needs.
Plan; home with VN/caregiver versus SNF
[2024-08-02 15:58] VITALS: BP 109/63
[2024-08-02 19:26] VITALS: BP 111/59
[2024-08-02] MEDS: REFRESH EYE DROPS (PF) 1 DROPS OPHTH (21:31)
[2024-08-02] MEDS: AMBIEN 5 MG PO (21:31)
[2024-08-02] MEDS: ROBITUSSIN PO ×2 (21:31→21:42)
[2024-08-02 23:33] VITALS: BP 108/61
[2024-08-03] MEDS: UNASYN IV ×4 (03:17→21:25)
[2024-08-03 03:47] VITALS: BP 106/69
[2024-08-03 06:00] VITALS: BMI 20.8
[2024-08-03 07:00] VITALS: BP 139/77
[2024-08-03] MEDS: ADVAIR HFA 230/21 MCG INHALER 2 PUFF INH ×2 (07:52→20:42)
[2024-08-03] MEDS: DUONEB 3 ML INH ×4 (07:52→20:42)
[2024-08-03 08:34] LABS: % Basophils 0.3 % (0-2); % Eosinophils 0.9 % (0-6); % Immature Granulocytes 2.6 % (0-0.5); % Lymphocytes 7.5 % (20.5-51.1); % Monocytes 7.9 % (1.7-9.3); % Neutrophils 80.8 % (42.2-75.2); Absolute Eosinophils 0.1 10^3/uL (0-0.7); Absolute Immature Granulocytes 0.4 10^3/uL (0-0.05); Absolute Lymphocytes 1.2 10^3/uL (1.2-3.4); Absolute Monocytes 1.3 10^3/uL (0.1-0.6); Absolute Neutrophils 12.9 10^3/uL (1.4-6.5); Hematocrit 37.4 % (37.0-47.0); Hemoglobin 12.2 g/dL (12.0-16.0); Mean Corp Hgb Conc. 32.6 g/dL (33.0-37.0); Mean Corpuscular Hgb 29.5 pg (27.0-31.0); Mean Corpuscular Volume 90.6 fL (81.0-99.0); Mean Platelet Volume 10.8 fL (7.4-10.4); Nucleated Red Blood Cells % 0 %; Platelet Count 254 10^3/uL (130-400); Red Blood Cell Count 4.13 10^6/uL (4.20-5.40)
--- NOTE | 2024-08-03 08:39 | W.PN.HOSP.TC ---
Today's Communication/Plan
-
IV antibiotics. Hospice evaluation. PT OT
Assessment / Plan
Assessment / Plan
Physical exam:
General: Acute on chronically ill
HEENT: Normocephalic, Atraumatic and Moist Mucous Membranes
Respiratory: Bilateral rhonchi and few fine crackles; Negative Wheezes
Cardiac: Regular Rhythm and S1/S2; systolic murmur
GI: Soft, Nontender and Nondistended
Musculoskeletal: No Clubbing, No Cyanosis and. Bilateral trace lower extremity edema
Neuro: Awake, Alert and Oriented, no gross neurological deficit
Psych: Calm, mild cognitive deficits
CT scan from 07/27:
Small bilateral pleural effusions. Stable on the left. Not visible by prior chest x-ray on the right
Moderate right lower lobe consolidation probably pneumonia. New
Mild right middle lobe consolidation probably atelectasis. Stable
Mild left lower lobe atelectasis versus scarring. New
A/P:
Acute hypoxic respiratory failure:
Worsening hypoxia yesterday and requiring up to 6 L of oxygen (dropping to 80% range with 3 to 4 L)--> today she is down to 3 L of oxygen after initiation of IV antibiotics.
Repeated chest x-ray PA and lateral--> it showed increased opacity posterior medial right lung base system with progressive pneumonia. Small bilateral pleural effusions unchanged.
Stopped oral antibiotics and started on IV antibiotics with IV Unasyn (tolerating antibiotic well so far despite reported pcn allergy)
I discussed with patient and Braulio Guzman(her son at bedside), (at bedside as well), and daughter over the phone--> we discussed about CODE STATUS and she wants to remain full code. We also discussed about the issue of recurrent aspiration
and we went over 3 options:
A- continue current medical treatment and give her some time to recover to see if no further episodes occur although less likely but possible.
B- attempt to place a feeding tube with her NG tube temporarily and or PEG tube. Although this would not solve aspiration issue but it would give her nutrition while reevaluation of oral feedings.
C-palliative approach and hospice evaluation and allow comfort feeding understanding risk of aspiration but no antibiotics and no rehospitalization.
While I made them clear that she appears to be a hospice candidate given her risk of aspiration and recurrent events it is up to them to make a final decision. Family tells me that they need some time to discuss about these options and will get
back to us over the next 24 to 48 hours.
Prior to today:
Multifactorial etiology, pneumonia, asthma/COPD exacerbation, volume overload, other. Main contributor aspiration pneumonia.
Remains on supplemental oxygen
Pulmonary following and appreciated consult
On IV diuretics--> switched to oral diuretics per cardiology. Cardiology consult appreciated
On IV steroids--> switched to oral
Switching antibiotics to oral by ID
PT OT eval
Pneumonia:
Restarted on IV antibiotics
Repeat chest x-ray
Prior to today:
Switching to Omnicef and doxycycline per ID (she completed 9 out of 10 days)
She agreed to VSE and after testing speech therapy recommended IDDSI level 6 diet
ID consult appreciated
Acute on chronic diastolic CHF:
On IV Lasix 40 mg twice a day--> switched to oral
Monitor ins and outs and daily weight
Last echo on 03/2024 EF 50 to 55% low gradient low output severe aortic stenosis, moderate to severe tricuspid regurgitation, estimated pulmonary artery pressure of 88 mmHg.
COPD/asthma:
Continue IV steroid per pulm, Solu-Medrol 20 mg IV every 12-> switch to oral prednisone
On Pulmicort twice daily
On DuoNeb 4 times daily
Continue guaifenesin 200 mg 4 times daily
Leukocytosis:
Reactive
Anemia:
Stable
Monitor hemoglobin
Hypertension:
Continue usual meds
Hyperlipidemia:
Continue home statin
Permanent A-fib:
On Cardizem p.o. 120 mg twice a day
Not on anticoagulation as outpatient--> discussed with cardiology and they would like to defer to outpatient oil changer. Also needs discussions of other GDMT medications as well
Cardiac valvulopathy:
and TR
cardio evaluated patient
Depression anxiety:
On escitalopram 20 mg p.o. daily
On Buspirone 10 mg p.o. twice a day
On Ambien
DVT prophylaxis:
Heparin switched to Lovenox SQ
CODE STATUS:
Full code
Total time spent on today's encounter was 52 minutes which included time spent in counseling the patient/family regarding diagnosis and treatment plan as listed above, goals of care, and symptom management. Case was discussed with nursing staff,
specialists, and care coordinators/case management. All labs and imaging personally reviewed by me. Remainder the time spent in detailed review of previous records, lab data, imaging, and other medical provider documentation.
Anticipated Discharge: 24 - 48 hours
Subjective/Interval History
-
Date of Service: August 03, 2024
She feels better overall today. Less shortness of breath. Still having some cough. Still on supplemental oxygen. Afebrile.
Objective Data
-
Labs:
Laboratory Results
08/03/24
07:11
WBC 16.0 H
Hgb 12.2
Hct 37.4
Plt Count 254
Sodium Pending
Potassium Pending
Chloride Pending
Carbon Dioxide Pending
BUN Pending
Creatinine Pending
Glucose Pending
Calcium Pending
Vital Signs:
Vital Signs
Temp Pulse Resp BP Pulse Ox
97.5 F 71 20 139/77 95
08/03/24 07:00 08/03/24 07:00 08/03/24 07:00 08/03/24 07:00 08/03/24 07:00
I&O
08/02/24 08/03/24 08/04/24
06:59 06:59 06:59
Intake Total 720 / 720 880 / 880
Output Total 400 / 400
Balance 720 / 720 480 / 480
[2024-08-03 08:57] LABS: Blood Urea Nitrogen 22 mg/dl (7-17); Calcium 8.5 mg/dl (8.4-10.2); Carbon Dioxide 32 mmol/L (22-30); Chloride 99 mmol/L (98-107); Estimated Creatinine Clearance 51 ml/min; Glucose 90 mg/dl (70-99); Potassium 4.2 mmol/L (3.5-5.1); Sodium 136 mmol/L (135-145); eGFR > 60.00
[2024-08-03] MEDS: MIRALAX 17 GRAMS PO (08:57)
[2024-08-03] MEDS: VITAMIN D3 (cholecalciferol) 50 MCG PO (08:58)
[2024-08-03] MEDS: ROBITUSSIN 200 MG PO ×4 (08:58→22:19)
[2024-08-03] MEDS: DELTASONE 30 MG PO (08:58)
[2024-08-03] MEDS: COZAAR 25 MG PO (08:59)
[2024-08-03] MEDS: LEXAPRO 20 MG PO (08:59)
[2024-08-03] MEDS: LASIX 40 MG PO (09:00)
[2024-08-03] MEDS: BUSPAR 10 MG PO ×2 (09:00→19:47)
[2024-08-03] MEDS: CARDIZEM CD 120 MG PO (09:00)
[2024-08-03] MEDS: THERAGRAN 1 TABLET PO (09:00)
[2024-08-03] MEDS: HEPARIN 5000 UNITS SC (09:01)
[2024-08-03 11:00] VITALS: BP 108/60
[2024-08-03 15:27] VITALS: BP 96/48
[2024-08-03] MEDS: LOVENOX 40 MG SC (16:29)
[2024-08-03 19:43] VITALS: BP 109/55
[2024-08-03] MEDS: CARDIZEM CD PO ×2 (19:47→20:37)
[2024-08-03] MEDS: TYLENOL 650 MG PO (20:22)
[2024-08-03] MEDS: AMBIEN PO (21:24)
[2024-08-03] MEDS: REFRESH EYE DROPS (PF) OPHTH (21:24)
[2024-08-03] MEDS: ROBITUSSIN PO (21:24)
[2024-08-03] MEDS: REFRESH EYE DROPS (PF) 1 DROPS OPHTH (22:18)
[2024-08-03] MEDS: AMBIEN 5 MG PO (22:19)
[2024-08-03 23:00] VITALS: BP 107/51
[2024-08-04] MEDS: UNASYN IV ×4 (04:07→22:06)
[2024-08-04] MEDS: CHLORASEPTIC/SORE THROAT SPRAY 1 SPRAY PO ×2 (04:07→19:38)
[2024-08-04 06:00] VITALS: BMI 21.7
[2024-08-04] MEDS: TYLENOL 650 MG PO ×2 (06:12→20:05)
[2024-08-04 07:00] VITALS: BP 133/65
[2024-08-04] MEDS: ADVAIR HFA 230/21 MCG INHALER 2 PUFF INH ×2 (07:46→19:43)
[2024-08-04] MEDS: DUONEB 3 ML INH ×4 (07:46→19:57)
[2024-08-04 08:24] LABS: % Basophils 0.2 % (0-2); % Eosinophils 0.8 % (0-6); % Immature Granulocytes 3.1 % (0-0.5); % Lymphocytes 9.8 % (20.5-51.1); % Monocytes 5.6 % (1.7-9.3); % Neutrophils 80.5 % (42.2-75.2); Absolute Eosinophils 0.1 10^3/uL (0-0.7); Absolute Immature Granulocytes 0.4 10^3/uL (0-0.05); Absolute Lymphocytes 1.2 10^3/uL (1.2-3.4); Absolute Monocytes 0.7 10^3/uL (0.1-0.6); Absolute Neutrophils 10.1 10^3/uL (1.4-6.5); Hematocrit 38.5 % (37.0-47.0); Hemoglobin 12.5 g/dL (12.0-16.0); Mean Corp Hgb Conc. 32.5 g/dL (33.0-37.0); Mean Corpuscular Hgb 29.5 pg (27.0-31.0); Mean Corpuscular Volume 90.8 fL (81.0-99.0); Nucleated Red Blood Cells % 0 %; Red Blood Cell Count 4.24 10^6/uL (4.20-5.40); Red Cell Dist. Width 12.9 % (11.5-14.5); White Blood Cell Count 12.5 10^3/uL (4.8-10.8)
[2024-08-04] MEDS: THERAGRAN 1 TABLET PO (08:34)
[2024-08-04] MEDS: DELTASONE 30 MG PO (08:34)
[2024-08-04] MEDS: VITAMIN D3 (cholecalciferol) 50 MCG PO (08:34)
[2024-08-04] MEDS: MIRALAX 17 GRAMS PO (08:34)
[2024-08-04] MEDS: COZAAR 25 MG PO (08:34)
[2024-08-04] MEDS: ROBITUSSIN 200 MG PO ×4 (08:34→21:01)
[2024-08-04] MEDS: LEXAPRO 20 MG PO (08:34)
[2024-08-04] MEDS: CARDIZEM CD 120 MG PO ×2 (08:34→19:38)
[2024-08-04] MEDS: LASIX 40 MG PO (08:35)
[2024-08-04] MEDS: BUSPAR 10 MG PO ×2 (08:35→19:38)
[2024-08-04 09:34] VITALS: O2SAT 96
[2024-08-04 09:34] LABS: Blood Urea Nitrogen 18 mg/dl (7-17); Calcium 8.4 mg/dl (8.4-10.2); Carbon Dioxide 33 mmol/L (22-30); Chloride 97 mmol/L (98-107); Estimated Creatinine Clearance 51 ml/min; Glucose 112 mg/dl (70-99); Potassium 3.7 mmol/L (3.5-5.1); Sodium 137 mmol/L (135-145); eGFR > 60.00
--- NOTE | 2024-08-04 10:18 | W.PN.HOSP.TC ---
Addendum entered and electronically signed by David Monae DO 08/04/24 14:37:
I spoke with patient's , daughter, son regarding goals of care.
I reiterated Dr. Barker's 3 options that he laid out over the weekend regarding addressing her dysphagia.
I explained that the dysphagia is likely here to stay and may progress, worsen over time. I explained that unfortunately there is no treatment.
Family remains undecided.
asked me to call the patient's primary care doctor, Dr. Kel Sauceda, . Office is closed for . I did speak with the on-call physician who will relay the message to Dr. Sauceda to call me back when able.
Moving forward, family is interested in pursuing SNF. Will inform case management. Anticipate discharge to SNF hopefully in the next 48 hours.
Original Note:
Today's Communication/Plan
-
Await hospice consult, goals of care decision
Assessment / Plan
Assessment / Plan
Gen-AAOx3, NAD
HEENT-NC, AT, anicteric, clear oral mm
Neck-supple
CV-reg, no M, +S1/S2
Lungs-clear B/L
Abd-soft, NT, ND
Ext-no edema
Musculoskeletal-no cyanosis, clubbing
Skin-warm and dry
Neuro-grossly non-focal
Psych-calm, cooperative
Acute hypoxic respiratory failure -due to presumed recurrent aspiration event, possible aspiration pneumonia. Oxygenation stable currently on 3 L.
Chest x-ray from 08/02 shows increased opacity in the posterior medial right lung base, consistent with progressive pneumonia. Small bilateral pleural effusions.
Etiology of recurrent aspiration pneumonia likely related to chronic dysphagia.
Antibiotics changed to IV Unasyn on August 02 to cover aspiration pneumonia.
Community-acquired pneumonia -this was the admission diagnosis on July 25. At this point she has had enough antibiotics for CAP coverage.
ID service signed off.
Acute on chronic diastolic CHF -now on oral Lasix. Interestingly her weight is up, unsure of reliability of scale.
Monitor ins and outs and daily weight
Last echo on 03/2024 EF 50 to 55% low gradient low output severe aortic stenosis, moderate to severe tricuspid regurgitation, estimated pulmonary artery pressure of 88 mmHg.
Acute COPD/asthma exacerbation -
Now on prednisone 30 mg daily, continue to taper down.
On Pulmicort twice daily
On DuoNeb 4 times daily
Continue guaifenesin 200 mg 4 times daily
Dysphagia -speech therapy input noted, recommendation to address goals of care with family. Dr. Barker spoke with family over the weekend, hospice was consulted. Awaiting family decision regarding goals of care. Currently on soft, bite-size diet.
Leukocytosis -likely multifactorial etiology including steroids, aspiration, etc. WBCs trending down. Afebrile.
Anemia:
Stable
Monitor hemoglobin
Essential hypertension:
Continue usual meds
Hyperlipidemia:
Continue home statin
Permanent A-fib:
On Cardizem p.o. 120 mg twice a day
Not on anticoagulation as outpatient--> discussed with cardiology and they would like to defer to outpatient elementary school band director. Also needs discussions of other GDMT medications as well
Cardiac valvulopathy:
and TR
cardio evaluated patient
Depression anxiety:
On escitalopram 20 mg p.o. daily
On Buspirone 10 mg p.o. twice a day
On Ambien
DVT prophylaxis:
Heparin switched to Lovenox SQ
Full code
Anticipated Discharge: 24 - 48 hours
Subjective/Interval History
-
Date of Service: August 04, 2024
Patient seen and examined. No complaints.
Objective Data
-
Labs:
Laboratory Results
08/04/24 08/04/24
07:53 08:59
WBC 12.5 H
Hgb 12.5
Hct 38.5
Plt Count
Sodium Cancelled 137
Potassium Cancelled 3.7
Chloride Cancelled 97 L
Carbon Dioxide Cancelled 33 H
BUN Cancelled 18 H
Creatinine Cancelled 0.6
Glucose Cancelled 112 H
Calcium Cancelled 8.4
Vital Signs:
Vital Signs
Temp Pulse Resp BP Pulse Ox
98 F 69 26 133/65 91
08/04/24 07:00 08/04/24 07:00 08/04/24 07:00 08/04/24 07:00 08/04/24 07:00
I&O
08/03/24 08/04/24 08/05/24
06:59 06:59 06:59
Intake Total 880 / 880 1420 / 1420
Output Total 400 / 400
Balance 480 / 480 1420 / 1420
Review of Systems
-
History Source: Patient
All other systems: Reviewed and negative
--- NOTE | 2024-08-04 13:34 | CM ---
Addendum entered by Adriane Mcgovern 08/04/24 17:09:
Spoke with patient daughter prefers [facility].
Will let CM know of additional referrals to send after she speaks with her dad.
PLAN: SNF, pending bed availability
Original Note:
Patient reached out to daughter/spouse regarding hospice options.
prefer hospice
Daughter Maureen states she would just like information on hospice.
[facility] spiritual care coordinator
per previous CM note patient not agreeable to rehab wants to return home with caregivers/VN - PT rec SNF
PLAN: hospice to eval
--- NOTE | 2024-08-04 13:58 | HOSPNOTE ---
Spoke with daughter Maureen and explained hospice and the philosophy. She will talk with family and call me back with any further questions.
[2024-08-04 15:14] VITALS: BP 92/45
[2024-08-04] MEDS: CRESTOR 5 MG PO (16:12)
[2024-08-04] MEDS: LOVENOX 40 MG SC (16:12)
[2024-08-04 19:37] VITALS: BP 109/57
[2024-08-04] MEDS: REFRESH EYE DROPS (PF) 1 DROPS OPHTH (21:01)
[2024-08-04] MEDS: AMBIEN 5 MG PO (21:01)
[2024-08-04] MEDS: ATIVAN 0.5 MG PO (22:06)
[2024-08-04 22:55] VITALS: BP 123/54
[2024-08-05] MEDS: DUONEB 3 ML INH ×5 (02:45→19:08)
[2024-08-05] MEDS: UNASYN IV ×4 (03:52→21:19)
[2024-08-05 05:29] VITALS: BMI 22.0
[2024-08-05] MEDS: ATIVAN 0.5 MG PO ×3 (06:07→19:48)
--- NOTE | 2024-08-05 06:12 | PTCARENOTE ---
Pt reports that she 'can't breathe'. Pt's pulse ox reading 96% on 3L, increased to 4L for pt comfort and sating at 98%. PRN Ativan 0.5 mg provided to pt. EILEEN Huff notified of above information. Will continue to monitor.
[2024-08-05] MEDS: ADVAIR HFA 230/21 MCG INHALER 2 PUFF INH ×2 (07:02→19:08)
[2024-08-05] MEDS: MIRALAX 17 GRAMS PO (07:30)
[2024-08-05] MEDS: ROBITUSSIN 200 MG PO ×4 (07:30→21:19)
[2024-08-05] MEDS: VITAMIN D3 (cholecalciferol) 50 MCG PO (07:31)
[2024-08-05] MEDS: COZAAR 25 MG PO (07:31)
[2024-08-05] MEDS: LASIX 40 MG PO (07:31)
[2024-08-05] MEDS: THERAGRAN 1 TABLET PO (07:31)
[2024-08-05] MEDS: CARDIZEM CD 120 MG PO ×2 (07:32→21:19)
[2024-08-05] MEDS: BUSPAR 10 MG PO ×2 (07:36→19:48)
[2024-08-05] MEDS: LEXAPRO 20 MG PO (07:36)
[2024-08-05] MEDS: DELTASONE 30 MG PO (07:36)
[2024-08-05 07:47] VITALS: BP 140/73
--- NOTE | 2024-08-05 07:47 | W.PN.HOSP.TC ---
Today's Communication/Plan
-
Discharge planning
Assessment / Plan
Assessment / Plan
Gen-AAOx3, NAD
HEENT-NC, AT, anicteric, clear oral mm
Neck-supple
CV-reg, no M, +S1/S2
Lungs-clear B/L
Abd-soft, NT, ND
Ext-no edema
Musculoskeletal-no cyanosis, clubbing
Skin-warm and dry
Neuro-grossly non-focal
Psych-calm, cooperative
Acute hypoxic respiratory failure -due to presumed recurrent aspiration event, possible aspiration pneumonia. Oxygenation stable currently on 3-4 L. Wean down as able.
Chest x-ray from 08/02 shows increased opacity in the posterior medial right lung base, consistent with progressive pneumonia. Small bilateral pleural effusions.
Etiology of recurrent aspiration pneumonia likely related to chronic dysphagia.
Antibiotics changed to IV Unasyn on August 02 to cover aspiration pneumonia. No fevers. Mild leukocytosis noted. Can change to Augmentin on discharge.
Community-acquired pneumonia -this was the admission diagnosis on July 25. At this point she has had enough antibiotics for CAP coverage.
ID service signed off.
Acute on chronic diastolic CHF -now on oral Lasix. Interestingly her weight is up, unsure of reliability of scale.
Monitor ins and outs and daily weight
Last echo on 03/2024 EF 50 to 55% low gradient low output severe aortic stenosis, moderate to severe tricuspid regurgitation, estimated pulmonary artery pressure of 88 mmHg.
Acute COPD/asthma exacerbation -
Reduce prednisone to 20 mg daily and continue taper.
On Pulmicort twice daily
On DuoNeb 4 times daily
Continue guaifenesin 200 mg 4 times daily
Dysphagia -speech therapy input noted, recommendation to address goals of care with family. Currently on soft, bite-size diet. I spoke with , daughter, son on Friday 08/04 regarding goals of care and my concern regarding her dysphagia. We
laid out all options, discussed that there is no curative treatment for her dysphagia. Family remains undecided. I left a message with patient's primary care Dr. Kel Sauceda to call me back at the request of the patient's .
Leukocytosis -likely multifactorial etiology including steroids, aspiration, etc. WBCs trending down. Afebrile.
Anemia:
Stable
Monitor hemoglobin
Essential hypertension:
Continue usual meds
Hyperlipidemia:
Continue home statin
Permanent A-fib:
On Cardizem p.o. 120 mg twice a day
Not on anticoagulation as outpatient--> discussed with cardiology and they would like to defer to outpatient plant safety leader. Also needs discussions of other GDMT medications as well
Cardiac valvulopathy:
and TR
cardio evaluated patient
Depression anxiety:
On escitalopram 20 mg p.o. daily
On Buspirone 10 mg p.o. twice a day
On Ambien
DVT prophylaxis:
Heparin switched to Lovenox SQ
Full code
Dispo -medically stable for discharge to SNF.
Anticipated Discharge: Within 24 hours
Subjective/Interval History
-
Date of Service: August 05, 2024
Patient seen and examined. No complaints.
Objective Data
-
Vital Signs:
Vital Signs
Temp Pulse Resp BP Pulse Ox
98.0 F 71 18 143/63 98
08/04/24 22:55 08/05/24 07:32 08/05/24 07:06 08/05/24 07:32 08/05/24 07:06
I&O
08/04/24 08/05/24 08/06/24
06:59 06:59 06:59
Intake Total 1420 / 1420 1440 / 1440
Balance 1420 / 1420 1440 / 1440
Review of Systems
-
History Source: Patient
All other systems: Reviewed and negative
[2024-08-05 08:54] LABS: % Basophils 0.2 % (0-2); % Eosinophils 1.1 % (0-6); % Immature Granulocytes 2.5 % (0-0.5); % Lymphocytes 11.9 % (20.5-51.1); % Monocytes 6.2 % (1.7-9.3); % Neutrophils 78.1 % (42.2-75.2); Absolute Eosinophils 0.1 10^3/uL (0-0.7); Absolute Immature Granulocytes 0.3 10^3/uL (0-0.05); Absolute Lymphocytes 1.5 10^3/uL (1.2-3.4); Absolute Monocytes 0.8 10^3/uL (0.1-0.6); Absolute Neutrophils 9.6 10^3/uL (1.4-6.5); Hematocrit 36.4 % (37.0-47.0); Hemoglobin 11.9 g/dL (12.0-16.0); Mean Corp Hgb Conc. 32.7 g/dL (33.0-37.0); Mean Corpuscular Hgb 29.8 pg (27.0-31.0); Mean Platelet Volume 10.9 fL (7.4-10.4); Nucleated Red Blood Cells % 0 %; Platelet Count 222 10^3/uL (130-400); Red Cell Dist. Width 12.9 % (11.5-14.5); White Blood Cell Count 12.3 10^3/uL (4.8-10.8)
--- NOTE | 2024-08-05 09:47 | CM ---
Addendum entered by Nany Carbajal 08/05/24 12:27:
Received call from daughter. Daughter advised for CM to touch base w/ pt's spouse as he is 'selective' on where he wants pt to go.
CM spoke w/ spouse, informing that [facility] does not have any available beds for pt. Spouse identified [facility], not sure if they provide rehabilitation. Pt states if facility does not have rehab unit, CM to send
additional referrals to facilities in [place] or near that area.
CM sent additional referrals via [facility]
Will need insurance auth
Plan: SNF pending accepting facility and auth approval
Original Note:
Chart reviewed for d/c planning. Per chart, pt's daughter agreeable to SNF, [facility] preferred.
CM spoke w/ Susanne/[facility] admissions, there are no beds today
CM left message w/ daughter to inform of this and if interested in referring to other facilities
CM will cont following for d/c planning
[2024-08-05 15:00] VITALS: BP 105/54
[2024-08-05] MEDS: DUONEB INH (15:41)
[2024-08-05] MEDS: LOVENOX 40 MG SC (17:21)
--- NOTE | 2024-08-05 20:00 | PTCARENOTE ---
pt aaox1, pt is confused, restless, swinging her arms, paranoid. would not take redirection from this nurse. s/w WELT SEWER Maria Teresa Huff - okay to give prn po Ativan now. assisted by RN KEIKO.
bed alarm plug in
reevaluated pt - pt is cooperative and resting in bed,
[2024-08-05] MEDS: AMBIEN 5 MG PO (21:19)
[2024-08-05] MEDS: REFRESH EYE DROPS (PF) 1 DROPS OPHTH (21:19)
[2024-08-05 23:22] VITALS: BP 136/61
[2024-08-06] MEDS: LASIX 20 MG IV (00:34)
[2024-08-06] MEDS: UNASYN IV (05:07)
[2024-08-06 05:33] VITALS: BMI 21.6
[2024-08-06 07:15] VITALS: BP 133/64
[2024-08-06] MEDS: ADVAIR HFA 230/21 MCG INHALER 2 PUFF INH (07:28)
[2024-08-06] MEDS: DUONEB 3 ML INH ×2 (07:28)
--- NOTE | 2024-08-06 07:51 | W.PN.HOSP.TC ---
Addendum entered and electronically signed by David Monae DO 08/06/24 11:01:
I confirmed with patient's primary care doctor that patient has dementia.
Does have a component of hospital-acquired delirium as well. Documented by nursing.
Will need ambulance transport today for discharge to SNF.
Discussed with case management and daughter.
Addendum entered and electronically signed by David Monae DO 08/06/24 08:33:
I did speak with patient's primary care doctor, Dr. Kel Sauceda, and he will speak with the patient's regarding goals of care.
Original Note:
Today's Communication/Plan
-
Discharge planning
Assessment / Plan
Assessment / Plan
Gen-AAOx3, NAD
HEENT-NC, AT, anicteric, clear oral mm
Neck-supple
CV-reg, no M, +S1/S2
Lungs-clear B/L
Abd-soft, NT, ND
Ext-no edema
Musculoskeletal-no cyanosis, clubbing
Skin-warm and dry
Neuro-grossly non-focal
Psych-calm, cooperative
Acute hypoxic respiratory failure -due to presumed recurrent aspiration event, possible aspiration pneumonia. Oxygenation stable currently on 3L. Wean down as able.
Chest x-ray from 08/02 shows increased opacity in the posterior medial right lung base, consistent with progressive pneumonia. Small bilateral pleural effusions.
Etiology of recurrent aspiration pneumonia likely related to chronic dysphagia.
Antibiotics changed to IV Unasyn on August 02 to cover aspiration pneumonia. No fevers. Mild leukocytosis noted. Can change to Augmentin.
Community-acquired pneumonia -this was the admission diagnosis on July 25. At this point she has had enough antibiotics for CAP coverage.
ID service signed off.
Acute on chronic diastolic CHF -now on oral Lasix.
Monitor ins and outs and daily weight
Last echo on 03/2024 EF 50 to 55% low gradient low output severe aortic stenosis, moderate to severe tricuspid regurgitation, estimated pulmonary artery pressure of 88 mmHg.
Acute COPD/asthma exacerbation -
Reduce prednisone to 20 mg daily and continue taper.
On Pulmicort twice daily
On DuoNeb 4 times daily
Continue guaifenesin 200 mg 4 times daily
Dysphagia -speech therapy input noted, recommendation to address goals of care with family. Currently on soft, bite-size diet. I spoke with , daughter, son on Friday 08/04 regarding goals of care and my concern regarding her dysphagia. We
laid out all options, discussed that there is no curative treatment for her dysphagia. Family remains undecided. I left a message with patient's primary care Dr. Kel Sauceda to call me back at the request of the patient's . So far no call
back.
Leukocytosis -likely multifactorial etiology including steroids, aspiration, etc. WBCs trending down. Afebrile.
Anemia:
Stable
Monitor hemoglobin
Essential hypertension:
Continue usual meds
Hyperlipidemia:
Continue home statin
Permanent A-fib:
On Cardizem p.o. 120 mg twice a day
Not on anticoagulation as outpatient--> discussed with cardiology and they would like to defer to outpatient school bus driver/custodian. Also needs discussions of other GDMT medications as well
Cardiac valvulopathy:
and TR
cardio evaluated patient
Depression anxiety:
On escitalopram 20 mg p.o. daily
On Buspirone 10 mg p.o. twice a day
On Ambien
DVT prophylaxis:
Heparin switched to Lovenox SQ
Full code
Dispo -medically stable for discharge to SNF. Awaiting insurance authorization and accepting facility.
Anticipated Discharge: Within 24 hours
Subjective/Interval History
-
Date of Service: August 06, 2024
Patient seen and examined. No complaints.
Objective Data
-
Labs:
Laboratory Results
08/06/24
07:09
WBC Pending
Hgb Pending
Hct Pending
Plt Count Pending
Sodium Pending
Potassium Pending
Chloride Pending
Carbon Dioxide Pending
BUN Pending
Creatinine Pending
Glucose Pending
Calcium Pending
Vital Signs:
Vital Signs
Temp Pulse Resp BP Pulse Ox
98.0 F 62 18 139/71 95
08/05/24 23:22 08/06/24 07:30 08/06/24 07:30 08/06/24 00:34 08/06/24 07:30
I&O
08/05/24 08/06/24 08/07/24
06:59 06:59 06:59
Intake Total 1440 / 1440 950 / 950
Balance 1440 / 1440 950 / 950
Review of Systems
-
History Source: Patient
All other systems: Reviewed and negative
[2024-08-06 07:55] LABS: Hemoglobin 11.5 g/dL (12.0-16.0); Mean Corp Hgb Conc. 32.9 g/dL (33.0-37.0); Mean Corpuscular Hgb 29.6 pg (27.0-31.0); Mean Platelet Volume 10.9 fL (7.4-10.4); Platelet Count 233 10^3/uL (130-400); Red Blood Cell Count 3.89 10^6/uL (4.20-5.40); Red Cell Dist. Width 13.1 % (11.5-14.5); White Blood Cell Count 11.1 10^3/uL (4.8-10.8)
[2024-08-06 08:17] LABS: Blood Urea Nitrogen 22 mg/dl (7-17); Calcium 8.4 mg/dl (8.4-10.2); Carbon Dioxide 34 mmol/L (22-30); Chloride 98 mmol/L (98-107); Estimated Creatinine Clearance 44 ml/min; Glucose 74 mg/dl (70-99); Sodium 138 mmol/L (135-145); eGFR > 60.00
[2024-08-06] MEDS: BUSPAR 10 MG PO (09:13)
[2024-08-06] MEDS: LEXAPRO 20 MG PO (09:13)
[2024-08-06] MEDS: ROBITUSSIN 200 MG PO ×2 (09:13→12:24)
[2024-08-06] MEDS: CARDIZEM CD 120 MG PO (09:14)
[2024-08-06] MEDS: VITAMIN D3 (cholecalciferol) 50 MCG PO (09:14)
[2024-08-06] MEDS: THERAGRAN 1 TABLET PO (09:14)
[2024-08-06] MEDS: MIRALAX 17 GRAMS PO (09:15)
[2024-08-06] MEDS: COZAAR 25 MG PO (09:15)
[2024-08-06] MEDS: LASIX 40 MG PO (09:15)
[2024-08-06] MEDS: DELTASONE 20 MG PO (09:15)
--- NOTE | 2024-08-06 10:21 | CM ---
Addendum entered by Nany Carbajal 08/06/24 11:04:
Pt will transport to [facility] via ambulance
Original Note:
[facility] is able to accept pt today. Pt is medically stable for d/c.
Spouse is agreeable to [facility] stating it is very close to his home and he always drives by it.
CM called [id number] to initiate auth.
Auth approved beginning today 08/06 w/ NRD 08/12. Facility to call [phone] for updates
Auth ref # [id number]
Updated Heidi/[facility] admission
Per spouse will transport at 1pm
Updated hospitalist
[facility]
Report: [phone]

Plan: [facility]
--- NOTE | 2024-08-06 10:30 | W.DS.TRANS ---
DC Summary - [employer]
-
Discharge Instructions:
Discharge Diagnosis/Procedures Community-acquired pneumonia, aspiration
pneumonia, acute on chronic heart failure, acute
COPD exacerbation, dysphagia
Diet Other diet
Additional Diets Soft, bite sized, aspiration precautions
Activity With assistance
Driving Restrictions No driving
Bathing Restrictions None
Instructions:
Stand-Alone Forms:
Changes to Home Medications: No
Discharge Medications:
DC Medications w/original date entered in [employer]
rosuvastatin 5 mg tablet 5 mg PO MOWEFR High cholesterol 07/29/17
diltiazem HCl 120 mg capsule,extended release 24 hr 120 mg PO BID Heart disease/condition 01/18/21
losartan 25 mg tablet 25 mg PO DAILY Blood pressure 01/18/21
cholecalciferol (vitamin D3) 50 mcg (2,000 unit) tablet 2,000 units PO DAILY Supplement 03/25/21
escitalopram oxalate 20 mg tablet 20 mg PO DAILY Mental Health/Anxiety 03/25/21
ipratropium bromide 42 mcg (0.06 %) nasal spray 2 spray intranasal BID Allergies 03/25/21
buspirone 10 mg tablet 10 mg PO BID Mental Health/Anxiety 05/24/23
furosemide 40 mg tablet 40 mg PO DAILY Fluid retention/Swelling #30 tabs 06/11/23
therapeutic multivitamin 1 tab PO DAILY Supplement 10/19/23
albuterol sulfate 90 mcg/actuation aerosol inhaler 2 puff inhalation R Q6HPRN PRN sob 03/28/24
dextran 70-hypromellose eye drops in a dropperette (Artificial Tears (PF) drops in a dropperette) 1 drp BOTH EYES HS Eye Condition 03/28/24
fluticasone propionate 230 mcg-salmeterol 21 mcg/actuation HFA inhaler 2 puff inhalation R BID #12 grams 03/31/24
acetaminophen 325 mg tablet (Tylenol) 650 mg PO Q6HPRN PRN mild pain 07/25/24
zolpidem 5 mg tablet (Ambien) 5 mg PO HS Sleep 07/25/24
amoxicillin 250 mg-potassium clavulanate 62.5 mg/5 mL oral suspension 10 ml PO TID #100 mL 08/06/24
ipratropium 0.5 mg-albuterol 3 mg (2.5 mg base)/3 mL nebulization soln 3 ml inhalation R Q4HPRN PRN wheeze #0 mL 08/06/24
lorazepam 0.5 mg tablet 0.5 mg PO Q8HPRN PRN anxiety #5 tabs 08/06/24
polyethylene glycol 3350 17 gram oral powder packet 17 g PO DAILY #0 ea 08/06/24
prednisone 20 mg tablet 20 mg PO DAILY #0 tabs 08/06/24
Home Medication Changes
Pending Results: No
[2024-08-06] MEDS: AUGMENTIN 250 MG/5 ML 500 MG PO (12:23)
[2024-08-06 14:05] VITALS: BP 138/68
== END 2024-08-06 14:23 | DRG 871 ==
LOC: 4 WEST ACU 13:50
PROVIDERS: Hospitalist; Nurse Practitioner Family; Physician Assistant; ADMITTING PHYSICIAN Internal Medicine; ATTENDING PHYSICIAN Hospitalist; CONSULT PHYSICIAN Internal Medicine Critical Care Medicine; CONSULT PHYSICIAN Student in an Organized Health Care Education/Training Program; EMERGENCY PHYSICIAN Emergency Medicine; FAMILY PHYSICIAN Internal Medicine
DX: A41.9 Sepsis, unspecified organism (principal); I50.33 Acute on chronic diastolic (congestive) heart failure; J96.21 Acute and chronic respiratory failure with hypoxia; J69.0 Pneumonitis due to inhalation of food and vomit; J44.0 Chronic obstructive pulmonary disease with (acute) lower respiratory infection; J44.1 Chronic obstructive pulmonary disease with (acute) exacerbation; J45.901 Unspecified asthma with (acute) exacerbation; I48.21 Permanent atrial fibrillation; F05 Delirium due to known physiological condition; F03.94 Unspecified dementia, unspecified severity, with anxiety; Z11.52 Encounter for screening for COVID-19; I15.8 Other secondary hypertension; I27.20 Pulmonary hypertension, unspecified; E78.00 Pure hypercholesterolemia, unspecified; I11.0 Hypertensive heart disease with heart failure; I07.1 Rheumatic tricuspid insufficiency; I35.0 Nonrheumatic aortic (valve) stenosis; J38.01 Paralysis of vocal cords and larynx, unilateral; J84.10 Pulmonary fibrosis, unspecified; K21.9 Gastro-esophageal reflux disease without esophagitis
CPT/HCPCS: 71045; 71046; 71250; 74230; 80048; 80053; 82805; 82962; 83880; 84484; 85025; 85027; 87040; 87070; 87077; 87184; 87186; 87205; 87449; 87502; 87807; 87811; 87899; 92526; 92610; 92611; 93005; 94640; 94660; 94669; 96374; 97116; 97163; 97167; 97530; 99291

== ENCOUNTER 2024-08-29 21:52 | Emergency (ER) | payer OTHER, SELFPAY ==
[2024-08-29 21:54] VITALS: BP 118/58
[2024-08-29 21:58] VITALS: BP 118/58
[2024-08-29 22:00] VITALS: BP 106/57
[2024-08-29 22:10] LABS: % Basophils 0.8 % (0-2); % Immature Granulocytes 0.8 % (0-0.5); % Lymphocytes 13.6 % (20.5-51.1); % Monocytes 7.3 % (1.7-9.3); % Neutrophils 75.5 % (42.2-75.2); Absolute Basophils 0.1 10^3/uL (0-0.2); Absolute Eosinophils 0.2 10^3/uL (0-0.7); Absolute Immature Granulocytes 0.1 10^3/uL (0-0.05); Absolute Lymphocytes 1.1 10^3/uL (1.2-3.4); Absolute Monocytes 0.6 10^3/uL (0.1-0.6); Absolute Neutrophils 5.9 10^3/uL (1.4-6.5); Hemoglobin 11.7 g/dL (12.0-16.0); Mean Corp Hgb Conc. 32.5 g/dL (33.0-37.0); Mean Corpuscular Volume 89.1 fL (81.0-99.0); Mean Platelet Volume 10.1 fL (7.4-10.4); Nucleated Red Blood Cells % 0 %; Platelet Count 327 10^3/uL (130-400); Red Blood Cell Count 4.04 10^6/uL (4.20-5.40); Red Cell Dist. Width 14.5 % (11.5-14.5); White Blood Cell Count 7.9 10^3/uL (4.8-10.8)
[2024-08-29 22:25] LABS: ALT (SGPT) 22 U/L (0-35); AST (SGOT) 19 U/L (14-36); Albumin 3.4 g/dl (3.5-5.0); Alkaline Phosphatase 60 U/L (38-126); Blood Urea Nitrogen 11 mg/dl (7-17); Calcium 8.7 mg/dl (8.4-10.2); Carbon Dioxide 28 mmol/L (22-30); Chloride 100 mmol/L (98-107); Glucose 101 mg/dl (70-99); Potassium 3.6 mmol/L (3.5-5.1); Sodium 136 mmol/L (135-145); Total Bilirubin 0.8 mg/dl (0.2-1.3); eGFR > 60.00
--- NOTE | 2024-08-30 00:17 | ED.GENMED ---
History of Present Illness
General
Chief Complaint: Fall
Source: patient, ambulance crew and previous hospital records (Recent hospitalization July 26 to August 06 for treatment of acute hypoxic respiratory failure, community-acquired pneumonia, aspiration pneumonia, acute on chronic heart failure,
hospital-acquired delirium.)
Exam Limitations: none
Time Seen by Provider: 08/29/24 23:44
Nursing documentation reviewed up to this point in time: agreed with
History of Present Illness
History of Present Illness:
This is an 88-year-old woman who resides at home with her . She has history of CHF with preserved EF, chronic dysphagia, COPD, O2 dependent at nighttime, obstructive sleep apnea, hypertension, hyperlipidemia, history of small bowel
obstruction with perforation in the past with colostomy formation 2022. Recent hospitalizations July 15 to July 18 for treatment of acute norovirus. Then rehospitalized July 26 to August 06 for treatment of acute hypoxic respiratory
failure, exacerbation of COPD, community-acquired pneumonia then developed aspiration pneumonia while hospitalized as well as CHF. Was discharged to home August 06 where she is currently receiving home health care services.
Overall has been feeling well since discharge August 06. While standing in the bathroom tonight emptying her colostomy into the toilet she began to feel lightheaded, tunnel vision and proceeded to pass out. She was accompanied by her and
believes she was laid down onto the ground. She denies fall, denies injury.
Arrives to the ED via EMS.
Denies previous episodes of syncope. She has not had a cough nor shortness of breath, appetite has been good, she denies chest pain, no leg pain or swelling, no abdominal pain. Colostomy has been functioning normally, she denies diarrhea, denies
bloody stools.
Currently feeling well and at her baseline. She denies headache, denies neck nor back pain, no weakness nor numbness.
She has a pacemaker, history of A-fib not on anticoagulants.
Past History
Past History
ED Past Medical History: Arrthythmia (Atrial fibrillation), Asthma, CHF, COPD (Wears oxygen at bedtime; severe pulmonary hypertension), HTN, Hypercholesterolemia, Other (MAXIM, SBO with perf. ) and Other (Community-acquired pneumonia/aspiration
pneumonia July 2024)
ED Past Surgical History: Bowel resection (Colostomy 2022), Cholecystectomy, Gynecological and Other (Colostomy)
Social History
Tobacco: Non-smoker
Alcohol: None
Drug: None
Personal:
Living: with family
Employment: Retired
Family History
Family History: Other (No significant)
Phy Exam
Physical Exam
Physical Exam:
GENERAL: 88-year-old frail appearing woman is bright and alert, pleasant, easily communicative and in no acute distress. Oriented x 3. Nasal cannula oxygen in place.
EYE: pupils equal and reactive. anicteric. The head is normocephalic, atraumatic.
NECK: Supple, nontender, no meningismus, no significant adenopathy.
ENT: posterior pharynx is clear, oral mucosa is moist. TM clear b/l, nares patent.
CARDIAC: Regular rate and rhythm. no murmur. No palpable chest wall tenderness. Pacemaker left upper chest wall.
LUNGS: no acute respiratory distress, fine rales right base otherwise clear to auscultation.
ABDOMEN: Soft, nondistended, without focal tenderness, no r/g, no cvat. normoactive BS. Colostomy left lower quadrant.
NEUROLOGICAL: Alert and oriented x3, no focal neuro deficits.
SKIN: Warm and dry, normal color, skin intact. No rash.
MUSCULOSKELETAL: No C/C/E. peripheral pulses are full and equal b/l. No palpable tenderness.
PSYCH: Normal and appropriate interaction.
Course
Orders/Labs/Results
Orders:
Orders
08/29/24 21:56
Electrocardiogram (*1) Urgent
Reason for Study: Syncope
EKG- Treatment ONCE
08/29/24 21:57
Complete Blood Count/With Diff Urgent
Comprehensive Metabolic Panel Urgent
08/29/24 22:08
CR Chest - 2 Views Urgent
Comment:
Reason For Exam: sob
08/29/24 22:18
pacemaker [Interrogate Pacemaker- Treatment] ONCE
08/30/24 00:16
Orthostatic VS- Treatment ONCE
08/30/24 01:43
Troponin I Urgent
08/30/24 04:34
Acetaminophen [Tylenol] 650 mg .ROUTE .STK-MED ONE
08/30/24 04:39
Acetaminophen [Tylenol] 650 mg PO NOW STA
Abnormal Lab Results
08/29/24
21:57
RBC 4.04 L 10^6/uL
(4.20-5.40)
Hgb 11.7 L g/dL
(12.0-16.0)
Hct 36.0 L %
(37.0-47.0)
MCHC 32.5 L g/dL
(33.0-37.0)
Abs Immat Gran (auto) 0.1 H 10^3/uL
(0-0.05)
Absolute Lymphs (auto) 1.1 L 10^3/uL
(1.2-3.4)
Immature Gran % 0.8 H %
(0-0.5)
Neutrophils % 75.5 H %
(42.2-75.2)
Lymphocytes % 13.6 L %
(20.5-51.1)
Glucose 101 H mg/dl
(70-99)
Total Protein 6.0 L g/dl
(6.3-8.2)
Albumin 3.4 L g/dl
(3.5-5.0)
08/29/24 21:57
08/29/24 21:57
Vital Signs
Initial and Last Documented VS:
Initial Vital Signs
Temp Pulse Resp BP Pulse Ox
98.3 F 83 20 118/58 90
08/29/24 21:54 08/29/24 21:54 08/29/24 21:54 08/29/24 21:54 08/29/24 21:54
Last Documented Vital Signs
Temp Pulse Resp BP Pulse Ox
98.3 F 62 24 116/61 95
08/29/24 21:54 08/30/24 06:13 08/30/24 06:13 08/30/24 06:13 08/30/24 06:29
MDM/Problems Addressed
Differential Diagnosis Includes:
Patient suffered a syncopal event with prodrome of lightheadedness concerning for vasovagal episode, cardiac arrhythmia, pacemaker malfunction. Other consideration is anemia, electrolyte abnormality.
She has had no prodrome of shortness of breath nor cough, no leg pain nor swelling, thus recurrent pneumonia/sepsis, PE are unlikely.
Pacemaker has been interrogated showing no evidence of arrhythmia to account for syncope tonight.
EKG shows ventricular paced rhythm, similar to previous.
Labs thus far are unremarkable. Very mild but stable anemia. Normal white blood cell count.
Chemistries are unremarkable. Previous prerenal azotemia has resolved.
Chest x-ray shows hazy infiltrate right lower lobe which is markedly improved from previous film August 02.
BP noted to be somewhat soft. Patient is unsure what her blood pressure has been running at home with home health nurse visits.
Will check orthostatic vital signs.
Will add troponin for completeness sake.
There is no report of injury as per EMS. Patient denies injury, no evidence of injury on exam. Not maintained on anticoagulants. No focal neurodeficits thus at this point no indication for CT of the head.
I have attempted to call the at home. No answer.
Chronic conditions affecting care: Arrhythmia, COPD and Other (Recent hospitalization)
*Critical Care Note
Total Time (30-74mins, 75-104mins- exclusive of procedures): Not Applicable
Update Note
Update Note:
02:10
Patient remains comfortable, hemodynamically stable and offers no complaints.
Orthostatic vital signs are negative.
Tolerating oral fluids.
Monitor continues to show ventricular paced rhythm without arrhythmia.
At this point no indication for hospitalization.
Discussed importance of staying well-hydrated on a daily basis.
Continue home PT/OT, home health nursing services.
Prompt follow-up with PCP for recheck.
Return precautions discussed.
Patient's daughter has been contacted by nursing staff. She plans to take her mother home.
ED Attending Note
-
Portions of this chart may have been created with voice recognition software.� Occasional wrong word or��sound alike� substitutions may have occurred due to the inherent limitations of voice recognition software.
Discharge Plan
Departure
Patient Disposition: Home (Routine Discharge)
Date of Disposition: 08/30/24
Time of Disposition: 02:15
Patient with high blood pressure during this ER visit?: No
Condition: Good
Discharge Problem:
Syncope, vasovagal
Instructions: Syncope (fainting)
Prescriptions:
No Action
rosuvastatin 5 MG tablet
5 mg PO MOWEFR
losartan 25 MG tablet
25 mg PO DAILY
diltiazem HCl 120 MG capsule,extended release 24hr
120 mg PO BID
ipratropium bromide 1 SPRAY spray,non-aerosol
2 spray intranasal BID
escitalopram oxalate 20 MG tablet
20 mg PO DAILY
cholecalciferol (vitamin D3) 2,000 UNITS tablet
2,000 units PO DAILY
buspirone 10 mg tablet
10 mg PO BID
furosemide 40 mg tablet
40 mg PO DAILY Qty: 30 0RF
therapeutic multivitamin Tablet
1 tab PO DAILY
albuterol sulfate 90 mcg/actuation Hfa Aerosol Inhaler
2 puff INHALATION R Q6HPRN PRN (Reason: sob)
Artificial Tears (PF) Dropperette
1 drp BOTH EYES HS
fluticasone propion-salmeterol 230-21 mcg/actuation Hfa Aerosol Inhaler
2 puff inhalation R BID Qty: 12 0RF
acetaminophen [Tylenol] 325 mg Tablet
650 mg PO Q6HPRN PRN (Reason: mild pain)
zolpidem [Ambien] 5 mg Tablet
5 mg PO HS
amoxicillin-pot clavulanate 250-62.5 mg/5 mL Suspension For Reconstitution
10 ml PO TID Qty: 100 0RF
Rx Instructions:
last day 08/08/24
lorazepam 0.5 mg Tablet
0.5 mg PO Q8HPRN PRN (Reason: anxiety) Qty: 5 0RF
prednisone 20 mg Tablet
20 mg PO DAILY Qty: 0 0RF
Rx Instructions:
Taper by 10 mg every 5 days until done
ipratropium-albuterol 0.5 mg-3 mg(2.5 mg base)/3 mL Solution For Nebulization
3 ml inhalation R Q4HPRN PRN (Reason: wheeze) Qty: 0 0RF
polyethylene glycol 3350 17 gram Powder In Packet
17 g PO DAILY Qty: 0 0RF
Referrals:
Kel Sauceda MD [Family Provider] - Next open appointment
Interventions
Interventions:
*Risk Screen - Suicide Last Done: 08/29/24 21:54
*General Assessment Last Done: 08/29/24 21:54
*Neglect/Abuse Screening Last Done: 08/29/24 21:54
ED- Fall Risk Assessment Last Done: 08/29/24 22:35
*ED COVID-19 Vaccine History Last Done: 08/29/24 21:54
*Nursing Disposition Last Done: 08/30/24 06:29
ED-Musculoskeletal Assessment Last Done: 08/29/24 23:07
ED- Neurological Assessment Last Done: 08/29/24 23:07
ED-Skin Assessment Last Done: 08/29/24 23:07
Discharge Date and Time
Discharge Date/Time: 08/30/24 06:30
Print Language: GUINEAN
[2024-08-30 02:06] VITALS: BP 115/64; BP 117/96; BP 124/60; PULSE 61; PULSE 62
[2024-08-30 02:17] LABS: Troponin I 0.024 ng/ml
[2024-08-30] MEDS: TYLENOL 650 MG PO (04:39)
[2024-08-30 05:31] VITALS: BP 116/61
[2024-08-30 06:13] VITALS: BP 116/61
== END 2024-08-30 06:30 | disposition home or self-care (01) ==
LOC: EMR 21:52
PROVIDERS: Emergency Medicine; EMERGENCY PHYSICIAN Emergency Medicine; FAMILY PHYSICIAN Internal Medicine
DX: R55 Syncope and collapse (principal); E78.00 Pure hypercholesterolemia, unspecified; G47.33 Obstructive sleep apnea (adult) (pediatric); I11.0 Hypertensive heart disease with heart failure; I50.32 Chronic diastolic (congestive) heart failure; I27.20 Pulmonary hypertension, unspecified
CPT/HCPCS: 99283; 71046; 80053; 84484; 85025; 93005

== ENCOUNTER 2024-09-15 08:23 | Inpatient (IN) | payer OTHER, SELFPAY ==
[2024-09-13 21:16] VITALS: BP 130/85
[2024-09-13 21:19] VITALS: BP 130/85
[2024-09-13 21:21] VITALS: BMI 22.0
[2024-09-13 21:42] LABS: % Immature Granulocytes 0.2 % (0-0.5); % Lymphocytes 15.1 % (20.5-51.1); % Monocytes 7.1 % (1.7-9.3); % Neutrophils 72.6 % (42.2-75.2); Absolute Basophils 0.1 10^3/uL (0-0.2); Absolute Eosinophils 0.3 10^3/uL (0-0.7); Absolute Lymphocytes 1.2 10^3/uL (1.2-3.4); Absolute Monocytes 0.6 10^3/uL (0.1-0.6); Absolute Neutrophils 5.9 10^3/uL (1.4-6.5); Hematocrit 37.9 % (37.0-47.0); Hemoglobin 12.1 g/dL (12.0-16.0); Mean Corp Hgb Conc. 31.9 g/dL (33.0-37.0); Mean Corpuscular Hgb 29.7 pg (27.0-31.0); Mean Corpuscular Volume 92.9 fL (81.0-99.0); Mean Platelet Volume 10.9 fL (7.4-10.4); Nucleated Red Blood Cells % 0 %; Platelet Count 261 10^3/uL (130-400); Red Blood Cell Count 4.08 10^6/uL (4.20-5.40); Red Cell Dist. Width 15.9 % (11.5-14.5); White Blood Cell Count 8.2 10^3/uL (4.8-10.8)
[2024-09-13 21:54] LABS: ALT (SGPT) 15 U/L (0-35); AST (SGOT) 21 U/L (14-36); Albumin 3.2 g/dl (3.5-5.0); Alkaline Phosphatase 64 U/L (38-126); Blood Urea Nitrogen 8 mg/dl (7-17); Carbon Dioxide 29 mmol/L (22-30); Chloride 104 mmol/L (98-107); Estimated Creatinine Clearance 51 ml/min; Glucose 113 mg/dl (70-99); Potassium 3.8 mmol/L (3.5-5.1); Sodium 139 mmol/L (135-145); Total Bilirubin 0.8 mg/dl (0.2-1.3); Total Protein 6.2 g/dl (6.3-8.2); eGFR > 60.00
[2024-09-13 21:56] LABS: COVID-19 Antigen Negative (Negative)
[2024-09-13 22:00] VITALS: BP 138/79
[2024-09-13 22:02] LABS: NT-proBNP 4750 pg/ml
--- NOTE | 2024-09-13 23:04 | ED.GENMED ---
History of Present Illness
General
Chief Complaint: Breathing Problem
Source: patient and family (Son is present at the bedside)
Exam Limitations: clinical condition
Time Seen by Provider: 09/13/24 22:43
History of Present Illness
History of Present Illness:
Pleasant 88-year-old female presents to the emergency department with shortness of breath that has been worsening for the past few days. According to son, who is present at the bedside, patient is on home oxygen but he has noticed some dyspnea.
Patient is on 3 L of home oxygen. EMS found her satting 89 to 90%. Son states that she lives at home with her . They have visiting nurses for several hours a day during the week. There has been talk of moving into an assisted living but
as of now they are at home. Son reports no fever. Patient has a weak voice as she has had GERD and reflux for several months. Son states that her talking at a whisper is normal for her lately. Son also states that she has been unable to ambulate
without significant help lately.
Vital signs are stable. Patient is hypoxic off of home O2
Nursing note reviewed. I agree with nursing documentation up to this point in time.
Home Meds and allergies reviewed.
NUMBER AND COMPLEXITY OF PROBLEMS ADDRESSED AT THE ENCOUNTER
� Chronic conditions affecting care: Dementia, A-fib, CHF, sleep apnea
� Acute Exacerbation and/or Progression of Chronic Illness:
� Differential Diagnosis includes: CHF exacerbation, hypoxia
AMOUNT AND/OR COMPLEXITY OF DATA TO BE REVIEWED AND ANALYZED
I performed an independent evaluation of the following and my interpretation is:
EKG: Ventricular paced rhythm, rate of 73. When compared with previous EKG dated August 29, 2024, no significant change noted.
Pulse Ox: Not Hypoxic while on 3 L
Low Raw Sugar Cutter: Sinus Rhythm
CT:
X-rays: Negative
Ultrasound:
Laboratory Studies: proBNP is 4750
Other:
Review of other/old records: Previous ER visit for syncope, acute on chronic respiratory failure with hypoxia
Clinical information was obtained by an independent historian:
Prescriptions/Medications Considered but not given:
Further testing considered but not performed:
RISK OF COMPLICATIONS AND/OR MORBIDITY OR MORTALITY OF PATIENT MANAGEMENT
Social determinants of health affecting care: Good Social Support, son present at the bedside.
Discussion with other providers: Hospitalist for admission
Escalation of care including admission/observation vs risk of discharge considered: After being observed in the emergency department, patient is unstable for discharge. She is demented and does not have adequate care at home
since her primary caregiver, her is also being admitted. She is to able to walk around. She will be brought in for CHF exacerbation, ambulatory dysfunction, and for possible placement
CRITICAL CARE NOTE:
Total Time (exclusive of procedures):
Update:
Past History
Past History
ED Past Medical History: Arrthythmia (Atrial fibrillation), Asthma, CHF, COPD (Wears oxygen at bedtime; severe pulmonary hypertension), HTN, Hypercholesterolemia, Other (MAXIM, SBO with perf. ) and Other (Community-acquired pneumonia/aspiration
pneumonia July 2024)
ED Past Surgical History: Bowel resection (Colostomy 2022), Cholecystectomy, Gynecological and Other (Colostomy)
Social History
Tobacco: Non-smoker
Alcohol: None
Drug: None
Personal:
Living: with family
Employment: Retired
Family History
Family History: Other (No significant)
Review of Systems
Review of Systems
Allergies reviewed?: Yes
All Other Systems: ROS reviewed and negative except as documented in HPI and ROS
Constitutional: Reports fatigue
EENT: Reports no symptoms
Respiratory: Reports trouble breathing
Cardiac: Reports no symptoms
ABD/GI: Reports no symptoms
: Reports no symptoms
Musculoskeletal: Reports no symptoms
Skin: Reports no symptoms
Neurological: Reports no symptoms
Endocrine: Reports no symptoms
Hematologic/Lymphatic: Reports no symptoms
Psychiatric: Reports anxiety
Phy Exam
General Physical Exam
General Presentation: moderate distress
General age: appears stated age
General Skin: warm and dry
General Habitus: normal and elderly
General Mental: confused and usual mental status
General Hydration: appears well hydrated
General Chronic Disability: demented
ENT Exam
ENT Exam: EOMI
Eye Exam
Eye Exam: PERRL, cornea clear and conjunctiva normal
Cardiovascular Exam
Cardiovascular Exam: regular rate/rhythm, no edema, no murmur and normal peripheral pulses
Pulmonary Exam
Pulmonary Exam: lungs clear, no respiratory distress, no rales, no crackles, no rhonchi, no stridor, no wheezing and no cough
Oxygen Status: oxygen 3 liters via NC
Cough: coarse cough
Respirations: mild increase in effort
Gastrointestinal Exam
Gastrointestinal Exam: normal bowel sounds, non tender, soft, no organomegaly, no pulsatile mass and non distended
External Findings: colostomy
Neurological Exam
Neurological Exam: alert, oriented x3, no motor deficits and speech normal
Musculoskeletal Exam
Musculoskeletal Exam: full ROM and no edema
Skin Exam
Skin Exam: normal color, warm/dry, no rash and no petechia
Psychiatric Exam
Psychiatric Exam: normal mood/affect
Scores
Heart Failure Risk
Heart Failure Risk Score: Yes
History of Stroke or TIA: No
History of intubation for respiratory distress: No
Heart rate on ED arrival >/= 110: No
SaO2 <90% on arrival on room air: Yes (Is on continuous 3 L)
HR >/=110 during 3min walk test (or too ill to perform test): Yes
ECG has acute ischemic changes: No
Urea >/=12mmol/L (BUN 33.6mg/dL): No
Serum CO2>/=35mmol/L: No
Troponin I or T elevated to HI Level (0.4mg/dL): No
NT-proBNP >/=5,000ng/L (5,000pg/ml): No
HF Risk Score: 3
Admission Status: HIGH RISK 15.9% Consider SNF treatment or admission to hospital
Course
Orders/Labs/Results
Orders:
Orders
09/13/24 21:19
Electrocardiogram (*1) Urgent
Reason for Study: Palpitations
EKG- Treatment ONCE
09/13/24 21:26
CBC/With Diff [Complete Blood Count/With Diff] Urgent
CMP [Comprehensive Metabolic Panel] Urgent
COVID-19 Antigen Urgent
Source: Nasal Swab
Pro-BNP [NT-proBNP] Urgent
Influenza A+B Rapid Molecular Urgent
MELODY Source: Nasal Swab
Specimen Description:
09/13/24 21:50
Chest [CR Chest - 2 Views ] Urgent
Comment:
Reason For Exam: shortness of breath
09/14/24 01:19
Furosemide [Lasix] 60 mg IV NOW STA
09/14/24 01:20
Case Management Consult ONCE
Case Management Consult: Discharge Planning
09/14/24 03:23
Admit/Transfer Patient As Directed
Co-Sign Provider:
Level of Care: Observation services
Assign to:: Telemetry
Physician / Group: hospitalist
Diagnosis: CHF exacerbation
Reason for Telemetry: Subacute Heart Failure
Date to Stop Telemetry: 09/16/24
Time to Stop Telemetry: 11:00
Reason for Hospitalization: ambulatory dysfunction
09/14/24 03:24
PRN Pain Medication Management As Directed
May give lesser potent ordered pain med per pt: Yes
preference::
Protocol:: Medication orders for pain may be administered in a
manner that supports deferring to patient preference
when the pt is:
- Requesting an ordered lesser potent pain medication.
Least to most potent pain medications are defined
as: acetaminophen < NSAID < tramadol < opioids
(morphine, oxycodone, hydromorphone).
- Requesting a lesser dose of the same medication IF
ORDERED.
- Requesting a less intrusive route of administration
if both routes are prescribed by the provider (PO <
IV).
09/14/24 03:28
Code Status As Directed
Resuscitation Status: Full Code
09/14/24 05:27
Acetaminophen [Tylenol] 650 mg PO Q6HPRN PRN
Albuterol [ProAIR HFA INHALER] 2 puff INH R Q6HPRN PRN
Lorazepam [Ativan] 0.5 mg PO Q8HPRN PRN
09/14/24 05:27
VTE Contraindication Routine
VTE Mechanical Device Contraindication: Medical Contraindication
Pharmocologic Contraindication: Medical Contraindication
Activity As Directed
Activity Level: With Assistance
Intake/ Output As Directed
Frequency: Per unit guidelines
Patient Education As Directed
Type: CHF folder
Comment: give on admission. Document in Interdisciplinary Education record
Sleep Apnea Assessment by RN As Directed
Comment:
Physician Instructions:
Vital Signs As Directed
Frequency: Other
Additional Instructions:: Q12 or per unit guidelines if more frequent.
Weight As Directed
Frequency: Daily
Type of Scale: Standing Scale
Comment: Daily morning weight. If unable to stand, use balanced bed scale.
Weight As Directed
Frequency: Once
Type of Scale: Standing Scale
Comment: Upon Admission. If unable to stand, use balanced bed scale.
O2 Therapy [RESP] Routine
Nasal Cannula Liter Flow: 3 LPM
Titrate/Wean O2 to maintain O2 sat greater than (%): 92
Pulse Ox/cont/shift [RESP] Routine
Quantity: 1
Special Instructions: Daily pulse oximetry at rest. If greater than 92% at rest also obtain pulse oximetry
while ambulating as tolerated.
Pt Eval And Treat Routine
Activity Level: With Assistance
09/14/24 05:38
Basic Metabolic Panel IN AM
Magnesium IN AM
09/14/24 Breakfast
Cholesterol Lowering
At Your Request: Non-Participating
Does patient need a safe tray?: No
Cholesterol Lowering: Sodium, 2 Gram
09/14/24 08:00
Buspirone [Buspar] 10 mg PO BID
Diltiazem Extended Release [Cardizem Cd] 120 mg PO BID
Escitalopram Oxalate [Lexapro] 20 mg PO DAILY
Fluticasone/Salmeterol 230/21 [Advair Hfa 230/21 Mcg Inhaler] 2 puff INH R BID
Furosemide [Lasix] 40 mg IV DAILY
Losartan [Cozaar] 25 mg PO DAILY
Polyethylene Glycol Powder [Miralax] 17 grams PO DAILY
ipratropium bromide 2 spray NASAL BID
09/14/24 22:00
Artificial Tears (Pf) [Refresh Eye Drops (Pf)] 1 drops BOTH EYES HS
Zolpidem Tartrate [Ambien] 5 mg PO HS
09/15/24 03:24
Rosuvastatin Calcium [Crestor] 5 mg PO MOWEFR
09/15/24 06:00
Basic Metabolic Panel IN AM
Magnesium IN AM
09/16/24 06:00
Basic Metabolic Panel IN AM
Magnesium IN AM
09/16/24 11:00
DC Protocol for Telemetry ONCE
Abnormal Lab Results
09/13/24
21:26
RBC 4.08 L 10^6/uL
(4.20-5.40)
MCHC 31.9 L g/dL
(33.0-37.0)
RDW 15.9 H %
(11.5-14.5)
MPV 10.9 H fL
(7.4-10.4)
Lymphocytes % 15.1 L %
(20.5-51.1)
Glucose 113 H mg/dl
(70-99)
Total Protein 6.2 L g/dl
(6.3-8.2)
Albumin 3.2 L g/dl
(3.5-5.0)
09/13/24 21:26
09/13/24 21:26
Vital Signs
Initial and Last Documented VS:
Initial Vital Signs
Temp Pulse Resp BP Pulse Ox
98.5 F 80 18 130/85 93
09/13/24 21:16 09/13/24 21:16 09/13/24 21:16 09/13/24 21:16 09/13/24 21:16
Last Documented Vital Signs
Temp Pulse Resp BP Pulse Ox
98.4 F 63 24 146/69 95
09/14/24 05:25 09/14/24 05:25 09/14/24 05:25 09/14/24 05:25 09/14/24 05:45
*Critical Care Note
Total Time (30-74mins, 75-104mins- exclusive of procedures): Not Applicable
ED Attending Note
-
Portions of this chart may have been created with voice recognition software.� Occasional wrong word or��sound alike� substitutions may have occurred due to the inherent limitations of voice recognition software.
Discharge Plan
Departure
Patient Disposition: Admit
Date of Disposition: 09/14/24
Time of Disposition: 01:18
Presentation/result/management discussed w/ accepting MD/DO: Hospitalist
Discharge Problem:
CHF exacerbation, Ambulatory dysfunction, Hypoxia
Interventions
Interventions:
*Risk Screen - Suicide Last Done: 09/13/24 21:21
*General Assessment Last Done: 09/13/24 21:21
*Neglect/Abuse Screening Last Done: 09/13/24 21:21
*ED COVID-19 Vaccine History Last Done: 09/13/24 21:21
*Nursing Disposition Last Done: 09/14/24 05:17
ED- Cardiac Assessment Last Done: 09/13/24 21:45
ED- Neurological Assessment Last Done: 09/13/24 21:45
ED- Pulmonary Assessment Last Done: 09/13/24 21:45
ED-Skin Assessment Last Done: 09/13/24 21:45
Discharge Date and Time
Discharge Date/Time: 09/14/24 05:17
[2024-09-13 23:27] VITALS: BP 150/84
[2024-09-14] VITALS (12 sets, daily range): BP systolic 103–162; BP diastolic 54–77; PULSE 71; BMI 20.6
--- NOTE | 2024-09-14 03:11 | HPS.HSE ---
Family Physician
-
Family Physician: Kel Sauceda
Chief Complaint
-
Shortness of breath
History of Present Illness
This is a 88-year-old female with past medical history significant for CHF, sleep apnea, atrial fibrillation on anticoagulation, status post pacemaker placement, COPD, history of oxygen dependence presenting to the emergency department with
shortness of breath and some hypoxia.
Patient unable to provide much history. She has dementia and has been progressive over the last few weeks with plans for her to be transferred to an assisted living facility. Spouse BIBEMS for symptomatic anemia and is being admitted for
transfusion and workup for for the symptomatic anemia. He department and given patient is unable to go home without somebody to help. She has VNA that is only 2 hours a day. She is completely pending on him. Unfortunately she is also symptomatic
with hypoxia and some shortness of breath. Chronic shortness of breath that is worsening over the last 3 days. She is on 2 L home O2. EMS found her satting at 89% but not on her oxygen. On 3 L oxygen and states that he 96%. Son reported some
dyspnea. He has been no chest pain. He has been no notable weight changes. Denies fevers or chills. Appears weaker than usual. Patient has a weak voice as she has had GERD and reflux for several months. Son states that her talking at a whisper
is normal for her lately. Son also states that she has been unable to ambulate without significant help lately.
Here in the emergency department she was afebrile, blood pressure was 120/63, pulse of 60 paced, she was satting 98% on 3 L. ECG shows AV paced rhythm at 75. Troponin was negative. BNP more elevated compared to prior at 4700 from over 2000. To
CBC was unchanged from prior and unremarkable. Electrolytes BUN/creatinine were also stable. X-ray shows bilateral pleural effusions (small) and slight increase interstitial markings compared to a few weeks ago. COVID test negative, influenza
negative.
Medical History
Past Medical History
Past Medical History: Reports Other (permanent atrial fibrillation status post pacemaker on Eliquis, HFpEF, pulmonary fibrosis, pulmonary hypertension, asthma/COPD, obstructive sleep apnea, chronic left vocal cord paralysis, hypertension,
hyperlipidemia, colostomy,)
Past Surgical History: Reports Other (colostomy )
Social History
Tobacco: Non-smoker
Alcohol: None
Drug: None
Personal:
Living: With Family
Employment: Retired
Family History
Family History: Not pertinent
Allergies / Home Medications
Allergies reflects when Allergies were last updated in [employer].
Home Medications with original date entered in [employer]
Allergy/Medication List:
Allergies
Allergy/AdvReac Type Severity Reaction Status Date / Time
codeine Allergy Unknown Verified 09/13/24 21:15
latex Allergy Itching Verified 09/13/24 21:15
meperidine HCl [From Demerol] Allergy Unknown Verified 09/13/24 21:15
morphine Allergy Unknown Verified 09/13/24 21:15
Penicillins Allergy Unknown; Verified 09/13/24 21:15
tolerated
ceftriaxone,
cefepime
vancomycin Allergy Unknown Verified 09/13/24 21:15
Home Medications
rosuvastatin 5 mg tablet 5 mg PO MOWEFR High cholesterol 07/29/17
diltiazem HCl 120 mg capsule,extended release 24 hr 120 mg PO BID Heart disease/condition 01/18/21
losartan 25 mg tablet 25 mg PO DAILY Blood pressure 01/18/21
cholecalciferol (vitamin D3) 50 mcg (2,000 unit) tablet 2,000 units PO DAILY Supplement 03/25/21
escitalopram oxalate 20 mg tablet 20 mg PO DAILY Mental Health/Anxiety 03/25/21
ipratropium bromide 42 mcg (0.06 %) nasal spray 2 spray intranasal BID Allergies 03/25/21
buspirone 10 mg tablet 10 mg PO BID Mental Health/Anxiety 05/24/23
furosemide 40 mg tablet 40 mg PO DAILY Fluid retention/Swelling #30 tabs 06/11/23
therapeutic multivitamin 1 tab PO DAILY Supplement 10/19/23
albuterol sulfate 90 mcg/actuation aerosol inhaler 2 puff inhalation R Q6HPRN PRN sob 03/28/24
dextran 70-hypromellose eye drops in a dropperette (Artificial Tears (PF) drops in a dropperette) 1 drp BOTH EYES HS Eye Condition 03/28/24
fluticasone propionate 230 mcg-salmeterol 21 mcg/actuation HFA inhaler 2 puff inhalation R BID #12 grams 03/31/24
acetaminophen 325 mg tablet (Tylenol) 650 mg PO Q6HPRN PRN mild pain 07/25/24
zolpidem 5 mg tablet (Ambien) 5 mg PO HS Sleep 07/25/24
amoxicillin 250 mg-potassium clavulanate 62.5 mg/5 mL oral suspension 10 ml PO TID #100 mL 08/06/24
ipratropium 0.5 mg-albuterol 3 mg (2.5 mg base)/3 mL nebulization soln 3 ml inhalation R Q4HPRN PRN wheeze #0 mL 08/06/24
lorazepam 0.5 mg tablet 0.5 mg PO Q8HPRN PRN anxiety #5 tabs 08/06/24
polyethylene glycol 3350 17 gram oral powder packet 17 g PO DAILY #0 ea 08/06/24
prednisone 20 mg tablet 20 mg PO DAILY #0 tabs 08/06/24
Review of Systems
-
Unable to obtain full review of systems at this time due to: Dementia
Physical Exam
Vital Signs
Vital Signs
Temp Pulse Resp BP Pulse Ox
98.5 F 60 21 120/63 95
09/13/24 21:16 09/14/24 02:45 09/14/24 02:45 09/14/24 02:00 09/14/24 02:45
Physical Exam
General: No Apparent Distress and Appears Chronically Ill; No Chills
HEENT: NormoCephalic, Anicteric, Atraumatic, PERRLA, No Ptosis and Oxygen
Respiratory: Crackles
Cardiac: S1/S2 and Regular Rhythm
Breast: Deferred by me
GI: Soft, Non Tender, Non Distended and Normal Bowel Sounds
Rectal: Deferred by Provider
Genito-urinary: Deferred by me
Musculoskeletal: No Clubbing, No Cyanosis and No Edema
Skin: Warm
Neuro: Alert, Oriented (oriented to person and place) and Nonfocal/grossly intact
Hematologic/Lymphatic: No Lymphadenopathy
Psych: Calm
Laboratory Results
-
09/13/24 21:26
09/13/24 21:
Laboratory Results
Total Bilirubin 0.8 mg/dl (0.2-1.3) 09/13/24 21:
AST 21 U/L (14-36) 09/13/24 21:
ALT 15 U/L (0-35) 09/13/24 21:26
Alkaline Phosphatase 64 U/L (38-126) 09/13/24 21:26
Data Reviewed
-
Diagnostic Radiology: Image Personally Visualized and interpreted
Medical Tests (Nuc Med, Echo, EKG etc): Image Personally Visualized and interpreted
Lab Data: Labs Reviewed by me
Old Records: Reviewed
Impression/Plan
-
IMPRESSION:
88-year-old female oxygen dependent for COPD and congestive heart failure, progressive Alzheimer's dementia who is pending evaluation for placement presents to the emergency department in conjunction with spouse for weakness and some shortness of
breath. Overall seems to have slightly increased pulmonary edema but no significant total body volume overload. No signs of acute infection. Electrolytes BUN/creatinine were all within normal range and CBC stable. Patient he has been admitted
for mild CHF exacerbation and possible placement as she is unsafe to return home without spouse.
PLAN:
1. CHF exacerbation - Fairly mild based on elevated bnp and increased interstitial markings on xray.
- admit to telemetry observation
- lasix 60 iv given in ED, continue 40 iv daily
- daily weights and i/os
- continue her losartan
2. COPD/MAXIM
- continue supplemental oxygen 3 L prn
- CPAP hs
- continue prn albuterol
- continue advair
3. AFIB - V paced rhythm
- eliquis
- rythmol
- metoprolol
PT evaluation
DVT PPX - on apixaban
Code status - Full Code
--- NOTE | 2024-09-14 05:35 | PTCARENOTE ---
Received patient from ED via stretcher. Patient pulled over from stretcher to bed. Patient is AAOx2, does not know date. States she is in the hospital but repeatedly asking, 'how did I get here'. Denies pain, reports SOB. Pulse ox 95% on 3L.
Oriented patient to room and placed call lopes within reach.
[2024-09-14 06:28] LABS: Blood Urea Nitrogen 7 mg/dl (7-17); Calcium 8.8 mg/dl (8.4-10.2); Carbon Dioxide 28 mmol/L (22-30); Chloride 107 mmol/L (98-107); Estimated Creatinine Clearance 51 ml/min; Glucose 91 mg/dl (70-99); Magnesium 2.1 mg/dl (1.6-2.3); Sodium 140 mmol/L (135-145); eGFR > 60.00
--- NOTE | 2024-09-14 07:18 | W.PN.HOSP.TC ---
Today's Communication/Plan
-
Continue IV Lasix
Assessment / Plan
Assessment / Plan
Physical Exam
General: Not in Acute Distress
HEENT: Normocephalic, Atraumatic
Respiratory: Crackles Bilaterally
Cardiac: S1/S2 and Regular Rate and Rhythm
GI: Soft, Non Tender, Non Distended and Normal Bowel Sounds
Musculoskeletal: No Cyanosis and No Edema
Skin: Warm. Dry.
Neuro: Alert, Oriented (oriented to person and place) and Nonfocal/grossly intact
Psych: Calm
Assessment/Plan
88-year-old female with past medical history significant for CHF, sleep apnea, atrial fibrillation on anticoagulation, status post pacemaker placement, COPD, history of oxygen dependence presented to the emergency department with shortness of breath
and hypoxia. On admission, patient unable to provide much history. She has dementia and has been progressive over the last few weeks with plans for her to be transferred to an assisted living facility. Patient's spouse BIBEMS for symptomatic anemia
and admitted for transfusion and workup for for the symptomatic anemia. Patient is unable to go home without somebody to help. She has VNA that is only 2 hours a day. Unfortunately she is also symptomatic with hypoxia and some shortness of breath.
Chronic shortness of breath that is worsening over the last 3 days prior to presentation. She is on 2 L home O2. EMS found her saturating oxygen at 89% but not on her oxygen. On 3 L oxygen and states that he 96%. Son reported some dyspnea. No
chest pain. No notable weight changes. No fevers or chills. Appears weaker than usual. Patient has a weak voice as she has had GERD and reflux for several months. Son states that her talking at a whisper is normal for her lately. Son also states
that she has been unable to ambulate without significant help lately.
In the emergency department she was afebrile, blood pressure was 120/63, pulse of 60 paced, she was satting 98% on 3 L. ECG showed AV paced rhythm at 75. Troponin was negative. BNP more elevated compared to prior at 4700 from over 1999. CBC was
unchanged from prior and unremarkable. Electrolytes BUN/creatinine were also stable. X-ray showed cardiomegaly and mild CHF with small bilateral pleural effusions. COVID test negative, influenza negative.
HFpEF Exacerbation
- Continue monitoring on telemetry given CHF exacerbation
- lasix 60 iv given in ED, continue lasix 40 mg iv daily
- daily weights and i/os
- continue her losartan
History of Concern for Aspiration Pneumonia
Dysphagia history noted from July 2024 hospitalization
-During hospitalization at [facility] in July 2024
-At that time, speech recommendation was: IDDSI Level 6 (soft/bite-sized) and thin liquids via cup only with head turn to L
-Aspiration precautions
COPD/MAXIM
- continue supplemental oxygen 3 L prn
- CPAP hs
- continue prn albuterol
- continue advair
AFIB - V paced rhythm
Permanent A-fib
-Last admission in July 2024 here in [facility], it was noted that patient is on Cardizem p.o. 120 mg twice a day
-Last admission in July 2024, it was noted that patient is not on anticoagulation as outpatient--> Dr. Barker had discussed this with cardiology and cardiology at that time said
they would like to defer to outpatient child daycare worker. Patient also needs discussions of other GDMT medications as well.
-Will need updated med rec to see whether patient had any additional medications since July 2024
Essential Hypertension
-Continue usual medications
Hyperlipidemia
-Continue home statin
Dementia
-See Dr. Monae's note from 08/06/24
Moderate Hiatal Hernia on Chest X-Ray
Cardiac valvulopathy:
and TR
-cardio evaluated patient
Depression anxiety
-On escitalopram 20 mg p.o. daily
-On Buspirone 10 mg p.o. twice a day
-On Ambien
DVT PPx: Lovenox
Code status - Full Code
This is non-billable note.
Anticipated Discharge: > 48 hours
Subjective/Interval History
-
Date of Service: September 14, 2024
Patient was seen and examined. She reported the same shortness of breath she has had, but denied chest pain or any other symptoms or complaints.
Objective Data
-
Labs:
Laboratory Results
09/13/24 09/14/24
21:26 05:38
WBC 8.2
Hgb 12.1
Hct 37.9
Plt Count 261
Sodium 139 140
Potassium 3.8 4.0
Chloride 104 107
Carbon Dioxide 29 28
BUN 8 7
Creatinine 0.6 0.6
Glucose 113 H 91
Calcium 9.0 8.8
Total Bilirubin 0.8
AST 21
ALT 15
Alkaline Phosphatase 64
Vital Signs:
Vital Signs
Temp Pulse Resp BP Pulse Ox
98.4 F 63 24 146/69 95
09/14/24 05:25 09/14/24 05:25 09/14/24 05:25 09/14/24 05:25 09/14/24 05:45
[2024-09-14] MEDS: ADVAIR HFA 230/21 MCG INHALER 2 PUFF INH ×2 (08:15→19:49)
[2024-09-14] MEDS: LASIX 40 MG IV (08:29)
[2024-09-14] MEDS: BUSPAR 10 MG PO ×2 (08:29→20:30)
[2024-09-14] MEDS: LEXAPRO 20 MG PO (08:29)
[2024-09-14] MEDS: CARDIZEM CD 120 MG PO ×2 (08:29→20:30)
[2024-09-14] MEDS: COZAAR 25 MG PO (08:30)
[2024-09-14] MEDS: MIRALAX PO (08:37)
--- NOTE | 2024-09-14 16:17 | CM ---
Initial assessment completed. Admitted for shortness of breath. Patient has dementia and has been progressive over the last few weeks with plans for her to be transferred to an assisted living facility.
Patient lives w/ spouse in a single story home- 1 step to enter. Patient uses a walker and cane to ambulate. Patient is assisted w/ ADLs by spouse and caregiver. Patient has CPAP at home that she doesn't use, home O2 (3L) supplied by [employer]
[facility]. She is A/O at times, confused/forgetful at times.
She has [facility] in place M-F for 4 hours/day
Current with [facility] for SN/PT/OT
SNF - [facility], Darren Rios
PCP - Kel Sauceda
Pharmacy - Raul [facility]
Patient has several children and daughter Yecenia Reddy, assists patient the most.
Therapy rec skilled rehab at d/c. Patient is currently admitted as OBS, CURRY form on chart
Patient will need insurance auth prior to d/c
Plan: SNF recommended
--- NOTE | 2024-09-14 16:19 | W.PN.UPDATE ---
Update Note
Progress Note Update
Per review of pulmonary and hospitalist progress notes from July 2024 admission, it appears that patient was supposed to be tapered off the Prednisone (not on chronic prednisone).
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
does not know why this was stopped'
[2024-09-14] MEDS: LOVENOX SC (17:34)
[2024-09-14] MEDS: REFRESH EYE DROPS (PF) 1 DROPS BOTH EYES (20:32)
[2024-09-14] MEDS: AMBIEN 5 MG PO (20:32)
[2024-09-14] MEDS: ATIVAN 0.5 MG PO (22:44)
[2024-09-15 05:48] VITALS: BP 106/53
[2024-09-15 06:00] VITALS: BMI 20.3
[2024-09-15 07:22] VITALS: BP 126/76
[2024-09-15] MEDS: ADVAIR HFA 230/21 MCG INHALER 2 PUFF INH ×2 (08:20→19:15)
[2024-09-15] MEDS: LEXAPRO 20 MG PO (08:47)
[2024-09-15] MEDS: BUSPAR 10 MG PO ×2 (08:47→20:13)
[2024-09-15] MEDS: VITAMIN D3 (cholecalciferol) 50 MCG PO (08:47)
[2024-09-15] MEDS: COZAAR 25 MG PO (08:47)
[2024-09-15] MEDS: CARDIZEM CD 120 MG PO ×2 (08:47→20:12)
[2024-09-15] MEDS: THERAGRAN 1 TABLET PO (08:47)
[2024-09-15] MEDS: FLUSH (NSS) 1 FLUSH IV (08:48)
[2024-09-15] MEDS: LASIX 40 MG IV (08:48)
[2024-09-15] MEDS: CRESTOR 5 MG PO (08:50)
[2024-09-15] MEDS: MIRALAX PO (08:51)
[2024-09-15 10:32] LABS: Hematocrit 37.3 % (37.0-47.0); Mean Corp Hgb Conc. 32.2 g/dL (33.0-37.0); Mean Corpuscular Hgb 29.1 pg (27.0-31.0); Mean Corpuscular Volume 90.3 fL (81.0-99.0); Mean Platelet Volume 10.9 fL (7.4-10.4); Platelet Count 239 10^3/uL (130-400); Red Blood Cell Count 4.13 10^6/uL (4.20-5.40); Red Cell Dist. Width 15.7 % (11.5-14.5); White Blood Cell Count 6.5 10^3/uL (4.8-10.8)
[2024-09-15 11:04] LABS: Blood Urea Nitrogen 9 mg/dl (7-17); Calcium 9.1 mg/dl (8.4-10.2); Carbon Dioxide 32 mmol/L (22-30); Chloride 100 mmol/L (98-107); Estimated Creatinine Clearance 44 ml/min; Glucose 141 mg/dl (70-99); Potassium 3.5 mmol/L (3.5-5.1); Sodium 139 mmol/L (135-145); eGFR > 60.00
[2024-09-15 11:18] VITALS: BMI 20.3
[2024-09-15 11:20] VITALS: BP 107/62
--- NOTE | 2024-09-15 11:23 | W.PN.HOSP.TC ---
Today's Communication/Plan
-
Change to oral Lasix in AM
dc planning
Assessment / Plan
Assessment / Plan
Physical Exam
General: Not in Acute Distress
HEENT: Normocephalic, Atraumatic
Respiratory: Crackles Bilaterally
Cardiac: S1/S2 and Regular Rate and Rhythm
GI: Soft, Non Tender, Non Distended and Normal Bowel Sounds
Musculoskeletal: No Cyanosis and No Edema
Skin: Warm. Dry.
Neuro: Alert, Oriented (oriented to person and place) and Nonfocal/grossly intact
Psych: Calm
Assessment/Plan
88-year-old female presented to the emergency department with shortness of breath and hypoxia. On admission, patient unable to provide much history. She has dementia and has been progressive over the last few weeks with plans for her to be
transferred to an assisted living facility. Patient's spouse BIBEMS for symptomatic anemia and admitted for transfusion and workup for for the symptomatic anemia. Patient is unable to go home without somebody to help. 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
hours a day. Unfortunately she is also symptomatic with hypoxia and some shortness of breath. Chronic shortness of breath that is worsening over the last 3 days prior to presentation. She is on 2 L home O2. EMS found her saturating oxygen at 89%
but not on her oxygen. On 3 L oxygen and states that he 96%. Son reported some dyspnea. No chest pain. No notable weight changes. No fevers or chills. Appears weaker than usual. Patient has a weak voice as she has had GERD and reflux for several
months. Son states that her talking at a whisper is normal for her lately. Son also states that she has been unable to ambulate without significant help lately.
In the emergency department she was afebrile, blood pressure was 120/63, pulse of 60 paced, she was satting 98% on 3 L. ECG showed AV paced rhythm at 75. Troponin was negative. BNP more elevated compared to prior at 4700 from over 1999. CBC was
unchanged from prior and unremarkable. Electrolytes BUN/creatinine were also stable. X-ray showed cardiomegaly and mild CHF with small bilateral pleural effusions. COVID test negative, influenza negative.
# Acute Chronic HFpEF Exacerbation
She denies discomfort
She lost weight
- lasix 60 iv given in ED, continue Lasix 40 mg iv, change back to oral in AM
- daily weights and i/os
- continue her losartan
History of Concern for Aspiration Pneumonia
Dysphagia history noted from July 2024 hospitalization
-During hospitalization at [facility] in July 2024
-At that time, speech recommendation was: IDDSI Level 6 (soft/bite-sized) and thin liquids via cup only with head turn to L
-Aspiration precautions
d/w speech, recommend to c/w IDDSI-6
#COPD/MAXIM
- continue supplemental oxygen 3 L prn- CPAP hs
- continue prn albuterol
- continue advair
AFIB - V paced rhythm
Permanent A-fib
-Last admission in July 2024 here in [place], it was noted that patient is on Cardizem p.o. 120 mg twice a day
-Last admission in July 2024, it was noted that patient is not on anticoagulation as outpatient--> Dr. Barker had discussed this with cardiology and cardiology at that time said
they would like to defer to outpatient motel clerk. Patient also needs discussions of other GDMT medications as well.
Essential Hypertension
-Continue usual medications
Hyperlipidemia
-Continue home statin
Dementia
-See Dr. Monae's note from 08/06/24
Moderate Hiatal Hernia on Chest X-Ray
Cardiac valvulopathy:
and TR
-cardio evaluated patient
Depression anxiety
-On escitalopram 20 mg p.o. daily
-On Buspirone 10 mg p.o. twice a day
-On Ambien
DVT PPx: Lovenox
Code status - Full Code
Total time spent to see the patient, examine the patient, review data and lab results, discuss treatment plan with patient and nursing staff around 55 minutes
Anticipated Discharge: Within 24 hours
Subjective/Interval History
-
Date of Service: September 15, 2024
No chest pain
No sob
No fevers
Objective Data
-
Labs:
Laboratory Results
09/15/24
09:55
WBC 6.5
Hgb 12.0
Hct 37.3
Plt Count 239
Sodium 139
Potassium 3.5
Chloride 100
Carbon Dioxide 32 H
BUN 9
Creatinine 0.7
Glucose 141 H
Calcium 9.1
Vital Signs:
Vital Signs
Temp Pulse Resp BP Pulse Ox
98.0 F 78 18 126/76 96
09/15/24 05:48 09/15/24 08:48 09/15/24 08:22 09/15/24 08:48 09/15/24 08:46
--- NOTE | 2024-09-15 12:20 | PTOTSP ---
Speech Therapy Swallowing Assessment
Patient without overt signs of aspiration during bedside assessment, however a recent VSE on 07/29/24 revealed silent aspiration or deep laryngeal penetration of thin and thick liquids so patient is at high risk. Impaired airway protection likely
related to known left vocal fold paralysis. Strategy of head turn left eliminated laryngeal penetration or aspiration but given patient's cognitive status, she requires constant cues to utilize strategy. Documentation shows family was aware of
aspiration risk during last admission but was unable to decide on hospice or PEG tube and patient was sent to SNF. Though patient is here with CHF exacerbation, her likely continued silent aspiration may be contributing to current respiratory
status. Chart indicates cognitive decline has been progressing and family is looking at placement.
Recommend
1. Continue with IDDSI 6/Thin Liquids
2. Supervision and cues to use head turn left with all liquids.
3. Meds whole in applesauce.
4. Consider revisiting GOC discussion as patient chronic dysphagia/aspiration risk will only worsen with advancing dementia.
5. ST will follow to determine need for further diet modifications.
--- NOTE | 2024-09-15 13:03 | PTCARENOTE ---
Pt's son Braulio Guzman called, asked to be added to emergency contact list. Braulio Guzman identified as son by pt; permission given by pt to add Braulio Guzman name/phone number to emergency contact list.
[2024-09-15 15:30] VITALS: BP 114/53
--- NOTE | 2024-09-15 16:31 | PTCARENOTE ---
Pt awake and alert,oriented to self/'hospital' and birthdate; occ oriented to year/month. Pt easily irritated; occ attempts to hit/punch staff. DOOLEY; OOB to BR/BSC with assist x1/walker, devang well, unsteady w/OOB activity. Fall prec maintained.
VSS. Telemetry:V-paced rhythm. Maintained on nc 3 lpm-pulse ox 94%, pt denies SOB but has (+) MOURA/tachypnea. Abd soft, devang PO well. Voids in BR/on BSC; also incont urine. Resting in bed at present. Will continue to monitor.
--- NOTE | 2024-09-15 16:52 | CM ---
Spoke with Epifanio son [phone] He said she has care givers with [facility] 5 days a week for 4 hours.
PT recommended SNF.
Reviewed PT with son . He requested [facility] , [facility] , and [facility] referral to be placed.In care port.
Will need auth for SNF.
PLAN To SNf after located and auth obtained.
[2024-09-15] MEDS: LOVENOX 40 MG SC (17:20)
[2024-09-15 19:15] VITALS: BP 102/59
[2024-09-15] MEDS: AMBIEN 5 MG PO (20:12)
[2024-09-15] MEDS: REFRESH EYE DROPS (PF) 1 DROPS BOTH EYES (20:13)
[2024-09-15] MEDS: ATIVAN 0.5 MG PO (21:21)
[2024-09-15 23:09] VITALS: BP 98/63
[2024-09-16] VITALS (7 sets, daily range): BP systolic 81–114; BP diastolic 46–75; PULSE 70–72; O2SAT 92; BMI 19.5
[2024-09-16] MEDS: TYLENOL 650 MG PO (00:46)
[2024-09-16 07:12] LABS: Hematocrit 34.7 % (37.0-47.0); Hemoglobin 11.3 g/dL (12.0-16.0); Mean Corp Hgb Conc. 32.6 g/dL (33.0-37.0); Mean Corpuscular Hgb 29.2 pg (27.0-31.0); Mean Corpuscular Volume 89.7 fL (81.0-99.0); Mean Platelet Volume 10.7 fL (7.4-10.4); Platelet Count 222 10^3/uL (130-400); Red Blood Cell Count 3.87 10^6/uL (4.20-5.40); Red Cell Dist. Width 15.6 % (11.5-14.5); White Blood Cell Count 6.4 10^3/uL (4.8-10.8)
[2024-09-16 07:50] LABS: Blood Urea Nitrogen 13 mg/dl (7-17); Calcium 8.9 mg/dl (8.4-10.2); Carbon Dioxide 32 mmol/L (22-30); Chloride 101 mmol/L (98-107); Estimated Creatinine Clearance 50 ml/min; Glucose 89 mg/dl (70-99); Potassium 3.5 mmol/L (3.5-5.1); Sodium 138 mmol/L (135-145); eGFR > 60.00
[2024-09-16] MEDS: ADVAIR HFA 230/21 MCG INHALER 2 PUFF INH (08:17)
--- NOTE | 2024-09-16 09:43 | W.PN.HOSP.TC ---
Today's Communication/Plan
-
dc planning, likely in am
Assessment / Plan
Assessment / Plan
Physical Exam
General: Not in Acute Distress
HEENT: Normocephalic, Atraumatic
Respiratory: same fine crackles Bilaterally
Cardiac: S1/S2 and Regular Rate and Rhythm
GI: Soft, Non Tender, Non Distended and Normal Bowel Sounds
Musculoskeletal: No Cyanosis and No Edema
Skin: Warm. Dry.
Neuro: Alert, Oriented (oriented to person and place) and Nonfocal/grossly intact
Psych: Calm
Assessment/Plan
88-year-old female presented to the emergency department with shortness of breath and hypoxia. On admission, patient unable to provide much history. She has dementia and has been progressive over the last few weeks with plans for her to be
transferred to an assisted living facility. Patient's spouse BIBEMS for symptomatic anemia and admitted for transfusion and workup for for the symptomatic anemia. Patient is unable to go home without somebody to help. 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
hours a day. Unfortunately she is also symptomatic with hypoxia and some shortness of breath. Chronic shortness of breath that is worsening over the last 3 days prior to presentation. She is on 2 L home O2. EMS found her saturating oxygen at 89%
but not on her oxygen. On 3 L oxygen and states that he 96%. Son reported some dyspnea. No chest pain. No notable weight changes. No fevers or chills. Appears weaker than usual. Patient has a weak voice as she has had GERD and reflux for several
months. Son states that her talking at a whisper is normal for her lately. Son also states that she has been unable to ambulate without significant help lately.
In the emergency department she was afebrile, blood pressure was 120/63, pulse of 60 paced, she was satting 98% on 3 L. ECG showed AV paced rhythm at 75. Troponin was negative. BNP more elevated compared to prior at 4700 from over 1999. CBC was
unchanged from prior and unremarkable. Electrolytes BUN/creatinine were also stable. X-ray showed cardiomegaly and mild CHF with small bilateral pleural effusions. COVID test negative, influenza negative.
# Acute Chronic HFpEF Exacerbation
She denies discomfort
She lost weight
- Lasix 60 iv given in ED, continue Lasix 40 mg iv, change back to oral today 09/16
- daily weights and i/os
- continue her losartan
History of Concern for Aspiration Pneumonia
Dysphagia history noted from July 2024 hospitalization
-During hospitalization at [facility] in July 2024
-At that time, speech recommendation was: IDDSI Level 6 (soft/bite-sized) and thin liquids via cup only with head turn to L
-Aspiration precautions
d/w speech, recommend to c/w IDDSI-6
#COPD/MAXIM
- continue supplemental oxygen 3 L prn- CPAP hs
- continue prn albuterol
- continue advair
AFIB - V paced rhythm
Permanent A-fib
-Last admission in July 2024 here in [place], it was noted that patient is on Cardizem p.o. 120 mg twice a day
-Last admission in July 2024, it was noted that patient is not on anticoagulation as outpatient--> Dr. Barker had discussed this with cardiology and cardiology at that time said
they would like to defer to outpatient custom feed corn operator. Patient also needs discussions of other GDMT medications as well.
Essential Hypertension
-Continue usual medications
Hyperlipidemia
-Continue home statin
Dementia
-See Dr. Monae's note from 08/06/24
Moderate Hiatal Hernia on Chest X-Ray
Cardiac valvulopathy:
and TR
-cardio evaluated patient
Depression anxiety
-On escitalopram 20 mg p.o. daily
-On Buspirone 10 mg p.o. twice a day
-On Ambien
DVT PPx: Lovenox
Code status - Full Code
Total time spent to see the patient, examine the patient, review data and lab results, discuss treatment plan with patient and nursing staff around 55 minutes
Anticipated Discharge: Within 24 hours
Subjective/Interval History
-
Date of Service: September 16, 2024
No fever
Denies pain in chest or abdomen
Objective Data
-
Labs:
Laboratory Results
09/16/24
07:04
WBC 6.4
Hgb 11.3 L
Hct 34.7 L
Plt Count 222
Sodium 138
Potassium 3.5
Chloride 101
Carbon Dioxide 32 H
BUN 13
Creatinine 0.6
Glucose 89
Calcium 8.9
Vital Signs:
Vital Signs
Temp Pulse Resp BP Pulse Ox
97.8 F 66 18 114/75 96
09/16/24 07:55 09/16/24 08:21 09/16/24 08:21 09/16/24 07:55 09/16/24 08:21
I&O
09/15/24 09/16/24 09/17/24
06:59 06:59 06:59
Intake Total 1480 / 1480
Balance 1480 / 1480
[2024-09-16] MEDS: VITAMIN D3 (cholecalciferol) 50 MCG PO (10:18)
[2024-09-16] MEDS: LEXAPRO 20 MG PO (10:18)
[2024-09-16] MEDS: LASIX 40 MG PO (10:19)
[2024-09-16] MEDS: CARDIZEM CD 120 MG PO (10:19)
[2024-09-16] MEDS: BUSPAR 10 MG PO ×2 (10:19→21:14)
[2024-09-16] MEDS: THERAGRAN 1 TABLET PO (10:20)
[2024-09-16] MEDS: COZAAR 25 MG PO (10:20)
[2024-09-16] MEDS: MIRALAX 17 GRAMS PO (10:20)
--- NOTE | 2024-09-16 14:34 | PN.CDI ---
Addendum entered and electronically signed by Beatriz Peck MD 09/16/24 14:41:
Stage 1 b/l heel pressure injury, POA
- Stage 1 sacrum pressure injury, POA
Original Note:
CDI
- -
CDI:
Physician Documentation Request
Admit Date: 09/15/24 08:23
Dear Doctor Cisco,
Please review the following and provide your response in the progress notes.
Clinical Indicators:
- RN skin assessments indicate:
- Stage 1 b/l heel pressure injury, POA
- Stage 1 sacrum pressure injury, POA
Physician documentation of the type and location of wounds is required for compliant documentation. Based on the above clinical findings and your assessment, please provide the following in your progress note:
1. Location of the ulcer/wound, including laterality.
2. Type (etiology) of ulcer/wound:
- Arterial (ischemic) ulcer
- Pressure (decubitus) ulcer
- Non-healing surgical wound
- Other
Use of terms such as suspected, likely, concern for, or probable (associated with a specific diagnosis that is being evaluated, monitored, or treated as if it exists) are acceptable and can be coded in the inpatient setting, when documented at the
time of discharge.
Thank you,
Jimmie Levya RN
CDI Specialist
Please use your independent medical judgment in providing your response.
*Source: National Pressure Ulcer Advisory Panel (NPUAP)
--- NOTE | 2024-09-16 14:37 | PN.CDI ---
Addendum entered and electronically signed by Beatriz Peck MD 09/16/24 14:42:
Chronic hypoxic respiratory failure requiring continuous use home O2
Original Note:
CDI
- -
CDI:
Physician Documentation Request
Admit Date: 09/15/24 08:23
Dear Doctor Cisco,
Please review the following and provide your response in the progress notes.
Clinical Indicators:
- Documented VS 2-4L O2, SpO2 >90%
- 09/13 ER Physician 'Patient is on 3 L of home oxygen...EMS found her satting 89 to 90%'
- / CM note 'home O2 (3L)'
Please clarify a diagnosis associated with continuous use of home O2
Chronic hypoxic respiratory failure requiring continuous use home O2
Hypoxia requiring intermittent home O2 use
Other (please specify)
Use of terms such as suspected, likely, concern for, or probable (associated with a specific diagnosis that is being evaluated, monitored, or treated as if it exists) are acceptable and can be coded in the inpatient setting, when documented at the
time of discharge.
Thank you,
Jimmie Leyva RN
CDI Specialist
Please use your independent medical judgment in providing your response.
--- NOTE | 2024-09-16 15:52 | PTCARENOTE ---
Patient with low BP 84/46. Dr. Peck notified. Asymptomatic. Care of plan ongoing.
[2024-09-16] MEDS: LOVENOX 40 MG SC (18:12)
[2024-09-16] MEDS: CARDIZEM CD PO (20:20)
[2024-09-16] MEDS: ADVAIR HFA 230/21 MCG INHALER INH (20:30)
[2024-09-16] MEDS: AMBIEN 5 MG PO (21:13)
[2024-09-16] MEDS: REFRESH EYE DROPS (PF) 1 DROPS BOTH EYES (21:13)
[2024-09-17] MEDS: ATIVAN 0.5 MG PO ×2 (01:40→17:14)
[2024-09-17 07:18] VITALS: BP 129/65
[2024-09-17] MEDS: ADVAIR HFA 230/21 MCG INHALER 2 PUFF INH ×2 (08:35→19:33)
--- NOTE | 2024-09-17 10:19 | W.PN.HOSP.TC ---
Today's Communication/Plan
-
To clarify status of anticoagulation with primary physician representative
Low BP, hold Losartan, reduce Lasix
Assessment / Plan
Assessment / Plan
Physical Exam
General: Not in Acute Distress
HEENT: Normocephalic, Atraumatic
Respiratory: same fine crackles Bilaterally
Cardiac: S1/S2 and Regular Rate and Rhythm
GI: Soft, Non Tender, Non Distended and Normal Bowel Sounds
Musculoskeletal: No Cyanosis and No Edema
Skin: Warm. Dry.
Neuro: Alert, Oriented (oriented to self and surroundings, moving limbs.
Psych: agitated.
Assessment/Plan
88-year-old female presented to the emergency department with shortness of breath and hypoxia. On admission, patient unable to provide much history. She has dementia and has been progressive over the last few weeks with plans for her to be
transferred to an assisted living facility. Patient's spouse BIBEMS for symptomatic anemia and admitted for transfusion and workup for for the symptomatic anemia. Patient is unable to go home without somebody to help. 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
hours a day. Unfortunately she is also symptomatic with hypoxia and some shortness of breath. Chronic shortness of breath that is worsening over the last 3 days prior to presentation. She is on 2 L home O2. EMS found her saturating oxygen at 89%
but not on her oxygen. On 3 L oxygen and states that he 96%. Son reported some dyspnea. No chest pain. No notable weight changes. No fevers or chills. Appears weaker than usual. Patient has a weak voice as she has had GERD and reflux for several
months. Son states that her talking at a whisper is normal for her lately. Son also states that she has been unable to ambulate without significant help lately.
In the emergency department she was afebrile, blood pressure was 120/63, pulse of 60 paced, she was satting 98% on 3 L. ECG showed AV paced rhythm at 75. Troponin was negative. BNP more elevated compared to prior at 4700 from over 1999. CBC was
unchanged from prior and unremarkable. Electrolytes BUN/creatinine were also stable. X-ray showed cardiomegaly and mild CHF with small bilateral pleural effusions. COVID test negative, influenza negative.
# Acute Chronic HFpEF Exacerbation
She lost weight
- Lasix 60 iv given in ED, continue Lasix 40 mg iv, change back to oral today 09/16 , reduce dose to 20 mg due to hypotension.
-Due to restriction of symptomatic hypotension, doubt we will be able to proceed with all goal-directed medical therapy. Holding losartan
History of Concern for Aspiration Pneumonia
Dysphagia history noted from July 2024 hospitalization
-During hospitalization at [facility] in July 2024
-At that time, speech recommendation was: IDDSI Level 6 (soft/bite-sized) and thin liquids via cup only with head turn to L
-Aspiration precautions
d/w speech, recommend to c/w IDDSI-6
#COPD/MAXIM
- continue supplemental oxygen 3 L prn- CPAP hs
- continue prn albuterol
- continue advair
AFIB - V paced rhythm
Permanent A-fib
-I reviewed records of 2022, 2023, 2024, Patient was on Eliquis twice daily, it was changed to low-dose Xarelto due to her weight by physician representative Dr Graf on 10/22/23 and she was discharged on it.. Subsequent admissions since then starting
March 2024, not on any form of anticoagulation without a clear reason. I reached out to Dr. Jose Mata's office. Await a callback to clarify.
#Essential Hypertension
-Continue usual medications, stop Losartan due to low Bp.
Hyperlipidemia
-Continue home statin
# Dementia, suspect senile
She was arguing with her in the room. She was moved to be with her in 1 room as he is also a patient here. Discussed with the staff, we will try to move her back to a different room
Moderate Hiatal Hernia on Chest X-Ray
Cardiac valvulopathy:
and TR
-cardio evaluated patient
Depression anxiety
-On escitalopram 20 mg p.o. daily
-On Buspirone 10 mg p.o. twice a day
-On Ambien
DVT PPx: Lovenox
Code status - Full Code
Total time spent to see the patient, examine the patient, review data and lab results, discuss treatment plan with patient and nursing staff around 55 minutes
Anticipated Discharge: Within 24 hours
Subjective/Interval History
-
Date of Service: September 17, 2024
She is agitated
Was moved to a room with her and she was arguing with him
Objective Data
-
Vital Signs:
Vital Signs
Temp Pulse Resp BP Pulse Ox
97.4 F 70 16 129/65 95
09/17/24 07:18 09/17/24 08:35 09/17/24 08:35 09/17/24 07:18 09/17/24 08:35
I&O
09/16/24 09/17/24 09/18/24
06:59 06:59 06:59
Intake Total 1480 / 1480 240 / 240
Balance 1480 / 1480 240 / 240
[2024-09-17] MEDS: LASIX 20 MG PO (11:49)
[2024-09-17] MEDS: MIRALAX 17 GRAMS PO (11:52)
[2024-09-17] MEDS: BUSPAR 10 MG PO ×2 (11:52→20:19)
[2024-09-17] MEDS: CARDIZEM CD 120 MG PO (11:52)
[2024-09-17] MEDS: LEXAPRO 20 MG PO (11:52)
[2024-09-17] MEDS: CRESTOR 5 MG PO (11:56)
[2024-09-17 15:21] VITALS: BP 93/45
--- NOTE | 2024-09-17 15:44 | CM ---
Patient chart reviewed
Spoke with Samantha choudhary at [facility] who states she has a bed available tomorrow if patient is dc
Spoke with son Epifanio who was agreeable to [facility]
tt hospitalist
spoke with PT and requested updated PT/OT notes
Will need insurance authorization
PLAN: SNF, will need to obtain insurance auth
[2024-09-17] MEDS: LOVENOX 40 MG SC (17:12)
[2024-09-17] MEDS: AMBIEN 5 MG PO (20:19)
[2024-09-17] MEDS: REFRESH EYE DROPS (PF) 1 DROPS BOTH EYES (20:20)
[2024-09-17] MEDS: CARDIZEM CD PO (20:41)
[2024-09-17 23:34] VITALS: BP 113/54
[2024-09-18 06:00] VITALS: BMI 19.2
[2024-09-18 07:28] VITALS: BP 124/70
[2024-09-18] MEDS: ADVAIR HFA 230/21 MCG INHALER 2 PUFF INH (07:52)
[2024-09-18] MEDS: BUSPAR 10 MG PO (08:10)
[2024-09-18] MEDS: LASIX 20 MG PO (08:10)
[2024-09-18] MEDS: LEXAPRO 20 MG PO (08:11)
[2024-09-18] MEDS: CARDIZEM CD 120 MG PO (08:11)
[2024-09-18] MEDS: MIRALAX 17 GRAMS PO (08:12)
[2024-09-18 10:11] VITALS: BP 97/55
[2024-09-18 10:12] VITALS: BP 101/57; PULSE 71
[2024-09-18 10:51] VITALS: PULSE 73; O2SAT 93
--- NOTE | 2024-09-18 11:07 | W.PN.HOSP.TC ---
Addendum entered and electronically signed by Beatriz Peck MD 09/19/24 14:17:
Addendum
Discussed with son at bedside, agreed to discharge
Total discharge time spent to see the patient, examine the patient, review data and lab results, discuss discharge plan with patient, son and nursing staff around 65 minutes
Original Note:
Today's Communication/Plan
-
dc
Assessment / Plan
Assessment / Plan
Physical Exam
General: Not in Acute Distress
HEENT: Normocephalic, Atraumatic
Respiratory: same fine crackles Bilaterally
Cardiac: S1/S2 and Regular Rate and Rhythm
GI: Soft, Non Tender, Non Distended and Normal Bowel Sounds
Musculoskeletal: No Cyanosis and No Edema
Skin: Warm. Dry.
Neuro: Alert, Oriented (oriented to self and surroundings, moving limbs.
Psych: agitated.
Assessment/Plan
88-year-old female presented to the emergency department with shortness of breath and hypoxia. On admission, patient unable to provide much history. She has dementia and has been progressive over the last few weeks with plans for her to be
transferred to an assisted living facility. Patient's spouse BIBEMS for symptomatic anemia and admitted for transfusion and workup for for the symptomatic anemia. Patient is unable to go home without somebody to help. 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
hours a day. Unfortunately she is also symptomatic with hypoxia and some shortness of breath. Chronic shortness of breath that is worsening over the last 3 days prior to presentation. She is on 2 L home O2. EMS found her saturating oxygen at 89%
but not on her oxygen. On 3 L oxygen and states that he 96%. Son reported some dyspnea. No chest pain. No notable weight changes. No fevers or chills. Appears weaker than usual. Patient has a weak voice as she has had GERD and reflux for several
months. Son states that her talking at a whisper is normal for her lately. Son also states that she has been unable to ambulate without significant help lately.
In the emergency department she was afebrile, blood pressure was 120/63, pulse of 60 paced, she was satting 98% on 3 L. ECG showed AV paced rhythm at 75. Troponin was negative. BNP more elevated compared to prior at 4700 from over 1999. CBC was
unchanged from prior and unremarkable. Electrolytes BUN/creatinine were also stable. X-ray showed cardiomegaly and mild CHF with small bilateral pleural effusions. COVID test negative, influenza negative.
# Acute Chronic HFpEF Exacerbation
She lost weight
- Lasix 60 iv given in ED, continue Lasix 40 mg iv, change back to oral today 09/16 , reduce dose to 20 mg due to hypotension.
-Due to restriction of symptomatic hypotension, doubt we will be able to proceed with all goal-directed medical therapy. Holding losartan
History of Concern for Aspiration Pneumonia
Dysphagia history noted from July 2024 hospitalization
-During hospitalization at [facility] in July 2024
-At that time, speech recommendation was: IDDSI Level 6 (soft/bite-sized) and thin liquids via cup only with head turn to L
-Aspiration precautions
d/w speech, recommend to c/w IDDSI-6
#COPD/MAXIM
- continue supplemental oxygen 3 L prn- CPAP hs
- continue prn albuterol
- continue advair
AFIB - V paced rhythm
Permanent A-fib
-I reviewed records of 2022, 2023, 2024, Patient was on Eliquis twice daily, it was changed to low-dose Xarelto due to her weight by yarn bleaching machine operator Dr Graf on 10/22/23 and she was discharged on it.. Subsequent admissions since then starting
March 2024, not on any form of anticoagulation without a clear reason. I reached out to Dr. Jose Mata's office. Await a callback to clarify.
Addendum
I talked to Dr Mata's nurse, upon last visit to the office, patient was advised to go back on Xarelto, no known contraindications, will start Xarelto
#Essential Hypertension
-Continue usual medications, stop Losartan due to low Bp.
Hyperlipidemia
-Continue home statin
# Dementia, suspect senile
She is better today, calm and cooperative. Had good night sleep.
#Moderate Hiatal Hernia on Chest X-Ray
#Cardiac valvulopathy:
and TR
-cardio evaluated patient
Depression anxiety
-On escitalopram 20 mg p.o. daily
-On Buspirone 10 mg p.o. twice a day
-On Ambien
DVT PPx: Lovenox
Code status - Full Code
Total time spent to see the patient, examine the patient, review data and lab results, discuss treatment plan with patient and nursing staff around 55 minutes
Anticipated Discharge: Today
Subjective/Interval History
-
Date of Service: September 18, 2024
Doing better today
No complaints
Feels ready to go to SNF
Objective Data
-
Vital Signs:
Vital Signs
Temp Pulse Resp BP Pulse Ox
97.1 F 90 16 97/55 94
09/18/24 07:28 09/18/24 10:11 09/18/24 07:54 09/18/24 10:11 09/18/24 07:54
I&O
09/17/24 09/18/24 09/19/24
06:59 06:59 06:59
Intake Total 240 / 240 540 / 540
Balance 240 / 240 540 / 540
--- NOTE | 2024-09-18 13:40 | CM ---
Addendum entered by Adriane Mcgovern 09/18/24 15:14:
Called insurance and spoke with Margarita
Authorization approved - Auth approval #: [id number]
Start 09/18/24---NRD 09/22/24
Call with updates to [phone]
Left authorization approval information with Samantha mercer at [facility]
PLAN: [facility]
transportation time set 1600
Original Note:
Patient discharged today
IMM explained & signed
Called and spoke with Krystyna at [facility] [phone]
[facility] NPI #: [id number]
Dr. Monge NPI #: [id number]
Sent to [facility] for review
PENDING AUTH #: [id number] - Krystyna will call CM back
PLAN: [facility] pending ins auth approval
Report #: [phone]
Fax #: [phone]
--- NOTE | 2024-09-18 15:58 | PTCARENOTE ---
Patient is agitated and can be combative at tis time. refuses to let nursing take her vitals. Unable to redirect this patient at this time
--- NOTE | 2024-09-19 09:18 | W.HF.CON ---
Heart Failure
- LV Function
Left ventricular function study result: LV Ejection fraction >/= 50% (ECHO 03/31/24)
Ejection Fraction Percentage: 50-55
- ARNI
Patient already on ARNI: No
Heart Failure ARNI Not Indicated: LV Ejection Fraction >/= 40%
- ACEI/ARB
Patient already on ACEI/ARB: No
Heart Failure ACEI/ARB Not Indicated: LV Ejection Fraction > 40%
- Beta Ray
Patient already on Evidence Based Beta Ray: No
Heart Failure Evidence Based Beta Ray Not Indicated: LV Ejection Fraction > 40%
- Mineralocorticord Receptor Antagonist
Patient already on MRA: No
Heart Failure MRA Not Indicated: LV Ejection Fraction > 40%
- SGLT-2 Inhibitor
Patient already on SGLT-2 Inhibitor: No
Heart Failure SGLT-2 Inhibitor Not Indicated: LV Ejection Fraction >40%
- Afib Anticoagulation
Patient already on Anticoagulation for Afib: Yes
- NYHA CHF Classification
NYHA CHF Classification Level: Class III - Symptoms w/ min exertion, interferes w/ nml daily activity
- ACC/AHA Stage
ACC/AHA Stage: Stage C: Symptomatic Heart Failure
--- NOTE | 2024-09-19 14:19 | W.DCSUMMARY ---
Discharge Summary
Discharge Data
Date of Admission: 09/13/24
Date of Discharge: 09/18/24
-
Pending Results: No
Hospital Course
89 years old female presented with history of weakness, failure to thrive, worsening hypoxemia. Family reported that patient was progressively declining at home and needing more assistance. Patient was diagnosed with mild CHF exacerbation. She
was given IV Lasix. She was maintained on Cardizem, losartan. Patient had history of chronic hypoxic respiratory failure. She did not need increasing oxygen supplementation and she was stable at 3 L at baseline. Patient was noted to have
hypotension with weakness. Losartan was held. Patient had history of atrial fibrillation. She was not on systemic anticoagulation. Primary key punch teacher Dr. Mata was contacted. Recommendation to continue with oral anticoagulation. Patient was
started back on Xarelto. Patient remained hemodynamically stable. She was evaluated by physical therapy recommended [facility] facility placement. Patient was discharged in a stable condition.
Discharge Plan
-
Patient Disposition: Care Home/SNF
Discharge Diagnosis/Procedures: Acute Chronic HFpEF Exacerbation
Chronic hypoxic respiratory failure requiring continuous use home O2
COPD/MAXIM
AFIB - V paced rhythm/ [employer] pacemaker
Permanent A-fib
Aortic stenosis, severe. Symptomatic hypotension in the hospital, reduced dose of Lasix, stopping losartan.
Tricuspid regurgitation, moderate to severe
Stage 1 b/l heel pressure injury, POA
- Stage 1 sacrum pressure injury, POA
Diet: As tolerated and Chop all food
Instructions: *PCP/Other Milk Processing Worker Heart Failure Instructions
Referrals:
Kel Sauceda MD [Family Provider] -
Prescriptions:
New
Xarelto 15 mg Tablet
15 mg PO QPM Qty: 30 0RF
furosemide 20 mg Tablet
20 mg PO DAILY Qty: 30 0RF
Continued
rosuvastatin 5 MG tablet
5 mg PO MOWEFR
diltiazem HCl 120 MG capsule,extended release 24hr
120 mg PO BID
ipratropium bromide 1 SPRAY spray,non-aerosol
2 spray intranasal BID
escitalopram oxalate 20 MG tablet
20 mg PO DAILY
cholecalciferol (vitamin D3) 2,000 UNITS tablet
2,000 units PO DAILY
buspirone 10 mg tablet
10 mg PO BID
therapeutic multivitamin Tablet
1 tab PO DAILY
albuterol sulfate 90 mcg/actuation Hfa Aerosol Inhaler
2 puff INHALATION R Q6HPRN PRN (Reason: sob)
Artificial Tears (PF) Dropperette
1 drp BOTH EYES HS
fluticasone propion-salmeterol 230-21 mcg/actuation Hfa Aerosol Inhaler
2 puff inhalation R BID Qty: 12 0RF
acetaminophen [Tylenol] 325 mg Tablet
650 mg PO Q6HPRN PRN (Reason: mild pain)
zolpidem [Ambien] 5 mg Tablet
5 mg PO HS
lorazepam 0.5 mg Tablet
0.5 mg PO Q8HPRN PRN (Reason: anxiety) Qty: 5 0RF
ipratropium-albuterol 0.5 mg-3 mg(2.5 mg base)/3 mL Solution For Nebulization
3 ml inhalation R Q4HPRN PRN (Reason: wheeze) Qty: 0 0RF
polyethylene glycol 3350 17 gram Powder In Packet
17 g PO DAILY Qty: 0 0RF
Discontinued
losartan 25 MG tablet
25 mg PO DAILY
furosemide 40 mg tablet
40 mg PO DAILY Qty: 30 0RF
amoxicillin-pot clavulanate 250-62.5 mg/5 mL Suspension For Reconstitution
10 ml PO TID Qty: 100 0RF
Rx Instructions:
last day 08/08/24
prednisone 20 mg Tablet
20 mg PO DAILY Qty: 0 0RF
Rx Instructions:
Taper by 10 mg every 5 days until done
Discharge Orders:
Discharge Patient (As Directed); Ordered 09/18/24
Ordered By: Beatriz Peck
Discharge Date and Time
Discharge Date/Time: 09/18/24 16:03
Print Language: BURKINAN
== END 2024-09-18 16:03 | DRG 291 ==
LOC: 4 EAST ACU 08:23
PROVIDERS: Hospitalist; Student in an Organized Health Care Education/Training Program; ADMITTING PHYSICIAN Internal Medicine; ATTENDING PHYSICIAN Internal Medicine; EMERGENCY PHYSICIAN Student in an Organized Health Care Education/Training Program; FAMILY PHYSICIAN Internal Medicine
DX: I11.0 Hypertensive heart disease with heart failure (principal); I50.33 Acute on chronic diastolic (congestive) heart failure; I48.21 Permanent atrial fibrillation; I38 Endocarditis, valve unspecified; J90 Pleural effusion, not elsewhere classified; J44.89 Other specified chronic obstructive pulmonary disease; G47.33 Obstructive sleep apnea (adult) (pediatric); E78.00 Pure hypercholesterolemia, unspecified; F02.80 Dementia in other diseases classified elsewhere, unspecified severity, without behavioral disturbance, psychotic disturbance, mood disturbance, and anxiety; G30.9 Alzheimer's disease, unspecified; I27.20 Pulmonary hypertension, unspecified; J84.10 Pulmonary fibrosis, unspecified; Z11.52 Encounter for screening for COVID-19; Z99.81 Dependence on supplemental oxygen; Z93.3 Colostomy status; Z95.0 Presence of cardiac pacemaker; F41.9 Anxiety disorder, unspecified; F32.A Depression, unspecified
CPT/HCPCS: 71046; 80048; 80053; 83735; 83880; 85025; 85027; 87502; 87811; 92526; 92610; 93005; 94640; 96374; 97116; 97162; 97166; 97530; 99285